=== PATIENT | male | born 1965 | race Caucasian/White ===

== ENCOUNTER 2022-12-26 08:23 | Outpatient (OUT) | payer OTHER, SELFPAY ==
--- NOTE | 2022-12-26 08:26 | VEIN_ITS ---
The [address] [address] Patient Name: AXEL THOMPSON MRN: [id number] date: 1965 Sex: M Assigned Patient Location: Current Patient Location: Accession/Order Number: [id number] Exam Date: 12/26/2022 08:40 Report Date: 12/26/2022 12:23 At the request of: ADALID ORLANDO Procedure: VC INJ Foam Sclerosant [employer] PROCEDURE: VC INJ Foam Sclerosant [employer] COMPARISON: None. HISTORY: painful varicose veins I83.813 Pre-operative Diagnosis: CEAP class C4 venous insufficiency with pain, tenderness, edema and incompetent branch saphenous vein(s), chronic venous insufficiency left leg secondary to venous incompetence Post-operative Diagnosis: CEAP class C4 venous insufficiency with pain, tenderness, edema and incompetent branch saphenous vein(s), chronic venous insufficiency left leg secondary to venous incompetence Procedure Performed: 1. Ultrasound-guided microfoam chemical ablation with Varithenaregistered 2. Intraoperative ultrasound guidance Physician: Senthil Lo M.D. Anesthesia: None Indications for Procedure: 57 year old male. Symptoms including lower extremity pain, swelling, throbbing, itching, dilated veins, skin discoloration for many years despite conservative medical therapy including medical compression stockings, exercise and analgesics. Prior procedures include endovenous laser lesion. Multiple incompetent varicosities of the left leg. Duplex scan showed reflux and enlarged diameters up to 5 mm. The patient underwent informed consent including management options where the complications of infection, bleeding, pain, and skin injury were discussed. Particular attention was spent discussing thrombus extension and deep vein thrombosis as well as the possibility of pulmonary embolus and treatment with oral or injectable blood thinners. Procedure: The patient walked to the procedure room. All applicable staff donned appropriate apparel. A procedure timeout was performed to confirm correct patient, correct extremity, correct procedure, and correct room set-up including presence of all applicable supplies, devices, and drugs. A duplex ultrasound, performed by myself confirmed the location and incompetence of branch saphenous varicosities and their course was marked on the skin together with the dilated tributaries. The extent of treatment of the vein and the associated varicosities was determined through ultrasound mapping. The skin was prepped and then punctured with a butterfly needle and advanced under ultrasound guidance. The Varithenaregistered canister was activated and the canister was primed and purged as required in the instructions for use. Varithenaregistered was drawn into a sterile syringe. Varithenaregistered was slowly administered at 0.5-1.0 cc/second with close observation by ultrasound of its course in the vessels. Total volume utilized was: 13 mL (5 mL within the 4 mm incompetent varicosity of the anterior distal lower leg; 5 mL within incompetent 4 mm varicosity lateral to the knee; 3 mL within incompetent 5 mm varicosity of the mid medial upper left leg). Following administration of Varithenaregistered the leg was elevated and the patient was asked to repeatedly dorsiflex the ankle to limit flow of Varithenaregistered into perforating veins. Once appropriate spasm had been confirmed in the treated veins, the vascular catheter was removed from the leg and light pressure was applied over the puncture site for hemostasis. The common femoral and deep superficial veins were then evaluated for flow and compressibility prior to dressing placement. The lower extremity was kept elevated at 45 degrees above the horizontal and cording material was applied over the saphenous segments and tributaries to allow for eccentric compression over the target vessels including the targeted saphenous vein(s). A multilayer dressing was applied consisting of foam pads, coban and thigh-high 20-30 mm Hg compression elastic support hose were placed on the patient. The leg was lowered only after compression had been applied and the patient was immediately ambulatory. The patient ambulated 10 minutes under supervision and was without apparent concerns at time of release. Post-care instructions include advising patient to keep post-treatment bandages in place and dry for 48 hours, avoid extended periods of inactivity, avoid heavy exercise for one week, wear compression stockings on the treated leg continuously for two weeks, to walk daily for 10 minutes over the next month. The patient was instructed to take an anti-inflammatory medicine as needed and to follow up for color duplex scan of the Saphenous veins, the treated branch saphenous varicosities, the adjacent deep veins, and additional treatment within 7 days. PERSONNEL: INA Anguiano RN Electronically authenticated by: SENTHIL LO Date: 12/26/2022 12:23
== END 2022-12-26 08:24 ==
LOC: VC 08:24
PROVIDERS: PCP Radiology Diagnostic Radiology; Visit Provider Radiology Diagnostic Radiology
DX: I83.813 Varicose veins of bilateral lower extremities with pain (principal); I80.02 Phlebitis and thrombophlebitis of superficial vessels of left lower extremity
CPT/HCPCS: 36466

== ENCOUNTER 2022-12-30 08:29 | Outpatient (OUT) | payer OTHER, SELFPAY ==
--- NOTE | 2022-12-30 08:32 | VEIN_ITS ---
Patient: AXEL THOMPSON Exam Date: 12/30/2022 : 1965 Gender:M Ordering : DR ADALID ORLANDO M.D. Admission #: [id number] Family : Order #: [id number] CLICK HERE TO VIEW EXAM RADIOLOGY REPORT PROCEDURE: [facility] - OFFICE VISIT FOLLOW UP COMPARISON: None. PROGRESS NOTES: The patient reports that improvement in leg symptoms. There has been interval reduction in varicosities. The patient has followed our recommendations to walk 20-30 minutes once or twice per day since the procedure. Physical exam demonstrates decrease in varicosities of the left leg. Persistent spider veins and reticular veins are identified along the legs bilaterally. Review of the ultrasound performed the same day demonstrates occlusive thrombus extending throughout the treated vein, see separate report, consistent with a successful ablation. No thrombus extending into or beyond the saphenofemoral junction. The patient expressed a desire to proceed with treatment of prominent reticular veins and spider veins. The patient was informed that treatment was a process and would require approximately 2 procedures/sessions. IMPRESSION: 1. Successful ablation of the treated incompetent branch saphenous varicosities. 2. Persistent reticular veins and spider veins bilaterally. PLAN: Bilateral lower extremity sclerotherapy for prominent reticular veins and spider veins. Nurse notes, history and physical were reviewed and confirmed, see attached forms. The nurse was present throughout the physical exam and consultation Dictated by: Senthil Lo M.D. on 12/30/2022 at 12:56 Approved by: Senthil Lo M.D. on 12/30/2022 at 13:08
--- NOTE | 2022-12-30 08:32 | VEIN_ITS ---
Patient: AXEL THOMPSON Exam Date: 12/30/2022 : 1965 Gender:M Ordering : DR ADALID ORLANDO M.D. Admission #: [id number] Family : Order #: [id number] CLICK HERE TO VIEW EXAM RADIOLOGY REPORT PROCEDURE: VC EXT VENOUS LT LIMITED COMPARISON: None. INDICATIONS: Phlebitis of superficial veins left lower extremity I80.02 TECHNIQUE: Lower extremity chavez scale and Duplex Doppler evaluation of the deep venous system from the inguinal ligament through the calf veins. FINDINGS: REGION: Left lower extremity. THROMBI: Negative for DVT. Chemically induced thrombus in multiple varicose veins in left leg. COMPRESSIBILITY: Non-compressible segments. FLOW: Areas of no flow. OTHER: Patent head trimmer prox medial calf 6.2 mm with 1.3s of reflux. Varicose vein off of head trimmer prox calf measures 2.7 mm. CONCLUSION: 1. Successful post ablation occlusion of treated branch saphenous varicosities within left leg. Dictated by: Senthil Lo M.D. on 12/30/2022 at 12:55 Approved by: Senthil Lo M.D. on 12/30/2022 at 12:56
== END 2022-12-30 08:30 ==
LOC: VC 08:30
PROVIDERS: PCP Radiology Diagnostic Radiology; Visit Provider Radiology Diagnostic Radiology
DX: I80.02 Phlebitis and thrombophlebitis of superficial vessels of left lower extremity (principal)
CPT/HCPCS: 93971; G0463

== ENCOUNTER 2023-01-09 08:20 | Outpatient (OUT) | payer OTHER, SELFPAY ==
--- NOTE | 2023-01-09 | VEIN_ITS ---
[address] [address] Patient Name: AXEL THOMPSON MRN: [id number] date: 1965 Sex: M Assigned Patient Location: Current Patient Location: Accession/Order Number: [id number] Exam Date: 01/09/2023 08:25 Report Date: 01/09/2023 09:16 At the request of: ADALID ORLANDO Procedure: VC INJ Sclerosing SOLMULT Vein EXAMINATION: VC INJ Sclerosing SOLMULT Vein HISTORY: Pain due to varicose veins of bilateral legs I83.813 The risks and benefits of the procedure were explained at length to the patient and informed written consent was obtained. José Luis Damian RN was present and assisted. The procedure was performed under sterile technique. The patient's leg was wrapped with Coban and postprocedural verbal and written instructions provided. SCLEROSANT: 2 cc, 0.5% polidocanol VEIN(S) INJECTED: 18 veins in the right leg VISUALIZATION: Ultrasound was not used to visualize the sclerosant ANESTHESIA: Supercooled air COMPLICATIONS: None Electronically authenticated by: IVY CLARKE Date: 01/09/2023 09:16
== END 2023-01-09 08:21 | disposition home or self-care (01) ==
LOC: VC 08:20
PROVIDERS: PCP Radiology Diagnostic Radiology; Visit Provider Radiology Diagnostic Radiology
DX: I83.813 Varicose veins of bilateral lower extremities with pain (principal)
CPT/HCPCS: 36471

== ENCOUNTER 2023-02-06 07:55 | Outpatient (OUT) | payer OTHER, SELFPAY ==
--- NOTE | 2023-02-06 07:57 | VEIN_ITS ---
[address] [address] Patient Name: AXEL THOMPSON MRN: [id number] date: 1965 Sex: M Assigned Patient Location: VC Current Patient Location: Accession/Order Number: [id number] Exam Date: 02/06/2023 08:00 Report Date: 02/06/2023 10:41 At the request of: ADALID ORLANDO Procedure: VC INJ Sclerosing SOLMULT Vein EXAMINATION: VC INJ Sclerosing SOLMULT Vein HISTORY: I83.813 Pain due to varicose veins of bilateral leg veins COMPARISON: No relevant comparison available. TECHNIQUE: The risks and benefits of the procedure were explained at length to the patient and informed written consent was obtained. José Luis Damian was present and assisted. The procedure was performed under sterile technique. The patient's leg was wrapped with Coban and postprocedural verbal and written instructions provided. SCLEROSANT: 4 cc, 0.5% polidocanol VEIN(S) INJECTED: 16 veins in the left leg VISUALIZATION: Ultrasound was not used to visualize the sclerosant ANESTHESIA: Supercooled air COMPLICATIONS: None VEIN/VC INJ Sclerosing SOLMULT Vein IMPRESSION: Technically successful sclerotherapy as described Electronically authenticated by: ADALID ORLANDO Date: 02/06/2023 10:41
== END 2023-02-06 07:56 | disposition home or self-care (01) ==
LOC: VC 07:56
PROVIDERS: PCP Radiology Diagnostic Radiology; Visit Provider Radiology Diagnostic Radiology
DX: I83.813 Varicose veins of bilateral lower extremities with pain (principal)
CPT/HCPCS: 36471

== ENCOUNTER 2023-02-21 07:52 | Outpatient (OUT) | payer OTHER, SELFPAY ==
--- NOTE | 2023-02-21 | VEIN_ITS ---
[address] [address] Patient Name: AXEL THOMPSON MRN: [id number] date: 1965 Sex: M Assigned Patient Location: VC Current Patient Location: Accession/Order Number: [id number] Exam Date: 02/21/2023 07:55 Report Date: 02/21/2023 09:04 At the request of: ADALID ORLANDO Procedure: VC INJ Sclerosing SOLMULT Vein EXAMINATION: VC INJ Sclerosing SOLMULT Vein HISTORY: Pain due to varicose veins of bilateral legs I83.813 COMPARISON: No relevant comparison available. TECHNIQUE: The risks and benefits of the procedure were explained at length to the patient and informed written consent was obtained. José Luis Damian was present and assisted. The procedure was performed under sterile technique. The patient's leg was wrapped with Coban and postprocedural verbal and written instructions provided. SCLEROSANT: 4 cc, 0.5% polidocanol VEIN(S) INJECTED: 16 veins in the left leg VISUALIZATION: Ultrasound was not used to visualize the sclerosant ANESTHESIA: Supercooled air COMPLICATIONS: None VEIN/VC INJ Sclerosing SOLMULT Vein IMPRESSION: Technically successful sclerotherapy as described Electronically authenticated by: ADALID ORLANDO Date: 02/21/2023 09:04
== END 2023-02-21 07:53 | disposition home or self-care (01) ==
LOC: VC 07:52
PROVIDERS: PCP Radiology Diagnostic Radiology; Visit Provider Radiology Diagnostic Radiology
DX: I83.813 Varicose veins of bilateral lower extremities with pain (principal)
CPT/HCPCS: 36471

== ENCOUNTER 2024-02-20 11:41 | Outpatient (OUT) | payer OTHER, SELFPAY | END 2024-02-20 11:42 | disposition home or self-care (01) | LOC: WC 11:41 | PROVIDERS: PCP Radiology Diagnostic Radiology; Visit Provider Podiatrist Foot & Ankle Surgery | DX: L97.422 Non-pressure chronic ulcer of left heel and midfoot with fat layer exposed (principal); L97.312 Non-pressure chronic ulcer of right ankle with fat layer exposed; L97.912 Non-pressure chronic ulcer of unspecified part of right lower leg with fat layer exposed | CPT/HCPCS: G0463 ==

== ENCOUNTER 2024-03-04 10:52 | Outpatient (OUT) | payer OTHER, SELFPAY ==
--- NOTE | 2024-03-04 10:55 | VEIN_ITS ---
The [address] [address] Patient Name: AXEL THOMPSON MRN: [id number] date: 1965 Sex: M Assigned Patient Location: Current Patient Location: Accession/Order Number: [id number] Exam Date: 03/04/2024 10:55 Report Date: 03/04/2024 13:54 At the request of: VINCE KERNS Procedure: VC SEGMENTAL PRESSURES EXAM: VC SEGMENTAL PRESSURES. HISTORY: R09.89, lower leg ulceration. COMPARISON: None. TECHNIQUE: Resting ABIs and segmental pressures. FINDINGS: Waveforms are multiphasic. Right resting VINICIO 1.27. Left resting VINICIO 1.14. Toe brachial indices are normal. No gradients were noted. VEIN/VC SEGMENTAL PRESSURES IMPRESSION: Normal resting ABIs bilaterally. Normal toe brachial indices. Electronically authenticated by: Beata JACKSON Date: 03/04/2024 13:54
== END 2024-03-04 10:53 | disposition home or self-care (01) ==
LOC: VC 10:52
PROVIDERS: PCP Podiatrist Foot & Ankle Surgery; Visit Provider Podiatrist Foot & Ankle Surgery
DX: R09.89 Other specified symptoms and signs involving the circulatory and respiratory systems (principal)
CPT/HCPCS: 93923

== ENCOUNTER 2024-03-08 15:45 | Outpatient (OUT) | payer OTHER, SELFPAY ==
--- OUTSIDE RECORDS SUMMARY | 2024-03-08 16:06 | XMS_ITS | CCD ---
Author Organization [facility] Care Team Providers Care Midwife Name Role Phone Unavailable Primary Care Provider UnavailDEBRA Rincon Referring UnavailSHEREE Parham Attending Unavailable Unavailable Primary Care Provider Unavailsaul ORLANDO, DR ADALID Jean Consulting Unavailable WEST, DR ADALID Jean Attending Unavailable WEST, DR ADALID Jean Admitting Unavailable ZIEBER, DR IVY Waddell Consulting Unavailable WEST, DR ADALID Jean Consulting Unavailable RENA ., FRANKLIN FRANKS Admitting Unavailable RENA ., FRANKLIN FRANKS Attending Unavailable ZIEBER, DR IVY Waddell Consulting Unavailable RENA ., FRANKLIN FRANKS Consulting Unavailable WEST, DR ADALID Jean Consulting Unavailable WEST, DR ADALID Jean Attending Unavailable WEST, DR ADALID Jean Admitting Unavailable WEST, DR ADALID Jean Attending Unavailable WEST, DR ADALID Jean Admitting Unavailable WEST, DR ADALID Jean Admitting Unavailable WEST, DR ADALID Jean Attending Unavailable WEST, DR ADALID Jean Consulting Unavailable WEST, DR ADALID Jean Attending Unavailable WEST, DR ADALID Jean Admitting Unavailable ZIEBER, DR IVY Waddell Consulting Unavailable WEST, DR ADALID Jean Admitting Unavailable WEST, DR ADALID Jean Attending Unavailable WEST, DR ADALID Jean Consulting Unavailable ZIEBER, DR IVY Waddell Consulting Unavailable HIGHLANDERVINCE Consulting Unavailable HIGHLANDERVINCE Attending Unavailable HIGHLANDER, VINCE Vargas Admitting Unavailable HIGHLANDER, VINCE Vargas Attending Unavailable HIGHLANDER, VINCE Vargas Admitting Unavailable RENA ., FRANKLIN FRANKS Attending Unavailable RENA ., FRANKLIN FRANKS Admitting Unavailable HIGHLANDER, VINCE Vargas Attending Unavailable HIGHLANDER, VINCE Vargas Admitting Unavailable WEST, DR ADALID Jean Attending Unavailable WEST, DR ADALID Jean Admitting Unavailable WEST, DR ADALID Jean Consulting Unavailable WEST, DR ADALID Jean Consulting Unavailable WEST, DR ADALID Jean Attending Unavailable WEST, DR ADALID Jean Admitting Unavailable ZIEBER, DR IVY Waddell Consulting Unavailable WEST, DR ADALID Jean Consulting Unavailable WEST, DR ADALID Jean Attending Unavailable WEST, DR ADALID Jean Admitting Unavailable ZIEBER, DR IVY Waddell Consulting Unavailable [place], DR ADALID Jean Consulting Unavailable WEST, DR ADALID Jean Attending Unavailable WEST, DR ADALID Jean Admitting Unavailable VINCE, DR IVY Waddell Consulting Unavailable Crow Rogers Primary Care Provider [phone] NO FAMILY, PHYSICIAN Primary Care Provider MD Ana Ozuna Attending Provider Unavailable Primary Care Provider Unavailabl e Asaad, Imad Attending Unavailable Asaad, Imad Admitting Unavailable NO FAMILY, PHYSICIAN Primary Care Unavailable Asaad, Imsupryia Attending Unavailable Asaad, Imad Admitting Unavailable NIRAJ OLIVO Attending Unavailable NIRAJ OLIVO Referring Unavailable GEOVANI, NIRAJ Referring Unavailable NIRAJ OLIVO Attending Unavailable DEBRA HOPKINS Referring Unavailabl e SYLWIA MCBRIDE, DEBRA Referring Unavailabl e DEBRA HOPKINS Referring Unavailabl NIRAJ Pabon Referring Unavailable NIRAJ OLIVO Attending Unavailable SELF Referring Unavailable Medications Current Medications Medication Drug Class(es) Dates Sig (Normalized) Sig (Original) [id number] 200 actuat albuterol 0.09 mg/actuat metered dose inhaler (1 source) beta2-Adrenergic Agonist Start: 11-12-2023 take 1 puff(s) by inhalation four times daily Albuterol Sulfate Active 2 PUFF INHALATION Four times daily 8.5 November 12, 2023 12:00am Blood Pressure Monitor (4 sources) Start: 09-18-2023 Blood Pressure Monitor 1 Each once daily. 1 Each 0 09/18/2023 Active Comment on above: 1 Each once daily. 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 60 tablet 11 09/18/2023 Active Start: 10-01-2022 End: 09-04-2023 take 1 tablet by mouth twice daily carvedilol (COREG) 3.125 mg tablet Take 1 tablet by mouth twice daily. 60 tablet 11 10/01/2022 09/04/2023 Discontinued Comment on above: Take 1 tablet by lula th twice daily. Take 1 tablet by lula th two times a day. doxycycline hyclate 100 mg oral capsule (1 source) Tetracycline-cl ass Drug Start: 11-01-19 take 100 mg by mouth twice daily Doxycycline Hyclate Active 100 MG PO Twice daily 09 05November 01, 2023 12:00am 3 ml insulin degludec 100 unt/ml pen injector (20 sources) Insulin Analog Start: 09-05-19 inject 100 [IU] by subcutaneous injection every twenty-four hours insulin degludec (TRESIBA FLEXTOUCH U-100) 100 unit/mL (3 mL) injection pen Indications: Steroid-induced diabetes mellitus, subsequent encounter (HCC) Inject 10-13 Units subcutaneously every 24 hours. 5 Each 3 09/05/2023 Active Start: 01-02-2023 End: 09-05-2023 inject 10 [IU] by subcutaneous injection every twenty-four hours insulin degludec (TRESIBA FLEXTOUCH U-100) 100 unit/mL (3 mL) injection pen Indications: Steroid-induced diabetes mellitus, subsequent encounter (HCC) Inject 10 Units subcutaneously every 24 hours. 5 Each 3 04/18/2023 09/05/2023 Discontinued Start: 04-26-2021 End: 12-31-2022 inject 10 [IU] by subcutaneous injection every twenty-four hours insulin degludec (TRESIBA FLEXTOUCH U-100) 100 unit/mL (3 mL) injection pen Inject 10 Units subcutaneously every 24 hours. 5 Pen 3 11/12/2021 12/31/2022 Discontinued Start: 01-10-2020 End: 08-14-2020 inject 9 [IU] by subcutaneous injection every twenty-four hours insulin degludec (TRESIBA FLEXTOUCH U-100) 100 unit/mL (3 mL) injection Inject 9 Units subcutaneously every 24 hours. 5 Pen 3 01/10/2020 08/14/2020 Discontinued Comment on above: Inject 10 Units subc utaneously every 24 hours. Inject 9 Units subcu taneously every 24 hours. Inject 10-13 Units s ubcutaneously every 24 hours. 3 ml insulin lispro 200 unt/ml pen injector (20 sources) Insulin Analog Start: 07-10-20 End: 09-05-19 inject 7 [IU] by subcutaneous injection once daily at dinner insulin lispro (HUMALOG KWIKPEN INSULIN) 200 unit/mL (3 mL) injection Indications: Steroid-induced diabetes mellitus, subsequent encounter (HCC) Inject sq 6 unit(s) with breakfast and dinner on non workdays; inject sq 7 unit(s) with breakfast and dinner on work days 5 Each 3 09/05/2023 Active Start: 04-26-2021 End: 07-07-2022 inject 7 [IU] by subcutaneous injection once daily at dinner insulin lispro (HUMALOG KWIKPEN INSULIN) 200 unit/mL (3 mL) injection Inject sq 6 unit(s) with breakfast and dinner on non workdays; inject sq 7 unit(s) with breakfast and dinner on work days 5 Pen 3 04/26/2021 07/07/2022 Discontinued Start: 10-26-2019 End: 11-02-2020 inject 6 [IU] by subcutaneous injection twice daily before mealtime insulin lispro (HUMALOG KWIKPEN INSULIN) 100 unit/mL Inject 6 Units subcutaneously twice daily before meals. 5 Pen 3 10/26/2019 11/02/2020 Discontinued Comment on above: Inject sq 6 unit(s) with breakfast and dinner on non workdays; inject sq 7 unit(s) with breakfast and dinner on work days Inject 6 Units subcu taneously twice daily before meals. lansoprazole 30 mg delayed release oral capsule (15 sources) Proton Pump Inhibitor Start: 10-02-19 23 take 1 capsule by mouth once daily lansoprazole (PREVACID) 30 mg capsule Take 1 capsule by mouth once daily. 30 capsule 5 10/01/2022 Active Comment on above: Take 1 capsule by [facility] once daily. mycophenolate mofetil 500 mg oral tablet (20 sources) Start: 11-20-19 24 take 1 tablet by mouth four times daily mycophenolate Mofetil (CELLCEPT) 500 mg tablet take 1 tablet by mouth four times a day 360 tablet 9 11/20/2023 Active Start: 10-02-2023 End: 10-02-2023 Mycophenolate Mofetil Discon tinued PO October 02, 2023 12:00am October 02, 2023 10:18am Start: 10-02-2023 End: 10-02-2023 take 1500 mg by mouth twice daily Mycophenolate Mofetil Active 1500 MG PO Twice daily October 02, 2023 10:18am Start: 02-20-2023 End: 11-20-2023 take 3 tablets by mouth twice daily mycophenolate Mofetil (CELLCEPT) 500 mg tablet Take 3 tablets by mouth twice a day 540 tablet 3 02/20/2023 11/20/2023 Discontinued Start: 02-17-2023 End: 02-19-2023 take 1 tablet by mouth twice daily, then take 3 tablets by mouth twice daily mycophenolate Mofetil (CELLCEPT) 500 mg tablet Take 1 tablet by mouth twice daily. take 3 tablets twice a day 180 tablet 11 02/17/2023 02/19/2023 Discontinued Start: 09-16-2022 End: 02-17-2023 take 2 tablets by mouth twice daily mycophenolate Mofetil (CELLCEPT) 500 mg tablet Take 2 tablets by mouth twice daily. 120 tablet 11 09/17/2022 02/17/2023 Discontinued (Course of therapy completed) Start: 04-11-2021 End: 09-16-2022 take 1 tablet by mouth four times daily mycophenolate Mofetil (CELLCEPT) 500 mg tablet Take 1 tablet by mouth four times daily. 120 Each 11/28/2021 09/16/2022 Discontinued Start: 06-04-2019 End: 05-03-2020 take 1 tablet by mouth four times daily mycophenolate Mofetil (CELLCEPT) 500 mg tablet Take 1 tablet by mouth four times daily. 120 tablet 06/04/2019 05/03/2020 Discontinued Start: 06-03-2019 End: 05-03-2020 take 2 tablets by mouth twice daily mycophenolate Mofetil (CELLCEPT) 500 mg tablet Take 2 tablets by mouth twice per day 120 tablet 06/03/2019 05/03/2020 Discontinued Comment on above: Take 1 tablet by lula th four times daily. Take 2 tablets by mo uth twice daily. Take 1 tablet by lula th twice daily. take 3 tablets twice a day Take 3 tablets by mo uth twice a day Take 2 tablets by mo uth twice per day predniSONE 20 mg oral tablet (20 sources) Start: 11-01-2023 take 20 mg by mouth twice daily Prednisone Active 20 MG PO Twice daily 10 November 01, 2023 12:00am Start: 10-02-2023 End: 10-03-2023 take 1 tablet by mouth twice daily Prednisone Discontinued 1 TAB PO Twice daily October 02, 2023 12:00am October 03, 2023 8:04am FreeTextSi tablet Orally bid; Note: Source Status: Start; Refills: 0; Qty: 10 Tablet; Provider: Tonia Camacho Start: 10-02-2023 End: 10-03-2023 take 1 tablet by mouth twice daily Prednisone Active 10 MG PO Twice daily October 03, 2023 8:03am FreeTextSi tablet Orally bid; Note: Source Status: Start; Refills: 0; Qty: 10 Tablet; Provider: Tonia Camacho Start: 09-16-2022 End: 09-17-2022 take 5 tablets by mouth once daily predniSONE (DELTASONE) 1 mg tablet Take 5 tablets by mouth once daily. 150 tablet 11 09/17/2022 Active Start: 11-28-2021 End: 02-26-2022 take 1 tablet by mouth once daily predniSONE (DELTASONE) 5 mg tablet Indications: Autoimmune hepatitis treated with steroids (HCC) , Other cirrhosis of liver (HCC) Take 1 tablet by mouth once daily. 30 tablet 11/28/2021 02/26/2022 Active Start: 01-12-2020 End: 05-04-2020 take 2 tablets by mouth once daily predniSONE (DELTASONE) 1 mg tablet Indications: Autoimmune hepatitis treated with steroids (HCC) , Hepatic cirrhosis, unspecified hepatic cirrhosis type (HCC) Take 2 tablets by mouth once daily. 60 tablet 5 01/12/2020 05/04/2020 Discontinued Start: 01-12-2020 End: 05-04-2020 take 1 tablet by mouth once daily predniSONE (DELTASONE) 5 mg tablet Indications: Autoimmune hepatitis treated with steroids (HCC) , Other cirrhosis of liver (HCC) Take 1 tablet by mouth once daily. 30 tablet 4 01/12/2020 05/04/2020 Discontinued Comment on above: Take 1 tablet by lula once daily. Take 5 tablets by mo [facility] once daily. Take 2 tablets by mo [facility] once daily. Completed/Discontinued Medications Medication Drug Class(es) Dates Sig (Normalized) Sig (Original) Blood-Glucose Meter (ONETOUCH VERIO IQ METER) monitoring kit (2 sources) Start: 10-07-2016 End: 09-27-2020 Blood-Glucose Meter (ONETOUCH VERIO IQ METER) monitoring kit Indications: Uncontrolled type 2 diabetes mellitus without complication, with long-term current use of insulin 1 Each as needed. 1 Each 0 10/07/2016 09/27/2020 Discontinued Comment on above: 1 Each as needed. Problems Active Problems Problem Classification Problem Date Documented Da te Episodic/Chronic Abdominal pain (4 sources) Abdominal pain; Translations: [Unspecified abdominal pain] 10-02-2023 Episodic Alcohol-related disorders (6 sources) Alcoholic cirrhosis; Translations: [Alcoholic cirrhosis of liver without ascites] Onset: 4 10-02-2023 Chronic Chronic obstructive pulmonary disease and bronchiectasis (1 source) Bronchitis, not specified as acute or chronic; Translations: [Bronchitis, not specified as acute or chronic] 11-01-2023 Episodic Chronic ulcer of skin (1 source) Non-pressure chronic ulcer of left heel and midfoot limited to breakdown of skin; Translations: [N-PRSS CHR ULCR LT HEEL BRKDWN SKN] Onset: 3 Chronic Diabetes mellitus with complications (20 sources) Type 2 diabetes mellitus; Translations: [Type II or unspecified type diabetes mellitus without mention of complication, uncontrolled] Onset: 5 02-21-2015 Chronic Diabetes mellitus without complication (20 sources) Steroid-induced diabetes; 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] Onset: 8 Chronic Esophageal disorders (6 sources) Esophageal varices; Translations: [Esophageal varices without bleeding] 10-02-2023 Chronic Hepatitis (20 sources) Autoimmune hepatitis; Translations: [Autoimmune hepatitis] Onset: 5 02-21-2015 Chronic Immunizations and screening for infectious disease (2 sources) Contact with or exposure to other viral diseases; Translations: [Exposure to 2019 novel coronavirus] 11-01-2023 Episodic Other aftercare (4 sources) Long-term current use of insulin; Translations: [intermodal customer service (current) use of insulin] Episodic Other aftercare (1 source) Long-term current use of systemic steroid; Translations: [halfway (current) use of systemic steroids] 02-29-2020 Episodic Other gastrointestinal disorders (4 sources) Diarrhea; Translations: [Diarrhea, unspecified] 10-02-2023 Episodic Other gastrointestinal disorders (4 sources) Abdominal bloating; Translations: [Abdominal distension (gaseous)] 10-02-2023 Episodic Other liver diseases (3 sources) Biliary cirrhosis; Translations: [Biliary cirrhosis, unspecified] Chronic Other liver diseases (7 sources) Cirrhosis of liver; Translations: [Other cirrhosis of liver] Chronic Other liver diseases (1 source) Biliary cirrhosis, unspecified; Translations: [Biliary cirrhosis (HCC)] Onset: 3 Chronic Other liver diseases (3 sources) Other cirrhosis of liver; Translations: [Other cirrhosis of liver (HCC)] Onset: 3 Chronic Other liver diseases (3 sources) Portal hypertension; Translations: [Portal hypertension] 10-02-2023 Chronic Other liver diseases (4 sources) Unspecified cirrhosis of liver; Translations: [Cirrhosis of liver without mention of alcohol] Onset: 4 10-02-2023 Chronic Other liver diseases (3 sources) Portal hypertension; Translations: [Portal hypertension] 10-02-2023 Chronic Other liver diseases (1 source) Liver enzymes abnormal; Translations: [Abnormal levels of other serum enzymes] 07-05-2021 Episodic Other liver diseases (4 sources) Elevated liver enzymes level; Translations: [Abnormal levels of other serum enzymes] 10-02-2023 Episodic Other liver diseases (3 sources) Abnormal levels of other serum enzymes; Translations: [Other nonspecific abnormal serum enzyme levels] 10-02-2023 Episodic Phlebitis; thrombophlebitis and thromboembolism (8 sources) Phlebitis and thrombophlebitis of superficial vessels of left lower extremity; Translations: [Phlebitis and thrombophlebitis of superficial vessels of right lower extremity] Onset: 3 Episodic Unclassified (20 sources) Type 2 diabetes mellitus without complication; Translations: [Uncontrolled type 2 diabetes mellitus without complication, with long-term current use of insulin] Onset: 6 04-16-2016 Varicose veins of lower extremity (4 sources) Varicose veins of bilateral lower extremities with pain; Translations: [VARICOSE VNS PHILIP LOW EXTREM W/PAIN] Onset: 3 Episodic Past or Other Problems Problem Classification Problem Date Documented Date Episodic/Chronic E Codes: Adverse effects of medical drugs (1 source) Adverse effect of glucocorticoids and synthetic analogues, subsequent encounter; Translations: [Steroid-induced diabetes mellitus, subsequent encounter ([facility])] Onset: 11-09-2021 Episodic Other aftercare (1 source) intermodal customer service (current) use of insulin; Translations: [Current use of insulin ([facility])] Onset: 09-05-2023 Episodic Other circulatory disease (4 sources) Other specified symptoms and signs involving the circulatory and respiratory systems; Translations: [OTH SPEC SX SIGNS INVLV CIRC RS] Onset: 08-09-2022 Episodic Results Test Name Value Interpretation Reference Range Facility ALBUMIN/CREATININE RATIO, UR INEon 02-06-2024 Albumin DL <= 20 mg/L (U) [Mass/Vol] mg/dL Normal [facility] Comment on above: Order Comment: Farnaz rodgers Type: URINE SPECIMEN Ordering Facility: [facility] Address: [address] [place] [address] Performed By: #### U ACR #### [facility] CLIA [id number] [address] [place], [place] [address] [place] [address] [place] Albumin/Creatinine (U) [Mass ratio] <13 Normal <30 [facility] Comment on above: Order Comment: Farnaz rodgers Type: URINE SPECIMEN Ordering Facility: [facility] Address: [address] [place] [address] Result Comment: Adul t Male and Female Nephrotic Criteria: <30 mg/g is considered normal to mildly increased 30-300 mg/g is considered moderately increased >300 mg/g is considered severely increased KDIGO. (2013). KDIGO 2012 Clinical Practice Guideline for the Evaluation and Management of Chronic Kidney Disease. Official Journal of the International Society of Nephrology, 3(1), 1-150. Performed By: #### U ACR #### [facility] CLIA [id number] [address] [place] [address] [place] Creatinine (U) [Mass/Vol] 91.1 mg/dL Normal 20.0-300.0 [facility] Comment on above: Order Comment: Speci men Type: URINE SPECIMEN Ordering Facility: [facility] Address: [address] [place] [address] Performed By: #### U ACR #### [facility] CLIA [id number] [address] [place] [address] [place] Bilirub Conj SerPl-mCncon Bilirubin.conjugated [Mass/Vol] 0.8 mg/dL High <0.2 [facility] Comment on above: Order Comment: Speci men Type: BLOOD SPECIMEN Ordering Facility: [facility] Address: [address] [place] [address] Performed By: #### 2 4323-8, 81720-7 #### [facility] CLIA [id number] [address] [place] [address] Comprehensive metabolic 2000 panelon 02-06-2024 Albumin [Mass/Vol] 4.1 g/dL Normal 3.9-4.9 [facility] Comment on above: Order Comment: Speci men Type: BLOOD SPECIMEN Ordering Facility: [facility] Address: [address] [place] [address] Performed By: #### 2 4323-8, 53874-9 #### [facility] CLIA [id number] [address] [place] [address] ALP [Catalytic activity/Vol] 126 U/L High 38-113 [facility] Comment on above: Order Comment: Speci men Type: BLOOD SPECIMEN Ordering Facility: [facility] Address: [address] [place] [address] Performed By: #### 2 4323-8, 69518-4 #### [facility] CLIA [id number] [address] [place] [address] ALT [Catalytic activity/Vol] 112 U/L High 10-54 [facility] Comment on above: Order Comment: Speci men Type: BLOOD SPECIMEN Ordering Facility: [facility] Address: [address] [place] [address] Performed By: #### 2 4323-8, 07071-8 #### [facility] CLIA [id number] [address] [place] [address] Anion gap [Moles/Vol] 7 mmol/L Low 8-15 [facility] Comment on above: Order Comment: Speci men Type: BLOOD SPECIMEN Ordering Facility: [facility] Address: [address] [place] [id number] Performed By: #### 2 4323-8, 72889-0 #### [facility] CLIA [id number] [address] [place] [address]951 AST [Catalytic activity/Vol] 135 U/L High 14-40 [facility] Comment on above: Order Comment: Speci men Type: BLOOD SPECIMEN Ordering Facility: [facility] Address: [address] [place] [address] Performed By: #### 2 4323-8, 87675-3 #### [facility] CLIA [id number] [address] [place] [address] Bilirubin [Mass/Vol] 1.9 mg/dL High 0.2-1.3 [facility] Comment on above: Order Comment: Speci men Type: BLOOD SPECIMEN Ordering Facility: [facility] Address: [address] [place] [address] Performed By: #### 2 4323-8, 11522-0 #### [facility] CLIA [id number] [address] [place] [address]645 Calcium [Mass/Vol] 9.2 mg/dL Normal 8.5-10.2 [facility] Comment on above: Order Comment: Speci men Type: BLOOD SPECIMEN Ordering Facility: [facility] Address: [address] [place], [place] [address] Performed By: #### 2 4323-8, 63003-2 #### [facility] CLIA [id number] [address] [place] [address] Chloride [Moles/Vol] 113 mmol/L High 98-107 [facility] Comment on above: Order Comment: Speci men Type: BLOOD SPECIMEN Ordering Facility: [facility] Address: [address] [place] [address] Performed By: #### 2 4323-8, 26810-2 #### [facility] CLIA [id number] [address] [place] [address] 90772 CO2 [Moles/Vol] 23 mmol/L Normal 22-30 [facility] Comment on above: Order Comment: Speci men Type: BLOOD SPECIMEN Ordering Facility: [facility] Address: [address] [place] [address] Performed By: #### 2 4323-8, 11126-0 #### [facility] CLIA [id number] [address] [place] [address]63 Creatinine [Mass/Vol] 0.89 mg/dL Normal 0.73-1.22 [facility] Comment on above: Order Comment: Speci men Type: BLOOD SPECIMEN Ordering Facility: [facility] Address: [address] [place] [address] Performed By: #### 2 4323-8, 60739-0 #### [facility] CLIA [id number] [address] [place] [address] Creatinine and Glomerular filtration rate.predicted panel (S/P/Bld) 99 mL/min/1.73m??? Normal >=60 [facility] Comment on above: Order Comment: Speci men Type: BLOOD SPECIMEN Ordering Facility: [facility] Address: [address] [place] [address] Result Comment: Goldie mated Glomerular Filtration Rate (eGFR) is calculated using the 2020 CKD-EPI creatinine equation. This equation utilizes serum creatinine, sex, and age as parameters. The creatinine assay has traceable calibration to isotope dilution-mass spectrometry. Refer to KDIGO guidelines for clinical interpretation. In patients with unstable renal function, e.g. those with acute kidney injury, the eGFR may not accurately reflect actual GFR. Performed By: #### 2 4323-8, 76027-3 #### [facility] CLIA [id number] [address] [place] [address] Glucose [Mass/Vol] 121 mg/dL High 74-99 [facility] Comment on above: Order Comment: Speci men Type: BLOOD SPECIMEN Ordering Facility: [facility] Address: [address] [place] [address] Result Comment: The [place] Diabetes Association (ADA) provides guidance for cutoff values for fasting glucose and random glucose. The ADA defines fasting as no caloric intake for at least 8 hours. Fasting plasma glucose results between 100 to 125 mg/dL indicate increased risk for diabetes (prediabetes). Fasting plasma glucose results greater than or equal to 126 mg/dL meet the criteria for diagnosis of diabetes. In the absence of unequivocal hyperglycemia, results should be confirmed by repeat testing. In a patient with classic symptoms of hyperglycemia or hyperglycemic crisis, random plasma glucose results greater than or equal to 200 mg/dL meet the criteria for diagnosis of diabetes. Reference: Standards of Medical Care in Diabetes 2016, [place] Diabetes Association. Diabetes Care. 2016.39(Suppl 1). Performed By: #### 2 4323-8, 39324-7 #### [facility] CLIA [id number] [address] [place] [address]130 Potassium [Moles/Vol] 4.1 mmol/L Normal 3.7-5.1 [facility] Comment on above: Order Comment: Farnaz rodgers Type: BLOOD SPECIMEN Ordering Facility: [facility] Address: [address] [place] [address] Performed By: #### 2 4323-8, 64603-1 #### [facility] CLIA [id number] [address] [place] [address] Protein [Mass/Vol] 6.7 g/dL Normal 6.3-8.0 [facility] Comment on above: Order Comment: Speci men Type: BLOOD SPECIMEN Ordering Facility: [facility] Address: [address] [place] [address] Performed By: #### 2 4323-8, 61885-7 #### [facility] CLIA [id number] [address] [place] [address] 76022 Sodium [Moles/Vol] 143 mmol/L Normal 136-144 [facility] Comment on above: Order Comment: Speci men Type: BLOOD SPECIMEN Ordering Facility: [facility] Address: [address] [place] [address] Performed By: #### 2 4323-8, 15611-6 #### [facility] CLIA [id number] [address] [place] [address] 91817 Urea nitrogen [Mass/Vol] 11 mg/dL Normal 9-24 [facility] Comment on above: Order Comment: Speci men Type: BLOOD SPECIMEN Ordering Facility: [facility] Address: [address] [place] [address] Performed By: #### 2 4323-8, 83300-3 #### [facility] CLIA [id number] [address] [place] [address] 16957 HbA1c (Bld)on 02-06-2024 Average glucose Estimated from glycated hemoglobin (Bld) [Mass/Vol] 131 mg/dL Normal [facility] Comment on above: Order Comment: Speci men Type: BLOOD SPECIMEN Ordering Facility: [facility] Address: [address] [place] [address] Result Comment: eAG: (Estimated average glucose) is a calculated value from HgbA1c and is senior patient account representative of the average blood glucose level in the last 2-3 month period. Performed By: #### 5 5454-3 #### [facility] CLIA [id number] [address] [place] [address] [place] HbA1c (Bld) [Mass fraction] 6.2 % High 4.3-5.6 [facility] Comment on above: Order Comment: Speci men Type: BLOOD SPECIMEN Ordering Facility: [facility] Address: [address] [place] [address] Result Comment: [place] Diabetes Association guidelines indicate that patients with HgbA1c in the range 5.7-6.4% are at increased risk for development of diabetes, and intervention by lifestyle modification may be beneficial. HgbA1c greater or equal to 6.5% is considered diagnostic of diabetes. Performed By: #### 5 5454-3 #### [facility] CLIA [id number] [address] [place] [address] [facility] Lipid 1996 panelon 4 Cholesterol [Mass/Vol] 129 mg/dL Normal <200 [facility] Comment on above: Order Comment: Speci men Type: BLOOD SPECIMEN Ordering Facility: [facility] Address: [address] [place] [address] Result Comment: <200 mg/dL, Desirable 200-239 mg/dL, Borderline high >239 mg/dL, High Performed By: #### 2 4331-1 #### [facility] CLIA [id number] [address] [place] [address] LAB CLIA [id number] [address] [place] [address] 13014 Cholesterol in HDL [Mass/Vol] 41 mg/dL Normal >39 [facility] Comment on above: Order Comment: Speci men Type: BLOOD SPECIMEN Ordering Facility: [facility] Address: [address] [place] [address] Result Comment: 40-5 9 mg/dL, Acceptable >59 mg/dL, High: Negative risk factor for coronary heart disease <40 mg/dL, Low: Positive risk factor for coronary heart disease Performed By: #### 2 4331-1 #### [facility] CLIA [id number] [address] [place] [address] LAB CLIA [id number] [address] [place] [address] 29898 Cholesterol in LDL [Mass/Vol] 75 mg/dL Normal <100 [facility] Comment on above: Order Comment: Speci men Type: BLOOD SPECIMEN Ordering Facility: [facility] Address: [address] [place] [address] Result Comment: <100 mg/dL, Optimal 100-129 mg/dL, Near optimal/above optimal 130-159 mg/dL, Borderline high 160-189 mg/dL, High >189 mg/dL, Very high Secondary prevention optimal LDL Cholesterol levels are recommended to be < 70 mg/dL Performed By: #### 2 4331-1 #### [facility] CLIA [id number] [address] [place], [place] [address] [address] [facility] CLIA [id number] [address] [place] [address]8935 Cholesterol in LDL/Cholesterol in HDL [Mass ratio] 1.83 {ratio} Normal <2.54 [facility] Comment on above: Order Comment: Farnaz rodgers Type: BLOOD SPECIMEN Ordering Facility: [facility] Address: [address] [place] [address] Result Comment: Refe rence: 1. National Cholesterol Education Program ATP III Guideline At-A-Glance Quick Desk Reference: National Heart, Lung, and Blood [place]. National Institutes of Health. 2001: NIH Publication No. 01-3305. 2. An International Atherosclerosis Society position paper: global recommendations for the management of dyslipidemia: executive summary, Atherosclerosis. 2014: 232(2):410-413. Performed By: #### 2 4331-1 #### [facility] CLIA [id number] [address] [place], [place] [address] [address] [facility] CLIA [id number] [address] [place] [address] 73498 Cholesterol in VLDL [Mass/Vol] 13 mg/dL Normal <30 [facility] Comment on above: Order Comment: Farnaz ana maria Type: BLOOD SPECIMEN Ordering Facility: [facility] Address: [address] [place] [address] Performed By: #### 2 4331-1 #### [facility] CLIA [id number] [address] [place], [place] [address] [id number], [place] [address] [facility] CLIA [id number] [address] [place] [address] 81580 Cholesterol non HDL [Mass/Vol] 88 mg/dL Normal <130 [facility] Comment on above: Order Comment: Speci men Type: BLOOD SPECIMEN Ordering Facility: [facility] Address: [address] [place], [place] [address] Result Comment: <130 mg/dL, Optimal 130-159 mg/dL, Near optimal/above optimal 160-189 mg/dL, Borderline high 190-219 mg/dL, High >219 mg/dL, Very high Secondary prevention optimal non HDL Cholesterol levels are recommended to be <100 mg/dL Performed By: #### 2 4331-1 #### [facility] CLIA [id number] [address] [place], [place] [address] [facility] CLIA [id number] [address] [place] [address]5910 Cholesterol.total/Chol esterol in HDL [Mass ratio] 3.15 {ratio} Normal <5.10 [facility] Comment on above: Order Comment: Speci men Type: BLOOD SPECIMEN Ordering Facility: [facility] Address: [address] [place], [place] [address] Performed By: #### 2 4331-1 #### [facility] CLIA [id number] [address] [place], [place] [address] [facility] CLIA [id number] [address] [place] [address] 49528 FASTING TIME 12 hrs Normal [facility] Comment on above: Order Comment: Speci men Type: BLOOD SPECIMEN Ordering Facility: [facility] Address: [address] [place], [place] [address] Performed By: #### 2 4331-1 #### [facility] CLIA [id number] [address] [place] [address] [facility] CLIA [id number] [address] [place] [address]0944 Triglyceride [Mass/Vol] 66 mg/dL Normal <150 [facility] Comment on above: Order Comment: Speci men Type: BLOOD SPECIMEN Ordering Facility: [facility] Address: [address] [place] [address] Result Comment: <150 mg/dL, Normal 150-199 mg/dL, Borderline high 200-499 mg/dL, High >499 mg/dL, Very high Performed By: #### 2 4331-1 #### [facility] CLIA [id number] [address] [place] [address] [place] [id number] [facility] CLIA [id number] [address] [place] [address] AFP Tumor Marker, Serumon AFP Tumor Marker, Serum 5.8 ng/mL Normal 0.0-8.4 [facility] Comment on above: Order Comment: Comme nt Standing order 1 time per month Result Comment: [employer] Electrochemiluminescence Immunoassay (ECLIA) Values obtained with different assay methods or kits cannot be used interchangeably. Results cannot be interpreted as absolute evidence of the presence or absence of malignant disease. This test is not interpretable in females. Performed at: [facility] [id number] Caterer'S Aide: Saqib Bennett PhD, Phone: [phone] PERFORMED BY: [place] [address] PATHOLOGIST PERSONAL TRAINER JESSICA MILES M.D. Performed By: #### H EPATIC, CMP, CBC, PT #### [facility] [address] [place] [address] [place] #### IGG, AFPTM #### [facility] , Alanine aminotransferase [En zymatic activity/volume] in Serum or PlasmaOrdered By: Ana Muhammad on 12-29-2023 ALT [Catalytic activity/Vol] 99 U/L High 7-52 [facility] Comment on above: Order Comment: Comme nt Standing order 1 time per month Performed By: #### B MP, CBC, HEPATIC, PT #### [facility] [address] [place] [address] #### AFPTM #### [facility] , Albumin [Mass/volume] in Ser um or Plasma by Bromocresol green (BCG) dye binding methoOrdered By: Imad Asaad on 12-29-2023 Albumin BCG dye [Mass/Vol] 3.9 g/dL 3.5-5.7 [facility] Alkaline phosphatase [Enzyma tic activity/volume] in Serum or PlasmaOrdered By: Imad Asaad on 12-29-2023 ALP [Catalytic activity/Vol] 96 U/L Normal 34-104 [facility] Comment on above: Order Comment: Comme nt Standing order 1 time per month Performed By: #### B MP, CBC, HEPATIC, PT #### [facility] [address] [place] [address] #### AFPTM #### [facility] , Aspartate aminotransferase [ Enzymatic activity/volume] in Serum or PlasmaOrdered By: Imad Asaad on 12-29-2023 AST [Catalytic activity/Vol] 121 U/L High 13-39 [facility] Comment on above: Order Comment: Comme nt Standing order 1 time per month Performed By: #### B MP, CBC, HEPATIC, PT #### [facility] [address] [place] [address] #### AFPTM #### [facility] , Automated basophil %Ordered By: Imad Asaad on 12-29-2023 Basophils/100 WBC (Bld) 0.6 % Normal . [facility] Comment on above: Order Comment: Comme nt Standing order 1 time per month Performed By: #### B MP, CBC, HEPATIC, PT #### [facility] [address] [place] [address] [place] #### AFPTM #### [facility] , Automated basophil countOrde red By: Imad Asaad on 12-29-2023 Basophils (Bld) [#/Vol] 0.0 10*3/uL Normal 0.0-0.2 [facility] Comment on above: Order Comment: Comme nt Standing order 1 time per month Result Comment: PERF ORMED BY: [place] [address] PATHOLOGIST PERSONAL TRAINER JESSICA MILES M.D. Performed By: #### B MP, CBC, HEPATIC, PT #### [address] #### AFPTM #### [facility] , Automated blood monocyte cou ntOrdered By: Imad Asaad on 12-29-2023 Monocytes (Bld) [#/Vol] 0.4 10*3/uL Normal 0.0-0.8 [facility] Comment on above: Order Comment: Comme nt Standing order 1 time per month Performed By: #### B MP, CBC, HEPATIC, PT #### [address] #### AFPTM #### [facility] , Automated eosinophil %Ordere d By: Imad Asaad on 12-29-2023 Eosinophils/100 WBC (Bld) 2.5 % Normal . [facility] Comment on above: Order Comment: Comme nt Standing order 1 time per month Performed By: #### B MP, CBC, HEPATIC, PT #### [facility] [address] [place] [address] #### AFPTM #### [facility] , Automated eosinophil countOr dered By: Imad Asaad on 12-29-2023 Eosinophils (Bld) [#/Vol] 0.1 10*3/uL Normal 0.0-0.45 [facility] Comment on above: Order Comment: Comme nt Standing order 1 time per month Performed By: #### B MP, CBC, HEPATIC, PT #### [facility] [address] [place] [address] [place] #### AFPTM #### [facility] , Automated monocyte %Ordered By: Imad Asaad on 12-29-2023 Monocytes/100 WBC (Bld) 10.5 % Normal . [facility] Comment on above: Order Comment: Comme nt Standing order 1 time per month Performed By: #### B MP, CBC, HEPATIC, PT #### [facility] [address] [place] [address] [place] #### AFPTM #### [facility] , Automated neutrophil %Ordere d By: Imad Asaad on 12-29-2023 Neutrophils/100 WBC (Bld) 69.2 % Normal . [facility] Comment on above: Order Comment: Comme nt Standing order 1 time per month Performed By: #### B MP, CBC, HEPATIC, PT #### [facility] [address] [place] [address] [place] #### AFPTM #### [facility] , Basic Metabolic Panelon 12-19 GFR/1.73 sq M.predicted MDRD (S/P/Bld) [Vol rate/Area] mL/min/{1.73_m2} Normal [facility] Comment on above: Order Comment: Comme nt Standing order 1 time per month Performed By: #### B MP, CBC, HEPATIC, PT #### [facility] [address] [place] [address] [place] #### AFPTM #### [facility] , Bilirubin.direct [Mass/volum e] in Serum or PlasmaOrdered By: Imad Asaad on 12-29-2023 Bilirubin.direct [Mass/Vol] 0.70 mg/dL 0.03-0.18 [facility] Bilirubin.total [Mass/volume ] in Serum or PlasmaOrdered By: Imad Asaad on 12-29-2023 Bilirubin [Mass/Vol] 2.3 mg/dL High 0.3-1.0 [facility] Comment on above: Samples from patient s who have taken Naproxen have shown spurious elevation in Total Bilirubin levels. A metabolite of Naproxen, O-desmethylnaproxen, has been shown to interfere with the Radha-Tio method for measuring Total Bilirubin. Order Comment: Comme nt Standing order 1 time per month Result Comment: Samp les from patients who have taken Naproxen have shown spurious elevation in Total Bilirubin levels. A metabolite of Naproxen, O-desmethylnaproxen, has been shown to interfere with the Jendrassik-Grof method for measuring Total Bilirubin. Performed By: #### B MP, CBC, HEPATIC, PT #### [address] #### AFPTM #### [facility] , Calcium [Mass/volume] in Ser um or PlasmaOrdered By: Imad Asaad on 12-29-2023 Calcium [Mass/Vol] 9.0 mg/dL Normal 8.6-10.3 [facility] Comment on above: Order Comment: Comme nt Standing order 1 time per month Result Comment: PERF ORMED BY: [place] [address] PATHOLOGIST PERSONAL TRAINER JESSICA MILES M.D. Performed By: #### B MP, CBC, HEPATIC, PT #### [address] #### AFPTM #### [facility] , Carbon dioxide, total [Moles /volume] in Serum or PlasmaOrdered By: Imad Asaad on 12-29-2023 CO2 [Moles/Vol] 22.4 mmol/L Normal 21.0-31.0 [facility] Comment on above: Order Comment: Comme nt Standing order 1 time per month Performed By: #### B MP, CBC, HEPATIC, PT #### [address] #### AFPTM #### [facility] , Chloride [Moles/volume] in S shanique or PlasmaOrdered By: Imad Asaad on 12-29-2023 Chloride [Moles/Vol] 107 mmol/L Normal 98-107 [facility] Comment on above: Order Comment: Comme nt Standing order 1 time per month Performed By: #### B MP, CBC, HEPATIC, PT #### [facility] [address] [place] [address] [place] #### AFPTM #### [facility] , Complete Blood Count Auto Di ffon 12-29-2023 Mean Corpuscular HGB Conc 33.6 g/dL Normal 32.5-35.6 [facility] Comment on above: Order Comment: Comme nt Standing order 1 time per month Performed By: #### B MP, CBC, HEPATIC, PT #### [facility] [address] [place] [address] [place] #### AFPTM #### [facility] , NRBC% 0.3 /100{WBC} Normal 0-0.5 [facility] Comment on above: Order Comment: Comme nt Standing order 1 time per month Performed By: #### B MP, CBC, HEPATIC, PT #### [address] #### AFPTM #### [facility] , Creatinine [Mass/volume] in Serum or PlasmaOrdered By: Imad Asaad on 12-29-2023 Creatinine [Mass/Vol] 0.82 mg/dL Normal 0.70-1.30 [facility] Comment on above: Order Comment: Comme nt Standing order 1 time per month Performed By: #### B MP, CBC, HEPATIC, PT #### [address] #### AFPTM #### [facility] , Erythrocyte distribution wid th [Ratio] by Automated countOrdered By: Imad Asaad on 12-29-2023 Erythrocyte distribution width (RBC) [Ratio] 14.7 % Normal 12.0-14.8 [facility] Comment on above: Order Comment: Comme nt Standing order 1 time per month Performed By: #### B MP, CBC, HEPATIC, PT #### [facility] [address] [place] [address] [place] #### AFPTM #### [facility] , Erythrocytes [#/volume] in B lood by Automated countOrdered By: Imad Asaad on 12-29-2023 RBC (Bld) [#/Vol] 4.70 10*6/uL Normal 3.90-5.60 [facility] Comment on above: Order Comment: Comme nt Standing order 1 time per month Performed By: #### B MP, CBC, HEPATIC, PT #### [facility] [address] [place] [address] #### AFPTM #### [facility] , Glucose [Mass/volume] in Ser um or PlasmaOrdered By: Imad Jb on 12-29-2023 Glucose [Mass/Vol] 292 mg/dL High 70-100 [facility] Comment on above: ADA recommended refe rence rangeRandom Glucose Reference Range is dependent on time and content of last meal. Glucose of more than 200 mg/dL in a nonstressed, ambulatory subject supports the diagnosis of Diabetes Mellitus. Order Comment: Comme nt Standing order 1 time per month Result Comment: [place] om Glucose Reference Range is dependent on time and content of last meal. Glucose of more than 200 mg/dL in a nonstressed, ambulatory subject supports the diagnosis of Diabetes Mellitus. ADA recommended reference range Performed By: #### B MP, CBC, HEPATIC, PT #### [facility] [address] [place] [address] [place] #### AFPTM #### [facility] , Hematocrit [Volume Fraction] of Blood by Automated countOrdered By: Imad Asaad on 12-29-2023 Hematocrit (Bld) [Volume fraction] 46.1 % Normal 38.8-50.0 [facility] Comment on above: Order Comment: Comme nt Standing order 1 time per month Performed By: #### B MP, CBC, HEPATIC, PT #### [facility] [address] [place] [address] [place] #### AFPTM #### [facility] , Hemoglobin [Mass/volume] in BloodOrdered By: Imad Asaad on 12-29-2023 Hemoglobin (Bld) [Mass/Vol] 15.5 g/dL Normal 13.0-17.0 [facility] Comment on above: Order Comment: Comme nt Standing order 1 time per month Performed By: #### B MP, CBC, HEPATIC, PT #### [facility] [address] [place] [address] [place] #### AFPTM #### [facility] , Hepatic Panelon 12-29-2023 Albumin [Mass/Vol] 3.9 g/dL Normal 3.5-5.7 [facility] Comment on above: Order Comment: Comme nt Standing order 1 time per month Performed By: #### B MP, CBC, HEPATIC, PT #### [facility] [address] [place] [address] #### AFPTM #### [facility] , Bilirubin,Indirect 1.6 mg/dL Normal [facility] Comment on above: Order Comment: Comme nt Standing order 1 time per month Performed By: #### B MP, CBC, HEPATIC, PT #### [facility] [address] [place] [address] #### AFPTM #### [facility] , Bilirubin.indirect [Mass/Vol] 0.70 mg/dL High 0.03-0.18 [facility] Comment on above: Order Comment: Comme nt Standing order 1 time per month Performed By: #### B MP, CBC, HEPATIC, PT #### [facility] [address] [place] [address] #### AFPTM #### [facility] , INR in Platelet poor plasma by Coagulation assayOrdered By: Ana Muhammad on 12-29-2023 INR Coag (PPP) [Relative time] 1.2 {INR} Normal [facility] Comment on above: INR Therapeutic Rang e A) Pre- and Peroperative OAT started two weeks before surgery. NOT HIP SURGERY: 1.5 - 2.5 HIP SURGERY: 2 - 3B) Primary and secondary prevention of venous THROMBOSIS: 2 - 3C) Active venous thrombosis, pulmonary embolismand prevention of recurrent venous thrombosis: 2 - 3D) Prevention of arterial thromboembolismincluding patients with mechanical heart valves: 3 - 4.5 Order Comment: Comme nt Standing order 1 time per month Result Comment: INR Therapeutic Range A) Pre- and Peroperative OAT started two weeks before surgery. NOT HIP SURGERY: 1.5 - 2.5 HIP SURGERY: 2 - 3 B) Primary and secondary prevention of venous THROMBOSIS: 2 - 3 C) Active venous thrombosis, pulmonary embolism and prevention of recurrent venous thrombosis: 2 - 3 D) Prevention of arterial thromboembolism including patients with mechanical heart valves: 3 - 4.5 PERFORMED BY: [place] [address] PATHOLOGIST PERSONAL TRAINER JESSICA MILES M.D. Performed By: #### B MP, CBC, HEPATIC, PT #### [facility] [address] [place] [address] [place] #### AFPTM #### [facility] , Leukocytes [#/volume] correc katerin for nucleated erythrocytes in Blood by Automated counOrdered By: Imad Asaad on 12-29-2023 WBC corrected for nucl RBC Auto (Bld) [#/Vol] 3.7 10*3/uL 4.1-10.5 [facility] Leukocytes [#/volume] in Blo od by Automated countOrdered By: Imad Asaad on 12-29-2023 WBC (Bld) [#/Vol] 3.7 10*3/uL Low 4.1-10.5 [facility] Comment on above: Order Comment: Comme nt Standing order 1 time per month Performed By: #### B MP, CBC, HEPATIC, PT #### [facility] [address] [place] [address] [place] #### AFPTM #### [facility] , Lymphocytes [#/volume] in Bl ood by Automated countOrdered By: Imad Asaad on 12-29-2023 Lymphocytes (Bld) [#/Vol] 0.6 10*3/uL Low 1.00-4.8 [facility] Comment on above: Order Comment: Comme nt Standing order 1 time per month Performed By: #### B MP, CBC, HEPATIC, PT #### [facility] [address] [place] [address] [place] #### AFPTM #### [facility] , Lymphocytes/100 leukocytes i n Blood by Automated countOrdered By: Imad Asaad on 12-29-2023 Lymphocytes/100 WBC (Bld) 17.2 % Normal . [facility] Comment on above: Order Comment: Comme nt Standing order 1 time per month Performed By: #### B MP, CBC, HEPATIC, PT #### [facility] [address] [place] [address] [place] #### AFPTM #### [facility] , MCH [Entitic mass] by Automa katerin countOrdered By: Imad Asaad on 12-29-2023 MCH (RBC) [Entitic mass] 33.0 pg Normal 27.5-35.2 [facility] Comment on above: Order Comment: Comme nt Standing order 1 time per month Performed By: #### B MP, CBC, HEPATIC, PT #### [facility] [address] [place] [address] [place] #### AFPTM #### [facility] , MCHC Auto (RBC) [Mass/Vol]Or dered By: Imad Asaad on 12-29-2023 MCHC (RBC) [Mass/Vol] 33.6 g/dL 32.5-35.6 [facility] MCV [Entitic volume] by Auto mated countOrdered By: Imad Asaad on 12-29-2023 MCV (RBC) [Entitic vol] 98.1 fL Normal 83.5-101 [facility] Comment on above: Order Comment: Comme nt Standing order 1 time per month Performed By: #### B MP, CBC, HEPATIC, PT #### [facility] [address] [place] [address] [place] #### AFPTM #### [facility] , Neutrophils [#/volume] in Bl ood by Automated countOrdered By: Imad Asaad on 12-29-2023 Neutrophils (Bld) [#/Vol] 2.5 10*3/uL Normal 1.8-7.7 [facility] Comment on above: Order Comment: Comme nt Standing order 1 time per month Performed By: #### B MP, CBC, HEPATIC, PT #### [facility] [address] [place] [address] [place] #### AFPTM #### [facility] , No Panel InformationOrdered By: Imad Asaad on 12-29-2023 Estimated GFR (CKD-EPI) > 60.0 mL/Min [facility] Creatinine Clearance (Chem N/A [facility] Nucleated erythrocytes [Pres ence] in Blood by Automated countOrdered By: Imad Asaad on 12-29-2023 Nucleated RBC Auto Ql (Bld) 0.3 /100{WBC} 0-0.5 [facility] Platelet mean volume [Entiti c volume] in Blood by Automated countOrdered By: Imad Jb on 12-29-2023 Platelet mean volume (Bld) [Entitic vol] 9.6 fL Normal 6.6-10.1 [facility] Comment on above: Order Comment: Comme nt Standing order 1 time per month Performed By: #### B MP, CBC, HEPATIC, PT #### [facility] [address] [place] [address] #### AFPTM #### [facility] , Platelets [#/volume] in Bloo d by Automated countOrdered By: Imad Jb on 12-29-2023 Platelets (Bld) [#/Vol] 93 10*3/uL Low 150-450 [facility] Comment on above: Order Comment: Comme nt Standing order 1 time per month Performed By: #### B MP, CBC, HEPATIC, PT #### [facility] [address] [place] [address] [place] #### AFPTM #### [facility] , Potassium [Moles/volume] in Serum or PlasmaOrdered By: Imad Asaad on 12-29-2023 Potassium [Moles/Vol] 4.2 mmol/L Normal 3.5-5.1 [facility] Comment on above: Order Comment: Comme nt Standing order 1 time per month Performed By: #### B MP, CBC, HEPATIC, PT #### [facility] [address] [place] [address] [place] #### AFPTM #### [facility] , Protein [Mass/volume] in Ser um or PlasmaOrdered By: Imsupriya Muhammad on 12-29-2023 Protein [Mass/Vol] 6.4 g/dL Normal 6.4-8.9 [facility] Comment on above: Order Comment: Comme nt Standing order 1 time per month Performed By: #### B MP, CBC, HEPATIC, PT #### [facility] [address] [place] [address] [place] #### AFPTM #### [facility] , Prothrombin time (PT)Ordered By: ad Asaad on 12-29-2023 PT Coag (PPP) [Time] 13.6 s High 9.0-12.9 [facility] Comment on above: A hematocrit value g reater than 55% may lead to inaccurate results in coagulation testing. Patients having hematocrit values >55% require a special collection tube for coagulation studies. Please contact the laboratory at [phone] for redraw instructions. Order Comment: Comme nt Standing order 1 time per month Result Comment: A he matocrit value greater than 55% may lead to inaccurate results in coagulation testing. Patients having hematocrit values >55% require a special collection tube for coagulation studies. Please contact the laboratory at [phone] for redraw instructions. Performed By: #### B MP, CBC, HEPATIC, PT #### [facility] [address] [place] [address] [place] #### AFPTM #### [facility] , Serum globulin measurement b y calculation (mass/volume)Ordered By: Imad Asaad on 12-29-2023 Globulin (S) [Mass/Vol] 2.5 g/dL Normal [facility] Comment on above: Order Comment: Comme nt Standing order 1 time per month Performed By: #### B MP, CBC, HEPATIC, PT #### [facility] [address] [place] [address] [place] #### AFPTM #### [facility] , Serum or plasma albumin/glob ulin mass ratioOrdered By: Imad Asaad on 12-29-2023 Albumin/Globulin [Mass ratio] 1.6 {ratio} Normal [facility] Comment on above: Order Comment: Comme nt Standing order 1 time per month Performed By: #### B MP, CBC, HEPATIC, PT #### [facility] [address] [place] [address] #### AFPTM #### [facility] , Serum or plasma anion gap de terminationOrdered By: Imad Asaad on 12-29-2023 Anion gap [Moles/Vol] 11.8 mmol/L Normal 6.0-15.0 [facility] Comment on above: Order Comment: Comme nt Standing order 1 time per month Performed By: #### B MP, CBC, HEPATIC, PT #### [address] #### AFPTM #### [facility] , Serum or plasma non-glucuron idated bilirubin measurement (mass/volume)Ordered By: Imad Asaad on 12-29-2023 Bilirubin.indirect [Mass/Vol] 1.6 mg/dL [facility] Sodium [Moles/volume] in Ser um or PlasmaOrdered By: Imad Asaad on 12-29-2023 Sodium [Moles/Vol] 137 mmol/L Normal 136-145 [facility] Comment on above: Order Comment: Comme nt Standing order 1 time per month Performed By: #### B MP, CBC, HEPATIC, PT #### [facility] [address] [place] [address] [place] #### AFPTM #### [facility] , Urea nitrogen [Mass/volume] in Serum or PlasmaOrdered By: Imad Asaad on 12-29-2023 Urea nitrogen [Mass/Vol] 14 mg/dL Normal 7-25 [facility] Comment on above: Order Comment: Comme nt Standing order 1 time per month Performed By: #### B MP, CBC, HEPATIC, PT #### [facility] [address] [place] [address] #### AFPTM #### [facility] , Influenza virus B Ag [Presen ce] in Upper respiratory specimen by Rapid immunoassayon 11-01-2023 FLUBV Ag IA.rapid Ql (Nph) Negative [facility] No Panel Informationon 10-31 Influenza Type A (Rapid) Negative [facility] POC SARS CoV-2 Antigen Negative [facility] AFP Tumor Marker, Serumon AFP Tumor Marker, Serum 6.0 ng/mL Normal 0.0-8.4 [facility] Comment on above: Result Comment: [facility] Electrochemiluminescence Immunoassay (ECLIA) Values obtained with different assay methods or kits cannot be used interchangeably. Results cannot be interpreted as absolute evidence of the presence or absence of malignant disease. This test is not interpretable in females. Performed at: [facility] [address] [id number] Caterer'S Aide: Saqib Bennett PhD, Phone: [phone] Performed By: #### H EPATIC, CMP, CBC, PT #### [facility] [address] [place] [address] #### IGG, AFPTM #### [facility] , Alanine aminotransferase [En zymatic activity/volume] in Serum or PlasmaOrdered By: Imad Asaad on 10-20-2023 ALT [Catalytic activity/Vol] 153 U/L [facility] [place] [address] Comment on above: Performed By: #### H EPATIC, CMP, CBC, PT #### [facility] [address] [place] [address] [place] #### IGG, AFPTM #### [facility] , Albumin [Mass/volume] in Ser um or Plasma by Bromocresol green (BCG) dye binding methoOrdered By: Imad Asaad on 10-20-2023 Albumin BCG dye [Mass/Vol] 4.1 g/dL 3.5-5.7 [facility] Alkaline phosphatase [Enzyma tic activity/volume] in Serum or PlasmaOrdered By: Imad Asaad on 10-20-2023 ALP [Catalytic activity/Vol] 101 U/L Normal 34-104 [facility] Comment on above: Performed By: #### H EPATIC, CMP, CBC, PT #### [facility] [address] [place] [address] #### IGG, AFPTM #### [facility] , Aspartate aminotransferase [ Enzymatic activity/volume] in Serum or PlasmaOrdered By: Imad Asaad on 10-20-2023 AST [Catalytic activity/Vol] 191 U/L High 13-39 [facility] Comment on above: Performed By: #### H EPATIC, CMP, CBC, PT #### [facility] [address] [place] [address] #### IGG, AFPTM #### [facility] , Automated basophil %Ordered By: Imad Asaad on 10-20-2023 Basophils/100 WBC (Bld) 0.9 % Normal . [facility] Comment on above: Performed By: #### H EPATIC, CMP, CBC, PT #### [address] #### IGG, AFPTM #### [facility] , Automated basophil countOrde red By: Imad Asaad on 10-20-2023 Basophils (Bld) [#/Vol] 0.0 10*3/uL Normal 0.0-0.2 [facility] Comment on above: Result Comment: PERF ORMED BY: [place] [address] PATHOLOGIST PERSONAL TRAINER JESSICA MILES M.D. Performed By: #### H EPATIC, CMP, CBC, PT #### [facility] [address] [place] [address] #### IGG, AFPTM #### [facility] , Automated blood monocyte cou ntOrdered By: Imad Asaad on 10-20-2023 Monocytes (Bld) [#/Vol] 0.5 10*3/uL Normal 0.0-0.8 [facility] Comment on above: Performed By: #### H EPATIC, CMP, CBC, PT #### [facility] [address] [place] [address] [place] #### IGG, AFPTM #### [facility] , Automated eosinophil %Ordere d By: Imad Asaad on 10-20-2023 Eosinophils/100 WBC (Bld) 1.9 % Normal . [facility] Comment on above: Performed By: #### H EPATIC, CMP, CBC, PT #### [place] [address] [place] #### IGG, AFPTM #### [facility] , Automated eosinophil countOr dered By: Imad Asaad on 10-20-2023 Eosinophils (Bld) [#/Vol] 0.1 10*3/uL Normal 0.0-0.45 [facility] Comment on above: Performed By: #### H EPATIC, CMP, CBC, PT #### [place] [address] [place] #### IGG, AFPTM #### [facility] , Automated monocyte %Ordered By: Imad Asaad on 10-20-2023 Monocytes/100 WBC (Bld) 13.8 % Normal . [facility] Comment on above: Performed By: #### H EPATIC, CMP, CBC, PT #### [facility] [address] [place] [address] [place] #### IGG, AFPTM #### [facility] , Automated neutrophil %Ordere d By: Imad Asaad on 10-20-2023 Neutrophils/100 WBC (Bld) 66.5 % Normal . [facility] Comment on above: Performed By: #### H EPATIC, CMP, CBC, PT #### [place] [address] [place] #### IGG, AFPTM #### [facility] , Bilirubin.direct [Mass/volum e] in Serum or PlasmaOrdered By: Imad Asaad on 10-20-2023 Bilirubin.direct [Mass/Vol] 0.70 mg/dL 0.03-0.18 [facility] Bilirubin.total [Mass/volume ] in Serum or PlasmaOrdered By: Imad Asaad on 10-20-2023 Bilirubin [Mass/Vol] 2.3 mg/dL High 0.3-1.0 [facility] Comment on above: Samples from patient s who have taken Naproxen have shown spurious elevation in Total Bilirubin levels. A metabolite of Naproxen, O-desmethylnaproxen, has been shown to interfere with the Jendrassik-Grof method for measuring Total Bilirubin. Result Comment: Samp les from patients who have taken Naproxen have shown spurious elevation in Total Bilirubin levels. A metabolite of Naproxen, O-desmethylnaproxen, has been shown to interfere with the Jendrassik-Grof method for measuring Total Bilirubin. Performed By: #### H EPATIC, CMP, CBC, PT #### [facility] [address] [place] [address] [place] #### IGG, AFPTM #### [facility] , Calcium [Mass/volume] in Ser um or PlasmaOrdered By: Imad Asaad on 10-20-2023 Calcium [Mass/Vol] 8.9 mg/dL Normal 8.6-10.3 [facility] Comment on above: Performed By: #### H EPATIC, CMP, CBC, PT #### [facility] [address] [place] [address] [place] #### IGG, AFPTM #### [facility] , Carbon dioxide, total [Moles /volume] in Serum or PlasmaOrdered By: Imad Asaad on 10-20-2023 CO2 [Moles/Vol] 25.2 mmol/L Normal 21.0-31.0 [facility] Comment on above: Performed By: #### H EPATIC, CMP, CBC, PT #### [facility] [address] [place] [address] [place] #### IGG, AFPTM #### [facility] , Chloride [Moles/volume] in S shanique or PlasmaOrdered By: Ana Muhammad on 10-20-2023 Chloride [Moles/Vol] 106 mmol/L Normal 98-107 [facility] Comment on above: Performed By: #### H EPATIC, CMP, CBC, PT #### [facility] [address] [place] [address] [place] #### IGG, AFPTM #### [facility] , Complete Blood Count Auto Di ffon 10-20-2023 Mean Corpuscular HGB Conc 34.1 g/dL Normal 32.5-35.6 [facility] Comment on above: Performed By: #### H EPATIC, CMP, CBC, PT #### [facility] [address] [place] [address] [place] #### IGG, AFPTM #### [facility] , NRBC% 0.3 /100{WBC} Normal 0-0.5 [facility] Comment on above: Performed By: #### H EPATIC, CMP, CBC, PT #### [place] [address] [place] #### IGG, AFPTM #### [facility] , Comprehensive Metabolic Pane kenzie 10-20-2023 Albumin [Mass/Vol] 4.1 g/dL Normal 3.5-5.7 [facility] Comment on above: Performed By: #### H EPATIC, CMP, CBC, PT #### [facility] [address] [place] [address] [place] #### IGG, AFPTM #### [facility] , GFR/1.73 sq M.predicted MDRD (S/P/Bld) [Vol rate/Area] mL/min/{1.73_m2} Normal [facility] Comment on above: Performed By: #### H EPATIC, CMP, CBC, PT #### [facility] [address] [place] [address] [place] #### IGG, AFPTM #### [facility] , Creatinine [Mass/volume] in Serum or PlasmaOrdered By: Imsupriya Muhammad on 10-20-2023 Creatinine [Mass/Vol] 0.80 mg/dL Normal 0.70-1.30 [facility] Comment on above: Performed By: #### H EPATIC, CMP, CBC, PT #### [place] [address] [place] #### IGG, AFPTM #### [facility] , Erythrocyte distribution wid th [Ratio] by Automated countOrdered By: Imsupriya Muhammad on 10-20-2023 Erythrocyte distribution width (RBC) [Ratio] 14.6 % Normal 12.0-14.8 [facility] Comment on above: Performed By: #### H EPATIC, CMP, CBC, PT #### [address] #### IGG, AFPTM #### [facility] , Erythrocytes [#/volume] in B lood by Automated countOrdered By: Imsupriya Muhammad on 10-20-2023 RBC (Bld) [#/Vol] 4.94 10*6/uL Normal 3.90-5.60 [facility] Comment on above: Performed By: #### H EPATIC, CMP, CBC, PT #### [address] #### IGG, AFPTM #### [facility] , Glucose [Mass/volume] in Ser um or PlasmaOrdered By: Imad Jb on 10-20-2023 Glucose [Mass/Vol] 173 mg/dL High 70-100 [facility] Comment on above: ADA recommended refe rence rangeRandom Glucose Reference Range is dependent on time and content of last meal. Glucose of more than 200 mg/dL in a nonstressed, ambulatory subject supports the diagnosis of Diabetes Mellitus. Result Comment: [place] om Glucose Reference Range is dependent on time and content of last meal. Glucose of more than 200 mg/dL in a nonstressed, ambulatory subject supports the diagnosis of Diabetes Mellitus. ADA recommended reference range Performed By: #### H EPATIC, CMP, CBC, PT #### [place] [address] [place] #### IGG, AFPTM #### [facility] , Hematocrit [Volume Fraction] of Blood by Automated countOrdered By: Imad Asaad on 10-20-2023 Hematocrit (Bld) [Volume fraction] 47.8 % Normal 38.8-50.0 [facility] Comment on above: Performed By: #### H EPATIC, CMP, CBC, PT #### [address] #### IGG, AFPTM #### [facility] , Hemoglobin [Mass/volume] in BloodOrdered By: Imad Asaad on 10-20-2023 Hemoglobin (Bld) [Mass/Vol] 16.3 g/dL Normal 13.0-17.0 [facility] Comment on above: Performed By: #### H EPATIC, CMP, CBC, PT #### [address] #### IGG, AFPTM #### [facility] , Hepatic Panelon 10-20-2023 Bilirubin,Indirect 1.6 mg/dL Normal [facility] Comment on above: Result Comment: PERF ORMED BY: [place] [address] PATHOLOGIST PERSONAL TRAINER JESSICA MILES M.D. Performed By: #### H EPATIC, CMP, CBC, PT #### [place] [address] [place] #### IGG, AFPTM #### [facility] , Bilirubin.indirect [Mass/Vol] 0.70 mg/dL High 0.03-0.18 [facility] Comment on above: Performed By: #### H EPATIC, CMP, CBC, PT #### [place] [address] [place] #### IGG, AFPTM #### [facility] , INR in Platelet poor plasma by Coagulation assayOrdered By: Ana Muhammad on 10-20-2023 INR Coag (PPP) [Relative time] 1.2 {INR} Normal [facility] Comment on above: INR Therapeutic Rang e A) Pre- and Peroperative OAT started two weeks before surgery. NOT HIP SURGERY: 1.5 - 2.5 HIP SURGERY: 2 - 3B) Primary and secondary prevention of venous THROMBOSIS: 2 - 3C) Active venous thrombosis, pulmonary embolismand prevention of recurrent venous thrombosis: 2 - 3D) Prevention of arterial thromboembolismincluding patients with mechanical heart valves: 3 - 4.5 Result Comment: INR Therapeutic Range A) Pre- and Peroperative OAT started two weeks before surgery. NOT HIP SURGERY: 1.5 - 2.5 HIP SURGERY: 2 - 3 B) Primary and secondary prevention of venous THROMBOSIS: 2 - 3 C) Active venous thrombosis, pulmonary embolism and prevention of recurrent venous thrombosis: 2 - 3 D) Prevention of arterial thromboembolism including patients with mechanical heart valves: 3 - 4.5 PERFORMED BY: [place] [address] PATHOLOGIST PERSONAL TRAINER JESSICA MILES M.D. Performed By: #### H EPATIC, CMP, CBC, PT #### [place] [address] [place] #### IGG, AFPTM #### [facility] , IgG [Mass/volume] in Serum o r PlasmaOrdered By: Ana Muhammad on 10-20-2023 IgG [Mass/Vol] 1026 mg/dL [phone] [facility] Comment on above: Performed at: [facility] [id number] [place] [id number] Director: Saqib Bennett PhD, Phone: [phone] Immunoglobulin Hal 4 Immunoglobulin G 1026 mg/dL Normal [phone] [facility] Comment on above: Result Comment: Perf ormed at: [facility] - [facility] [place] [address] [place], [place] [id number] Caterer'S Aide: Saqib Bennett PhD, Phone: [phone] PERFORMED BY: [place] [address] PATHOLOGIST PERSONAL TRAINER JESSICA MILES M.D. Performed By: #### H EPATIC, CMP, CBC, PT #### [facility] [address] [place] [address] [place] #### IGG, AFPTM #### [facility] , Leukocytes [#/volume] correc katerin for nucleated erythrocytes in Blood by Automated counOrdered By: Imad Asaad on 10-20-2023 WBC corrected for nucl RBC Auto (Bld) [#/Vol] 3.6 10*3/uL 4.1-10.5 [facility] Leukocytes [#/volume] in Blo od by Automated countOrdered By: Imad Asaad on 10-20-2023 WBC (Bld) [#/Vol] 3.6 10*3/uL Low 4.1-10.5 [facility] Comment on above: Performed By: #### H EPATIC, CMP, CBC, PT #### [place] [address] [place] #### IGG, AFPTM #### [facility] , Lymphocytes [#/volume] in Bl ood by Automated countOrdered By: Imad Asaad on 10-20-2023 Lymphocytes (Bld) [#/Vol] 0.6 10*3/uL Low 1.00-4.8 [facility] Comment on above: Performed By: #### H EPATIC, CMP, CBC, PT #### [place] [address] [place] #### IGG, AFPTM #### [facility] , Lymphocytes/100 leukocytes i n Blood by Automated countOrdered By: Imad Asaad on 10-20-2023 Lymphocytes/100 WBC (Bld) 16.9 % Normal . [facility] Comment on above: Performed By: #### H EPATIC, CMP, CBC, PT #### [facility] [address] [place] [address] [place] #### IGG, AFPTM #### [facility] , MCH [Entitic mass] by Automa katerin countOrdered By: Imad Asaad on 10-20-2023 MCH (RBC) [Entitic mass] 33.1 pg Normal 27.5-35.2 [facility] Comment on above: Performed By: #### H EPATIC, CMP, CBC, PT #### [facility] [address] [place] [address] [place] #### IGG, AFPTM #### [facility] , MCHC Auto (RBC) [Mass/Vol]Or dered By: Imad Asaad on 10-20-2023 MCHC (RBC) [Mass/Vol] 34.1 g/dL 32.5-35.6 [facility] MCV [Entitic volume] by Auto mated countOrdered By: Imad Asaad on 10-20-2023 MCV (RBC) [Entitic vol] 96.9 fL Normal 83.5-101 [facility] Comment on above: Performed By: #### H EPATIC, CMP, CBC, PT #### [place] [address] [place] #### IGG, AFPTM #### [facility] , Neutrophils [#/volume] in Bl ood by Automated countOrdered By: Imad Asaad on 10-20-2023 Neutrophils (Bld) [#/Vol] 2.4 10*3/uL Normal 1.8-7.7 [facility] Comment on above: Performed By: #### H EPATIC, CMP, CBC, PT #### [facility] [address] [place] [address] [place] #### IGG, AFPTM #### [facility] , No Panel InformationOrdered By: Imad Asaad on 10-20-2023 Estimated GFR (CKD-EPI) > 60.0 mL/Min [facility] Creatinine Clearance (Chem N/A [facility] Nucleated erythrocytes [Pres ence] in Blood by Automated countOrdered By: Imad Asaad on 10-20-2023 Nucleated RBC Auto Ql (Bld) 0.3 /100{WBC} 0-0.5 [facility] Platelet mean volume [Entiti c volume] in Blood by Automated countOrdered By: Imad Asaad on 10-20-2023 Platelet mean volume (Bld) [Entitic vol] 9.0 fL Normal 6.6-10.1 [facility] Comment on above: Performed By: #### H EPATIC, CMP, CBC, PT #### [facility] [address] [place] [address] [place] #### IGG, AFPTM #### [facility] , Platelets [#/volume] in Bloo d by Automated countOrdered By: Imad Asaad on 10-20-2023 Platelets (Bld) [#/Vol] 84 10*3/uL Low 150-450 [facility] Comment on above: Performed By: #### H EPATIC, CMP, CBC, PT #### [facility] [address] [place] [address] [place] #### IGG, AFPTM #### [facility] , Potassium [Moles/volume] in Serum or PlasmaOrdered By: Imad Asaad on 10-20-2023 Potassium [Moles/Vol] 4.3 mmol/L Normal 3.5-5.1 [facility] Comment on above: Performed By: #### H EPATIC, CMP, CBC, PT #### [facility] [address] [place] [address] [place] #### IGG, AFPTM #### [facility] , Protein [Mass/volume] in Ser um or PlasmaOrdered By: Imad Asaad on 10-20-2023 Protein [Mass/Vol] 6.6 g/dL Normal 6.4-8.9 [facility] Comment on above: Performed By: #### H EPATIC, CMP, CBC, PT #### [place] [address] [place] #### IGG, AFPTM #### [facility] , Prothrombin time (PT)Ordered By: Imad Asaad on 10-20-2023 PT Coag (PPP) [Time] 13.7 s High 9.0-12.9 [facility] Comment on above: A hematocrit value g reater than 55% may lead to inaccurate results in coagulation testing. Patients having hematocrit values >55% require a special collection tube for coagulation studies. Please contact the laboratory at [phone] for redraw instructions. Result Comment: A he matocrit value greater than 55% may lead to inaccurate results in coagulation testing. Patients having hematocrit values >55% require a special collection tube for coagulation studies. Please contact the laboratory at [phone] for redraw instructions. Performed By: #### H EPATIC, CMP, CBC, PT #### [facility] [address] [place] [address] #### IGG, AFPTM #### [facility] , Serum globulin measurement b y calculation (mass/volume)Ordered By: Ana Muhammad on 10-20-2023 Globulin (S) [Mass/Vol] 2.5 g/dL [facility] Comment on above: Performed By: #### H EPATIC, CMP, CBC, PT #### [facility] [address] [place] [address] #### IGG, AFPTM #### [facility] , Serum or plasma albumin/glob ulin mass ratioOrdered By: Ana Muhammad on 10-20-2023 Albumin/Globulin [Mass ratio] 1.6 {ratio} [facility] Comment on above: Performed By: #### H EPATIC, CMP, CBC, PT #### [facility] [address] [place] [address] [place] #### IGG, AFPTM #### [facility] , Serum or plasma [id number] protein tumor marker measurement (mass/volume)Ordered By: Ana Muhammad on 10-20-2023 AFP.tumor marker [Mass/Vol] 6.0 ng/mL 0.0-8.4 [facility] Comment on above: [facility] [employer] ectrochemiluminescence Immunoassay(ECLIA)Values obtained with different assay methods or kits cannotbe used interchangeably. Results cannot be interpreted asabsolute evidence of the presence or absence of malignantdisease.This test is not interpretable in females.Performed at: [address] [id number] Director: Saqib Bennett PhD, Phone: [phone] Serum or plasma anion gap de terminationOrdered By: Ana Muhammda on 10-20-2023 Anion gap [Moles/Vol] 11.1 mmol/L Normal 6.0-15.0 [facility] Comment on above: Performed By: #### H EPATIC, CMP, CBC, PT #### [facility] [address] [place] [address] [place] #### IGG, AFPTM #### [facility] , Serum or plasma non-glucuron idated bilirubin measurement (mass/volume)Ordered By: Ana Muhammad on 10-20-2023 Bilirubin.indirect [Mass/Vol] 1.6 mg/dL [facility] Sodium [Moles/volume] in Ser um or PlasmaOrdered By: Ana Muhammad on 10-20-2023 Sodium [Moles/Vol] 138 mmol/L Normal 136-145 [facility] Comment on above: Performed By: #### H EPATIC, CMP, CBC, PT #### [facility] [address] [place] [address] [place] #### IGG, AFPTM #### [facility] , [place] liveron 10-20-[address] [facility] 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 FINDINGS: Pancreas: Visualized portions appear. Liver: Cirrhotic liver without focal mass or intrahepatic ductal dilatation. Hepatopedal flow is seen within the portal vein. Gallbladder: Unremarkable. CBD: 3.5 cm US/US liver IMPRESSION: CIRRHOTIC LIVER WITHOUT ACUTE PROCESS.. Impression dictated by: Don Santillan Jr., D.OBraden10/20/2023 1:53 PM Dictation Location: [place] [id number] Tech: Johanny Huitron Transcribed By: GABY 10/20/23 1353 Dictated By: Don Santillan Jr, DO 10/20/23 1352 Signed By: 10/20/23 1353 Normal [facility] Urea nitrogen [Mass/volume] in Serum or PlasmaOrdered By: Ana Muhammad on 10-20-2023 Urea nitrogen [Mass/Vol] 12 mg/dL Normal 7-25 [facility] Comment on above: Performed By: #### H EPATIC, CMP, CBC, PT #### [facility] [address] [place] [address] #### IGG, AFPTM #### [facility] , HbA1c (Bld)on 08-22-2023 Average glucose Estimated from glycated hemoglobin (Bld) [Mass/Vol] 151 mg/dL Normal [facility] Comment on above: Order Comment: Farnaz rodgers Type: BLOOD SPECIMEN Ordering Facility: [facility] Address: [address] [place] [address] Result Comment: eAG: (Estimated average glucose) is a calculated value from HgbA1c and is senior patient account representative of the average blood glucose level in the last 2-3 month period. Performed By: #### 2 4323-8, 06106-6 #### [facility] CLIA [id number] [address] [place] [address] HbA1c (Bld) [Mass fraction] 6.9 % High 4.3-5.6 [facility] Comment on above: Order Comment: Farnaz rodgers Type: BLOOD SPECIMEN Ordering Facility: [facility] Address: [address] [place], [place] [address] Result Comment: Amer ican Diabetes Association guidelines indicate that patients with HgbA1c in the range 5.7-6.4% are at increased risk for development of diabetes, and intervention by lifestyle modification may be beneficial. HgbA1c greater or equal to 6.5% is considered diagnostic of diabetes. Performed By: #### 2 4323-8, 25669-2 #### [facility] CLIA [id number] [address] [place] [address] 21909 Hepatic function 2000 panelo n 08-22-2023 Albumin [Mass/Vol] 4.1 g/dL Normal 3.9-4.9 [facility] Comment on above: Order Comment: Speci men Type: BLOOD SPECIMEN Ordering Facility: [facility] Address: [address] [place] [address] Performed By: #### 2 4323-8, 37352-5 #### [facility] CLIA [id number] [address] [place] [address] 15573 ALP [Catalytic activity/Vol] 112 U/L Normal 38-113 [facility] Comment on above: Order Comment: Speci men Type: BLOOD SPECIMEN Ordering Facility: [facility] Address: [address] [place] [address] Performed By: #### 2 4323-8, 00587-9 #### [facility] CLIA [id number] [address] [place] [address] 85861 ALT [Catalytic activity/Vol] 102 U/L High 10-54 [facility] Comment on above: Order Comment: Speci men Type: BLOOD SPECIMEN Ordering Facility: [facility] Address: [address] [place] [address] Performed By: #### 2 4323-8, 80920-6 #### [facility] CLIA [id number] [address] [place] [address] 73538 AST [Catalytic activity/Vol] 111 U/L High 14-40 [facility] Comment on above: Order Comment: Speci men Type: BLOOD SPECIMEN Ordering Facility: [facility] Address: [address] [place] [address] Performed By: #### 2 4323-8, 61493-6 #### [facility] CLIA [id number] [address] [place] [address] 78563 Bilirubin [Mass/Vol] 1.9 mg/dL High 0.2-1.3 [facility] Comment on above: Order Comment: Speci men Type: BLOOD SPECIMEN Ordering Facility: [facility] Address: [address] [place] [address] Performed By: #### 2 4323-8, 57815-3 #### [facility] CLIA [id number] [address] [place] [address] 22979 Bilirubin.conjugated [Mass/Vol] 0.4 mg/dL High <0.2 [facility] Comment on above: Order Comment: Speci men Type: BLOOD SPECIMEN Ordering Facility: [facility] Address: [address] [place] [address] Performed By: #### 2 4323-8, 32090-9 #### [facility] CLIA [id number] [address] [place] [address] 55025 Protein [Mass/Vol] 6.9 g/dL Normal 6.3-8.0 [facility] Comment on above: Order Comment: Speci men Type: BLOOD SPECIMEN Ordering Facility: [facility] Address: [address] [place] [address] Performed By: #### 2 4323-8, 70220-0 #### [facility] CLIA [id number] [address] [place] [address] 57295 ALBUMIN/CREAT RATIO D URon 05-19-2023 Albumin DL <= 20 mg/L (U) [Mass/Vol] mg/dL Normal [facility] Comment on above: Order Comment: Speci men Type: BLOOD SPECIMEN Ordering Facility: [facility] Address: [address] [place] [address] Performed By: #### 2 4323-8, 05661-7 #### [facility] CLIA [id number] [address] [place] [address] Albumin/Creatinine (U) [Mass ratio] <22 Normal <30 [facility] Comment on above: Order Comment: Speci men Type: BLOOD SPECIMEN Ordering Facility: [facility] Address: [address] [place] [address] Result Comment: Adul t Male and Female Nephrotic Criteria: <30 mg/g is considered normal to mildly increased 30-300 mg/g is considered moderately increased >300 mg/g is considered severely increased KDIGO. (2013). KDIGO 2012 Clinical Practice Guideline for the Evaluation and Management of Chronic Kidney Disease. Official Journal of the International Society of Nephrology, 3(1), 1-150. Performed By: #### 2 4323-8, 69839-4 #### [facility] CLIA [id number] [address] [place] [address] 88857 Creatinine (U) [Mass/Vol] 55.0 mg/dL Normal 20.0-300.0 [facility] Comment on above: Order Comment: Speci men Type: BLOOD SPECIMEN Ordering Facility: [facility] Address: [address] [place] [address] Performed By: #### 2 4323-8, 03526-7 #### [facility] CLIA [id number] [address] [place] [address] 41091 Bilirub Conj SerPl-mCncon Bilirubin.conjugated [Mass/Vol] 0.5 mg/dL High <0.2 [facility] Comment on above: Order Comment: Speci men Type: BLOOD SPECIMEN Ordering Facility: [facility] Address: [address] [place] [address] Performed By: #### 2 4323-8, 98622-3 #### [facility] CLIA [id number] [address] [place] [address] 60589 Comprehensive metabolic 2000 panelon 05-19-2023 Albumin [Mass/Vol] 3.8 g/dL Low 3.9-4.9 [facility] Comment on above: Order Comment: Speci men Type: BLOOD SPECIMEN Ordering Facility: [facility] Address: [address] [place] [address] Performed By: #### 2 4323-8, 37251-7 #### [facility] CLIA [id number] [address] [place] [address] 70051 ALP [Catalytic activity/Vol] 107 U/L Normal 38-113 [facility] Comment on above: Order Comment: Speci men Type: BLOOD SPECIMEN Ordering Facility: [facility] Address: [address] [place] [address] Performed By: #### 2 4323-8, 27962-8 #### [facility] CLIA [id number] [address] [place] [address] 53142 ALT [Catalytic activity/Vol] 131 U/L High 10-54 [facility] Comment on above: Order Comment: Speci men Type: BLOOD SPECIMEN Ordering Facility: [facility] Address: [address] [place] [address] Performed By: #### 2 4322-8, 77628-1 #### [facility] CLIA [id number] [address] [place] [address] 58283 Anion gap [Moles/Vol] 10 mmol/L Normal 9-18 [facility] Comment on above: Order Comment: Speci men Type: BLOOD SPECIMEN Ordering Facility: [facility] Address: [address] [place] [address] Performed By: #### 2 4322-8, 32243-4 #### [facility] CLIA [id number] [address] [place] [address] 12349 AST [Catalytic activity/Vol] 154 U/L High 14-40 [facility] Comment on above: Order Comment: Speci men Type: BLOOD SPECIMEN Ordering Facility: [facility] Address: [address] [place] [address] Performed By: #### 2 4323-8, 75359-1 #### [facility] CLIA [id number] [address] [place] [address] 60632 Bilirubin [Mass/Vol] 2.2 mg/dL High 0.2-1.3 [facility] Comment on above: Order Comment: Speci men Type: BLOOD SPECIMEN Ordering Facility: [facility] Address: [address] [place] [address] Performed By: #### 2 4323-8, 89495-9 #### [facility] CLIA [id number] [address] [place] [address] 41574 Calcium [Mass/Vol] 9.0 mg/dL Normal 8.5-10.2 [facility] Comment on above: Order Comment: Speci men Type: BLOOD SPECIMEN Ordering Facility: [facility] Address: [address] [place] [address] Performed By: #### 2 4323-8, 32414-7 #### [facility] CLIA [id number] [address] [place] [address] 08283 Chloride [Moles/Vol] 107 mmol/L High 97-105 [facility] Comment on above: Order Comment: Speci men Type: BLOOD SPECIMEN Ordering Facility: [facility] Address: [address] [place] [address] Performed By: #### 2 4323-8, 91101-6 #### [facility] CLIA [id number] [address] [place] [address] 19988 CO2 [Moles/Vol] 22 mmol/L Normal 22-30 [facility] Comment on above: Order Comment: Speci men Type: BLOOD SPECIMEN Ordering Facility: [facility] Address: [address] [place] [address] Performed By: #### 2 4323-8, 97762-6 #### [facility] CLIA [id number] [address] [place] [address] 73874 Creatinine [Mass/Vol] 0.95 mg/dL Normal 0.73-1.22 [facility] Comment on above: Order Comment: Speci men Type: BLOOD SPECIMEN Ordering Facility: [facility] Address: [address] [place] [address] Performed By: #### 2 4323-8, 91561-2 #### [facility] CLIA [id number] [address] [place] [address] 32928 Creatinine and Glomerular filtration rate.predicted panel (S/P/Bld) 93 mL/min/1.73m??? Normal >=60 [facility] Comment on above: Order Comment: Farnaz rodgers Type: BLOOD SPECIMEN Ordering Facility: [facility] Address: [address] [place] [address] Result Comment: Goldie mated Glomerular Filtration Rate (eGFR) is calculated using the 2020 CKD-EPI creatinine equation. This equation utilizes serum creatinine, sex, and age as parameters. The creatinine assay has traceable calibration to isotope dilution-mass spectrometry. Refer to KDIGO guidelines for clinical interpretation. In patients with unstable renal function, e.g. those with acute kidney injury, the eGFR may not accurately reflect actual GFR. Performed By: #### 2 4323-8, 66183-5 #### [facility] CLIA [id number] [address] [place] [address] 75256 Glucose [Mass/Vol] 166 mg/dL High 74-99 [facility] Comment on above: Order Comment: Farnaz rodgers Type: BLOOD SPECIMEN Ordering Facility: [facility] Address: [address] [place] [address] Result Comment: The [place] Diabetes Association (ADA) provides guidance for cutoff values for fasting glucose and random glucose. The ADA defines fasting as no caloric intake for at least 8 hours. Fasting plasma glucose results between 100 to 125 mg/dL indicate increased risk for diabetes (prediabetes). Fasting plasma glucose results greater than or equal to 126 mg/dL meet the criteria for diagnosis of diabetes. In the absence of unequivocal hyperglycemia, results should be confirmed by repeat testing. In a patient with classic symptoms of hyperglycemia or hyperglycemic crisis, random plasma glucose results greater than or equal to 200 mg/dL meet the criteria for diagnosis of diabetes. Reference: Standards of Medical Care in Diabetes 2016, [place] Diabetes Association. Diabetes Care. 2016.39(Suppl 1). Performed By: #### 2 4323-8, 19939-0 #### [facility] CLIA [id number] [address] [place] [address] Potassium [Moles/Vol] 4.4 mmol/L Normal 3.7-5.1 [facility] Comment on above: Order Comment: Speci men Type: BLOOD SPECIMEN Ordering Facility: [facility] Address: [address] [place] [address] Performed By: #### 2 4323-8, 63986-5 #### [facility] CLIA [id number] [address] [place] [address] 94943 Protein [Mass/Vol] 6.6 g/dL Normal 6.3-8.0 [facility] Comment on above: Order Comment: Speci men Type: BLOOD SPECIMEN Ordering Facility: [facility] Address: [address] [place] [address] Performed By: #### 2 4323-8, 92224-6 #### [facility] CLIA [id number] [address] [place] [address] 71345 Sodium [Moles/Vol] 139 mmol/L Normal 136-144 [facility] Comment on above: Order Comment: Speci men Type: BLOOD SPECIMEN Ordering Facility: [facility] Address: [address] [place] [address] Performed By: #### 2 4323-8, 25564-8 #### [facility] CLIA [id number] [address] [place] [address] 15386 Urea nitrogen [Mass/Vol] 14 mg/dL Normal 9-24 [facility] Comment on above: Order Comment: Speci men Type: BLOOD SPECIMEN Ordering Facility: [facility] Address: [address] [place] [address] Performed By: #### 2 4323-8, 89208-2 #### [facility] CLIA [id number] [address] [place] [address] 09524 HbA1c (Bld)on 05-19-2023 Average glucose Estimated from glycated hemoglobin (Bld) [Mass/Vol] 166 mg/dL Normal [facility] Comment on above: Order Comment: Speci men Type: BLOOD SPECIMEN Ordering Facility: [facility] Address: [address] [place] [address] Result Comment: eAG: (Estimated average glucose) is a calculated value from HgbA1c and is senior patient account representative of the average blood glucose level in the last 2-3 month period. Performed By: #### 5 5454-3 #### [facility] CLIA [id number] [address] [place] [address] [place] HbA1c (Bld) [Mass fraction] 7.4 % High 4.3-5.6 [facility] Comment on above: Order Comment: Speci men Type: BLOOD SPECIMEN Ordering Facility: [facility] Address: [address] [place] [address] Result Comment: Amer ican Diabetes Association guidelines indicate that patients with HgbA1c in the range 5.7-6.4% are at increased risk for development of diabetes, and intervention by lifestyle modification may be beneficial. HgbA1c greater or equal to 6.5% is considered diagnostic of diabetes. Performed By: #### 5 5454-3 #### [facility] CLIA [id number] [address] [place] [address] [place] Lipid 1996 panelon 3 Cholesterol [Mass/Vol] 134 mg/dL Normal <200 [facility] Comment on above: Order Comment: Wendiei men Type: BLOOD SPECIMEN Ordering Facility: [facility] Address: [address] [place] [address] Result Comment: <200 mg/dL, Desirable 200-239 mg/dL, Borderline high >239 mg/dL, High Performed By: #### 2 4331-1 #### [facility] CLIA [id number] [address] [place] [address] [place] [facility] CLIA [id number] [address] [place] [address] 01143 Cholesterol in HDL [Mass/Vol] 33 mg/dL Low >39 [facility] Comment on above: Order Comment: Speci men Type: BLOOD SPECIMEN Ordering Facility: [facility] Address: [address] [place] [address] Result Comment: 40-5 9 mg/dL, Acceptable >59 mg/dL, High: Negative risk factor for coronary heart disease <40 mg/dL, Low: Positive risk factor for coronary heart disease Performed By: #### 2 4331-1 #### [facility] CLIA [id number] [address] [facility] CLIA [id number] [address] [place] [address] 32689 Cholesterol in LDL [Mass/Vol] 83 mg/dL Normal <100 [facility] Comment on above: Order Comment: Speci men Type: BLOOD SPECIMEN Ordering Facility: [facility] Address: [address] [place] [address] Result Comment: <100 mg/dL, Optimal 100-129 mg/dL, Near optimal/above optimal 130-159 mg/dL, Borderline high 160-189 mg/dL, High >189 mg/dL, Very high Secondary prevention optimal LDL Cholesterol levels are recommended to be < 70 mg/dL Performed By: #### 2 4331-1 #### [facility] CLIA [id number] [address] [facility] CLIA [id number] [address] [place] [address] 14517 Cholesterol in LDL/Cholesterol in HDL [Mass ratio] 2.52 {ratio} Normal <2.54 [facility] Comment on above: Order Comment: Speci men Type: BLOOD SPECIMEN Ordering Facility: [facility] Address: [address] [place] [address] Result Comment: Refe rence: 1. National Cholesterol Education Program ATP III Guideline At-A-Glance Quick Desk Reference: National Heart, Lung, and Blood [place]. National Institutes of Health. 2001: NIH Publication No. 01-3305. 2. An International Atherosclerosis Society position paper: global recommendations for the management of dyslipidemia: executive summary, Atherosclerosis. 2014: 232(2):410-413. Performed By: #### 2 4331-1 #### [facility] CLIA [id number] [address] [place] [id number] [facility] CLIA [id number] [address] [place] [address] 28133 Cholesterol in VLDL [Mass/Vol] 18 mg/dL Normal <30 [facility] Comment on above: Order Comment: Speci men Type: BLOOD SPECIMEN Ordering Facility: [facility] Address: [address] [place] [address] Performed By: #### 2 4331-1 #### [facility] CLIA [id number] [address] [facility] CLIA [id number] [address] [place] [address] 05478 Cholesterol non HDL [Mass/Vol] 101 mg/dL Normal <130 [facility] Comment on above: Order Comment: Speci men Type: BLOOD SPECIMEN Ordering Facility: [facility] Address: [address] [place] [address] Result Comment: <130 mg/dL, Optimal 130-159 mg/dL, Near optimal/above optimal 160-189 mg/dL, Borderline high 190-219 mg/dL, High >219 mg/dL, Very high Secondary prevention optimal non HDL Cholesterol levels are recommended to be <100 mg/dL Performed By: #### 2 4331-1 #### [facility] CLIA [id number] [address] [facility] CLIA [id number] [address] [place] [address] 56526 Cholesterol.total/Chol esterol in HDL [Mass ratio] 4.06 {ratio} Normal <5.10 [facility] Comment on above: Order Comment: Speci men Type: BLOOD SPECIMEN Ordering Facility: [facility] Address: [address] [place] [address] Performed By: #### 2 4331-1 #### [facility] CLIA [id number] [address] [facility] CLIA [id number] [address] [place] [address] FASTING TIME 12 hrs Normal [facility] Comment on above: Order Comment: Speci men Type: BLOOD SPECIMEN Ordering Facility: [facility] Address: [address] [place] [address] Performed By: #### 2 4331-1 #### [facility] CLIA [id number] [address] [place] [id number] [facility] CLIA [id number] [address] [place] [address] 87244 Triglyceride [Mass/Vol] 90 mg/dL Normal <150 [facility] Comment on above: Order Comment: Speci men Type: BLOOD SPECIMEN Ordering Facility: [facility] Address: [address] [place] [address] Result Comment: <150 mg/dL, Normal 150-199 mg/dL, Borderline high 200-499 mg/dL, High >499 mg/dL, Very high Performed By: #### 2 4331-1 #### [facility] CLIA [id number] [address] [facility] CLIA [id number] [address] [place], [place] [address] Hepatic function 2000 panelo n 04-04-2023 Albumin [Mass/Vol] 3.8 g/dL Low 3.9-4.9 [facility] Comment on above: Order Comment: Speci men Type: BLOOD SPECIMEN Ordering Facility: [facility] Address: [address] [place] [address] Performed By: #### 2 4325-3 #### [facility] CLIA [id number] [address] [place] [address] 36404 ALP [Catalytic activity/Vol] 107 U/L Normal 38-113 [facility] Comment on above: Order Comment: Speci men Type: BLOOD SPECIMEN Ordering Facility: [facility] Address: [address] [place] [address] Performed By: #### 2 4325-3 #### [facility] CLIA [id number] [address] [place] [address] ALT [Catalytic activity/Vol] 139 U/L High 10-54 [facility] Comment on above: Order Comment: Speci men Type: BLOOD SPECIMEN Ordering Facility: [facility] Address: [address] [place] [address] Performed By: #### 2 4325-3 #### [facility] CLIA [id number] [address] [place] [address] AST [Catalytic activity/Vol] 147 U/L High 14-40 [facility] Comment on above: Order Comment: Speci men Type: BLOOD SPECIMEN Ordering Facility: [facility] Address: [address] [place] [address] Performed By: #### 2 4325-3 #### [facility] CLIA [id number] [address] [place] [address] 44856 Bilirubin [Mass/Vol] 2.0 mg/dL High 0.2-1.3 [facility] Comment on above: Order Comment: Speci men Type: BLOOD SPECIMEN Ordering Facility: [facility] Address: [address] [place] [address] Performed By: #### 2 4325-3 #### [facility] CLIA [id number] [address] [place] [address] 01631 Bilirubin.conjugated [Mass/Vol] 0.4 mg/dL High <0.2 [facility] Comment on above: Order Comment: Speci men Type: BLOOD SPECIMEN Ordering Facility: [facility] Address: [address] [place] [address] Performed By: #### 2 4325-3 #### [facility] CLIA [id number] [address] [place] [address] 90253 Protein [Mass/Vol] 6.5 g/dL Normal 6.3-8.0 [facility] Comment on above: Order Comment: Speci men Type: BLOOD SPECIMEN Ordering Facility: [facility] Address: [place] [address] Performed By: #### 2 4325-3 #### [facility] CLIA [id number] [address] [place] [address] 01194 No Panel Informationon 02-25 [facility] US ABD RIGHT UPPER QUADRANTo n 02-25-2023 US ABD RIGHT UPPER QUADRANT * * *Final Report* * * DATE OF EXAM: Feb 25 2023 9:55AM LNU 1032 - US ABD RIGHT UPPER QUADRANT / PROCEDURE REASON: Autoimmune hepatitis treated with steroids (HCC) * * * * Physician Interpretation * * * * EXAMINATION: RIGHT UPPER QUADRANT AND SPLEEN ULTRASOUND CLINICAL HISTORY: Autoimmune hepatitis, treated with steroids. TECHNIQUE: Sonography of the right upper quadrant and spleen was performed. Images were obtained and stored in a permanent archive. MQ: URUQ_2 COMPARISON: Right upper quadrant ultrasound 08/12/2022; 02/01/2022 RESULT: Pancreas: Normal sonographic appearance. Portions obscured: tail Liver: Echotexture: Coarse Echogenicity: Normal Surface contour: Smooth Lesions: None. Biliary: No intrahepatic biliary duct dilation. CBD: 0.4 cm at the hilum. Gallbladder: Normal caliber -Contents: No cholelithiasis -Wall: Normal -Other: No pericholecystic fluid. Right Kidney: No hydronephrosis. Left Kidney: No hydronephrosis. Ascites: None. Spleen: The craniocaudal length of the spleen is 15 cm, enlarged (previously 15.4 cm). A 1 cm cystic structure within the mid spleen is likely an angiomatous lesion. IMPRESSION: 1. Coarsened liver echotexture, compatible with cirrhosis. 2. Splenomegaly. Production Line: PSC[employer] Transcribe Date/Time: Feb 25 2023 10:03A Dictated by : RENETTA AMEZCUA MD This examination was interpreted and the report reviewed and electronically signed by: RENETTA AMEZCUA MD on Feb 25 2023 10:07AM EST [id number] Normal [facility] US ABD SPLEEN -NBon 02-26-20 US ABD SPLEEN -NB * * *Final Report* * * DATE OF EXAM: Feb 25 2023 9:55AM LNU 1232 - US ABD SPLEEN -NB / PROCEDURE REASON: Autoimmune hepatitis treated with steroids (HCC) * * * * Physician Interpretation * * * * EXAMINATION: RIGHT UPPER QUADRANT AND SPLEEN ULTRASOUND CLINICAL HISTORY: Autoimmune hepatitis, treated with steroids. TECHNIQUE: Sonography of the right upper quadrant and spleen was performed. Images were obtained and stored in a permanent archive. MQ: URUQ_2 COMPARISON: Right upper quadrant ultrasound 08/12/2022; 02/01/2022 RESULT: Pancreas: Normal sonographic appearance. Portions obscured: tail Liver: Echotexture: Coarse Echogenicity: Normal Surface contour: Smooth Lesions: None. Biliary: No intrahepatic biliary duct dilation. CBD: 0.4 cm at the hilum. Gallbladder: Normal caliber -Contents: No cholelithiasis -Wall: Normal -Other: No pericholecystic fluid. Right Kidney: No hydronephrosis. Left Kidney: No hydronephrosis. Ascites: None. Spleen: The craniocaudal length of the spleen is 15 cm, enlarged (previously 15.4 cm). A 1 cm cystic structure within the mid spleen is likely an angiomatous lesion. IMPRESSION: 1. Coarsened liver echotexture, compatible with cirrhosis. 2. Splenomegaly. Production Line: [facility] Transcribe Date/Time: Feb 25 2023 10:03A Dictated by : RENETTA AMEZCUA MD This examination was interpreted and the report reviewed and electronically signed by: RENETTA AMEZCUA MD on Feb 25 2023 10:07AM EST [id number] Normal [facility] VC CONSULT FOLLOWUPon 2022 VC CONSULT FOLLOWUP Patient: Mira EWING Exam Date: 12/02/2022 : 1965 Gender:M Ordering : DR ADALID ORLANDO M.D. Admission #: [id number] Family : Order #: [id number] CLICK HERE TO VIEW EXAM RADIOLOGY REPORT PROCEDURE: VEIN CENTER CONSULTATION FOLLOWUP VEIN CENTER - OFFICE VISIT FOLLOW UP COMPARISON: VC CONSULT FOLLOWUP, 11/18/2022. PROGRESS NOTES: The patient reports that improvement in leg symptoms. There has been interval reduction in varicosities. The patient has followed our recommendations to walk 20-30 minutes once or twice per day since the procedure. Physical exam demonstrates decrease in varicosities of the right leg. Persistent superficial varicosities are identified along the legs bilaterally. Review of the ultrasound performed the same day demonstrates occlusive thrombus extending throughout the treated vein, see separate report, consistent with a successful ablation. No thrombus extending into or beyond the saphenofemoral junction. The patient expressed a desire to proceed with treatment of remaining incompetent branch saphenous varicosities. The patient was informed that treatment was a process and would require several procedures/sessions. IMPRESSION: 1. Successful ablation of the right small saphenous vein 2. 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 Nurse notes, history and physical were reviewed and confirmed, see attached forms. The nurse was present throughout the physical exam and consultation Dictated by: Ivy Lo M.D. on 12/02/2022 at 14:39 Approved by: Ivy Lo M.D. on 12/02/2022 at 14:41 Normal [facility] EXT VENOUS RT LIMITEDon 0 12-02-2022 VC EXT VENOUS RT LIMITED Patient: NIR EWING Exam Date: 12/02/2022 : 1965 Gender:M Ordering : DR ADALID ORLANDO M.D. Admission #: [id number] Family : Order #: [id number] CLICK HERE TO VIEW EXAM RADIOLOGY REPORT PROCEDURE: VEIN CENTER EXTREMITY VENOUS RIGHT LIMITED COMPARISON: VC EXT VENOUS RT LIMITED, 10/21/2022. INDICATIONS: Phlebitis and thrombophlebitis of superficial veins of right lower extremity I80.01 TECHNIQUE: Lower extremity chavez scale and Duplex Doppler evaluation of the deep venous system from the inguinal ligament through the calf veins. FINDINGS: REGION: Right lower extremity. THROMBI: Negative for DVT. Heat induced thrombus visualized 1.3 cm from the SPJ. Thrombus extends from pop fossa to distal calf. COMPRESSIBILITY: Non-compressible segments. FLOW: Areas of no flow. OTHER: CONCLUSION: 1. Successful post ablation occlusion of right small saphenous vein. Dictated by: Ivy Lo M.D. on 12/02/2022 at 14:38 Approved by: Ivy Lo M.D. on 12/02/2022 at 14:39 Normal [facility] ENDOVENOUS ABL 1ST V RTon 05-12-2023 ENDOVENOUS ABL 1ST V RT Patient: NIR EWING Exam Date: 11/29/2022 : 1965 Gender:M Ordering : DR ADALID ORLANDO M.D. Admission #: [id number] Family : Order #: [id number] CLICK HERE TO VIEW EXAM RADIOLOGY REPORT PROCEDURE: VEIN CENTER ENDOVENOUS ABLATION FIRST VEIN RIGHT SMALL SAPHENOUS VEIN COMPARISON: VC ENDOVENOUS ABL 1ST V RT, 10/17/2022. INDICATIONS: Pain co-occurrent and due to varicose veins of bilateral legs I83.813 OPERATIVE REPORT: The risks and benefits of the procedure had been previously discussed, and were rediscussed at length. Informed written consent was obtained by and José Luis perez. Time out procedure was performed. The right lower extremity was prepared and draped in the usual sterile fashion. Duplex ultrasound probe was draped in a sterile cover, sterile transmission gel was used. Venous mapping was performed with the areas of dilation and large tributaries marked. The total length was 28 cm from the entry 5 cm above the medial malleolus to 3 cm below the saphenofemoral junction. The diameter of the small saphenous vein ranged from 5-8 mm. A 30 gauge needle and 1% buffered lidocaine was used to anesthetize the entry site. A 4 mm incision was made with a scalpel and the saphenous vein was entered percutaneously under direct ultrasound guidance with a micropuncture set, a single stick was successful in gaining access. A micro-guide wire was inserted and the needle removed. A micro-set including a dilator was inserted over the microwire and the needle and dilator were removed. A 0.018 guide wire was inserted through the micro-set and threaded through the saphenous vein. The dilator was removed and an introducer sheath was inserted over the wire. The dilator and wire were removed and the 600 micron fiber was introduced and placed and positioned so that it extended beyond the sheath. Final position of the fiber was determined by ultrasound guidance and duplex imaging. Tumescent anesthetic was delivered by ultrasound guidance. 175 cc of fluid was delivered along the entire course of the saphenous vein. The solution consisted of 500 cc of normal saline with 20mL of 1% lidocaine and 10 mL of sodium bicarbonate. A final positioning check was made. The energy source was turned on by means of the foot pedal and the fiber and sheath were withdrawn. The total number of Joules delivered was 1282. The laser was active for 160 seconds under continuous pulse, average laser use of 8 J. Laser start time 8:56 a.m. November 29, 2022. Laser stop time 8:59 a.m. November 29, 2022. A duplex ultrasound revealed compressibility and flow at the saphenofemoral junction immediately after the procedure. Hemostasis at the access site was achieved. The skin incision of the saphenous vein was closed with a 4 x 4. A compression stocking was applied. Postop instructions were given. A follow up appointment was recommended and scheduled. The patient tolerated the procedure well and was discharged in good condition. CONCLUSION: 1. Technically successful endovenous laser ablation of the right small saphenous vein. Dictated by: Adalid Orlando MD on 11/29/2022 at 09:23 Approved by: Adalid Orlando MD on 11/29/2022 at 09:26 Normal [facility] VC CONSULT FOLLOWUPon 2022 VC CONSULT FOLLOWUP Patient: Mira EWING Exam Date: 11/18/2022 : 1965 Gender:M Ordering : DR ADALID ORLANDO M.D. Admission #: [id number] Family : Order #: [id number] CLICK HERE TO VIEW EXAM RADIOLOGY REPORT PROCEDURE: VEIN CENTER CONSULTATION FOLLOWUP VEIN CENTER - OFFICE VISIT FOLLOW UP COMPARISON: VC CONSULT FOLLOWUP, 10/21/2022. PROGRESS NOTES: The patient reports improvement in leg symptoms. There has been interval reduction in varicosities. The patient has followed our recommendations to walk 20-30 minutes once or twice per day since the procedure. Physical exam demonstrates decrease in varicosities of the left leg. Persistent varicosities are identified along the legs bilaterally. Review of the ultrasound performed the same day demonstrates occlusive thrombus extending throughout the treated vein, see separate report, consistent with a successful ablation. No thrombus extending into or beyond the saphenofemoral junction. The patient expressed a desire to proceed with treatment of remaining incompetent varicosities. The patient was informed that treatment was a process and would require several procedures/sessions. IMPRESSION: 1. Successful ablation of the left small saphenous vein 2. 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 Nurse notes, history and physical were reviewed and confirmed, see attached forms. The nurse was present throughout the physical exam and consultation Dictated by: Ivy Lo M.D. on 11/18/2022 at 11:57 Approved by: Ivy Lo M.D. on 11/18/2022 at 11:59 Normal [facility] VC EXT VENOUS LT LIMITEDon 0 11-18-2022 VC EXT VENOUS LT LIMITED Patient: NIR EWING Exam Date: 11/18/2022 : 1965 Gender:M Ordering : DR ADALID ORLANDO M.D. Admission #: [id number] Family : Order #: [id number] CLICK HERE TO VIEW EXAM RADIOLOGY REPORT PROCEDURE: VEIN CENTER EXTREMITY VENOUS LEFT LIMITED COMPARISON: VC EXT VENOUS LT LIMITED, 10/08/2022. INDICATIONS: Phlebitis and thrombophlebitis of superficial veins of left lower extremity I80.02 TECHNIQUE: Lower extremity chavez scale and Duplex Doppler evaluation of the deep venous system from the inguinal ligament through the calf veins. FINDINGS: REGION: Left lower extremity. THROMBI: Negative for DVT. Heat induced thrombus visualized in the left SSV 1.3 cm from the saphenopopliteal junction and extends to distal lower leg. COMPRESSIBILITY: Partial compressibility of segments. FLOW: Areas of no flow. OTHER: CONCLUSION: 1. Successful post ablation occlusion of left small saphenous vein. Dictated by: Ivy Lo M.D. on 11/18/2022 at 11:55 Approved by: Ivy Lo M.D. on 11/18/2022 at 11:57 Normal [facility] VC ENDOVENOUS ABL 1ST V LTon 11-14-2022 VC ENDOVENOUS ABL 1ST V LT Patient: NIR EWING Exam Date: 11/14/2022 : 1965 Gender:M Ordering : DR ADALID ORLANDO M.D. Admission #: [id number] Family : Order #: [id number] CLICK HERE TO VIEW EXAM RADIOLOGY REPORT PROCEDURE: VEIN CENTER ENDOVENOUS ABLATION FIRST VEIN LEFT COMPARISON: VC VENOUS REFLUX PHILIP LMT, 09/06/2022. VC ENDOVENOUS ABL 1ST V LT, 10/03/2022. INDICATIONS: Pain co-occurrent and due to varicose veins of bilateral legs I83.813 OPERATIVE REPORT: The risks and benefits of the procedure had been previously discussed, and were rediscussed at length. Informed written consent was obtained by and José Luis perez. Time out procedure was performed. The left lower extremity was prepared and draped in the usual sterile fashion to allow knee flexion in the sterile field. Duplex ultrasound probe was draped in a sterile cover, sterile transmission gel was used. Venous mapping was performed with the areas of dilation and large tributaries marked. The total length was 33 cm from the entry 3 cm above the medial malleolus to 3 cm below the saphenopopliteal junction. The diameter of the greater saphenous vein ranged from 5.3 mm. A 30 gauge needle and 1% buffered lidocaine was used to anesthetize the entry site. A 4 mm incision was made with a scalpel and the saphenous vein was entered percutaneously under direct ultrasound guidance with a micropuncture set, a single stick was successful in gaining access. A micro-guide wire was inserted and the needle removed. A micro-set including a dilator was inserted over the microwire and the needle and dilator were removed. A 0.018 guide wire was inserted through the micro-set and threaded through the saphenous vein to the saphenofemoral junction. The dilator was removed and an introducer sheath was inserted over the wire until the end of the sheath entered the saphenofemoral junction. The dilator and wire were removed and the 600 micron fiber was introduced and placed and positioned so that it extended beyond the sheath and was 3 cm peripheral to the saphenofemoral femoral junction. Final position of the fiber was determined by ultrasound guidance and duplex imaging. Tumescent anesthetic was delivered by ultrasound guidance. 2025 cc of fluid was delivered along the entire course of the saphenous vein. The solution consisted of 500 cc of normal saline with 20mL of 1% lidocaine and 10 mL of sodium bicarbonate. A final positioning check was made. The energy source was turned on by means of the foot pedal and the fiber and sheath were withdrawn. The total number of Joules delivered was 1679. The laser was active for 210 seconds under continuous pulse, average laser use of 8 J. Laser start time 9:25 a.m. November 14, 2022. Laser stop time 9:29 a.m. November 14, 2022. A duplex ultrasound revealed compressibility and flow at the saphenofemoral junction immediately after the procedure. Hemostasis at the access site was achieved. The skin incision of the saphenous vein was closed with a 4 x 4. A compression stocking was applied. Postop instructions were given. A follow up appointment was recommended and scheduled. The patient tolerated the procedure well and was discharged in good condition. CONCLUSION: 1. Technically successful endovenous laser ablation of the left small saphenous vein. Dictated by: Ivy Lo M.D. on 11/14/2022 at 09:49 Approved by: Ivy Lo M.D. on 11/14/2022 at 09:54 Normal [facility] VC CONSULT FOLLOWUPon 2022 VC CONSULT FOLLOWUP Patient: Mira EWING Exam Date: 10/21/2022 : 1965 Gender:M Ordering : DR ADALID ORLANDO M.D. Admission #: [id number] Family : Order #: [id number] CLICK HERE TO VIEW EXAM RADIOLOGY REPORT PROCEDURE: VEIN CENTER CONSULTATION FOLLOWUP VEIN CENTER - OFFICE VISIT FOLLOW UP COMPARISON: VC CONSULT FOLLOWUP, 10/08/2022. PROGRESS NOTES: The patient reports mild leg tenderness which has been improving. Previously tender/sore left leg has also been improving. The patient has followed our recommendations to walk 20-30 minutes once or twice per day since the procedure. Physical exam demonstrates decrease in varicosities. No evidence of erythema or infection. Persistent varicosities are identified along the legs bilaterally. Review of the ultrasound performed the same day demonstrates occlusive thrombus extending throughout the treated vein, see separate report, consistent with a successful ablation. No thrombus extending into or beyond the saphenofemoral junction. The patient expressed a desire to proceed with treatment of remaining incompetent veins. The patient was informed that treatment was a process and would require several procedures/sessions. IMPRESSION: 1. Successful ablation of the right great saphenous vein 2. Persistent varicose veins and lower extremity symptoms PLAN: Endovenous laser ablation of left small saphenous vein. Nurse notes, history and physical were reviewed and confirmed, see attached forms. The nurse was present throughout the physical exam and consultation Dictated by: Ivy Lo M.D. on 10/21/2022 at 14:29 Approved by: Ivy Lo M.D. on 10/21/2022 at 14:31 Normal [facility] VC EXT VENOUS RT LIMITEDon 0 10-21-2022 VC EXT VENOUS RT LIMITED Patient: NIR EWING Exam Date: 10/21/2022 : 1965 Gender:M Ordering : DR ADALID ORLANDO M.D. Admission #: [id number] Family : Order #: [id number] CLICK HERE TO VIEW EXAM RADIOLOGY REPORT PROCEDURE: VEIN CENTER EXTREMITY VENOUS RIGHT LIMITED COMPARISON: None. INDICATIONS: Phlebitis and thrombophlebitis of superficial veins of right lower extremity I80.01 TECHNIQUE: Lower extremity chavez scale and Duplex Doppler evaluation of the deep venous system from the inguinal ligament through the calf veins. FINDINGS: REGION: Right lower extremity. THROMBI: Negative for DVT. Heat induced thrombus visualized 7.5 mm from the saphenofemoral junction and continues from groin to distal medial ankle. COMPRESSIBILITY: Partial compressibility of segments. FLOW: Areas of no flow. OTHER: CONCLUSION: 1. Successful post ablation occlusion of right great saphenous vein. Dictated by: Ivy Lo M.D. on 10/21/2022 at 14:26 Approved by: Ivy Lo M.D. on 10/21/2022 at 14:28 Normal [facility] VC ENDOVENOUS ABL 1ST V RTon 10-17-2022 VC ENDOVENOUS ABL 1ST V RT Patient: NIR EWING Exam Date: 10/17/2022 : 1965 Gender:M Ordering : DR ADALID ORLANDO M.D. Admission #: [id number] Family : Order #: [id number] CLICK HERE TO VIEW EXAM RADIOLOGY REPORT PROCEDURE: VEIN CENTER ENDOVENOUS ABLATION FIRST VEIN RIGHT GREAT SAPHENOUS VEIN COMPARISON: None. INDICATIONS: Pain co-occurrent and due to varicose veins of bilateral legs i83.813 OPERATIVE REPORT: The risks and benefits of the procedure had been previously discussed, and were rediscussed at length. Informed written consent was obtained by and José Luis perez. Time out procedure was performed. The right lower extremity was prepared and draped in the usual sterile fashion to allow knee flexion in the sterile field. Duplex ultrasound probe was draped in a sterile cover, sterile transmission gel was used. Venous mapping was performed with the areas of dilation and large tributaries marked. The total length was 69 cm from the entry 3 cm above the medial malleolus to 3 cm below the saphenofemoral junction. The diameter of the greater saphenous vein ranged from 6-11 mm. A 30 gauge needle and 1% buffered lidocaine was used to anesthetize the entry site. A 4 mm incision was made with a scalpel and the saphenous vein was entered percutaneously under direct ultrasound guidance with a micropuncture set, a single stick was successful in gaining access. A micro-guide wire was inserted and the needle removed. A micro-set including a dilator was inserted over the microwire and the needle and dilator were removed. A 0.018 guide wire was inserted through the micro-set and threaded through the saphenous vein to the saphenofemoral junction. The dilator was removed and an introducer sheath was inserted over the wire until the end of the sheath entered the saphenofemoral junction. The dilator and wire were removed and the 600 micron fiber was introduced and placed and positioned so that it extended beyond the sheath and was 3 cm peripheral to the saphenofemoral femoral junction. Final position of the fiber was determined by ultrasound guidance and duplex imaging. Tumescent anesthetic was delivered by ultrasound guidance. 300 cc of fluid was delivered along the entire course of the saphenous vein. The solution consisted of 500 cc of normal saline with 20mL of 1% lidocaine and 10 mL of sodium bicarbonate. A final positioning check was made. The energy source was turned on by means of the foot pedal and the fiber and sheath were withdrawn. The total number of Joules delivered was 3331. The laser was active for 416 seconds under continuous pulse, average laser use of 8 J. Laser start time 8:43 am 10/17/22. Laser stop time 8:53 am 10/17/22. A duplex ultrasound revealed compressibility and flow at the saphenofemoral junction immediately after the procedure. Hemostasis at the access site was achieved. The skin incision of the saphenous vein was closed with a 4 x 4. A compression stocking was applied. Postop instructions were given. A follow up appointment was recommended and scheduled. The patient tolerated the procedure well and was discharged in good condition. CONCLUSION: 1. Technically successful endovenous laser ablation of the right great saphenous vein. Dictated by: Adalid Orlando MD on 10/17/2022 at 09:03 Approved by: Adalid Orlando MD on 10/17/2022 at 09:09 Normal [facility] VC CONSULT FOLLOWUPon 2022 VC CONSULT FOLLOWUP Patient: Mira EWING Exam Date: 10/08/2022 : 1965 Gender:M Ordering : DR ADALID ORLANDO M.D. Admission #: [id number] Family : Order #: [id number] CLICK HERE TO VIEW EXAM RADIOLOGY REPORT PROCEDURE: VEIN CENTER CONSULTATION FOLLOWUP VEIN CENTER - OFFICE VISIT FOLLOW UP COMPARISON: None. PROGRESS NOTES: The patient reports areas of tenderness and bruising within left leg, with improvement over the past several days. There has been interval reduction in varicosities. The patient has followed our recommendations to walk 20-30 minutes once or twice per day since the procedure. Physical exam demonstrates some areas of mild bruising, and overall decrease in visible superficial varicosities of the left leg. Persistent varicosities are identified along the legs bilaterally. Review of the ultrasound performed the same day demonstrates occlusive thrombus extending throughout the treated vein, see separate report, consistent with a successful ablation. No thrombus extending into or beyond the saphenofemoral junction. The patient expressed a desire to proceed with treatment of remaining incompetent varicosities. The patient was informed that treatment was a process and would require several procedures/sessions. IMPRESSION: 1. Successful ablation of the left great saphenous vein 2. Persistent incompetent, dilated veins and bilateral lower extremity symptoms PLAN: Endovenous laser ablation of right great saphenous vein to be performed next. Nurse notes, history and physical were reviewed and confirmed, see attached forms. The nurse was present throughout the physical exam and consultation Dictated by: Ivy Lo M.D. on 10/08/2022 at 09:43 Approved by: Ivy Lo M.D. on 10/08/2022 at 09:47 Normal [facility] VC EXT VENOUS LT LIMITEDon 0 10-08-2022 VC EXT VENOUS LT LIMITED Patient: NIR EWING Exam Date: 10/08/2022 : 1965 Gender:M Ordering : DR ADALID ORLANDO M.D. Admission #: [id number] Family : Order #: [id number] CLICK HERE TO VIEW EXAM RADIOLOGY REPORT PROCEDURE: VEIN CENTER EXTREMITY VENOUS LEFT LIMITED COMPARISON: None. INDICATIONS: Phlebitis and thrombophlebitis of superficial veins of left lower extremity I80.02 TECHNIQUE: Lower extremity chavez scale and Duplex Doppler evaluation of the deep venous system from the inguinal ligament through the calf veins. FINDINGS: REGION: Left lower extremity. THROMBI: Negative for DVT. Heat induced thrombus in left GSV 9.9 mm from SFJ and extends to distal lower leg. COMPRESSIBILITY: Non-compressible segments. FLOW: Areas of no flow. CONCLUSION: 1. Successful post ablation occlusion of left great saphenous vein. Dictated by: Ivy Lo M.D. on 10/08/2022 at 09:34 Approved by: Ivy Lo M.D. on 10/08/2022 at 09:43 Normal [facility] VC ENDOVENOUS ABL 1ST V LTon 10-03-2022 VC ENDOVENOUS ABL 1ST V LT Patient: NIR EWING Exam Date: 10/03/2022 : 1965 Gender:M Ordering : DR ADALID ORLANDO M.D. Admission #: [id number] Family : Order #: [id number] CLICK HERE TO VIEW EXAM RADIOLOGY REPORT PROCEDURE: VEIN CENTER ENDOVENOUS ABLATION FIRST VEIN LEFT GREAT SAPHENOUS VEIN COMPARISON: None. INDICATIONS: Pain co-occurrent and due to varicose veins of bilateral legs I83.813 OPERATIVE REPORT: The risks and benefits of the procedure had been previously discussed, and were rediscussed at length. Informed written consent was obtained by and José Luis perez. Time out procedure was performed. The left lower extremity was prepared and draped in the usual sterile fashion to allow knee flexion in the sterile field. Duplex ultrasound probe was draped in a sterile cover, sterile transmission gel was used. Venous mapping was performed with the areas of dilation and large tributaries marked. The total length was 70 cm from the entry 5 cm above the medial malleolus to 3 cm below the saphenofemoral junction. The diameter of the greater saphenous vein ranged from 5-10 mm. A 30 gauge needle and 1% buffered lidocaine was used to anesthetize the entry site. A 4 mm incision was made with a scalpel and the saphenous vein was entered percutaneously under direct ultrasound guidance with a micropuncture set, a single stick was successful in gaining access. A micro-guide wire was inserted and the needle removed. A micro-set including a dilator was inserted over the microwire and the needle and dilator were removed. A 0.018 guide wire was inserted through the micro-set and threaded through the saphenous vein to the saphenofemoral junction. The dilator was removed and an introducer sheath was inserted over the wire until the end of the sheath entered the saphenofemoral junction. The dilator and wire were removed and the 600 micron fiber was introduced and placed and positioned so that it extended beyond the sheath and was 3 cm peripheral to the saphenofemoral femoral junction. Final position of the fiber was determined by ultrasound guidance and duplex imaging. Tumescent anesthetic was delivered by ultrasound guidance. 250 cc of fluid was delivered along the entire course of the saphenous vein. The solution consisted of 500 cc of normal saline with 20mL of 1% lidocaine and 10 mL of sodium bicarbonate. A final positioning check was made. The energy source was turned on by means of the foot pedal and the fiber and sheath were withdrawn. The total number of Joules delivered was 3370. The laser was active for 421 seconds under continuous pulse, average laser use of 8 J. Laser start time 8:51 a.m. October 03, 2022. Laser stop time 8:58 a.m. October 03, 2022. A duplex ultrasound revealed compressibility and flow at the saphenofemoral junction immediately after the procedure. Hemostasis at the access site was achieved. The skin incision of the saphenous vein was closed with a 4 x 4. A compression stocking was applied. Postop instructions were given. A follow up appointment was recommended and scheduled. The patient tolerated the procedure well and was discharged in good condition. CONCLUSION: 1. Technically successful endovenous laser ablation of the left great saphenous vein. Dictated by: Adalid Orlando MD on 10/03/2022 at 09:21 Approved by: Adalid Oralndo MD on 10/03/2022 at 09:22 [facility] ANES POSTPROC EVALon 03-14-2 023 ANES POSTPROC EVAL HNO ID: [id number] Author: Adalid Mccollum MD Service: Anesthesiology Author Type: Anesthesiologist Type: Anesthesia Postprocedure Evaluation Filed: 10/01/2022 1:28 PM Note Text: POST ANESTHESIA EVALUATION NOTE : 1965 Procedure Summary Date: 10/01/22 Room / Location: Procedures Anesthesia Start: 1032 Anesthesia Stop: 1051 Procedure: EGD DIAGNOSTIC Diagnosis: Biliary cirrhosis (HCC) Autoimmune hepatitis treated with steroids (HCC) Other cirrhosis of liver (HCC) (Cirrhosis with suspected esophageal varices) Scheduled Providers: Debra Mcbride MD; Adalid Mccollum MD; Sheree Jha APRN.AUTO PARTS COUNTER PERSON; Viviana Giraldo RN Responsible Provider: Adalid Mccollum MD Anesthesia Type: MAC ASA Status: 2 Anesthesia Type: MAC Last Vitals Vitals Value Taken Time BP 133/87 10/01/22 1120 Temp 35.9 ?C (96.6 ?F) 10/01/22 1053 HR SpO2 51 10/01/22 1120 Resp 18 10/01/22 1120 SpO2 96 % 10/01/22 1123 Vitals shown include unvalidated device data. Post Anesthesia Patient Status Patient Evaluation: bedside. Anticipated Disposition: phase 2 then home. Neurological Status: aware and responsive. Pulmonary Status: breathing comfortably on room air Airway Control: returned to baseline unsupported. Cardiovascular Status: stable. Pain Management: clinically adequate Postoperative Hydration: acceptable. Intraoperative Events: no significant anesthesia events Post Operative Nausea/Vomiting Status: no significant post operative nausea or vomiting Recommendation: continue current plan of care. Anesthesia Observations No Documentation SIGNATURE: Adalid Mccollum MD PATIENT NAME: Nir Ewing DATE: October 01, 2022 TIME: 1:28 PM CSN: [id number] [facility] ANES PRE-OPon 10-01-2022 ANES PRE-OP HNO ID: [id number] Author: Adalid Mccollum MD Service: Anesthesiology Author Type: Anesthesiologist Type: Anesthesia Preprocedure Evaluation Filed: 10/01/2022 9:48 AM Note Text: ANESTHESIOLOGY DAY OF SURGERY NOTE : 1965 Procedure Information Date/Time: 10/01/22 0900 Scheduled providers: Debra Mcbride MD; Adalid Mccollum MD; Sheree Jha APRN.AUTO PARTS COUNTER PERSON; Viviana Giraldo RN Procedure: EGD DIAGNOSTIC Location: Procedures Estimated body mass index is 27.12 kg/m? as calculated from the following: Height as of this encounter: 182.9 cm (6'). Weight as of this encounter: 90.7 kg (200 lb). Most recent hematocrit and potassium results: Hematocrit 50.2 02/01/2022 Potassium 4.2 09/14/2021 Relevant Problems ENDO (+) Type II or unspecified type diabetes mellitus without mention of complication, uncontrolled (+) Uncontrolled type 2 diabetes mellitus without complication, with long-term current use of insulin (HCC) -RENAL (+) Autoimmune hepatitis treated with steroids (HCC) I - PHYSICAL EVALUATION AIRWAY Patient intubated: No. Tracheostomy tube not present Mallampati: II. TM distance: >3 FB. Neck ROM: full ROM without neurological symptoms. Mouth opening: adequate. Short neck: no. Thick neck: no DENTAL Dental findings: teeth intact. Additional exam findings: yes. CARDIOVASCULAR Rhythm: regular Rate: normal PULMONARY Breath sounds clear to auscultation. ABDOMINAL Normal abdominal observations. II - ANESTHESIA PLAN ASA Score: 2 Anesthetic Plan: MAC The patient is not a current smoker. NPO Status: adequate Beta Shane Monitoring Plan Monitoring plan: standard ASA. Post Procedure Analgesic Plan Postoperative analgesic plan: multimodal analgesia. Patient / Surrogate agrees to blood products: blood products not planned DNR status not reviewed with patient and/or family prior to surgery. Significant changes in the patient condition since the History and Physical, not otherwise documented in primary service progress note: no. Potential Anesthesia issues that may suggest increased risk of complications or contraindication to planned procedure: none. Vitals Value Taken Time BP 127/69 10/01/22 0849 Pulse Resp 18 10/01/22 0849 Temp 36.3 ?C (97.4 ?F) 10/01/22 0849 SpO2 94 % 10/01/22 0849 Outpatient Medications as of 10/01/2022 Medication Sig - predniSONE (DELTASONE) 1 mg tablet Take 5 tablets by mouth once daily. - mycophenolate Mofetil (CELLCEPT) 500 mg tablet Take 2 tablets by mouth twice daily. - insulin lispro (HUMALOG KWIKPEN INSULIN) 200 unit/mL (3 mL) injection Inject sq 6 unit(s) with breakfast and dinner on non workdays; inject sq 7 unit(s) with breakfast and dinner on work days - insulin degludec (TRESIBA FLEXTOUCH U-100) 100 unit/mL (3 mL) injection pen Inject 10 Units subcutaneously every 24 hours. - lancets (ONE TOUCH DELICA) 33 gauge Check blood sugar 3 times a day. - blood sugar diagnostic (ONETOUCH VERIO TEST STRIPS) test strip Use as instructed Check blood sugar 3 times a day. - Insulin Erie, Disposable, (BD ULTRA-FINE MARISSA PEN NEEDLE) 32 gauge x 5/32 Use as directed - Blood-Glucose Meter (ONETOUCH VERIO FLEX METER) Use as directed to test glucose 3 times daily No current facility-administered medications on file as of 10/01/2022. I have interviewed and examined the patient. I have reviewed the medical record and/or the pre-anesthesia evaluation, pertinent labs, and test results. This contains updated information obtained within 48 hours of Surgery/Procedure. SIGNATURE: Adalid Mccollum MD PATIENT NAME: Nir Nuñezabebe DATE: October 01, 2022 TIME: 9:47 AM CSN: [id number] [facility] ARIANNANIR ANGEL ([id number]) 1965 M Date Time Provider Department 10/01/22 DEBRA HOPKINS [facility]AD During your visit today, we recorded the following information about you: Allergies As of Date: 10/01/2022 (No Known Allergies) Date Reviewed: 10/01/2022 Reviewed by: Teressa Leon RN - Fully Assessed Reason for Visit: Orders [681] Order(s):lansoprazole (PREVACID) 30 mg capsuleTake 1 capsule by mouth once daily.Disp: 30 capsuleRfl: 5 carvedilol (COREG) 3.125 mg tabletTake 1 tablet by mouth twice daily.Disp: 60 tabletRfl: 11 Prescriptions as of 10/01/2022 - lansoprazole (PREVACID) 30 mg capsule Take 1 capsule by mouth once daily. - carvedilol (COREG) 3.125 mg tablet Take 1 tablet by mouth twice daily. - predniSONE (DELTASONE) 1 mg tablet Take 5 tablets by mouth once daily. - mycophenolate Mofetil (CELLCEPT) 500 mg tablet Take 2 tablets by mouth twice daily. - insulin lispro (HUMALOG KWIKPEN INSULIN) 200 unit/mL (3 mL) injection Inject sq 6 unit(s) with breakfast and dinner on non workdays; inject sq 7 unit(s) with breakfast and dinner on work days - lancets (ONE TOUCH DELICA) 33 gauge Check blood sugar 3 times a day. - blood sugar diagnostic (KALUCH VERIO TEST STRIPS) test strip Use as instructed Check blood sugar 3 times a day. - Insulin Erie, Disposable, (BD ULTRA-FINE MARISSA PEN NEEDLE) 32 gauge x 5/32 Use as directed - insulin degludec (TRESIBA FLEXTOUCH U-100) 100 unit/mL (3 mL) injection pen Inject 10 Units subcutaneously every 24 hours. 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 CARVEDILOL 3.125 MG TABLET 60 t* 11 10/01/2022 Route: ORAL Sig: Take 1 tablet by mouth twice daily. Encounter Status:Closed by DEBAR BUENO on 10/01/22 [facility] HISTORY PHYSICALon HISTORY PHYSICAL HNO ID: [id number] Author: Debra Mcbride MD Service: Hepatology Author Type: Physician Type: HANDP Filed: 10/01/2022 10:27 AM Note Text: EGD General: well appearing no distress HEENT negative no icterus Lungs CTA philip COR rrm- Abdomen benign Extremities no edema no spiders no palmar erythema DIRECTOR MISSION no asterixis , a+0 X3 Debra Bueno MD Normal [facility] Upper GI endoscopyon 023 Upper GI endoscopy [facility] Gastrointestinal Endoscopy Patient Name: Nir Ewing Procedure Date: 10/01/2022 10:09 AM Date of : 1965 Admit Type: Outpatient Age: 57 Room: [facility] 02 Gender: Male Note Status: Finalized Attending MD: Debra Mcbride MD Procedure: Upper GI endoscopy Indications: Cirrhosis with suspected esophageal varices Providers: Debra Mcbride MD Referring Physician: Debra Mcbride MD (Referring MD) Medicines: Monitored Anesthesia Care Complications: No immediate complications. Requesting Provider: Procedure: Pre-Anesthesia Assessment: - ASA Grade Assessment: III - A patient with severe systemic disease. After obtaining informed consent, the endoscope was passed under direct vision. Throughout the procedure, the patient's blood pressure, pulse, and oxygen saturations were monitored continuously. The 251 EGD SCOPE was introduced through the mouth, and advanced to the second part of duodenum. The upper GI endoscopy was accomplished without difficulty. The patient tolerated the procedure well. Moderate Sedation: MAC anesthesia was administered by the anesthesia team. Findings: Diaphragm, GEJ and Z line at 49 cm One medium to large varix is seen one band is placed Stomach no varices moderate portal hypertensive gastropathy DU normal The exam was otherwise without abnormality. Impression: - The examination was otherwise normal. - No specimens collected. Recommendation: - Resume previous diet today. - Continue present medications. - Repeat upper endoscopy in 3 months for retreatment. Procedure Code(s): --- Professional --- 43512, Esophagogastroduodenoscopy , flexible, transoral; diagnostic, including collection of specimen(s) by brushing or washing, when performed (separate procedure) CPT copyright 2020 [employer] [place] [employer]. All rights reserved. The codes documented in this report are preliminary and upon as400 programmer analyst review may be revised to meet current compliance requirements. Attending Participation: I personally performed the entire procedure. Scope In: Scope Out: MD Debra Husain MD 10/01/2022 10:57:06 AM This report has been signed electronically by Debra Mcbride MD Number of Addenda: 0 Note Initiated On: 10/01/2022 10:09 AM Estimated Blood Loss: Estimated blood loss: none. [facility] 09-17-2022 [facility] -- NIR EWING ([id number]) 1965 M Date Time Provider Department 09/17/22 DEBRA HOPKINS During your visit today, we recorded the following information about you: Allergies As of Date: 09/17/2022 (No Known Allergies) Date Reviewed: 09/17/2022 Reviewed by: Debra Mcbride MD - Fully Assessed Reason for Visit: Orders [681] Prescriptions as of 09/19/2022 - predniSONE (DELTASONE) 1 mg tablet Take 5 tablets by mouth once daily. - mycophenolate Mofetil (CELLCEPT) 500 mg tablet Take 2 tablets by mouth twice daily. - insulin lispro (HUMALOG KWIKPEN INSULIN) 200 unit/mL (3 mL) injection Inject sq 6 unit(s) with breakfast and dinner on non workdays; inject sq 7 unit(s) with breakfast and dinner on work days - lancets (ONE TOUCH DELICA) 33 gauge Check blood sugar 3 times a day. - blood sugar diagnostic (ONETOUCH VERIO TEST STRIPS) test strip Use as instructed Check blood sugar 3 times a day. - Insulin Erie, Disposable, (BD ULTRA-FINE MARISSA PEN NEEDLE) 32 gauge x /32 Use as directed - insulin degludec (TRESIBA FLEXTOUCH U-100) 100 unit/mL (3 mL) injection pen Inject 10 Units subcutaneously every 24 hours. - Blood-Glucose Meter (ONETOUCH VERIO FLEX METER) Use as directed to test glucose 3 times daily Problem List As Of Date 09/17/2022 Noted Resolved Type II or unspecified type diabetes mellitus w*02/21/2015 Autoimmune hepatitis treated with steroids (HCC*02/21/2015 Uncontrolled type 2 diabetes mellitus without c*04/16/2016 Steroid-induced diabetes mellitus (correct and *11/09/2021 Encounter Status:Closed by DEBRA BUENO on 09/19/22 [facility] VC COMP CONSULTATIONon 09-06 VC COMP CONSULTATION Patient: NIR EWING Exam Date: 09/06/2022 : 1965 Gender:M Ordering : FRANKLIN CHASE . Admission #: [id number] Family : Order #: [id number] CLICK HERE TO VIEW EXAM RADIOLOGY REPORT PROCEDURE: VC VEIN CENTER CONSULTATION VEIN CENTER - OFFICE VISIT INITIAL COMPARISON: None. PROGRESS NOTES: [age] year old male who presents with a 8 year history of increasing leg pain, swelling, muscle cramping, and edema. The patient's left leg symptoms are worse than the right. There has been a progression of symptoms over time. This increases with prolonged standing. The patient describes an improvement with rest and elevation. The patient denies any signs and symptoms to suggest arterial ischemia. The patient describes a family history of varicose veins in father and brother. The patient has drinking and smoking history of : None. Patient has a past medical history significant for diabetes mellitus type 2, autoimmune hepatitis. The patient denies a history of deep venous thrombus or pulmonary embolus. See separate history and physical for medication list. No prior treatment for varicose or spider veins. Current use of compression stockings. After review of nurse notes, history and physical exam I discussed at length the pathophysiology of venous hypertension and possible treatments, therapies and strategies available. We discussed at length the importance of elevating the lower extremities above the level of the heart, increased physical activity and compression stocking use. Ultrasound venous reflux study performed today was discussed at length with the patient. The report demonstrates abnormally dilated and incompetent right great saphenous vein, right small saphenous vein, left great saphenous vein, left small saphenous vein, bilateral manager sas veins and bilateral multiple incompetent branch saphenous varicosities. PHYSICAL EXAM: The right leg demonstrates numerous varicosities, multiple spider veins, no ulceration, mild edema, extensive skin discoloration. The left leg demonstrates numerous varicosities, multiple spider veins, medial ankle nonhealing wound/ ulceration, moderate-marked edema, extensive skin discoloration. Both thighs, legs and feet were symmetrically warm to the touch. Good posterior tibial and dorsalis pedis pulses were present bilaterally. IMPRESSION: 1. Bilateral lower extremity venous insufficiency 2. Bilateral lower extremity varicose veins 3. Bilateral lower extremity subcutaneous edema 4. No flow significant arterial disease 5. CEAP: C4A, EC, AP, VA PLAN: 1. Continued use of compression stockings 2. Elevated legs and increased physical activity symptomatic relief 3. Endovenous laser ablation of left great saphenous vein, right great saphenous vein, left small saphenous vein, right small saphenous vein. 4. Microfoam chemical ablation of incompetent branch saphenous varicosities bilaterally. 5. Sclerotherapy of reticular and spider veins as needed. Nurse notes, history and physical were reviewed and confirmed, see attached forms. The nurse was present throughout the physical exam and consultation Dictated by: Ivy Lo M.D. on 09/06/2022 at 11:07 Approved by: Ivy Lo M.D. on 09/06/2022 at 11:14 Normal [facility] VC VENOUS REFLUX PHILIP LMTon 0 09-06-2022 VC VENOUS REFLUX PHILIP LMT Patient: NIR EWING Exam Date: 09/06/2022 : 1965 Gender:M Ordering : FRANKLIN CHASE . Admission #: [id number] Family : DR ADALID ORLANDO M.D. Order #: [id number] CLICK HERE TO VIEW EXAM RADIOLOGY REPORT PROCEDURE: VEIN CENTER ULTRASOUND VENOUS REFLUX BILATERAL LIMTED COMPARISON: None. INDICATIONS: Pain co-occurrent and due to varicose veins of bilateral legs I83.813 TECHNIQUE: Duplex imaging of the lower extremity to assess the deep and superficial venous system for the presence of deep or superficial venous incompetence and to document the location and severity of disease. The study includes evaluation of the great saphenous vein (GSV), anterior accessory saphenous vein (AASV) and small saphenous vein (SSV). Patient scanned in reverse Trendelenburg and standing. FINDINGS: RIGHT LOWER EXTREMITY: Saphenofemoral Junction Reflux: Yes 9.1mm 2.9 sec GSV: Diam (mm) Reflux/ Time (sec) Proximal Thigh 6.9 Yes 2.4 Mid Thigh 6.2 Yes 1.7 Distal Thigh 6.5 Yes 1.5 Prox Calf 4.2 Yes 1.4 Mid Calf 3.7 Yes 1.7 Saphenopopliteal Junction Reflux: 5.1mm Yes 0.8 SSV: Proximal Calf 5.0 Yes 2.9 Mid Calf 4.2 Yes 1.4 AASV: Proximal Thigh 3.4 No Mid Thigh 2.5 No Distal Thigh Thrombi: No acute or chronic thrombus visualized Compressibility: Normal Flow: Normal Preforator: Dist/med calf 3.1 mm with 0.6s reflux. Dist/med calf 3.7mm with 0s reflux. Mid/med calf 2.8mm with 0s reflux. Tech Note: Incompetent SFJ, GSV, SPJ, and SSV. Patent varicose vein mid/med calf 4.2mm with 0.5s reflux. Patent varicose vein prox/ant calf 2.7mm with 0.9s reflux. Patent varicose vein dist/med thigh 2.5mm with 1.6s reflux. LEFT LOWER EXTREMITY: Saphenofemoral Junction Reflux: Yes 8.7 mm 2.1 sec GSV: Diam (mm) Reflux/Time (sec) Proximal Thigh 8.9 Yes 2.8 Mid Thigh 5.0 Yes 1.9 Distal Thigh 5.0 Yes 2.7 Prox Calf 4.1 Yes 0.9 Mid Calf 3.9 Yes 0.6 Saphenopopliteal Junction Relux: 5.1 mm Yes 0.7 SSV: Proximal Calf 5.3 Yes 0.9 Mid Calf 3.5 Yes 0.9 AASV: Proximal Thigh 4.7 No Mid Thigh 1.8 Yes 0.4 Distal Thigh Thrombi: No acute or chronic thrombus visualized Compressibility: Normal Flow: Normal Computing Machine Operator: Dist/med calf 2.4mm with 1.0s reflux. Mid/med calf 2.9mm with 0s reflux. Tech Note: Incompetent SFJ, GSV, SPJ, and SSV. Patent varicose vein dist/med calf 3.6mm with 0.8s reflux. Patent varicose vein 2.3mm with 1.0s reflux. Patent varicose vein 3.7mm with 1.1s reflux. CONCLUSION: 1. Dilated, incompetent right great saphenous vein, small saphenous vein, and branch saphenous varicosities. 2. Dilated, incompetent left great saphenous vein, small saphenous vein, and branch saphenous varicosities. 3. Consultation for venous ablation recommended. Dictated by: Ivy Lo M.D. on 09/06/2022 at 10:35 Approved by: Ivy Lo M.D. on 09/06/2022 at 11:07 Normal [facility] No Panel Informationon 08-12 [facility] No Panel Informationon 07-05 [facility] US ABD RT UPPER QUADRANTon 0 10-05-2020 [facility] DXA-AXIAL SKELETONon [facility] US ABD RT UPPER QUADRANTon 0 02-29-2020 [facility] Vital Signs Date Time Vital Sign Value Performing Clinician Zahraa hess 11-01-2023 09:14-0400 Body height 185.42 cm PHYSICIAN NO [facility] 11-01-2023 09:14-0400 Body mass index (BMI) [Ratio] 26.9 kg/m2 PHYSICIAN NO [facility] 11-01-2023 09:14-0400 Body temperature 98.5 [degF] PHYSICIAN NO [facility] 11-01-2023 09:14-0400 Body weight 92.7 kg PHYSICIAN NO [facility] 11-01-2023 09:14-0400 Diastolic blood pressure 77 mm[Hg] PHYSICIAN NO [facility] 11-01-2023 09:14-0400 Heart rate 66 /min PHYSICIAN NO [facility] 11-01-2023 09:14-0400 Respiratory rate 18 /min PHYSICIAN NO [facility] 11-01-2023 09:14-0400 SaO2% (BldA) [Mass fraction] 94 % PHYSICIAN NO [facility] 11-01-2023 09:14-0400 Systolic blood pressure 136 mm[Hg] PHYSICIAN NO [facility] 10-02-2023 09:52-0400 Body height 185.42 cm [facility] 10-02-2023 09:52-0400 Body mass index (BMI) [Ratio] 26.7 kg/m2 [facility] 10-02-2023 09:52-0400 Body weight 92.07 kg [facility] Encounters Encounter Date Encounter Type Care Provider Facility Start: 02-20-2024 End: 02-20-2024 ambulatory Nriaj Olivo JOAN.LEATHER HEEL BREASTER Work Phone: [facility] Comment on above: Steroid-induced diab etes mellitus, subsequent encounter (HCC) (Primary Dx); Current use of insulin (HCC); Autoimmune hepatitis treated with steroids (HCC) Start: 02-20-2024 End: 02-20-2024 Telemedicine consultation with patient Niraj Olivo JOAN.LEATHER HEEL BREASTER Work Phone: [facility] Start: 02-06-2024 End: 02-06-2024 ambulatory NIRAJ OLIVO Facility:[facility] Start: 02-03-2024 ambulatory Niraj Geovani FRANCO.LEATHER HEEL BREASTER Work Phone: [facility] Comment on above: lab work Start: 12-29-2023 End: 12-29-2023 Patient encounter procedure PHYSICIAN NO [facility] Emiliana Spears Work Phone: Start: 12-29-2023 End: 12-29-2023 ambulatory PHYSICIAN NO [facility] Work Phone: Start: 11-09-2023 Refill Debra an MD Work Phone: [facility] Comment on above: Refill Request Start: 11-01-2023 End: 11-01-2023 ambulatory PHYSICIAN NO [facility] Work Phone: Start: 11-01-2023 End: 11-01-2023 Patient encounter procedure PHYSICIAN NO [facility] Work Phone: Start: 10-20-2023 End: 10-20-2023 Patient encounter procedure PHYSICIAN NO [facility]-Ultrasound [facility] [place] Work Phone: Start: 10-20-2023 End: 10-20-2023 ambulatory PHYSICIAN [facility] Work Phone: Start: 10-02-2023 End: 10-02-2023 ambulatory [facility] Work Phone: Start: 10-02-2023 End: 10-02-2023 Patient encounter procedure [facility] Work Phone: Start: 09-08-2023 Refill Debra an MD Work Phone: [facility] Comment on above: Refill Request Start: 09-05-2023 End: 09-05-2023 Telemedicine consultation with patient Niraj Olivo JOAN.LEATHER HEEL BREASTER Work Phone: [facility] Start: 09-05-2023 End: 09-05-2023 ambulatory Niraj Olivo [employer]ER Work Phone: [facility] Comment on above: Current use of insul in (HCC) (Primary Dx); Steroid-induced diabetes mellitus, subsequent encounter (HCC) Start: 09-04-2023 Refill Debra an MD Work Phone: [facility] Comment on above: Refill Request Start: 08-22-2023 End: 08-22-2023 ambulatory NIRAJ OLIVO Facility:[facility] Start: 05-19-2023 End: 05-19-2023 ambulatory NIRAJ OLIVO Facility:[facility] Start: 04-18-2023 Refill Niraj Olivo [employer].LEATHER HEEL BREASTER Work Phone: [facility] Comment on above: Refill Request Start: 04-04-2023 End: 04-04-2023 ambulatory DEBRA MCBRIDE Facility:[facility] Start: 03-07-2023 End: 03-07-2023 ambulatory NIRAJ OLIVO Facility:[facility] Start: 02-25-2023 End: 02-25-2023 ambulatory DEBRA MCBRIDE Facility:[facility] Start: 02-25-2023 End: 02-25-2023 Subsequent hospital visit by physician [facility] Comment on above: Autoimmune hepatitis treated with steroids (HCC) [K75.4] Start: 02-19-2023 Refill Debra an MD Work Phone: Gastroenterology Comment on above: Refill Request Start: 02-18-2023 ambulatory Debra an MD Work Phone: [facility] Start: 02-18-2023 Follow-up encounter Debra Mcbride MD Work Phone: Gastroenterology Comment on above: follow up visit-nany castillo Start: 02-17-2023 End: 02-17-2023 ambulatory Debra Mcbride MD Work Phone: Gastroenterology Comment on above: Other cirrhosis of l iver (HCC) (Primary Dx) Start: 02-17-2023 End: 02-17-2023 Telemedicine consultation with patient Debra Mcbride MD Work Phone: [facility] Start: 01-05-2023 Refill Niraj Geovani [employer] Work Phone: Endocrinology Comment on above: Refill Request Start: 12-31-2022 Refill Niraj Geovani [employer] BRE[employer]ER Work Phone: [facility] [place] Comment on above: Refill Request Start: 12-30-[address] ADALID ORLANDO Facilit y:H1 Start: 12-26-[address] ADALID ORLANDO Facilit y:H1 Start: 12-02-2022 End: 12-03-[address] ADALID ORLANDO Facility:H1 Start: 11-29-2022 End: 11-30-[address] ADALID ORLANDO Facility:H1 Start: 11-18-2022 End: 11-19-[address] ADALID ORLANDO Facility:H1 Start: 11-14-2022 End: 11-15-[address] ADALID ORLANDO Facility:[facility]1 Start: 11-04-2022 ambulatory Debra an MD Work Phone: [facility] Start: 11-04-2022 Patient encounter procedure Debra Mcbride MD Work Phone: Gastroenterology Comment on above: appointment Start: 10-21-2022 End: 10-22-[address] ADALID ORLANDO Facility:H1 Start: 10-17-2022 End: 10-18-[address] ADALID ORLANDO Facility:[facility]1 Start: 10-08-2022 End: 10-09-[address] ADALID ORLANDO Facility:H1 Start: 10-03-2022 End: 10-04-[address] ADALID ORLANDO Facility:H1 Start: 10-01-2022 Telephone encounter Debra Mcbride MD Work Phone: [facility] Adult Comment on above: Orders Start: 10-01-2022 ambulatory DEBRA MCBRIDE Fa cility:[facility] Start: 09-17-2022 Telephone encounter Debra Mcbride MD Work Phone: [facility] Adult Comment on above: Orders Start: 09-16-2022 End: 09-16-2022 Telemedicine consultation with patient Debra Mcbride MD Work Phone: [facility] Start: 09-16-2022 End: 09-16-2022 ambulatory Debra Mcbride MD Work Phone: Gastroenterology Comment on above: Autoimmune hepatitis treated with steroids (HCC) (Primary Dx); Biliary cirrhosis (HCC) Medication refills Start: 09-09-2022 End: 09-10-2022 ambulatory FRANKLIN CHASE . Facility:H1 Start: 09-06-2022 End: 09-07-[address] ADALID ORLANDO Facility:H1 Start: 08-23-2022 End: 08-24-2022 ambulatory VINCE KERNS Facility:H1 Start: 08-12-2022 ambulatory Sara sandoval Comment on above: Radiology US Start: 08-12-2022 Patient encounter procedure Sara Garland RDMS [facility] Start: 08-12-2022 End: 08-12-2022 Subsequent hospital visit by physician [facility] Comment on above: Autoimmune hepatitis treated with steroids (HCC) [K75.4] Start: 08-09-2022 End: 08-10-2022 ambulatory [facility] Facility:[facility]1 Start: 07-26-2022 End: 07-27-2022 ambulatory [facility] Facility:[facility]1 Start: 07-19-2022 Telephone encounter Niraj park APRN.[employer]ER Work Phone: [facility] Comment on above: Information requeste d Start: 07-16-2022 ambulatory Debra an MD Work Phone: Gastroenterology Comment on above: EGD Start: 07-07-2022 Refill Niraj Olivo APRN.[employer] Work Phone: [facility] Comment on above: Refill Request Start: 06-20-2022 Refill Niraj Olivo APRN.[employer] Work Phone: Endocrinology Comment on above: Refill Request Start: 06-19-2022 Refill Niraj Olivo APRN.[employer]ER Work Phone: [facility] Comment on above: Refill Request; Refi ll Request Start: 06-18-2022 Get Medical Advice eDbra Mcbride MD Work Phone: Gastroenterology Comment on above: Ultrasound order Start: 05-10-2022 End: 05-10-2022 ambulatory Niraj Olivo APRN.[employer] Work Phone: [facility] Comment on above: Current use of insul in (HCC) (Primary Dx); Steroid-induced diabetes mellitus, sequela (HCC) Start: 05-10-2022 End: 05-10-2022 Telemedicine consultation with patient Niraj Olivo APRN.[employer]ER [employer] BREASTER Work Phone: [facility] Start: 02-01-2022 ambulatory Sara Garland RDMS Radi ology Comment on above: Radiology US Start: 02-01-2022 Patient encounter procedure Sara Garland RDMS [facility] Start: 01-03-2022 Refill Niraj Olivo APRN.[employer] BRE[employer]ER Work Phone: Endocrinology Comment on above: Refill Request Start: 12-25-2021 ambulatory Debra an MD Work Phone: Gastroenterology Comment on above: upcoming bloodwork Start: 11-28-2021 End: 11-28-2021 ambulatory Debra Mcbride MD Work Phone: Gastroenterology Comment on above: Biliary cirrhosis (H CC) (Primary Dx); Autoimmune hepatitis treated with steroids (HCC); Other cirrhosis of liver (HCC) Start: 11-28-2021 End: 11-28-2021 Telemedicine consultation with patient Debra Mcbride MD Work Phone: [facility] Start: 11-11-2021 Refill Niraj Olivo APRN.[employer]ASTER Work Phone: [facility] Comment on above: Refill Request Start: 11-09-2021 End: 11-09-2021 ambulatory Niraj Olivo APRN.[employer]ER Work Phone: [facility] Comment on above: Steroid-induced diab etes mellitus, sequela (HCC) (Primary Dx); Current use of insulin (HCC) Start: 11-09-2021 End: 11-09-2021 Telemedicine consultation with patient Niraj Olivo APRN.[employer]ER [employer] BREASTER Work Phone: [facility] Start: 07-05-2021 End: 07-05-2021 Subsequent hospital visit by physician Us [facility] Comment on above: Abnormal liver enzym es [R74.8] Start: 10-05-2020 End: 10-05-2020 Subsequent hospital visit by physician Us [facility] Comment on above: Autoimmune hepatitis treated with steroids (HCC) [K75.4] Start: 02-29-2020 End: 02-29-2020 Subsequent hospital visit by physician Bone Density [facility] Comment on above: [employer] customer service current us e of systemic steroids [Z79.52] Other cirrhosis of l iver (HCC) [K74.69] Procedures Date Procedure Procedure Detail Performing Clinician Start: 10-20-2023 Ultrasonography of liver PHYSICIAN NO FAMILY Start: 02-25-2023 Us abdominal real ti me w/image limited Debra Mcbride MD Work Phone: Start: 08-12-2022 Us abdominal real ti me w/image limited Debra Mcbride MD Work Phone: Start: 07-05-2021 Us abdominal real ti me w/image limited Debra Mcbride MD Work Phone: Start: 10-05-2020 Us abdominal real ti me w/image limited César Zaldivar MD Work Phone: Start: 08-04-2020 Brennen park ASSEMBLER [employer]ER HE[employer] BREASTER Work Phone: Start: 02-29-2020 Dxa bone density marnie dy 1/> sites axial skel Nir Ocampo ASSEMBLER [employer].LEATHER HEEL BREASTER Work Phone: Start: 02-29-2020 Us abdominal real ti me w/image limited Nir Ocampo ASSEM[employer]ER [employer].LEATHER HEEL BREASTER Work Phone: Plan of Treatment Date Care Activity Detail Author Start: 02-05-2025 Hepatitis B screening Urine Albumin:Creatinine Ratio [facility] Start: 02-05-2025 Hepatitis B surface antibody level LDL Cholesterol [facility] Start: 09-03-2024 End: 09-03-2024 ambulatory 09/03/2024 7:45 AM EST [facility] [place] [address] [place] [address] Niraj Olivo, ASSEMBLER [employer].[facility] [address] [place] [address] diabetic management [facility] [place] Comment on above: diabetic management Start: 08-08-2024 Hemoglobin A1c measurement HbA1C [facility] Start: 05-19-2024 Hepatitis B screening Urine Albumin:Creatinine Ratio [facility] Start: 05-19-2024 Hepatitis B surface antibody level LDL Cholesterol [facility] Start: 03-21-[address] [facility] Start: 03-05-2024 End: 09-14-2024 ALBUMIN/CREAT RATIO RND UR ALBUMIN/CREAT RATIO RND UR Lab Routine Steroid-induced diabetes mellitus, subsequent encounter (HCC) Expected: 03/05/2024 (Approximate), Expires: 09/14/2024 [facility] Work Phone: Comment on above: Expected: 03/05/2024 (Approximate), Expires: 09/14/2024 Start: 03-05-2024 End: 09-14-2024 Comprehensive metabolic 2000 panel - Serum or Plasma COMP METABOLIC PANEL Lab Routine Steroid-induced diabetes mellitus, subsequent encounter (HCC) Expected: 03/05/2024 (Approximate), Expires: 09/14/2024 [facility] Work Phone: Comment on above: Expected: 03/05/2024 (Approximate), Expires: 09/14/2024 Start: 03-05-2024 End: 09-14-2024 Hemoglobin A1c in Blood HGB A1C Lab Routine Steroid-induced diabetes mellitus, subsequent encounter (HCC) Expected: 03/05/2024 (Approximate), Expires: 09/14/2024 [facility] Work Phone: Comment on above: Expected: 03/05/2024 (Approximate), Expires: 09/14/2024 Start: 03-05-2024 End: 06-04-2024 Lipid 1996 panel - Serum or Plasma LIPID PANEL BASIC Lab Routine Steroid-induced diabetes mellitus, subsequent encounter (HCC) Expected: 03/05/2024 (Approximate), Expires: 06/04/2024 [facility] Work Phone: Comment on above: Expected: 03/05/2024 (Approximate), Expires: 06/04/2024 Start: 02-20-2024 Hemoglobin A1c measurement HbA1C [facility] Start: 02-20-2024 End: 02-20-2024 Follow-up encounter 02/20/2024 7:45 AM EDT [facility] [place] [address] [place] [address] Niraj Olivo APRN.[facility] [address] [place] [address] Diabetic follow up [facility]inology [place] Comment on above: Diabetic follow up Start: 02-06-2024 End: 02-06-2024 ambulatory 02/06/2024 8:30 AM EDT Results Only [facility] [address] [place] [address] [facility] Start: 12-04-2023 End: 03-04-2024 Hemoglobin A1c in Blood HGB A1C Lab Routine Steroid-induced diabetes mellitus, subsequent encounter (HCC) Expected: 12/04/2023 (Approximate), Expires: 03/04/2024 [facility] Work Phone: Comment on above: Expected: 12/04/2023 (Approximate), Expires: 03/04/2024 Start: 08-04-2023 Colonoscopy COLONOSCOPY [facility] Start: 08-04-2023 COLORECTAL CANCER SCREENING COLORECTAL CANCER SCREENING [facility] Start: 08-04-2023 Screening for malign ant neoplasm of colon [facility] Start: 07-21-2023 Behavioral Health Screening Behavioral Health Screening [facility] Start: 07-21-2023 Depression Assessment Depression Ass essment [facility] Start: 05-03-2023 Hemoglobin A1c/Hemoglobin.total in Blood HBA1C [facility] Start: 03-21-[address] [facility] Start: 02-17-2023 End: 04-19-2023 PT panel - Platelet poor plasma by Coagulation assay PROTHROMBIN TIME/PT Lab Routine Other cirrhosis of liver (HCC) Expected: 02/17/2023, Expires: 04/19/2023 [facility] Work Phone: Comment on above: Expected: 02/17/2023 , Expires: 04/19/2023 Start: 02-09-2023 Hemoglobin A1c/Hemoglobin.total in Blood HBA1C [facility] Start: 10-26-2022 Hepatitis B screening URINE ALBUMIN:CREATININE RATIO [facility] Start: 10-21-2022 Hemoglobin A1c/Hemoglobin.total in Blood HBA1C [facility] Start: 09-16-2022 End: 11-16-2022 CBC W Auto Differential panel - Blood CBC + DIFF Lab Routine Autoimmune hepatitis treated with steroids (HCC) Biliary cirrhosis (HCC) Expected: 09/16/2022, Expires: 11/16/2022 [facility] Work Phone: Comment on above: Expected: 09/16/2022 , Expires: 11/16/2022 Start: 09-16-2022 End: 11-16-2022 Hepatic function 2000 panel - Serum or Plasma HEPATIC FUNCTION PNL Lab Routine Autoimmune hepatitis treated with steroids (HCC) Biliary cirrhosis (HCC) Expected: 09/16/2022, Expires: 11/16/2022 [facility] Work Phone: Comment on above: Expected: 09/16/2022 , Expires: 11/16/2022 Start: 07-21-2022 DEPRESSION ASSESSMENT DEPRESSION ASS ESSMENT [facility] Start: 05-11-2022 End: 07-11-2022 Hemoglobin A1c/Hemoglobin.total in Blood HGB A1C Lab Routine Steroid-induced diabetes mellitus, sequela (HCC) Expected: 05/11/2022 (Approximate), Expires: 07/11/2022 [facility] Work Phone: Comment on above: Expected: 05/11/2022 (Approximate), Expires: 07/11/2022 Start: 03-21-2022 Influenza vaccination [facility] Start: 02-28-2022 End: 11-28-2022 EGD DIAGNOSTIC EGD DIAGNOSTIC Endoscopy Routine Biliary cirrhosis (HCC) Autoimmune hepatitis treated with steroids (HCC) Other cirrhosis of liver (HCC) Expected: 02/28/2022, Expires: 11/28/2022 [facility] Work Phone: Comment on above: Expected: 02/28/2022 , Expires: 11/28/2022 Start: 02-08-2022 End: 04-10-2022 Hemoglobin A1c/Hemoglobin.total in Blood HGB A1C Lab Routine Steroid-induced diabetes mellitus, sequela (HCC) Expected: 02/08/2022 (Approximate), Expires: 04/10/2022 [facility] Work Phone: Comment on above: Expected: 02/08/2022 (Approximate), Expires: 04/10/2022 Start: 01-25-2022 Hemoglobin A1c/Hemoglobin.total in Blood HBA1C [facility] Start: 12-25-2021 End: 12-25-2022 ALPHA FETOPROTEIN BL ALPHA FETOPROTEIN BL Lab Routine Biliary cirrhosis (HCC) Expected: 12/25/2021, Expires: 12/25/2022 [facility] Work Phone: Comment on above: Expected: 12/25/2021 , Expires: 12/25/2022 Start: 12-25-2021 End: 12-25-2022 CBC W Auto Differential panel - Blood CBC + DIFF Lab Routine Biliary cirrhosis (HCC) Expected: 12/25/2021, Expires: 12/25/2022 [facility] Work Phone: Comment on above: Expected: 12/25/2021 , Expires: 12/25/2022 Start: 12-25-2021 End: 12-25-2022 HEPATIC FUNCTION PNL HEPATIC FUNCTION PNL Lab Routine Biliary cirrhosis (HCC) Expected: 12/25/2021, Expires: 12/25/2022 [facility] Work Phone: Comment on above: Expected: 12/25/2021 , Expires: 12/25/2022 Start: 11-28-2021 End: 01-28-2022 ALPHA FETOPROTEIN BL ALPHA FETOPROTEIN BL Lab Routine Biliary cirrhosis (HCC) Expected: 11/28/2021, Expires: 01/28/2022 [facility] Work Phone: Comment on above: Expected: 11/28/2021 , Expires: 01/28/2022 Start: 11-28-2021 End: 01-28-2022 CBC W Auto Differential panel - Blood CBC + DIFF Lab Routine Biliary cirrhosis (HCC) Expected: 11/28/2021, Expires: 01/28/2022 [facility] Work Phone: Comment on above: Expected: 11/28/2021 , Expires: 01/28/2022 Start: 11-28-2021 End: 01-28-2022 HEPATIC FUNCTION PNL HEPATIC FUNCTION PNL Lab Routine Biliary cirrhosis (HCC) Expected: 11/28/2021, Expires: 01/28/2022 [facility] Work Phone: Comment on above: Expected: 11/28/2021 , Expires: 01/28/2022 Start: 08-10-2021 Hepatitis B surface antibody level LDL CHOLESTEROL [facility] Start: 07-21-2021 DEPRESSION ASSESSMENT DEPRESSION ASS ESSMENT [facility] Start: 12-04-2020 COVID-19 VACCINE (3 - Moderna risk 4-dose series) COVID-19 VACCINE (3 - Moderna risk 4-dose series) [facility] Start: 12-04-2020 COVID-19 VACCINE (3 - Moderna risk series) COVID-19 VACCINE (3 - Moderna risk series) [facility] Start: 2020 PROSTATE CANCER SCREENING DISCUSSION PROSTATE CANCER SCREENING DISCUSSION [facility] Start: 2020 Prostate specific antigen measurement Prostate Cancer Screening Discussion [facility] Start: 2015 SHINGRIX VACCINE (1 of 2) SHINGRIX VACCINE (1 of 2) [facility] Start: 2010 COLOGUARD (FIT-DNA) COLOGUARD (FIT-D NA) [facility] Start: [address] COLONOGRAPHY [facility] Start: 2010 FECAL OCCULT BLOOD FECAL OCCULT BLOO D [facility] Start: 2010 Screening for malign ant neoplasm of colon [facility] Start: 2010 SIGMOIDOSCOPY SIGMOIDOSCOPY [facility] Start: 1984 SHINGRIX VACCINE (1 of 2) SHINGRIX VACCINE (1 of 2) [facility] Start: 1984 Urine microalbumin profile [facility] Start: 1983 ANNUAL PCP TEAM GLOBAL PROFESSIONAL GENA DISEASE VISIT ANNUAL PCP TEAM CHRONIC DISEASE VISIT [facility] Start: 1983 Anxiety Screening Anxiety Screening [facility] Start: 1983 Depression Screening Depression Scre ening [facility] Start: 1983 HIV SCREENING HIV SCREENING [facility] Start: 1983 HIV screening HIV Screening [facility] Start: 1981 ONE PNEUMOVAX PRIOR TO AGE 65 ONE PNEUMOVAX PRIOR TO AGE 65 [facility] Start: 1977 Adult depression screening assessment DEPRESSION SCREENING [facility] Start: 1975 3 comp foot exam completed DIABETIC FOOT EXAM [facility] Start: 1975 Diabetic foot examination Diabetic Foot Exam [facility] Start: 1975 Glaucoma screening Dilated Retinal E xam [facility] Start: 1975 Hepatitis C antibody , confirmatory test DILATED RETINAL EXAM [facility] Start: 1971 PNEUMOCOCCAL (1 - PCV) PNEUMOCOCCAL (1 - PCV) [facility] Start: 1971 Pneumococcal vaccination [facility] Kgwip-7-cnyjdudqypq. jahaira or marker [Mass/volume] in Serum or Plasma [facility] Uwesz-8-mvnldxoiars. jahaira or marker [Mass/volume] in Serum or Plasma [facility] End: 02-17-2024 Hepatic function 2000 panel - Serum or Plasma HEPATIC FUNCTION PNL Lab Routine Other cirrhosis of liver (HCC) Once per month for 5 Occurrences starting 02/17/2023 until 02/17/2024 [facility] Work Phone: Comment on above: Once per month for 5 Occurrences starting 02/17/2023 until 02/17/2024 IgG [Mass/volume] in Serum or Plasma [facility] End: 07-18-2023 Us abdominal real time w/image limited US ABD RT UPPER QUADRANT Radiology Routine Autoimmune hepatitis treated with steroids (HCC) Every 6 months for 10 Occurrences starting 06/18/2022 until 07/18/2023 [facility] Work Phone: Comment on above: Every 6 months for 1 0 Occurrences starting 06/18/2022 until 07/18/2023 [facility] Immunizations Immunization Date Immunization Notes Care Provider Jeanette win 11-06-2020 COVID-19 vaccine, fu ll dose (MODERNA) Niraj Olivo APRN.[employer] Work Phone: [facility] 10-09-2020 COVID-19 vaccine, fu ll dose (MODERNA) Niraj Olivo APRN.LE[employer]ER HE[employer]ER Work Phone: [facility] 05-02-2020 influenza virus vacc ine, unspecified formulation Niraj Olivo APRN.[employer]ER [employer]ER Work Phone: [facility] 09-15-2016 hepatitis A and hepatitis B vaccine Niraj Olivo APRN.JEFFREY Work Phone: [facility] 04-13-2016 influenza, live, intranasal, quadrivalent Niraj Olivo [employer] HE[employer]ER Work Phone: [facility] 04-13-2015 hepatitis A and hepatitis B vaccine Niraj Olivo ASSEM[employer]ER [employer].LEATHER HEEL BREASTER Work Phone: [facility] 08-22-2011 hepatitis B vaccine, adult dosage Niraj Olivo ASSEM[employer]ATHER HEEL BRE[employer]ER Work Phone: [facility] 05-14-2011 hepatitis A vaccine, adult dosage Niraj Olivo ASSEM[employer]ATHER HEEL BREASTER Work Phone: [facility] Payers Date Payer Category Payer Self-pay [id number] 2006 Unknown [facility] [id number] 2006-Present [phone] [address] [place] [address] PPO [id number] 2006 Unknown [facility] [id number] 2006-Present [phone] [address] [place] [address] PPO [id number] 1965 Unknown [id number] 1965 Unknown [id number] [id number] 1965 Unknown [id number] [id number] 1965 Unknown [id number] [id number] 1965 Unknown [id number] [id number] 1965 Unknown [id number] [id number] 1965 Unknown [id number] [id number] 1965 Unknown [id number] [id number] 1965 Unknown [id number] [id number] 1965 Unknown [id number] [id number] 1965 Unknown [id number] [id number] 1965 Unknown [id number] [id number] 1965 Unknown [id number] [id number] 1965 Unknown [id number] [id number] 1965 Unknown [id number] [id number] 1959 Unknown [id number] Unknown [id number] [id number] Unknown [id number] Social History Date Type Detail Facility Start: 07-22-2014 End: 05-17-2016 Tobacco smoking status NHIS Ex-smoker [facility] End: 05-17-2010 History of tobacco use Current smoker [facility] Start: 05-17-2016 Tobacco use and exposure Smokeless tobacco non-user [facility] Start: 11-09-2021 End: 02-20-2024 Alcohol intake Current non-drinker of alcohol (finding) [facility] Start: 1965 Sex Assigned At Not on file [facility] Start: 01-30-2020 End: 11-29-2021 Exposure to SARS-CoV-2 (event) Not sure [facility] Work Phone: Start: 01-22-2022 End: 02-01-2022 Exposure to SARS-CoV-2 (event) Unable to assess [facility] End: 05-17-2010 History of tobacco use Cigarette Smoker [facility] Start: 05-11-2022 End: 02-17-2023 History of Social function [facility] Start: 05-11-2022 End: 02-17-2023 Tobacco use panel [facility] National Score (1-100), lower number is lower risk 77 [facility] Start: 1965 Sex Assigned At Male F [facility] Medical Equipment Procedure Code Equipment Code Equipment Original Text Equipment Identifier Dates [id number], [id number], [id number] Start: 05-25-2018 End: 04-18-2023 Comment on above: Use as instructed Ch nestor blood sugar 3 times a day. Use as directed Check blood sugar 3 times a day. Clinical Notes 02-29-2020 to 02-20-2024 Patient InstructionsNiraj Olivo APRN.[facility] - 02/20/2024 7:55 AM EDTPatient Niraj Santiago APRN.[facility] - 09/05/2023 7:55 AM Debra Martin MD - 02/17/2023 6:21 PM EDT Note Date & Type Note Facility 02-20-2024 Instructions Niraj Olivo APRN.[facility] - 02/20/2024 8:14 AM EDT Plan Continue humalog 6 units (as you are taking while you are at home); on your workdays continue humalog 7 units with breakfast and dinner. On your workdays use the following supplemental scale if needed, based on reading: Custom Regimen: 1 per 60 with goal of 120 mg/dl If Blood Glucose (mg/dL) is: Less than 70 mg/dl Follow Hypoglycemia Guidelines and call physician 70-179 mg/dl NO INSULIN GIVEN 180-239 mg/dl 1 Units 240-299 mg/dl 2 Units 300-360 mg/dl 3 Units over 360 mg/dl 4 Units Continue tresiba 11 unit(s) daily-increase by unit every 3 days if your fasting blood sugars remain above 130 mg/dl; decrease by 1 unit every 3 days if you start to go below 100 mg/dl. Check your blood glucose 2 times per day and record data in logbook and bring/send before to each visit We reviewed glucose targets as: Fasting 80-130, before meals 100-130, and bedtime 100-150 mg/dL. Call the office with blood sugars less than 70 Follow up with me in 6 months Get A1c in 3 months and 6 months Schedule ophthalmology appointment documented in this encounter [facility] 02-20-2024 Note HNO ID: [id number] Author: NIRAJ OLIVO APRN.CNP Service: ? Author Type: Nurse Practitioner Type: Progress Notes Filed: 02/20/2024 08:27 Note Text: DISTANCE HEALTH VISIT This Team Access Model visit is a virtual encounter. It required patient-provider interaction for the medical decision making as documented below. I have communicated my name and active licensure. The patient's identity and physical location were verified at the time of this visit. Either the patient or their legal senior patient account representative has been informed of the risks and benefits of -- and alternatives to -- treatment through a remote evaluation and consents to proceed with the evaluation remotely. 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 He still works in construction. Had wound on foot, saw podiatry, referred to vein specialist. PVRs done, now being seen by photograph finisher in wound care due to wounds associated with varicose veins. Other than that, no complaints Weaned off steroids in the interim. He has been using Humalog 6-0-6 with meals, will do 7 bid ac on workdays Tresiba 12-13 units daily at HS PMH significant for: PAST MEDICAL HISTORY No date: Abdominal pain, left upper quadrant No date: Abdominal pain, right upper quadrant No date: Alcoholic cirrhosis of liver (HCC) No date: Diabetes (HCC) No date: Elevated LFTs Last HbA1c: Hemoglobin A1C (%) Date Value 02/06/2024 6.2 08/22/2023 6.9 05/19/2023 7.4 11/01/2022 6.7 08/12/2022 6.6 04/13/2021 8.9 08/10/2020 8.2 05/05/2019 8.1 09/29/2018 6.8 05/04/2018 7.9 Hemoglobin A1C (POCT) (%) Date Value 02/02/2020 8.4 Family history of diabetes includes none. Complications Microvascular: none Macrovascular: none Health Maintenance Topics Topic Date Due Dilated Retinal Exam Never done Diabetic Foot Exam Never done Current DM Related Medications: Current Medications 02/20/2024 DIABETES THERAPIES Medication Dosage Pharm Subclass insulin degludec (TRESIBA FLEXTOUCH U-100) 100 unit/mL (3 mL) injection pen Inject 10-13 Units subcutaneously every 24 hours. Insulin Analogs - Long Acting insulin lispro (HUMALOG KWIKPEN INSULIN) 200 unit/mL (3 mL) injection Inject sq 6 unit(s) with breakfast and dinner on non workdays; inject sq 7 unit(s) with breakfast and dinner on work days Insulin Analogs - Rapid Acting CARDIOVASCULAR Medication Dosage Pharm Subclass carvedilol (COREG) 3.125 mg tablet Take 1 tablet by mouth two times a day. Alpha-Beta Blockers OTHER Medication Dosage Pharm Subclass Blood Pressure Monitor 1 Each once daily. Medical Supplies and DME - Miscellaneous Other blood sugar diagnostic (ONETOUCH VERIO TEST STRIPS) test strip Use as instructed Check blood sugar 3 times a day. Medical Supplies and DME - Blood Glucose Tests Blood-Glucose Meter (ONETOUCH VERIO FLEX METER) Use as directed to test glucose 3 times daily Medical Supplies and DME - Glucose Monitoring Test Supplies Insulin [place], Disposable, (BD ULTRA-FINE MARISSA PEN NEEDLE) 32 gauge x 5/32 Use as directed Medical Supplies and DME - Insulin [place]-Syringes and Admin Supplies lancets (ONE TOUCH DELICA) 33 gauge Check blood sugar 3 times a day. Medical Supplies and DME - Glucose Monitoring Test Supplies lansoprazole (PREVACID) 30 mg capsule Take 1 capsule by mouth once daily. Gastric Acid Secretion Home Health Care Coordinator - Proton Pump Inhibitors (PPIs) mycophenolate Mofetil (CELLCEPT) 500 mg tablet take 1 tablet by mouth four times a day Immunosuppressive - Inosine Monophosphate Dehydrogenase Inhibitors predniSONE (DELTASONE) 1 mg tablet Take 5 tablets by mouth once daily. Glucocorticoids Diet: No specific diet regimen; watches what he eats and portion control Exercise: busy with work ([employer]) SMBG Frequency of Monitoring: Two times a Day average 127 BG values or ranges: Fastin-150 Evenin-130 Hypoglycemia: rare; none since last visit Past History, Medications, Allergies PAST SURGICAL HISTORY 08/07/2017: ESOPHAGOGASTRODUODENOSCOPY TRANSORAL DIAGNOSTIC Comment: EGD ALLERGIES No Known Allergies FAMILY HISTORY Problem Relation Age of Onset other (lymphoma) Father None Mother alive None Brother alive None Brother alive None Sister alive Social History Tobacco Use Smoking status: Former Types: Cigarettes Quit date: 05/17/2010 Years since quittin.7 Smokeless tobacco: Never Substance Use Topics Alcohol use: No Drug use: No Answers submitted by the patient for this visit: Core Review of Systems (Submitted on 02/13/2024) Fever : No Night sweats: No Recent unintentional weight change: No Nasal Congestion: No Hearing Loss: No Vision Disturbance: No A cough: No Difficulty Breathing?: No Chest pain: No Irregular heartbeat: No (more content not included)... [facility] 02-20-2024 History of Present illness Narrative DISTANCE HEALTH VISIT This Team Access Model visit is a virtual encounter. It required patient-provider interaction for the medical decision making as documented below. I have communicated my name and active licensure. The patient's identity and physical location were verified at the time of this visit. Either the patient or their legal senior patient account representative has been informed of the risks and benefits of -- and alternatives to -- treatment through a remote evaluation and consents to proceed with the evaluation remotely. 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 He still works in construction. Had wound on foot, saw podiatry, referred to vein specialist. PVRs done, now being seen by photograph finisher in wound care due to wounds associated with varicose veins. Other than that, no complaints Weaned off steroids in the interim. He has been using Humalog 6-0-6 with meals, will do 7 bid ac on workdays Tresiba 12-13 units daily at HS PMH significant for: PAST MEDICAL HISTORY No date: Abdominal pain, left upper quadrant No date: Abdominal pain, right upper quadrant No date: Alcoholic cirrhosis of liver (HCC) No date: Diabetes (HCC) No date: Elevated LFTs Last HbA1c: Hemoglobin A1C (%) Date Value 02/06/2024 6.2 08/22/2023 6.9 05/19/2023 7.4 11/01/2022 6.7 08/12/2022 6.6 04/13/2021 8.9 08/10/2020 8.2 05/05/2019 8.1 09/29/2018 6.8 05/04/2018 7.9 Hemoglobin A1C (POCT) (%) Date Value 02/02/2020 8.4 Family history of diabetes includes none. Complications Microvascular: none Macrovascular: none Health Maintenance Topics Topic Date Due Dilated Retinal Exam Never done Diabetic Foot Exam Never done Current DM Related Medications: Current Medications 02/20/2024 DIABETES THERAPIES Medication Dosage Pharm Subclass insulin degludec (TRESIBA FLEXTOUCH U-100) 100 unit/mL (3 mL) injection pen Inject 10-13 Units subcutaneously every 24 hours. Insulin Analogs - Long Acting insulin lispro (HUMALOG KWIKPEN INSULIN) 200 unit/mL (3 mL) injection Inject sq 6 unit(s) with breakfast and dinner on non workdays; inject sq 7 unit(s) with breakfast and dinner on work days Insulin Analogs - Rapid Acting CARDIOVASCULAR Medication Dosage Pharm Subclass carvedilol (COREG) 3.125 mg tablet Take 1 tablet by mouth two times a day. Alpha-Beta Blockers OTHER Medication Dosage Pharm Subclass Blood Pressure Monitor 1 Each once daily. Medical Supplies and DME - Miscellaneous Other blood sugar diagnostic (ONETOUCH VERIO TEST STRIPS) test strip Use as instructed Check blood sugar 3 times a day. Medical Supplies and DME - Blood Glucose Tests Blood-Glucose Meter (ONETOUCH VERIO FLEX METER) Use as directed to test glucose 3 times daily Medical Supplies and DME - Glucose Monitoring Test Supplies Insulin [place], Disposable, (BD ULTRA-FINE MARISSA PEN NEEDLE) 32 gauge x 32 Use as directed Medical Supplies and DME - Insulin [place]-Syringes and Admin Supplies lancets (ONE TOUCH DELCityHour) 33 gauge Check blood sugar 3 times a day. Medical Supplies and DME - Glucose Monitoring Test Supplies lansoprazole (PREVACID) 30 mg capsule Take 1 capsule by mouth once daily. Gastric Acid Secretion Home Health Care Coordinator - Proton Pump Inhibitors (PPIs) mycophenolate Mofetil (CELLCEPT) 500 mg tablet take 1 tablet by mouth four times a day Immunosuppressive - Inosine Monophosphate Dehydrogenase Inhibitors predniSONE (DELTASONE) 1 mg tablet Take 5 tablets by mouth once daily. Glucocorticoids Diet: No specific diet regimen; watches what he eats and portion control Exercise: busy with work ([employer]) SMBG Frequency of Monitoring: Two times a Day average 127 BG values or ranges: Fastin-150 Evenin-130 Hypoglycemia: rare; none since last visit Past History, Medications, Allergies PAST SURGICAL HISTORY 08/07/2017: ESOPHAGOGASTRODUODENOSCOPY TRANSORAL DIAGNOSTIC Comment: EGD ALLERGIES No Known Allergies FAMILY HISTORY Problem Relation Age of Onset other (lymphoma) Father None Mother alive None Brother alive None Brother alive None Sister alive Social History Tobacco Use Smoking status: Former Types: Cigarettes Quit date: 05/17/2010 Years since quittin.7 Smokeless tobacco: Never Substance Use Topics Alcohol use: No Drug use: No Answers submitted by the patient for this visit: Core Review of Systems (Submitted on 02/13/2024) Fever : No Night sweats: No Recent unintentional weight change: No Nasal Congestion: No Hearing Loss: No Vision Disturbance: No A cough: No Difficulty Breathing?: No Chest pain: No Irregular heartbeat: No Leg Swelling: No Nausea: No Diarrhea: No Black tarry stools: No Difficulty Urinating?: No Awaken at Night More Than Once to Urinate?: No Joint pain or stiffness: No Muscle aches: No Leg or Foot Discomfort at Night?: No A rash: No Dizziness: No Headaches: No Memory Loss: No Seizures: No PHYSICAL EXAMINATION: Affect: Pleasant and cooperative Previous Laboratory Results LABS Glucose (mg/dL) Date Value 02/06/2024 121 05/19/2023 166 09/14/2021 210 04/13/2021 Test reordered by [facility]. 04/13/2021 201 Potassium (mmol/L) Date Value 02/06/2024 4.1 09/14/2021 4.2 Sodium (mmol/L) Date Value 02/06/2024 143 05/19/2023 139 09/14/2021 136 04/13/2021 Test reordered by [facility]. 04/13/2021 137 Chloride (mmol/L) Date Value 02/06/2024 113 05/19/2023 107 09/14/2021 105 04/13/2021 Test reordered by [facility]. 04/13/2021 104 CO2 (mmol/L) Date Value 02/06/2024 23 05/19/2023 22 09/14/2021 24 04/13/2021 Test reordered by [facility]. 04/13/2021 23 Creatinine (mg/dL) Date Value 02/06/2024 0.89 05/19/2023 0.95 09/14/2021 0.79 04/13/2021 Test reordered by [facility]. 04/13/2021 0.79 BUN (mg/dL) Date Value 02/06/2024 11 05/19/2023 14 09/14/2021 12 04/13/2021 Test reordered by [facility]. 04/13/2021 14 Anion Gap (mmol/L) Date Value 02/06/2024 7 05/19/2023 10 09/14/2021 7 04/13/2021 Test reordered by [facility]. 04/13/2021 10 Calcium (mg/dL) Date Value 09/14/2021 9.3 04/13/2021 Test reordered by [facility]. 04/13/2021 9.1 Calcium, Total (mg/dL) Date Value 02/06/2024 9.2 05/19/2023 9.0 eGFR- (no units) Date Value 09/14/2021 >60 04/13/2021 Test reordered by [facility]. 04/13/2021 >60 eGFR-All Other Races (.) Date Value 09/14/2021 >60 04/13/2021 Test reordered by [facility]. 04/13/2021 >60 Estimated Glomerular Filtration Rate (mL/min/1.73m ) Date Value 02/06/2024 99 05/19/2023 93 ALT (U/L) Date Value 02/06/2024 112 08/22/2023 102 05/19/2023 131 09/14/2021 162 04/13/2021 Test reordered by [facility]. 04/13/2021 200 No results found for: TSH , FREET4 Impression/Recommendations IMPRESSION Nir Ewing is a 58 year old here for follow up of Diabetes secondary to steroid treatment complicated by autoimmune hepatitis RECOMMENDATIONS: 1. Glycemic control: Target HbA1C is less than 7.0% per ADA guidelines. This patient is at target. Plan Continue humalog 6 units (as you are taking while you are at home); on your workdays continue humalog 7 units with breakfast and dinner. On your workdays use the following supplemental scale if needed, based on reading: Custom Regimen: 1 per 60 with goal of 120 mg/dl If Blood Glucose (mg/dL) is: Less than 70 mg/dl Follow Hypoglycemia Guidelines and call physician 70-179 mg/dl NO INSULIN GIVEN 180-239 mg/dl 1 Units 240-299 mg/dl 2 Units 300-360 mg/dl 3 Units over 360 mg/dl 4 Units Continue tresiba 11 unit(s) daily-increase by unit every 3 days if your fasting blood sugars remain above 130 mg/dl; decrease by 1 unit every 3 days if you start to go below 100 mg/dl. Check your blood glucose 2 times per day and record data in logbook and bring/send before to each visit We reviewed glucose targets as: Fasting 80-130, before meals 100-130, and bedtime 100-150 mg/dL. Call the office with blood sugars less than 70 Follow up with me in 6 months Get A1c in 3 months and 6 months Schedule ophthalmology appointment The patient was reminded to check their blood glucose as directed and to record the data in a logbook. This patient was advised to bring their logbook to each office visit. I recommended at least 150 minutes per week of moderate physical activity, such as walking and to reduce carbohydrates and overall caloric intake. 2. Hypertension/BP control: BP goal for patients with diabetes is 140/80. 3. Lipids: Target LDL cholesterol in patients with diabetes is less than 100, less than 70 if patient has overt CVD. Several studies have shown cardiovascular benefits of statin therapy in all patients with diabetes over age 40 with at least 1 CVD risk factor. -- This patient is currently at target on statin therapy. 4. Nephropathy screening: Annual measurement of urine albumin excretion is recommended in patients with diabetes. Albumin/Creat Ratio (mg/g) Date Value 02/06/2024 <13 08/10/2020 Not calculated Creatinine, Ur Random (UCRR) (mg/dL) Date Value 02/06/2024 91.1 08/10/2020 212.8 -- This patient does not have microalbuminuria and is not on ARNAUD-I or ARB therapy. 5. Ophthalmology: Annual dilated eye exams are recommended for patients with type 1 and type 2 diabetes. -- This patient is not up to date with their annual eye exam but has no history of retinopathy. Will refer to telephone advice nurse. Patient to continue to follow up with his PCP and with other consultants regarding his other medical problems. Any part of this document that has been added/copied & pasted from other documents has been reviewed for accuracy and updated as appropriate at the time of the patient encounter I spent a total of 30 minutes on the date of the service which included preparing to see the patient, [id number] patient care, completing clinical documentation, obtaining and/or reviewing separately obtained history, performing a medically appropriate examination, counseling and educating the patient/family/caregiver and ordering medications, tests, or procedures. Niraj Olivo APRN.[facility] documented in this encounter [facility] 09-14-2023 Instructions Niraj Olivo APRN.[facility] - 09/14/2023 3:31 PM EST Plan Continue humalog as you are taking while you are at home; on your workdays increase the humalog to 7 units with breakfast and dinner. On your workdays use the following supplemental scale if needed, based on reading: Custom Regimen: 1 per 60 with goal of 120 mg/dl If Blood Glucose (mg/dL) is: Less than 70 mg/dl Follow Hypoglycemia Guidelines and call physician 70-179 mg/dl NO INSULIN GIVEN 180-239 mg/dl 1 Units 240-299 mg/dl 2 Units 300-360 mg/dl 3 Units over 360 mg/dl 4 Units Continue tresiba 11 unit(s) daily-increase by unit every 3 days if your fasting blood sugars remain above 130 mg/dl Check your blood glucose 2 times per day and record data in logbook and bring to each visit We reviewed glucose targets as: Fasting 80-130, before meals 100-130, and bedtime 100-150 mg/dL. Call the office with blood sugars less than 70 Follow up with me in 6 months Get A1c in 3 months and 6 months Schedule ophthalmology appointment documented in this encounter [facility] 09-05-2023 Note HNO ID: [id number] Author: NIRAJ OLIVO APRN.CNP Service: ? Author Type: Nurse Practitioner Type: Progress Notes Filed: 09/14/2023 15:31 Note Text: DISTANCE HEALTH VISIT This Team Access Model visit is a virtual encounter. It required patient-provider interaction for the medical decision making as documented below. I have communicated my name and active licensure. The patient's identity and physical location were verified at the time of this visit. Either the patient or their legal senior patient account representative has been informed of the risks and benefits of -- and alternatives to -- treatment through a remote evaluation and consents to proceed with the evaluation remotely. 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 He still works in construction. Had wound on foot, saw podiatry, referred to vein specialist. PVRs done He has been using Humalog 6-0-6 with meals, will do 7 bid ac on workdays Tresiba 12-13 units daily at HS Currently on prednisone 3 mg daily PMH significant for: PAST MEDICAL HISTORY Diagnosis Date Abdominal pain, left upper quadrant Abdominal pain, right upper quadrant Alcoholic cirrhosis of liver (HCC) Diabetes (HCC) Elevated LFTs Last HbA1c: Hemoglobin A1C (%) Date Value 08/22/2023 6.9 05/19/2023 7.4 11/01/2022 6.7 08/12/2022 6.6 2022 6.7 04/13/2021 8.9 08/10/2020 8.2 05/05/2019 8.1 09/29/2018 6.8 05/04/2018 7.9 Hemoglobin A1C (POCT) (%) Date Value 02/02/2020 8.4 Family history of diabetes includes none. Complications Microvascular: none Macrovascular: none Health Maintenance Topics Topic Date Due Dilated Retinal Exam Never done Diabetic Foot Exam Never done Current DM Related Medications: Current Medications 09/05/2023 DIABETES THERAPIES Medication Dosage Pharm Subclass insulin degludec (TRESIBA FLEXTOUCH U-100) 100 unit/mL (3 mL) injection pen Inject 10 Units subcutaneously every 24 hours. Insulin Analogs - Long Acting insulin lispro (HUMALOG KWIKPEN INSULIN) 200 unit/mL (3 mL) injection Inject sq 6 unit(s) with breakfast and dinner on non workdays; inject sq 7 unit(s) with breakfast and dinner on work days Insulin Analogs - Rapid Acting CARDIOVASCULAR Medication Dosage Pharm Subclass carvedilol (COREG) 3.125 mg tablet Take 1 tablet by mouth twice daily. Alpha-Beta Blockers OTHER Medication Dosage Pharm Subclass blood sugar diagnostic (ONETOUCH VERIO TEST STRIPS) test strip Use as instructed Check blood sugar 3 times a day. Medical Supplies and DME - Blood Glucose Tests Blood-Glucose Meter (ONETOUCH VERIO FLEX METER) Use as directed to test glucose 3 times daily Medical Supplies and DME - Glucose Monitoring Test Supplies Insulin [place], Disposable, (BD ULTRA-FINE MARISSA PEN NEEDLE) 32 gauge x 5/32 Use as directed Medical Supplies and DME - Insulin [place]-Syringes and Admin Supplies lancets (ONE TOUCH DELCityHour) 33 gauge Check blood sugar 3 times a day. Medical Supplies and DME - Glucose Monitoring Test Supplies lansoprazole (PREVACID) 30 mg capsule Take 1 capsule by mouth once daily. Gastric Acid Secretion Home Health Care Coordinator - Proton Pump Inhibitors (PPIs) mycophenolate Mofetil (CELLCEPT) 500 mg tablet Take 3 tablets by mouth twice a day Immunosuppressive - Inosine Monophosphate Dehydrogenase Inhibitors predniSONE (DELTASONE) 1 mg tablet Take 5 tablets by mouth once daily. Glucocorticoids Diet: No specific diet regimen; watches what he eats and portion control Exercise: busy with work ([employer]) SMBG Frequency of Monitoring: Two times a Day BG values or ranges: Hypoglycemia: rare; none since last visit Past History, Medications, Allergies PAST SURGICAL HISTORY Procedure Laterality Date ESOPHAGOGASTRODUODENOSCOPY TRANSORAL DIAGNOSTIC 08/07/2017 EGD ALLERGIES No Known Allergies FAMILY HISTORY Problem Relation Age of Onset other (lymphoma) Father None Mother alive None Brother alive None Brother alive None Sister alive Social History Tobacco Use Smoking status: Former Types: Cigarettes Quit date: 05/17/2010 Years since quittin.3 Smokeless tobacco: Never Substance Use Topics Alcohol use: No Drug use: No Answers submitted by the patient for this visit: Core Review of Systems (Submitted on 08/29/2023) Fever : No Night sweats: No Recent unintentional weight change: No Nasal Congestion: No Hearing Loss: No Vision Disturbance: No A cough: No Difficulty Breathing?: No Chest pain: No Irregular heartbeat: No Leg Swelling: No Nausea: No Diarrhea: No Black tarry stools: No Difficulty Urinating?: No Awaken at Night More Than Once to Urinate?: No Joint pain or stiffness: No Muscle aches: Yes Leg or Foot Discomfort at Night?: No A rash: No Dizziness: No Headaches: No Memory (more content not included)... [facility] 09-05-2023 History of Present illness Narrative Images from the original note were not included. DISTANCE HEALTH VISIT This Team Access Model visit is a virtual encounter. It required patient-provider interaction for the medical decision making as documented below. I have communicated my name and active licensure. The patient's identity and physical location were verified at the time of this visit. Either the patient or their legal senior patient account representative has been informed of the risks and benefits of -- and alternatives to -- treatment through a remote evaluation and consents to proceed with the evaluation remotely. 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 He still works in construction. Had wound on foot, saw podiatry, referred to vein specialist. PVRs done He has been using Humalog 6-0-6 with meals, will do 7 bid ac on workdays Tresiba 12-13 units daily at HS Currently on prednisone 3 mg daily PMH significant for: PAST MEDICAL HISTORY Diagnosis Date Abdominal pain, left upper quadrant Abdominal pain, right upper quadrant Alcoholic cirrhosis of liver (HCC) Diabetes (HCC) Elevated LFTs Last HbA1c: Hemoglobin A1C (%) Date Value 08/22/2023 6.9 05/19/2023 7.4 11/01/2022 6.7 08/12/2022 6.6 2022 6.7 04/13/2021 8.9 08/10/2020 8.2 05/05/2019 8.1 09/29/2018 6.8 05/04/2018 7.9 Hemoglobin A1C (POCT) (%) Date Value 02/02/2020 8.4 Family history of diabetes includes none. Complications Microvascular: none Macrovascular: none Health Maintenance Topics Topic Date Due Dilated Retinal Exam Never done Diabetic Foot Exam Never done Current DM Related Medications: Current Medications 09/05/2023 DIABETES THERAPIES Medication Dosage Pharm Subclass insulin degludec (TRESIBA FLEXTOUCH U-100) 100 unit/mL (3 mL) injection pen Inject 10 Units subcutaneously every 24 hours. Insulin Analogs - Long Acting insulin lispro (HUMALOG KWIKPEN INSULIN) 200 unit/mL (3 mL) injection Inject sq 6 unit(s) with breakfast and dinner on non workdays; inject sq 7 unit(s) with breakfast and dinner on work days Insulin Analogs - Rapid Acting CARDIOVASCULAR Medication Dosage Pharm Subclass carvedilol (COREG) 3.125 mg tablet Take 1 tablet by mouth twice daily. Alpha-Beta Blockers OTHER Medication Dosage Pharm Subclass blood sugar diagnostic (ClearCycleTOUCH VERIO TEST STRIPS) test strip Use as instructed Check blood sugar 3 times a day. Medical Supplies and DME - Blood Glucose Tests Blood-Glucose Meter (ClearCycleTOUCH VERIO FLEX METER) Use as directed to test glucose 3 times daily Medical Supplies and DME - Glucose Monitoring Test Supplies Insulin [place], Disposable, (BD ULTRA-FINE MARISSA PEN NEEDLE) 32 gauge x 5/32 Use as directed Medical Supplies and DME - Insulin [place]-Syringes and Admin Supplies lancets (ONE TOUCH DELCityHour) 33 gauge Check blood sugar 3 times a day. Medical Supplies and DME - Glucose Monitoring Test Supplies lansoprazole (PREVACID) 30 mg capsule Take 1 capsule by mouth once daily. Gastric Acid Secretion Home Health Care Coordinator - Proton Pump Inhibitors (PPIs) mycophenolate Mofetil (CELLCEPT) 500 mg tablet Take 3 tablets by mouth twice a day Immunosuppressive - Inosine Monophosphate Dehydrogenase Inhibitors predniSONE (DELTASONE) 1 mg tablet Take 5 tablets by mouth once daily. Glucocorticoids Diet: No specific diet regimen; watches what he eats and portion control Exercise: busy with work ([employer]) SMBG Frequency of Monitoring: Two times a Day BG values or ranges: Hypoglycemia: rare; none since last visit Past History, Medications, Allergies PAST SURGICAL HISTORY Procedure Laterality Date ESOPHAGOGASTRODUODENOSCOPY TRANSORAL DIAGNOSTIC 08/07/2017 EGD ALLERGIES No Known Allergies FAMILY HISTORY Problem Relation Age of Onset other (lymphoma) Father None Mother alive None Brother alive None Brother alive None Sister alive Social History Tobacco Use Smoking status: Former Types: Cigarettes Quit date: 05/17/2010 Years since quittin.3 Smokeless tobacco: Never Substance Use Topics Alcohol use: No Drug use: No Answers submitted by the patient for this visit: Core Review of Systems (Submitted on 08/29/2023) Fever : No Night sweats: No Recent unintentional weight change: No Nasal Congestion: No Hearing Loss: No Vision Disturbance: No A cough: No Difficulty Breathing?: No Chest pain: No Irregular heartbeat: No Leg Swelling: No Nausea: No Diarrhea: No Black tarry stools: No Difficulty Urinating?: No Awaken at Night More Than Once to Urinate?: No Joint pain or stiffness: No Muscle aches: Yes Leg or Foot Discomfort at Night?: No A rash: No Dizziness: No Headaches: No Memory Loss: No Seizures: No PHYSICAL EXAMINATION: General Appearance: Well appearing, alert, in no acute distress, well-hydrated, well nourished. Affect: Pleasant and cooperative Previous Laboratory Results LABS Glucose (mg/dL) Date Value 05/19/2023 166 09/14/2021 210 04/13/2021 Test reordered by [facility]. 04/13/2021 201 Potassium (mmol/L) Date Value 05/19/2023 4.4 09/14/2021 4.2 Sodium (mmol/L) Date Value 05/19/2023 139 09/14/2021 136 04/13/2021 Test reordered by [facility]. 04/13/2021 137 Chloride (mmol/L) Date Value 05/19/2023 107 09/14/2021 105 04/13/2021 Test reordered by [facility]. 04/13/2021 104 CO2 (mmol/L) Date Value 05/19/2023 22 09/14/2021 24 04/13/2021 Test reordered by [facility]. 04/13/2021 23 Creatinine (mg/dL) Date Value 05/19/2023 0.95 09/14/2021 0.79 04/13/2021 Test reordered by [facility]. 04/13/2021 0.79 BUN (mg/dL) Date Value 05/19/2023 14 09/14/2021 12 04/13/2021 Test reordered by [facility]. 04/13/2021 14 Anion Gap (mmol/L) Date Value 05/19/2023 10 09/14/2021 7 04/13/2021 Test reordered by [facility]. 04/13/2021 10 Calcium (mg/dL) Date Value 09/14/2021 9.3 04/13/2021 Test reordered by [facility]. 04/13/2021 9.1 Calcium, Total (mg/dL) Date Value 05/19/2023 9.0 eGFR- (no units) Date Value 09/14/2021 >60 04/13/2021 Test reordered by [facility]. 04/13/2021 >60 eGFR-All Other Races (.) Date Value 09/14/2021 >60 04/13/2021 Test reordered by [facility]. 04/13/2021 >60 Estimated Glomerular Filtration Rate (mL/min/1.73m ) Date Value 05/19/2023 93 ALT (U/L) Date Value 08/22/2023 102 05/19/2023 131 04/04/2023 139 09/14/2021 162 04/13/2021 Test reordered by [facility]. 04/13/2021 200 No results found for: TSH , FREET4 Impression/Recommendations IMPRESSION Nir Ewing is a 57 year old here for follow up of Diabetes secondary to steroid treatment complicated by autoimmune hepatitis RECOMMENDATIONS: 1. Glycemic control: Target HbA1C is less than 7.0% per ADA guidelines. This patient is at target. Plan Continue humalog as you are taking while you are at home; on your workdays increase the humalog to 7 units with breakfast and dinner. On your workdays use the following supplemental scale if needed, based on reading: Custom Regimen: 1 per 60 with goal of 120 mg/dl If Blood Glucose (mg/dL) is: Less than 70 mg/dl Follow Hypoglycemia Guidelines and call physician 70-179 mg/dl NO INSULIN GIVEN 180-239 mg/dl 1 Units 240-299 mg/dl 2 Units 300-360 mg/dl 3 Units over 360 mg/dl 4 Units Continue tresiba 11 unit(s) daily-increase by unit every 3 days if your fasting blood sugars remain above 130 mg/dl Check your blood glucose 2 times per day and record data in logbook and bring to each visit We reviewed glucose targets as: Fasting 80-130, before meals 100-130, and bedtime 100-150 mg/dL. Call the office with blood sugars less than 70 Follow up with me in 6 months Get A1c in 3 months and 6 months Schedule ophthalmology appointment The patient was reminded to check their blood glucose as directed and to record the data in a logbook. This patient was advised to bring their logbook to each office visit. I recommended at least 150 minutes per week of moderate physical activity, such as walking and to reduce carbohydrates and overall caloric intake. 2. Hypertension/BP control: BP goal for patients with diabetes is 140/80. 3. Lipids: Target LDL cholesterol in patients with diabetes is less than 100, less than 70 if patient has overt CVD. Several studies have shown cardiovascular benefits of statin therapy in all patients with diabetes over age 40 with at least 1 CVD risk factor. -- This patient is currently at target on statin therapy. 4. Nephropathy screening: Annual measurement of urine albumin excretion is recommended in patients with diabetes. Albumin/Creat Ratio (mg/g) Date Value 05/19/2023 <22 08/10/2020 Not calculated Creatinine, Ur Random (UCRR) (mg/dL) Date Value 05/19/2023 55.0 08/10/2020 212.8 -- This patient does not have microalbuminuria and is not on ARNAUD-I or ARB therapy. 5. Ophthalmology: Annual dilated eye exams are recommended for patients with type 1 and type 2 diabetes. -- This patient is not up to date with their annual eye exam but has no history of retinopathy. Will refer to telephone advice nurse. Patient to continue to follow up with his PCP and with other consultants regarding his other medical problems. Any part of this document that has been added/copied & pasted from other documents has been reviewed for accuracy and updated as appropriate at the time of the patient encounter I spent a total of 30 minutes on the date of the service which included preparing to see the patient, [id number] patient care, completing clinical documentation, obtaining and/or reviewing separately obtained history, performing a medically appropriate examination, counseling and educating the patient/family/caregiver and ordering medications, tests, or procedures. Niraj Olivo APRN.JEFFREY documented in this encounter [facility] 04-18-2023 Miscellaneous Notes Requester: Patient Patients last Endocrinology visit occurred 03/07/23. Follow-up evaluation has been established 09/05/23. Patient has refills, but wants all these prescriptions to go to [facility] mail [facility]. Requested Prescriptions Pending Prescriptions Disp Refills insulin degludec (TRESIBA FLEXTOUCH U-100) 100 unit/mL (3 mL) injection pen 5 Each 3 Sig: Inject 10 Units subcutaneously every 24 hours. insulin lispro (HUMALOG KWIKPEN INSULIN) 200 unit/mL (3 mL) injection 5 Each 3 Sig: Inject sq 6 unit(s) with breakfast and dinner on non workdays; inject sq 7 unit(s) with breakfast and dinner on work days Insulin [place], Disposable, (BD ULTRA-FINE MARISSA PEN NEEDLE) 32 gauge x 5/32 300 Each 3 Sig: Use as directed lancets (ONE TOUCH DELICA) 33 gauge 300 Each 3 Sig: Check blood sugar 3 times a day. blood sugar diagnostic (ONETOUCH VERIO TEST STRIPS) test strip 300 Strip 3 Sig: Use as instructed Check blood sugar 3 times a day. If patient is due for an appointment please route to provider for refill consideration and also to the endo scheduling pool. PSS NOTE: Patient needs scheduled appointment No documented in this encounter [facility] 03-07-2023 Note HNO ID: [id number] Author: Niraj Olivo APRN.JEFFREY Service: ? Author Type: Nurse Practitioner Type: Progress Notes Filed: 03/07/2023 8:19 AM Note Text: DISTANCE HEALTH VISIT This Team Access Model visit is a virtual encounter. It required patient-provider interaction for the medical decision making as documented below. I have communicated my name and active licensure. The patient's identity and physical location were verified at the time of this visit. Either the patient or their legal senior patient account representative has been informed of the risks and benefits of -- and alternatives to -- treatment through a remote evaluation and consents to proceed with the evaluation remotely. 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 Last visit with me was 04/2022. At that time we increased Tresiba to 11 unit(s) daily. He was having some lows with that dose so it has been decreased down to 10 unit(s). He still works in construction. Had wound on foot, saw podiatry, referred to vein specialist. PVRs He has been using Humalog 6-0-6 with meals, will do 7 bidac on workdays Tresiba 10 units daily at HS Currently on prednisone 4 mg daily PMH significant for: PAST MEDICAL HISTORY Diagnosis Date Abdominal pain, left upper quadrant Abdominal pain, right upper quadrant Alcoholic cirrhosis of liver (HCC) Diabetes (HCC) Elevated LFTs Last HbA1c: Hemoglobin A1C (%) Date Value 11/01/2022 6.7 08/12/2022 6.6 2022 6.7 02/01/2022 7.1 10/26/2021 8.5 04/13/2021 8.9 08/10/2020 8.2 05/05/2019 8.1 09/29/2018 6.8 05/04/2018 7.9 Hemoglobin A1C (POCT) (%) Date Value 02/02/2020 8.4 Family history of diabetes includes none. Complications Microvascular: none Macrovascular: none Health Maintenance Topics Topic Date Due DILATED RETINAL EXAM Never done DIABETIC FOOT EXAM Never done Current DM Related Medications: Current Medications 03/07/2023 DIABETES THERAPIES Medication Dosage Pharm Subclass insulin degludec (TRESIBA FLEXTOUCH U-100) 100 unit/mL (3 mL) injection pen Inject 10 Units subcutaneously every 24 hours. Insulin Analogs - Long Acting insulin lispro (HUMALOG KWIKPEN INSULIN) 200 unit/mL (3 mL) injection Inject sq 6 unit(s) with breakfast and dinner on non workdays; inject sq 7 unit(s) with breakfast and dinner on work days Insulin Analogs - Rapid Acting CARDIOVASCULAR Medication Dosage Pharm Subclass carvedilol (COREG) 3.125 mg tablet Take 1 tablet by mouth twice daily. Alpha-Beta Blockers OTHER Medication Dosage Pharm Subclass blood sugar diagnostic (KALUCH VERIO TEST STRIPS) test strip Use as instructed Check blood sugar 3 times a day. Medical Supplies and DME - Blood Glucose Tests Blood-Glucose Meter (ONETOUCH VERIO FLEX METER) Use as directed to test glucose 3 times daily Medical Supplies and DME - Glucose Monitoring Test Supplies Insulin [place], Disposable, (BD ULTRA-FINE MARISSA PEN NEEDLE) 32 gauge x 32 Use as directed Medical Supplies and DME - Insulin [place]-Syringes and Admin Supplies lancets (ONE TOUCH DELICA) 33 gauge Check blood sugar 3 times a day. Medical Supplies and DME - Glucose Monitoring Test Supplies lansoprazole (PREVACID) 30 mg capsule Take 1 capsule by mouth once daily. Gastric Acid Secretion Home Health Care Coordinator - Proton Pump Inhibitors (PPIs) mycophenolate Mofetil (CELLCEPT) 500 mg tablet Take 3 tablets by mouth twice a day Immunosuppressive - Inosine Monophosphate Dehydrogenase Inhibitors predniSONE (DELTASONE) 1 mg tablet Take 5 tablets by mouth once daily. Glucocorticoids Diet: No specific diet regimen; watches what he eats and portion control Exercise: busy with work ([employer]) SMBG Frequency of Monitoring: Two times a Day BG values or ranges: Hypoglycemia: rare; none since last visit Past History, Medications, Allergies PAST SURGICAL HISTORY Procedure Laterality Date ESOPHAGOGASTRODUODENOSCOPY TRANSORAL DIAGNOSTIC 08/07/2017 EGD ALLERGIES No Known Allergies FAMILY HISTORY Problem Relation Age of Onset other (lymphoma) Father None Mother alive None Brother alive None Brother alive None Sister alive Social History Tobacco Use Smoking status: Former Types: Cigarettes Quit date: 05/17/2010 Years since quittin.8 Smokeless tobacco: Never Substance Use Topics Alcohol use: No Drug use: No Answers submitted by the patient for this visit: Core Review of Systems (Submitted on 02/28/2023) Fever : No Night Sweats: No Recent Unintentional Weight Change: No Nasal Congestion: No Hearing Loss: No Vision Disturbance: No A Cough: No Difficulty Breathing?: No Chest Pain: No Irregular Heart Beat: No Leg Swelling: No Nausea: No Diarrhea: No Black Tarry Stools: No Difficulty Urinating?: No Awaken at Nigh (more content not included)... [facility] 02-25-2023 Note HNO ID: [id number] Author: Yina Valdes RDMS Service: ? Author Type: Reed Maker Type: Progress Notes Filed: 02/25/2023 9:56 AM Note Text: Radiology Service Progress Note PATIENT NAME: Nir Ewing DATE OF SERVICE: February 25, 2023 TIME: 9:56 AM PATIENT IDENTITY VERIFICATION COMPLETED USING TWO (2) IDENTIFIERS: Name and Date of confirmed by patient verbally. FALL SCREENING: Has the patient had 2 falls in the last year or 1 fall with injury or currently using an Ambulatory Assistive Device (Walker, Cane, Wheelchair, Crutches, etc.)? No PATIENT GENDER DATA: Male PATIENT RELEVANT IMPLANT DATA REVIEWED: Not Applicable RADIOLOGY DEPARTMENT: Ultrasound PERIPHERAL IV DATA: Not applicable SIGNED BY: Yina Valdes RDMS February 25, 2023 9:56 AM [facility] 02-17-2023 History of Present illness Narrative Chaparro Bueno MD Video visit Hepatology HPI: Nir Ewing is a 57 year old male with past medical history of AIH/cirrhosis. He is here to [facility] for AIH related cirrhosis (biopsy proven in 2014 at [facility] We repeated a liver biopsy : He has history of alcohol abuse (8 beers/day) from 2011 to 2013. sober since then Taken from prior notes: He was start on MMF (Cellcept) 500 mg BID because he did not tolerate imuran. He is doing well on MMF, and currently still maintained on 10mg of prednisone His liver enzymes remained to be elevated 3-4X UNL. So MMF was increased to 1000 mg BID , and currently he is on Prednisone 5mg with the best levels of ast/alt EGD July 2017, amd again in 09/2022 Hep A and B vaccinated. EGD 09/2022: Diaphragm, GEJ and Z line at 49 cm One medium to large varix is seen one band is placed Stomach no varices moderate portal hypertensive gastropathy DU normal The exam was otherwise without abnormality. another order for a repeat EGD was done but he did not schedule it Current immunosuppresion: 2000mg cellcept daily 5 mg prednisone daily GENERAL REVIEW OF SYSTEMS: updated unchanged asx FAMILY HISTORY Problem Relation Age of Onset other (lymphoma) Father None Mother alive None Brother alive None Brother alive None Sister alive PAST MEDICAL HISTORY Diagnosis Date Abdominal pain, left upper quadrant Abdominal pain, right upper quadrant Alcoholic cirrhosis of liver (HCC) Diabetes (HCC) Elevated LFTs PAST SURGICAL HISTORY Procedure Laterality Date ESOPHAGOGASTRODUODENOSCOPY TRANSORAL DIAGNOSTIC 08/07/2017 EGD Social History Tobacco Use Smoking status: Former Types: Cigarettes Quit date: 05/17/2010 Years since quittin.7 Smokeless tobacco: Never Substance Use Topics Alcohol use: No Drug use: No PHYSICAL EXAMINATION: BMI 27 video visit colonoscopy osteopenia 06/2021 IMPRESSION: US Cirrhotic liver morphology. No hepatic lesion. asma negative ama negative FINAL DIAGNOSIS Liver biopsy 2014 Liver, needle biopsy- - Cirrhosis with chronic hepatitis and mild activity (Juany and Carmine grade 2/4, stage 4/4), consistent with clinical impression of autoimmune hepatitis. See comment. COMMENT H&E special stains are examined. The normal lobular hepatic architecture is distorted by cirrhosis, confirmed on the trichrome stain. The biopsy demonstrates mild to moderate portal inflammatory cell infiltrates with areas of periportal interface activity. The bile ducts are intact and there is no duct damage or duct loss. Granulomas are not seen. The hepatocytes show no significant steatosis or cholestasis. There is no ballooning hepatocyte degeneration or [place] hyaline accumulation. The findings are not specific as to etiology but would be compatible with the clinical impression of autoimmune hepatitis (LAINE positive). The iron stain is negative. The PAS after diastase is negative for alpha-1 antitrypsin inclusions. Liver bioosy 2021: FINAL DIAGNOSIS A. Liver, biopsy: Cirrhosis, etiology not histologically apparent. See comment. Diagnosis Comment The architecture of the specimen is distorted by thick bands of fibrosis (highlighted by trichrome stain). There is no steatosis. One possible ballooned hepatocyte is seen, but is not definitive for steatohepatitis. There is some mild, nonspecific portal and septal inflammation, but no interface activity or lobular inflammation. A few portal tracts are present and contain their [place] bile ducts. An iron stain is negative. A PAS/D stain is negative for alpha 1 antitrypsin globules. As is often the case, histologic clues pointing to the etiology of liver injury may disappear once cirrhosis is established. This could represent a burned-out fatty liver disease or autoimmune hepatitis. plat 80 hgba1c ~8>>>6 CMP: Glucose 210 09/14/2021 BUN 12 09/14/2021 Creatinine 0.79 09/14/2021 Sodium 136 09/14/2021 Potassium 4.2 09/14/2021 Chloride 105 09/14/2021 CO2 24 09/14/2021 Protein, Total 6.8 11/01/2022 Albumin 3.9 11/01/2022 Calcium 9.3 09/14/2021 Alkaline Phosphatase 107 11/01/2022 Bilirubin, Total 2.1 11/01/2022 AST 178 11/01/2022 ALT 157 11/01/2022 A/p: Mr Ewing is on video with He was treated for AIH cirrhosis dx by liver biopsy in 2014 Since starting therapy, he had 2 flares , did not tolerate imuran once and stopped med another time We performed another liver biopsy 08/2021 due to persistent elevation of liver enzymes: cirrhosis but no inflammation Presently on Cellcept 1000 mg twice daily and Prednisone 5 mg daily. 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 documented in this encounter [facility] 01-07-2023 Miscellaneous Notes Rx e-scripted to preferred pharmacy documented in this encounter [facility] 12-31-2022 Miscellaneous Notes Patients last Endocrinology visit occurred 05/10/22 with Niraj Oilvo. Follow-up evaluation has been established 03/07/23 with Niraj Olivo. Requested Prescriptions Pending Prescriptions Disp Refills insulin degludec (TRESIBA FLEXTOUCH U-100) 100 unit/mL (3 mL) injection pen 5 Each 3 Sig: Inject 10 Units subcutaneously every 24 hours. If patient is due for an appointment please route to provider for refill consideration and also to the endo scheduling pool. documented in this encounter [facility] 09-17-2022 Miscellaneous Notes Addended by: DEBRA BUENO on: 09/17/2022 01:04 PM Modules accepted: Orders documented in this encounter [facility] 09-16-2022 History of Present illness Narrative Debra' Emma BUI Video visit HPI: Nir Ewing is a 56 year old male with past medical history of AIH/cirrhosis. He is here to [facility] for AIH related cirrhosis (biopsy proven in 2014 at [facility] We repeated a liver biopsy : He has history of alcohol abuse (8 beers/day) from 2011 to 2013. sober since then Taken from prior notes: He was start on MMF (Cellcept) 500mg BID because he did not tolerate imuran. He is doing well on MMF, and currently still maintained on 10mg of prednisone daily and MMF 500mg PO BID His liver enzymes remained to be elevated 3-4X UNL. So MMF was increased to 1000 mg BID , and currently he is on Prednisone 5mg with the best levels of ast/alt EGD July 2017, Grade 1 EV no banding and PHG. Hep A and B vaccinated. Current immunosuppresion: 2000mg cellcept daily 5 mg prednisone daily GENERAL REVIEW OF SYSTEMS: updated unchanged asx FAMILY HISTORY Problem Relation Age of Onset other (lymphoma) Father None Mother alive None Brother alive None Brother alive None Sister alive PAST MEDICAL HISTORY Diagnosis Date Abdominal pain, left upper quadrant Abdominal pain, right upper quadrant Alcoholic cirrhosis of liver (HCC) Diabetes (HCC) Elevated LFTs PAST SURGICAL HISTORY Procedure Laterality Date ESOPHAGOGASTRODUODENOSCOPY TRANSORAL DIAGNOSTIC 08/07/2017 EGD Social History Tobacco Use Smoking status: Former Types: Cigarettes Quit date: 05/17/2010 Years since quittin.3 Smokeless tobacco: Never Substance Use Topics Alcohol use: No Drug use: No PHYSICAL EXAMINATION: BMI 27 video visit Last EGD: 07/202021Grade 1 EV and PHG colonoscopy osteopenia 06/2021 IMPRESSION: US Cirrhotic liver morphology. No hepatic lesion. asma negative ama negative FINAL DIAGNOSIS Liver biopsy 2014 Liver, needle biopsy- - Cirrhosis with chronic hepatitis and mild activity (Juany and Carmine grade 2/4, stage 4/4), consistent with clinical impression of autoimmune hepatitis. See comment. COMMENT H&E special stains are examined. The normal lobular hepatic architecture is distorted by cirrhosis, confirmed on the trichrome stain. The biopsy demonstrates mild to moderate portal inflammatory cell infiltrates with areas of periportal interface activity. The bile ducts are intact and there is no duct damage or duct loss. Granulomas are not seen. The hepatocytes show no significant steatosis or cholestasis. There is no ballooning hepatocyte degeneration or [place] hyaline accumulation. The findings are not specific as to etiology but would be compatible with the clinical impression of autoimmune hepatitis (ALINE positive). The iron stain is negative. The PAS after diastase is negative for alpha-1 antitrypsin inclusions. Liver bioosy 2021: FINAL DIAGNOSIS A. Liver, biopsy: Cirrhosis, etiology not histologically apparent. See comment. Diagnosis Comment The architecture of the specimen is distorted by thick bands of fibrosis (highlighted by trichrome stain). There is no steatosis. One possible ballooned hepatocyte is seen, but is not definitive for steatohepatitis. There is some mild, nonspecific portal and septal inflammation, but no interface activity or lobular inflammation. A few portal tracts are present and contain their [place] bile ducts. An iron stain is negative. A PAS/D stain is negative for alpha 1 antitrypsin globules. As is often the case, histologic clues pointing to the etiology of liver injury may disappear once cirrhosis is established. This could represent a burned-out fatty liver disease or autoimmune hepatitis. plat !80 hgba1c ~8>>>6 A/p: Mr Ewing is on video with He was treated for AIH cirrhosis dx by liver biopsy in 2014 Since starting therapy, he had 2 flares , did not tolerate imuran once and stopped med another time Presently on Cellcept 1000 mg twice daily and Prednisone 5 mg daily. 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 documented in this encounter [facility] 08-12-2022 History of Present illness Narrative Radiology Service Progress Note PATIENT NAME: Nir Ewing DATE OF SERVICE: August 12, 2022 TIME: 8:18 AM PATIENT IDENTITY VERIFICATION COMPLETED USING TWO (2) IDENTIFIERS: Name and Date of confirmed by patient verbally. FALL SCREENING: Has the patient had 2 falls in the last year or 1 fall with injury or currently using an Ambulatory Assistive Device (Walker, Cane, Wheelchair, Crutches, etc.)? No PATIENT GENDER DATA: Male PATIENT RELEVANT IMPLANT DATA REVIEWED: Not Applicable RADIOLOGY DEPARTMENT: Ultrasound PERIPHERAL IV DATA: Not applicable SIGNED BY: Sara Garland RDMS August 12, 2022 8:18 AM documented in this encounter [facility] 07-19-2022 Miscellaneous Notes Called [facility] to let them know we need the pt to sign a medical release form and fax it to our medical records department. At [phone] Celia from [facility] requesting these items to be faxed as soon as possible. Last office visit notes Medication list History Anything that would be helpful for doctor. Thank you Aurelia Jones documented in this encounter [facility] 07-08-2022 Miscellaneous Notes Requester: Patient Patients last Endocrinology visit occurred 05/10/22. Follow-up evaluation has been established 11/11/22. Requested Prescriptions Pending Prescriptions Disp Refills insulin lispro (HUMALOG KWIKPEN INSULIN) 200 unit/mL (3 mL) injection 5 Each 3 Sig: Inject sq 6 unit(s) with breakfast and dinner on non workdays; inject sq 7 unit(s) with breakfast and dinner on work days If patient is due for an appointment please route to provider for refill consideration and also to the endo scheduling pool. PSS NOTE: Patient needs scheduled appointment No documented in this encounter [facility] 06-20-2022 Miscellaneous Notes Addended by: NIRAJ OLIVO on: 06/20/2022 01:38 PM Modules accepted: Orders Requester: Pharmacy Patients last Endocrinology visit occurred 05/10/22. Follow-up evaluation has been established 11/11/22. Requested Prescriptions Pending Prescriptions Disp Refills blood sugar diagnostic (ONETOUCH VERIO TEST STRIPS) test strip 300 Strip 3 Sig: Use as instructed Check blood sugar 3 times a day. If patient is due for an appointment please route to provider for refill consideration and also to the endo scheduling pool. PSS NOTE: Patient needs scheduled appointment No documented in this encounter [facility] 06-20-2022 Miscellaneous Notes Requester: Patient Patients last Endocrinology visit occurred 05/10/22. Follow-up evaluation has been established 11/11/22. Requested Prescriptions Pending Prescriptions Disp Refills lancets (ONE TOUCH DELICA) 33 gauge 300 Each 3 Sig: Check blood sugar 3 times a day. Refused Prescriptions Disp Refills blood sugar diagnostic (ONETOUCH VERIO TEST STRIPS) test strip 300 Strip 3 Sig: Use as instructed Check blood sugar 3 times a day. If patient is due for an appointment please route to provider for refill consideration and also to the endo scheduling pool. PSS NOTE: Patient needs scheduled appointment No documented in this encounter [facility] 05-10-2022 Instructions Niraj Olivo APRN.JEFFREY - 05/10/2022 8:17 AM EDT Plan Continue humalog as you are taking while you are at home; on your workdays increase the humalog to 7 units with breakfast and dinner. On your workdays use the following supplemental scale if needed, based on reading: Custom Regimen: 1 per 60 with goal of 120 mg/dl If Blood Glucose (mg/dL) is: Less than 70 mg/dl Follow Hypoglycemia Guidelines and call physician 70-179 mg/dl NO INSULIN GIVEN 180-239 mg/dl 1 Units 240-299 mg/dl 2 Units 300-360 mg/dl 3 Units over 360 mg/dl 4 Units Continue tresiba to 10 unit(s) daily-increase by unit every 3 days if your fasting blood sugars remain above 130 mg/dl Check your blood glucose 2 times per day and record data in logbook and bring to each visit We reviewed glucose targets as: Fasting 80-130, before meals 100-130, and bedtime 100-150 mg/dL. Call the office with blood sugars less than 70 Follow up with me in 6 months Get A1c in 3 months and 6 months Schedule ophthalmology appointment documented in this encounter [facility] 05-10-2022 History of Present illness Narrative Images from the original note were not included. DISTANCE HEALTH VISIT This Team Access Model visit is a virtual encounter. It required patient-provider interaction for the medical decision making as documented below. The patient has consented to this distance health visit and has been identified by name and date. 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 Last visit with me was 04/2021. At that time we increased Tresiba to 13 unit(s) daily. He was having some lows with that dose so it has been decreased down to 10 unit(s). He still works in construction . He has been using Humalog 6-0-6 with meals, will do 7 on workdays Tresiba 10 units daily at HS Currently on prednisone 5 mg daily PMH significant for: PAST MEDICAL HISTORY Diagnosis Date Abdominal pain, left upper quadrant Abdominal pain, right upper quadrant Alcoholic cirrhosis of liver (HCC) Diabetes (HCC) Elevated LFTs Last HbA1c: Hemoglobin A1C (%) Date Value 2022 6.7 02/01/2022 7.1 10/26/2021 8.5 04/13/2021 8.9 08/10/2020 8.2 05/05/2019 8.1 09/29/2018 6.8 05/04/2018 7.9 Hemoglobin A1C (POCT) (%) Date Value 02/02/2020 8.4 Family history of diabetes includes none. Complications Microvascular: none Macrovascular: none Health Maintenance Topics Topic Date Due DILATED RETINAL EXAM Never done DIABETIC FOOT EXAM Never done Current DM Related Medications: Current Medications 05/10/2022 DIABETES THERAPIES Medication Dosage Pharm Subclass insulin degludec (TRESIBA FLEXTOUCH U-100) 100 unit/mL (3 mL) injection pen Inject 10 Units subcutaneously every 24 hours. Insulin Analogs - Long Acting insulin lispro (HUMALOG KWIKPEN INSULIN) 200 unit/mL (3 mL) injection Inject sq 6 unit(s) with breakfast and dinner on non workdays; inject sq 7 unit(s) with breakfast and dinner on work days Insulin Analogs - Rapid Acting OTHER Medication Dosage Pharm Subclass blood sugar diagnostic (ONETOUCH VERIO TEST STRIPS) test strip Use as instructed Check blood sugar 3 times a day. Medical Supplies and DME - Blood Glucose Tests Blood-Glucose Meter (ONETOUCH VERIO FLEX METER) Use as directed to test glucose 3 times daily Medical Supplies and DME - Glucose Monitoring Test Supplies Insulin [place], Disposable, (BD ULTRA-FINE MARISSA PEN NEEDLE) 32 gauge x 5/32 Use as directed Medical Supplies and DME - Insulin [place]-Syringes and Admin Supplies lancets (ONE TOUCH DELCityHour) 33 gauge Check blood sugar 3 times a day. Medical Supplies and DME - Glucose Monitoring Test Supplies mycophenolate Mofetil (CELLCEPT) 500 mg tablet Take 1 tablet by mouth four times daily. Immunosuppressive - Inosine Monophosphate Dehydrogenase Inhibitors Diet: No specific diet regimen; watches what he eats and portion control Exercise: busy with work ([employer]) SMBG Frequency of Monitoring: Two times a Day BG values or ranges: Hypoglycemia: rare; none since last visit Past History, Medications, Allergies PAST SURGICAL HISTORY Procedure Laterality Date ESOPHAGOGASTRODUODENOSCOPY TRANSORAL DIAGNOSTIC 08/07/2017 EGD ALLERGIES No Known Allergies FAMILY HISTORY Problem Relation Age of Onset other (lymphoma) Father None Mother alive None Brother alive None Brother alive None Sister alive Social History Tobacco Use Smoking status: Former Types: Cigarettes Quit date: 05/17/2010 Years since quittin.9 Smokeless tobacco: Never Substance Use Topics Alcohol use: No Drug use: No Answers submitted by the patient for this visit: Endocrine Review of Systems (Submitted on 05/03/2022) Fatigue: No Night Sweats: No Recent Unintentional Weight Change: No Skin Color Changes: No Post-Nasal Drip: No Thyroid Pain (lower neck): No Trouble Swallowing: No Vision Disturbance: No Chest Pain: No Leg Swelling: No Blood Clots?: No Leg Pain while walking?: No Difficulty Breathing?: No Heartburn: No Nausea: No Vomiting?: No Diarrhea: No Constipation: No Abdominal Pain: No Bone Pain?: No Muscle Aches: No Muscle Weakness: No Joint Pain or Stiffness: No Headaches: No Dizziness: No Numbness?: No Urgency to Urinate?: No Increased Urination?: No Slow or Small Urine Stream?: No Flushing?: No Hot Flashes?: No Increased Thirst: No Change in Body Hair?: No Cold Intolerance: No Heat Intolerance?: No Core Review of Systems (Submitted on 05/03/2022) Night Sweats: No Recent Unintentional Weight Change: No Vision Disturbance: No Chest Pain: No Leg Swelling: No Difficulty Breathing?: No Nausea: No Diarrhea: No Muscle Aches: No Joint Pain or Stiffness: No Headaches: No Dizziness: No Fever : No Nasal Congestion: No Hearing Loss: No A Cough: No Irregular Heart Beat: No Black [place] Stools: No Difficulty Urinating?: No Awaken at Night More Than Once to Urinate?: No Leg or Foot Discomfort at Night?: No A Rash: No Memory Loss: No Seizures: No PHYSICAL EXAMINATION: General Appearance: Well appearing, alert, in no acute distress, well-hydrated, well nourished. Affect: Pleasant and cooperative Previous Laboratory Results LABS Glucose (mg/dL) Date Value 09/14/2021 210 04/13/2021 Test reordered by [facility]. 04/13/2021 201 Potassium (mmol/L) Date Value 09/14/2021 4.2 Sodium (mmol/L) Date Value 09/14/2021 136 04/13/2021 Test reordered by [facility]. 04/13/2021 137 Chloride (mmol/L) Date Value 09/14/2021 105 04/13/2021 Test reordered by [facility]. 04/13/2021 104 CO2 (mmol/L) Date Value 09/14/2021 24 04/13/2021 Test reordered by [facility]. 04/13/2021 23 Creatinine (mg/dL) Date Value 09/14/2021 0.79 04/13/2021 Test reordered by [facility]. 04/13/2021 0.79 BUN (mg/dL) Date Value 09/14/2021 12 04/13/2021 Test reordered by [facility]. 04/13/2021 14 Anion Gap (mmol/L) Date Value 09/14/2021 7 04/13/2021 Test reordered by [facility]. 04/13/2021 10 Calcium (mg/dL) Date Value 09/14/2021 9.3 04/13/2021 Test reordered by [facility]. 04/13/2021 9.1 eGFR- (no units) Date Value 09/14/2021 >60 04/13/2021 Test reordered by [facility]. 04/13/2021 >60 eGFR-All Other Races (.) Date Value 09/14/2021 >60 04/13/2021 Test reordered by [facility]. 04/13/2021 >60 ALT (U/L) Date Value 02/01/2022 174 09/14/2021 162 04/13/2021 Test reordered by [facility]. 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 Glycemic control: Target HbA1C is less than 7.0% per ADA guidelines. This patient is not at target. At this point I will initiate the following changes to his diabetes regimen: Plan Continue humalog as you are taking while you are at home; on your workdays increase the humalog to 7 units with breakfast and dinner. On your workdays use the following supplemental scale if needed, based on reading: Custom Regimen: 1 per 60 with goal of 120 mg/dl If Blood Glucose (mg/dL) is: Less than 70 mg/dl Follow Hypoglycemia Guidelines and call physician 70-179 mg/dl NO INSULIN GIVEN 180-239 mg/dl 1 Units 240-299 mg/dl 2 Units 300-360 mg/dl 3 Units over 360 mg/dl 4 Units Continue tresiba to 10 unit(s) daily-increase by unit every 3 days if your fasting blood sugars remain above 130 mg/dl Check your blood glucose 2 times per day and record data in logbook and bring to each visit We reviewed glucose targets as: Fasting 80-130, before meals 100-130, and bedtime 100-150 mg/dL. Call the office with blood sugars less than 70 Follow up with me in 6 months Get A1c in 3 months and 6 months Schedule ophthalmology appointment The patient was reminded to check their blood glucose as directed and to record the data in a logbook. This patient was advised to bring their logbook to each office visit. I recommended at least 150 minutes per week of moderate physical activity, such as walking and to reduce carbohydrates and overall caloric intake. 2. Hypertension/BP control: BP goal for patients with diabetes is 140/80. 3. Lipids: Target LDL cholesterol in patients with diabetes is less than 100, less than 70 if patient has overt CVD. Several studies have shown cardiovascular benefits of statin therapy in all patients with diabetes over age 40 with at least 1 CVD risk factor. -- This patient is currently at target on statin therapy. 4. Nephropathy screening: Annual measurement of urine albumin excretion is recommended in patients with diabetes. Albumin/Creat Ratio (mg/g) Date Value 10/26/2021 <10 08/10/2020 Not calculated Creatinine, Ur Random (UCRR) (mg/dL) Date Value 10/26/2021 116.7 08/10/2020 212.8 -- This patient does not have microalbuminuria and is not on ARNAUD-I or ARB therapy. 5. Ophthalmology: Annual dilated eye exams are recommended for patients with type 1 and type 2 diabetes. -- This patient is not up to date with their annual eye exam but has no history of retinopathy. Will refer to telephone advice nurse. Patient to continue to follow up with his PCP and with other consultants regarding his other medical problems. Any part of this document that has been added/copied & pasted from other documents has been reviewed for accuracy and updated as appropriate at the time of the patient encounter I spent a total of 30 minutes on the date of the service which included preparing to see the patient, [id number] patient care, completing clinical documentation, obtaining and/or reviewing separately obtained history, performing a medically appropriate examination, counseling and educating the patient/family/caregiver and ordering medications, tests, or procedures. Niraj Olivo APRN.JEFFREY documented in this encounter [facility] 02-01-2022 History of Present illness Narrative Radiology Service Progress Note PATIENT NAME: Nir Ewing DATE OF SERVICE: February 01, 2022 TIME: 8:57 AM PATIENT IDENTITY VERIFICATION COMPLETED USING TWO (2) IDENTIFIERS: Name and Date of confirmed by patient verbally. FALL SCREENING: Has the patient had 2 falls in the last year or 1 fall with injury or currently using an Ambulatory Assistive Device (Walker, Cane, Wheelchair, Crutches, etc.)? No PATIENT GENDER DATA: Male PATIENT RELEVANT IMPLANT DATA REVIEWED: Not Applicable RADIOLOGY DEPARTMENT: Ultrasound PERIPHERAL IV DATA: Not applicable SIGNED BY: Sara Garland RDMS February 01, 2022 8:57 AM documented in this encounter [facility] 11-28-2021 History of Present illness Narrative Chaparro Bueno MD Hepatology [facility] HPI: Nir Ewing is a 56 year old male with past medical history of AIH/cirrhosis. He is here to fu for AIH related cirrhosis (biopsy proven in 2014 at [facility] We repeated a liver biopsy : He has history of alcohol abuse (8 beers/day) from 2011 to 2013. sober since then Taken from prior notes: He was start on MMF (Cellcept) 500mg BID because he did not tolerate imuran. He is doing well on MMF, and currently still maintained on 10mg of prednisone daily and MMF 500mg PO BID His liver enzymes remained to be elevated 3-4X UNL. So MMF was increased to 1000 mg BID , and currently he is on Prednisone 5mg with the best levels of ast/alt EGD July 2017, Grade 1 EV no banding and PHG. Hep A and B vaccinated. Current immunosuppresion: 2000mg cellcept daily 5 mg prednisone daily GENERAL REVIEW OF SYSTEMS: updated unchanged GENERAL: No unexplained weight changes or fevers. HEENT: Negative for severe headaches, negative for changes in hearing or vision. NECK: Negative for lumps, masses or pain. RESPIRATORY: Negative for coughing, wheezing or significant dyspnea. CARDIOVASCULAR: Negative for chest pain or heart palpitations. GASTROINTESTINAL: Negative for rectal bleeding or black tarry stools. GENITOURINARY: Negative for dysuria or urinary incontinence. MUSCULOSKELETAL: Negative for unexplained joint pains, dislocations or fractures. NEUROLOGIC: Negative for unexplained weakness or vertigo. SKIN: Negative for new lesions or rashes. ENDOCRINE: Negative for cold or heat intolerance . FAMILY HISTORY Problem Relation Age of Onset other (lymphoma) Father None Mother alive None Brother alive None Brother alive None Sister alive PAST MEDICAL HISTORY Diagnosis Date Abdominal pain, left upper quadrant Abdominal pain, right upper quadrant Alcoholic cirrhosis of liver (HCC) Diabetes (HCC) Elevated LFTs PAST SURGICAL HISTORY Procedure Laterality Date ESOPHAGOGASTRODUODENOSCOPY TRANSORAL DIAGNOSTIC 08/07/2017 EGD Social History Tobacco Use Smoking status: Former Smoker Quit date: 05/17/2010 Years since quittin.5 Smokeless tobacco: Never Used Substance Use Topics Alcohol use: No Drug use: No PHYSICAL EXAMINATION: BMI 27 General: well appearing no distress HEENT negative no icterus Lungs CTA philip COR rrm- Abdomen benign Extremities no edema no spiders no palmar erythema DIRECTOR MISSION no asterixis , a+0 X3 Last EGD: 07/202021Grade 1 EV and PHG colonoscopy osteopenia 06/2021 IMPRESSION: US Cirrhotic liver morphology. No hepatic lesion. MELD-Na score: 11 at 09/14/2021 8:35 AM MELD score: 11 at 09/14/2021 8:35 AM Calculated from: Serum Creatinine: 0.79 mg/dL (Using min of 1 mg/dL) at 09/14/2021 8:35 AM Serum Sodium: 136 mmol/L at 09/14/2021 8:35 AM Total Bilirubin: 1.9 mg/dL at 09/14/2021 8:35 AM INR(ratio): 1.2 at 09/14/2021 8:35 AM Age: 56 years asma negative ama negative FINAL DIAGNOSIS Liver biopsy 2014 Liver, needle biopsy- - Cirrhosis with chronic hepatitis and mild activity (Juany and Carmine grade 2/4, stage 4/4), consistent with clinical impression of autoimmune hepatitis. See comment. COMMENT H&E special stains are examined. The normal lobular hepatic architecture is distorted by cirrhosis, confirmed on the trichrome stain. The biopsy demonstrates mild to moderate portal inflammatory cell infiltrates with areas of periportal interface activity. The bile ducts are intact and there is no duct damage or duct loss. Granulomas are not seen. The hepatocytes show no significant steatosis or cholestasis. There is no ballooning hepatocyte degeneration or [place] hyaline accumulation. The findings are not specific as to etiology but would be compatible with the clinical impression of autoimmune hepatitis (ALINE positive). The iron stain is negative. The PAS after diastase is negative for alpha-1 antitrypsin inclusions. Liver bioosy 2021: FINAL DIAGNOSIS A. Liver, biopsy: Cirrhosis, etiology not histologically apparent. See comment. Diagnosis Comment The architecture of the specimen is distorted by thick bands of fibrosis (highlighted by trichrome stain). There is no steatosis. One possible ballooned hepatocyte is seen, but is not definitive for steatohepatitis. There is some mild, nonspecific portal and septal inflammation, but no interface activity or lobular inflammation. A few portal tracts are present and contain their [place] bile ducts. An iron stain is negative. A PAS/D stain is negative for alpha 1 antitrypsin globules. As is often the case, histologic clues pointing to the etiology of liver injury may disappear once cirrhosis is established. This could represent a burned-out fatty liver disease or autoimmune hepatitis. plat !80 hgba1c ~8 A/p: Mr Ewing is on video with He was treated for AIH cirrhosis by liver biopsy in 2014 Since starting therapy, he had 2 flares , did not tolerate imuran once and stopped med another time Presently on Cellcept 1000 mg twice daily and Prednisone 5 mg daily. 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 documented in this encounter [facility] 11-09-2021 Instructions Niraj Olivo APRN.LEATHER HEEL BREASTER - 11/09/2021 8:07 AM EDT Continue humalog as you are taking while you are at home; on your workdays increase the humalog to 7 units with breakfast and dinner. On your workdays use the following supplemental scale if needed, based on reading: Custom Regimen: 1 per 60 with goal of 120 mg/dl If Blood Glucose (mg/dL) is: Less than 70 mg/dl Follow Hypoglycemia Guidelines and call physician 70-179 mg/dl NO INSULIN GIVEN 180-239 mg/dl 1 Units 240-299 mg/dl 2 Units 300-360 mg/dl 3 Units over 360 mg/dl 4 Units Continue tresiba to 10 unit(s) daily Check your blood glucose 2 times per day and record data in logbook and bring to each visit We reviewed glucose targets as: Fasting 80-130, before meals 100-130, and bedtime 100-150 mg/dL. Call the office with blood sugars less than 70 Follow up with me in 6 months Get A1c in 3 months and 6 months Schedule ophthalmology appointment documented in this encounter [facility] 11-09-2021 History of Present illness Narrative Images from the original note were not included. DISTANCE HEALTH VISIT This Team Access Model visit is a virtual encounter. It required patient-provider interaction for the medical decision making as documented below. The patient has consented to this distance health visit and has been identified by name and date. 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 Last visit with me was 04/2021. At that time we increased Tresiba to 13 unit(s) daily. He was having some lows with that dose so it has been decreased down to 10 unit(s). 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 He is still very active on the days he is off from work (works 10 days on, 4 days off). He has been using Humalog 6-0-6 with meals, will do 7 on workdays Tresiba 10 units daily at HS No hypoglycemic episodes. 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 Was all messed up with that work schedule. But back on track I think Had to work overtime for the past few weeks at odd times so his control was somewhat erratic on those days. Control on days he is at home remains excellent. PMH significant for: PAST MEDICAL HISTORY Diagnosis Date Abdominal pain, left upper quadrant Abdominal pain, right upper quadrant Alcoholic cirrhosis of liver (HCC) Diabetes (HCC) Elevated LFTs Last HbA1c: Hemoglobin A1C (%) Date Value 10/26/2021 8.5 04/13/2021 8.9 08/10/2020 8.2 05/05/2019 8.1 09/29/2018 6.8 05/04/2018 7.9 Hemoglobin A1C (POCT) (%) Date Value 02/02/2020 8.4 Family history of diabetes includes none. Complications Microvascular: none Macrovascular: none Health Maintenance Topics Topic Date Due DILATED RETINAL EXAM Never done DIABETIC FOOT EXAM Never done Current DM Related Medications: Current Medications 11/09/2021 DIABETES THERAPIES Medication Dosage Pharm Subclass insulin degludec (TRESIBA FLEXTOUCH U-100) 100 unit/mL (3 mL) injection pen Inject 10 Units subcutaneously every 24 hours. Insulin Analogs - Long Acting insulin lispro (HUMALOG KWIKPEN INSULIN) 200 unit/mL (3 mL) injection Inject sq 6 unit(s) with breakfast and dinner on non workdays; inject sq 7 unit(s) with breakfast and dinner on work days Insulin Analogs - Rapid Acting OTHER Medication Dosage Pharm Subclass blood sugar diagnostic (ONETOUCH VERIO TEST STRIPS) test strip Use as instructed Check blood sugar 3 times a day. Medical Supplies and DME - Blood Glucose Tests Blood-Glucose Meter (ONETOUCH VERIO FLEX METER) Use as directed to test glucose 3 times daily Medical Supplies and DME - Glucose Monitoring Test Supplies Insulin [place], Disposable, (BD ULTRA-FINE MARISSA PEN NEEDLE) 32 gauge x 5/32 Use as directed Medical Supplies and DME - Insulin [place]-Syringes and Admin Supplies lancets (ONE TOUCH DELICA) 33 gauge Check blood sugar 3 times a day. Medical Supplies and DME - Glucose Monitoring Test Supplies mycophenolate Mofetil (CELLCEPT) 500 mg tablet Take 1 tablet by mouth four times daily. Immunosuppressive - Inosine Monophosphate Dehydrogenase Inhibitors Diet: No specific diet regimen; watches what he eats and portion control Exercise: busy with work ([employer]) SMBG Frequency of Monitoring: Two times a Day BG values or ranges: Hypoglycemia: rare; none since last visit Past History, Medications, Allergies PAST SURGICAL HISTORY Procedure Laterality Date ESOPHAGOGASTRODUODENOSCOPY TRANSORAL DIAGNOSTIC 08/07/2017 EGD ALLERGIES No Known Allergies FAMILY HISTORY Problem Relation Age of Onset other (lymphoma) Father None Mother alive None Brother alive None Brother alive None Sister alive Social History Tobacco Use Smoking status: Former Smoker Quit date: 05/17/2010 Years since quittin.4 Smokeless tobacco: Never Used Substance Use Topics Alcohol use: No Drug use: No Answers for HPI/ROS submitted by the patient on 11/02/2021 Fatigue: No Skin Color Changes: No Post-Nasal Drip: No Thyroid Pain (lower neck): No Trouble Swallowing: No Blood Clots?: No Leg Pain while walking?: No Heartburn: No Vomiting?: No Constipation: No Abdominal Pain: No Bone Pain?: No Muscle Weakness: No Numbness?: No Urgency to Urinate?: No Increased Urination?: No Slow or Small Urine Stream?: No Flushing?: No Hot Flashes?: No Increased Thirst: No Change in Body Hair?: No Cold Intolerance: No Heat Intolerance?: No Night Sweats: No Recent Unintentional Weight Change: No Vision Disturbance: No Chest Pain: No Leg Swelling: No Difficulty Breathing?: No Nausea: No Diarrhea: No Muscle Aches: No Joint Pain or Stiffness: No Headaches: No Dizziness: No Fever : No Nasal Congestion: No Hearing Loss: No A Cough: No Irregular Heart Beat: No Black Tarry Stools: No Difficulty Urinating?: No Awaken at Night More Than Once to Urinate?: No Leg or Foot Discomfort at Night?: No A Rash: No Memory Loss: No Seizures: No PHYSICAL EXAMINATION: General Appearance: Well appearing, alert, in no acute distress, well-hydrated, well nourished. Affect: Pleasant and cooperative Previous Laboratory Results LABS Glucose (mg/dL) Date Value 09/14/2021 210 04/13/2021 Test reordered by [facility]. 04/13/2021 201 Potassium (mmol/L) Date Value 09/14/2021 4.2 Sodium (mmol/L) Date Value 09/14/2021 136 04/13/2021 Test reordered by [facility]. 04/13/2021 137 Chloride (mmol/L) Date Value 09/14/2021 105 04/13/2021 Test reordered by [facility]. 04/13/2021 104 CO2 (mmol/L) Date Value 09/14/2021 24 04/13/2021 Test reordered by [facility]. 04/13/2021 23 Creatinine (mg/dL) Date Value 09/14/2021 0.79 04/13/2021 Test reordered by [facility]. 04/13/2021 0.79 BUN (mg/dL) Date Value 09/14/2021 12 04/13/2021 Test reordered by [facility]. 04/13/2021 14 Anion Gap (mmol/L) Date Value 09/14/2021 7 04/13/2021 Test reordered by [facility]. 04/13/2021 10 Calcium (mg/dL) Date Value 09/14/2021 9.3 04/13/2021 Test reordered by [facility]. 04/13/2021 9.1 eGFR- (no units) Date Value 09/14/2021 >60 04/13/2021 Test reordered by [facility]. 04/13/2021 >60 eGFR-All Other Races (.) Date Value 09/14/2021 >60 04/13/2021 Test reordered by [facility]. 04/13/2021 >60 ALT (U/L) Date Value 09/14/2021 162 04/13/2021 Test reordered by [facility]. 04/13/2021 200 No results found for: TSH, FREET4 Impression/Recommendations IMPRESSION Nir Ewing is a 56 year old here for evaluation of DM Type 2 and Diabetes secondary to steroid treatment complicated by autoimmune hepatitis RECOMMENDATIONS: 1. Glycemic control: Target HbA1C is less than 7.0% per ADA guidelines. This patient is not at target. At this point I will initiate the following changes to his diabetes regimen: Plan Continue humalog as you are taking while you are at home; on your workdays increase the humalog to 7 units with breakfast and dinner. On your workdays use the following supplemental scale if needed, based on reading: Custom Regimen: 1 per 60 with goal of 120 mg/dl If Blood Glucose (mg/dL) is: Less than 70 mg/dl Follow Hypoglycemia Guidelines and call physician 70-179 mg/dl NO INSULIN GIVEN 180-239 mg/dl 1 Units 240-299 mg/dl 2 Units 300-360 mg/dl 3 Units over 360 mg/dl 4 Units Continue tresiba to 10 unit(s) daily Check your blood glucose 2 times per day and record data in logbook and bring to each visit We reviewed glucose targets as: Fasting 80-130, before meals 100-130, and bedtime 100-150 mg/dL. Call the office with blood sugars less than 70 Follow up with me in 6 months Get A1c in 3 months and 6 months Schedule ophthalmology appointment The patient was reminded to check their blood glucose as directed and to record the data in a logbook. This patient was advised to bring their logbook to each office visit. I recommended at least 150 minutes per week of moderate physical activity, such as walking and to reduce carbohydrates and overall caloric intake. 2. Hypertension/BP control: BP goal for patients with diabetes is 140/80. 3. Lipids: Target LDL cholesterol in patients with diabetes is less than 100, less than 70 if patient has overt CVD. Several studies have shown cardiovascular benefits of statin therapy in all patients with diabetes over age 40 with at least 1 CVD risk factor. Cholesterol, Total Date Value Ref Range Status 08/10/2020 102 <200 mg/dL Final Comment: <200 mg/dL, Desirable 200-239 mg/dL, Borderline high >239 mg/dL, High HDL Cholesterol Date Value Ref Range Status 08/10/2020 23 (L) >39 mg/dL Final Comment: 40-59 mg/dL, Acceptable >59 mg/dL, High: Negative risk factor for coronary heart disease <40 mg/dL, Low: Positive risk factor for coronary heart disease LDL Cholesterol Date Value Ref Range Status 08/10/2020 67 <100 mg/dL Final Comment: <100 mg/dL, Optimal 100-129 mg/dL, Near optimal/above optimal 130-159 mg/dL, Borderline high 160-189 mg/dL, High >189 mg/dL, Very high Secondary prevention optimal LDL Cholesterol levels are recommended to be < 70 mg/dL Triglyceride Date Value Ref Range Status 08/10/2020 62 <150 mg/dL Final Comment: <150 mg/dL, Normal 150-199 mg/dL, Borderline high 200-499 mg/dL, High >499 mg/dL, Very high -- This patient is currently at target on statin therapy. 4. Nephropathy screening: Annual measurement of urine albumin excretion is recommended in patients with diabetes. Albumin/Creat Ratio (mg/g) Date Value 10/26/2021 <10 08/10/2020 Not calculated Creatinine, Ur Random (UCRR) (mg/dL) Date Value 10/26/2021 116.7 08/10/2020 212.8 -- This patient does not have microalbuminuria and is not on ARNAUD-I or ARB therapy. 5. Ophthalmology: Annual dilated eye exams are recommended for patients with type 1 and type 2 diabetes. -- This patient is not up to date with their annual eye exam but has no history of retinopathy. Will refer to telephone advice nurse. Patient to continue to follow up with his PCP and with other consultants regarding his other medical problems. Any part of this document that has been added/copied & pasted from other documents has been reviewed for accuracy and updated as appropriate at the time of the patient encounter I spent a total of 30 minutes on the date of the service which included preparing to see the patient, [id number] patient care, completing clinical documentation, obtaining and/or reviewing separately obtained history, performing a medically appropriate examination, counseling and educating the patient/family/caregiver and ordering medications, tests, or procedures. Niraj Olivo APRN.JEFFREY documented in this encounter [facility] 02-29-2020 History of Present illness Narrative Radiology Service Progress Note PATIENT NAME: Nir Ewing DATE OF SERVICE: February 29, 2020 TIME: 10:36 AM PATIENT IDENTITY VERIFICATION COMPLETED USING TWO (2) IDENTIFIERS: Name and Date of confirmed by patient verbally. FALL SCREENING: Has the patient had 2 falls in the last year or 1 fall with injury or currently using an Ambulatory Assistive Device (Walker, Cane, Wheelchair, Crutches, etc.)? No PATIENT GENDER DATA: Male PATIENT RELEVANT IMPLANT DATA REVIEWED: Not Applicable RADIOLOGY DEPARTMENT: Bone Density PERIPHERAL IV DATA: Not applicable SIGNED BY: RT Elizabeth February 29, 2020 10:36 AM documented in this encounter [facility] 02-29-2020 History of Present illness Narrative Radiology Service Progress Note PATIENT NAME: Nir Ewing DATE OF SERVICE: February 29, 2020 TIME: 9:46 AM PATIENT IDENTITY VERIFICATION COMPLETED USING TWO (2) METHODS: Name and Date of confirmed by patient verbally and Patient confirmed name verbally and ID band matches.. FALL SCREENING: Has the patient had 2 falls in the last year or 1 fall with injury or currently using an Ambulatory Assistive Device (Walker, Cane, Wheelchair, Crutches, etc.)? No PATIENT GENDER DATA: Male RADIOLOGY DEPARTMENT: Ultrasound ABDOMEN RUQ SIGNED BY: Antonia Beltran S, RDMS, RVT documented in this encounter [facility] Evaluation note Diagnosis Steroid-induced diabetes mellitus, sequela (HCC)- Primary Current use of insulin (HCC) Encounter for long-term (current) use of insulin [facility] Diagnosis Biliary cirrhosis (HCC)- Primary Biliary cirrhosis Autoimmune hepatitis treated with steroids (HCC) Autoimmune hepatitis Other cirrhosis of liver (HCC) [facility] Diagnosis Biliary cirrhosis (HCC)- Primary Biliary cirrhosis [facility] Diagnosis Current use of insulin (HCC)- Primary Encounter for long-term (current) use of insulin Steroid-induced diabetes mellitus, sequela (HCC) [facility] Diagnosis Autoimmune hepatitis treated with steroids (HCC)- Primary Autoimmune hepatitis [facility] Diagnosis Autoimmune hepatitis treated with steroids (HCC)- Primary Autoimmune hepatitis Biliary cirrhosis (HCC) Biliary cirrhosis [facility] Diagnosis Steroid-induced diabetes mellitus, subsequent encounter (HCC)- Primary [facility] Diagnosis Other cirrhosis of liver (HCC)- Primary documented in this encounter [place] note* Diagnosis Autoimmune hepatitis treated with steroids (HCC) Autoimmune hepatitis documented in this encounter [place] note* Diagnosis Autoimmune hepatitis treated with steroids (HCC) Autoimmune hepatitis Other cirrhosis of liver (HCC) [facility] Diagnosis Autoimmune hepatitis treated with steroids (HCC) Autoimmune hepatitis 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 Encounter for long-term (current) use of steroids documented in this encounter [place] note* Diagnosis Abnormal liver enzymes Other nonspecific abnormal serum enzyme levels documented in this encounter [place] note* Diagnosis Other cirrhosis of liver (HCC) Autoimmune hepatitis treated with steroids (HCC) Autoimmune hepatitis documented in this encounter [place] note* Diagnosis Steroid-induced diabetes mellitus, subsequent encounter (HCC) documented in this encounter [place] note* Diagnosis Current use of insulin (HCC)- Primary Encounter for long-term (current) use of insulin Steroid-induced diabetes mellitus, subsequent encounter (HCC) documented in this encounter [place] note* Diagnosis Onset Date Resolution Status Alcoholic cirrhosis acute Autoimmune hepatitis acute [facility] Work Phone: evaluation note* Diagnosis Onset Date Resolution Status Autoimmune hepatitis acute Elevated liver enzymes acute Esophageal varices acute Liver cirrhosis acute Portal hypertension acute [facility] Work Phone: evaluation note* Diagnosis Onset Date Resolution Status Autoimmune hepatitis acute Elevated liver enzymes acute Esophageal varices acute Liver cirrhosis acute Portal hypertension acute Contact with and (suspected) exposure to covid-19 noneactive [facility] Work Phone: evaluation note* Diagnosis Onset Date Resolution Status Autoimmune hepatitis acute Elevated liver enzymes acute Esophageal varices acute Liver cirrhosis acute Portal hypertension acute Contact with and (suspected) exposure to covid-19 noneactive Bronchitis noneactive [facility] Work Phone: evaluation note* Diagnosis Steroid-induced diabetes mellitus, subsequent encounter (HCC)- Primary Current use of insulin (HCC) Encounter for long-term (current) use of insulin Autoimmune hepatitis treated with steroids (HCC) Autoimmune hepatitis documented in this encounter [facility] for referral (narrative)* Outpatient Procedure (Routine) - Pending Review Specialty Diagnoses / Procedures Referred By Michelle nichols Referred To Contact [facility] Diagnoses Biliary cirrhosis (HCC) Autoimmune hepatitis treated with steroids (HCC) Other cirrhosis of liver (HCC) Procedures EGD DIAGNOSTIC ESOPHAGOGASTRODUODENOSC OPY TRANSORAL DIAGNOSTIC Debra Hopkins MD [address] [place] [address] [facility] [address] [place] [address] Referral ID Status Reason Start Date Expiration Date Visits Requested Visits Authorized [id number] Pending Review Auto-Generat ed Referral 02/28/2022 11/28/2022 1 1 [facility] for referral (narrative)* Diagnostic Procedure Only (Routine) - Pending Review Specialty Diagnoses / Procedures Referred By Michelle nichols Referred To Contact [facility] Diagnoses Autoimmune hepatitis treated with steroids (HCC) Procedures US ABD RT UPPER QUADRANT US ABDOMINAL REAL TIME W/IMAGE LIMITED Debra Hopkins MD [address] [place] [id number] [facility] Referral ID Status Reason Start Date Expiration Date Visits Requested Visits Authorized [id number] Pending Review Auto-Generat ed Referral 07/18/2023 10 10 [facility] for referral (narrative)* Diagnostic Procedure Only (Routine) - Closed Specialty Diagnoses / Procedures Referred By Michelle nichols Referred To Contact [facility] Diagnoses Autoimmune hepatitis treated with steroids (HCC) Procedures US ABD RT UPPER QUADRANT US ABDOMINAL REAL TIME W/IMAGE LIMITED Debra Hopkins MD [address] [address] [facility] Referral ID Status Reason Start Date Expiration Date V isits Requested Visits Authorized [id number] Closed Auto-Generate d Referral 06/18/2022 07/18/2023 10 10 [facility] for referral (narrative)* Diagnostic Procedure Only (Routine) - Closed Specialty Diagnoses / Procedures Referred By Contac t Referred To Contact [facility] Diagnoses Autoimmune hepatitis treated with steroids (HCC) Other cirrhosis of liver (HCC) Procedures US ABD RT UPPER QUADRANT ULTRASOUND-ABDOMINAL PC César Zaldivar MD [address] [place] [address] [facility] Referral ID Status Reason Start Date Expiration Date V isits Requested Visits Authorized [id number] Closed Auto-Generate d Referral 07/21/2020 07/20/2021 1 1 [facility] for referral (narrative)* Diagnostic Procedure Only (Routine) - Closed Specialty Diagnoses / Procedures Referred By Michelle t Referred To Contact [facility] Diagnoses Autoimmune hepatitis treated with steroids (HCC) Procedures US ABD RT UPPER QUADRANT US ABDOMINAL REAL TIME W/IMAGE LIMITED Debra Hopkins MD [address] [place] [address] [facility] Referral ID Status Reason Start Date Expiration Date V isits Requested Visits Authorized [id number] Closed Auto-Generate d Referral 06/18/2022 07/18/2023 10 10 [facility] for referral (narrative)* Diagnostic Procedure Only (Routine) - Closed Specialty Diagnoses / Procedures Referred By Michelle nichols Referred To Contact [facility] Diagnoses Abnormal liver enzymes Procedures US ABD RT UPPER QUADRANT ULTRASOUND-ABDOMINAL PC Debra Hopkins MD [address] [address] [facility] Referral ID Status Reason Start Date Expiration Date V isits Requested Visits Authorized [id number] Closed Auto-Generate d Referral 01/08/2022 07/20/2022 [facility] Diagnostic Procedure Only (Routine) - Closed Specialty Diagnoses / Procedures Referred By Contac t Referred To Contact [facility] Diagnoses Other cirrhosis of liver (HCC) Autoimmune hepatitis treated with steroids (HCC) Procedures US ABD RT UPPER QUADRANT ULTRASOUND-ABDOMINAL PC Nir Ocampo APRN.CNP [address] [place] [address] [facility] Referral ID Status Reason Start Date Expiration Date V isits Requested Visits Authorized [id number] Closed Auto-Generate d Referral 07/21/2019 07/20/2020 1 1 [facility] for visit Narrative* Diagnostic Procedure Only (Routine) - Closed Specialty Diagnoses / Procedures Referred By Contac t Referred To Contact [facility] Diagnoses Autoimmune hepatitis (HCC) Procedures US ABD RUQ Self [facility] Referral ID Status Reason Start Date Expiration Date V isits Requested Visits Authorized [id number] Closed OON/Self Pay Override 02/25/2023 07/20/2023 1 1 [facility] for visit Narrative* Diagnostic Procedure Only (Routine) - Closed Specialty Diagnoses / Procedures Referred By Contac t Referred To Contact [facility] Diagnoses Autoimmune hepatitis treated with steroids (HCC) Other cirrhosis of liver (HCC) Procedures US ABD RT UPPER QUADRANT ULTRASOUND-ABDOMINAL PC César Zaldivar MD [address] [place] [address] [facility] Referral ID Status Reason Start Date Expiration Date V isits Requested Visits Authorized [id number] Closed Auto-Generate d Referral 07/21/2020 07/20/2021 1 1 [facility] for visit Narrative* Diagnostic Procedure Only (Routine) - Closed Specialty Diagnoses / Procedures Referred By Contac t Referred To Contact [facility] Diagnoses Abnormal liver enzymes Procedures US ABD RT UPPER QUADRANT ULTRASOUND-ABDOMINAL PC Debra Hopkins MD [facility] [address] [address] [facility] Referral ID Status Reason Start Date Expiration Date V isits Requested Visits Authorized [id number] Closed Auto-Generate d Referral 01/08/2022 07/20/2022 2 2 [facility] Advance Directives No Advanced Directives Records FoundDocuments on File Type Date Recorded Patient Medical Laboratory Scientist Expl anation Advance Directive(s) 09/27/2021 8:39 AM Advance Directive(s) 09/14/2021 9:27 AM Documents on File Type Date Recorded Patient Medical Laboratory Scientist Expl anation Advance Directive(s) 09/27/2021 8:39 AM Advance Directive(s) 09/14/2021 9:27 AM Advance Directive Response Recorded Date/ Time Advance Directives No May 14, 2019 2:27pm Summary Purpose Family History No Family History Records Found Relationship Condition Age at Onset Recorded Date/T julia father Malignant neoplasm Unknown Unknown Not Specified Heart disease Unknown Chief Complaint and Reason for Visit Chief Complaint AUTOIMMUNE HEPATITIS Reason for Visit Alcoholic cirrhosis Autoimmune hepatitis Chief Complaint AUTOIMMUNE HEPATITIS K75.4, K70.30 Reason for Visit Autoimmune hepatitis Elevated liver enzymes Esophageal varices Liver cirrhosis Portal hypertension Chief Complaint AUTOIMMUNE HEPATITIS K75.4, K70.30 congestion, cough, runny nose Reason for Visit Autoimmune hepatitis Elevated liver enzymes Esophageal varices Liver cirrhosis Portal hypertension Contact with and (suspected) exposure to covid-19 Chief Complaint AUTOIMMUNE HEPATITIS K75.4, K70.30 congestion, cough, runny nose Reason for Visit Autoimmune hepatitis Elevated liver enzymes Esophageal varices Liver cirrhosis Portal hypertension Contact with and (suspected) exposure to covid-19 Bronchitis Additional Source Comments Source Comments (unrecognize d section and content) In the event this informatio n is protected by the Federal Confidentiality of Alcohol and Drug Abuse Patient Records regulations: The Federal rules restrict any use of the information to criminally investigate or prosecute any alcohol or drug abuse patient.[facility] CenterIn the event this information is protected by the Federal Confidentiality of Alcohol and Drug Abuse Patient Records regulations: The Federal rules restrict any use of the information to criminally investigate or prosecute any alcohol or drug abuse patient.[facility] CenterIn the event this information is protected by the Federal Confidentiality of Alcohol and Drug Abuse Patient Records regulations: The Federal rules restrict any use of the information to criminally investigate or prosecute any alcohol or drug abuse patient.[facility] CenterIn the event this information is protected by the Federal Confidentiality of Alcohol and Drug Abuse Patient Records regulations: The Federal rules restrict any use of the information to criminally investigate or prosecute any alcohol or drug abuse patient.[facility] CenterIn the event this information is protected by the Federal Confidentiality of Alcohol and Drug Abuse Patient Records regulations: The Federal rules restrict any use of the information to criminally investigate or prosecute any alcohol or drug abuse patient.[facility] CenterIn the event this information is protected by the Federal Confidentiality of Alcohol and Drug Abuse Patient Records regulations: The Federal rules restrict any use of the information to criminally investigate or prosecute any alcohol or drug abuse patient.[facility] CenterIn the event this information is protected by the Federal Confidentiality of Alcohol and Drug Abuse Patient Records regulations: The Federal rules restrict any use of the information to criminally investigate or prosecute any alcohol or drug abuse patient.[facility] CenterIn the event this information is protected by the Federal Confidentiality of Alcohol and Drug Abuse Patient Records regulations: The Federal rules restrict any use of the information to criminally investigate or prosecute any alcohol or drug abuse patient.[facility] CenterIn the event this information is protected by the Federal Confidentiality of Alcohol and Drug Abuse Patient Records regulations: The Federal rules restrict any use of the information to criminally investigate or prosecute any alcohol or drug abuse patient.[facility] CenterIn the event this information is protected by the Federal Confidentiality of Alcohol and Drug Abuse Patient Records regulations: The Federal rules restrict any use of the information to criminally investigate or prosecute any alcohol or drug abuse patient.[facility] CenterIn the event this information is protected by the Federal Confidentiality of Alcohol and Drug Abuse Patient Records regulations: The Federal rules restrict any use of the information to criminally investigate or prosecute any alcohol or drug abuse patient.[facility] CenterIn the event this information is protected by the Federal Confidentiality of Alcohol and Drug Abuse Patient Records regulations: The Federal rules restrict any use of the information to criminally investigate or prosecute any alcohol or drug abuse patient.[facility] CenterIn the event this information is protected by the Federal Confidentiality of Alcohol and Drug Abuse Patient Records regulations: The Federal rules restrict any use of the information to criminally investigate or prosecute any alcohol or drug abuse patient.[facility] CenterIn the event this information is protected by the Federal Confidentiality of Alcohol and Drug Abuse Patient Records regulations: The Federal rules restrict any use of the information to criminally investigate or prosecute any alcohol or drug abuse patient.[facility] CenterIn the event this information is protected by the Federal Confidentiality of Alcohol and Drug Abuse Patient Records regulations: The Federal rules restrict any use of the information to criminally investigate or prosecute any alcohol or drug abuse patient.[facility] CenterIn the event this information is protected by the Federal Confidentiality of Alcohol and Drug Abuse Patient Records regulations: The Federal rules restrict any use of the information to criminally investigate or prosecute any alcohol or drug abuse patient.[facility] CenterIn the event this information is protected by the Federal Confidentiality of Alcohol and Drug Abuse Patient Records regulations: The Federal rules restrict any use of the information to criminally investigate or prosecute any alcohol or drug abuse patient.[facility] CenterIn the event this information is protected by the Federal Confidentiality of Alcohol and Drug Abuse Patient Records regulations: The Federal rules restrict any use of the information to criminally investigate or prosecute any alcohol or drug abuse patient.[facility] CenterIn the event this information is protected by the Federal Confidentiality of Alcohol and Drug Abuse Patient Records regulations: The Federal rules restrict any use of the information to criminally investigate or prosecute any alcohol or drug abuse patient.[facility] CenterIn the event this information is protected by the Federal Confidentiality of Alcohol and Drug Abuse Patient Records regulations: The Federal rules restrict any use of the information to criminally investigate or prosecute any alcohol or drug abuse patient.[facility] CenterIn the event this information is protected by the Federal Confidentiality of Alcohol and Drug Abuse Patient Records regulations: The Federal rules restrict any use of the information to criminally investigate or prosecute any alcohol or drug abuse patient.[facility] CenterIn the event this information is protected by the Federal Confidentiality of Alcohol and Drug Abuse Patient Records regulations: The Federal rules restrict any use of the information to criminally investigate or prosecute any alcohol or drug abuse patient.[facility] CenterIn the event this information is protected by the Federal Confidentiality of Alcohol and Drug Abuse Patient Records regulations: The Federal rules restrict any use of the information to criminally investigate or prosecute any alcohol or drug abuse patient.[facility] CenterIn the event this information is protected by the Federal Confidentiality of Alcohol and Drug Abuse Patient Records regulations: The Federal rules restrict any use of the information to criminally investigate or prosecute any alcohol or drug abuse patient.[facility] CenterIn the event this information is protected by the Federal Confidentiality of Alcohol and Drug Abuse Patient Records regulations: The Federal rules restrict any use of the information to criminally investigate or prosecute any alcohol or drug abuse patient.[facility] CenterIn the event this information is protected by the Federal Confidentiality of Alcohol and Drug Abuse Patient Records regulations: The Federal rules restrict any use of the information to criminally investigate or prosecute any alcohol or drug abuse patient.[facility] CenterIn the event this information is protected by the Federal Confidentiality of Alcohol and Drug Abuse Patient Records regulations: The Federal rules restrict any use of the information to criminally investigate or prosecute any alcohol or drug abuse patient.[facility] CenterIn the event this information is protected by the Federal Confidentiality of Alcohol and Drug Abuse Patient Records regulations: The Federal rules restrict any use of the information to criminally investigate or prosecute any alcohol or drug abuse patient.[facility] CenterIn the event this information is protected by the Federal Confidentiality of Alcohol and Drug Abuse Patient Records regulations: The Federal rules restrict any use of the information to criminally investigate or prosecute any alcohol or drug abuse patient.[facility] CenterIn the event this information is protected by the Federal Confidentiality of Alcohol and Drug Abuse Patient Records regulations: The Federal rules restrict any use of the information to criminally investigate or prosecute any alcohol or drug abuse patient.[facility] CenterIn the event this information is protected by the Federal Confidentiality of Alcohol and Drug Abuse Patient Records regulations: The Federal rules restrict any use of the information to criminally investigate or prosecute any alcohol or drug abuse patient.[facility] CenterIn the event this information is protected by the Federal Confidentiality of Alcohol and Drug Abuse Patient Records regulations: The Federal rules restrict any use of the information to criminally investigate or prosecute any alcohol or drug abuse patient.[facility] CenterIn the event this information is protected by the Federal Confidentiality of Alcohol and Drug Abuse Patient Records regulations: The Federal rules restrict any use of the information to criminally investigate or prosecute any alcohol or drug abuse patient.[facility] CenterIn the event this information is protected by the Federal Confidentiality of Alcohol and Drug Abuse Patient Records regulations: The Federal rules restrict any use of the information to criminally investigate or prosecute any alcohol or drug abuse patient.[facility] CenterIn the event this information is protected by the Federal Confidentiality of Alcohol and Drug Abuse Patient Records regulations: The Federal rules restrict any use of the information to criminally investigate or prosecute any alcohol or drug abuse patient.[facility] CenterIn the event this information is protected by the Federal Confidentiality of Alcohol and Drug Abuse Patient Records regulations: The Federal rules restrict any use of the information to criminally investigate or prosecute any alcohol or drug abuse patient.[facility] CenterIn the event this information is protected by the Federal Confidentiality of Alcohol and Drug Abuse Patient Records regulations: The Federal rules restrict any use of the information to criminally investigate or prosecute any alcohol or drug abuse patient.[facility] Reason for Visit (unrecogniz ed section and content) Reason Comments Insulin Dependent Diabetes Mellitus Specialty Diagnoses / Procedures Referred By Contac t Referred To Contact ENDOCRINOLOGY Diagnoses Exam Procedures Follow up Self Endo [facility] [address] [address] [place] [address] Referral ID Status Reason Start Date Expiration Date Visits Requested Visits Authorized [id number] Outside PCP OON/Self Pay Override 03/07/2023 09/03/2023 1 1 Reason Comments Cirrhosis Specialty Diagnoses / Procedures Referred By Contac t Referred To Contact GASTROENTEROLOGY Diagnoses Cirrhosis (HCC) Follow [place] [address] [place] [address] Jaclyn [facility] [place] [address] [place] [address] Referral ID Status Reason Start Date Expiration Date Visits Requested Visits Authorized [id number] Pending Review OON/Self Pay Override 09/27/2022 09/28/2023 99 99 Reason Onset Date Comments Refill Request 11/11/2021 Reason Comments Liver Disease Specialty Diagnoses / Procedures Referred By Contact Referred To Contact Gastroenterology / GASTROENTEROLOGY Diagnoses 6 MONTH FOLLOW UP LIVER DISEASE Procedures [place] [address] [place] [address] Debra Hopkins MD [address] [place] [address] Referral ID Status Reason Start Date Expiration Date Visits Re quested Visits Authorized [id number] Closed 11/28/2021 07/20/2022 1 1 Reason Onset Date Comments Refill Request 01/03/2022 Reason Comments Radiology US Reason Onset Date Comments Refill Request 06/19/2022 Refill Request 06/20/2022 Reason Onset Date Comments Refill Request 06/20/2022 Reason Onset Date Comments Refill Request 07/07/2022 Reason Comments Information requested Specialty Diagnoses / Procedures Referred By Contac t Referred To Contact [facility] Diagnoses f/u after EGD Procedures n/[place] [address] [place] [address] [facility] [address] [place] [address] Referral ID Status Reason Start Date Expiration Date Visits Requested Visits Authorized [id number] Pending Review OON/Self Pay Override 09/16/2022 07/20/2023 1 1 Reason Comments Orders Reason Onset Date Comments Orders 10/01/2022 Reason Onset Date Comments Refill Request 12/31/2022 Reason Onset Date Comments Refill Request 01/05/2023 Reason Onset Date Comments Refill Request 02/19/2023 Specialty Diagnoses / Procedures Referred By Contac t Referred To Contact US IMAGING Diagnoses Autoimmune hepatitis Procedures US ABDOMEN LIMITED US ABDOMINAL REAL TIME W/[place] [address] [place] [address] Us Imaging Referral ID Status Reason Start Date Expiration Date V isits Requested Visits Authorized [id number] Closed OON/Self Pay Override 08/12/2022 08/21/2022 1 1 Reason Comments Radiology BMD Specialty Diagnoses / Procedures Referred By Contac t Referred To Contact Radiology / RADIO DEXA [facility] 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 [Z79.52] Procedures BONE DENSITY ADULT 225 César Zaldivar MD [address] [place] [address] Radio Bone Density [facility] [address] [place] [address] Referral ID Status Reason Start Date Expiration Date Visits Re quested Visits Authorized [id number] Closed 07/21/2019 07/20/2020 1 1 Reason Comments Radiology US Specialty Diagnoses / Procedures Referred By Contac t Referred To Contact US IMAGING Diagnoses Other cirrhosis of liver (HCC) Autoimmune hepatitis treated with steroids (HCC) Procedures US ABD RT UPPER QUADRANT ULTRASOUND-ABDOMINAL PC Nir Ocampo APRN.[employer] [address] [place] [address] Us Imaging Referral ID Status Reason Start Date Expiration Date V isits Requested Visits Authorized [id number] Closed Auto-Generate d Referral 07/21/2019 07/20/2020 1 1 Reason Onset Date Comments Refill Request 04/18/2023 Reason Onset Date Comments Refill Request 09/04/2023 Reason Comments Refill Request (unrecognized sect ion and content) No Status Records FoundNo Status Records FoundNo Status Records FoundNo Status Records Found INFORMATION SOURCE (unrecogn ized section and content) DATE CREATED AUTHOR 10/02/2022 [facility] DATE CREATED AUTHOR AUTHOR'S ORGANIZ ATION 12/03/2022 [facility] DATE CREATED AUTHOR AUTHOR'S ORGANIZ ATION 01/03/2024 [facility] DATE CREATED AUTHOR AUTHOR'S ORGANIZ ATION 02/22/2024 [facility] Care Teams (unrecognized sec tion and content) Midwife Relationship Specialty Start Date End Date Crow Rogers [address] [place] [id number] PCP - General Family Medicine 01/27/15 09/13/21 Midwife Relationship Specialty Start Date End Date Crow Rogers [address] [place] [phone] PCP - General Family Medicine 01/27/15 09/13/21 Midwife Relationship Specialty Start Date End Date Crow Rogers [address] [place] [phone] PCP - General Family Medicine 01/27/15 09/13/21 Midwife Relationship Specialty Start Date End Date Crow Rogers [address] [place] [phone] PCP - General Family Medicine 01/27/15 09/13/21 Team Status: Active Member Role Status Dates PHYSICIAN NO FAMILY Primary Care Provider Active Team Status: Inactive Member Role Status Dates PHYSICIAN NO FAMILY Primary Care Provider Active Start: October 02, 2023 End: October 02, 2023 Ana Muhammad MD Attending Provider Active Start: October 02, 2023 End: October 02, 2023 Team Status: Inactive Member Role Status Dates PHYSICIAN NO FAMILY Primary Care Provider Active Start: October 20, 2023 End: October 20, 2023 Ana Muhammad MD Attending Provider Active Start: October 20, 2023 End: October 20, 2023 Team Status: Inactive Member Role Status Dates PHYSICIAN NO FAMILY Primary Care Provider Active Start: November 01, 2023 End: November 01, 2023 PATIENCE Cerda Attending Provider Active S tart: November 01, 2023 End: November 01, 2023 Team Status: Inactive Member Role Status Dates Ana Muhammad MD Attending Provider Active Start: December 29, 2023 End: December 29, 2023 Goals (unrecognized section and content) Goals may be documented in a n alternate sectionGoals may be documented in an alternate sectionGoals may be documented in an alternate sectionGoals may be documented in an alternate section FOR RECORDS PERTAINING TO PATIENTS WHO ARE OR HAVE BEEN ENROLLED IN A CHEMICAL DEPENDENCY/SUBSTANCEABUSE PROGRAM, SOME INFORMATION MAY BE OMITTED. This clinical summary was aggregated from multiple sources. Caution should be exercised in using it in the provision of clinical care. This summary normalizes information from multiple sources, and as a consequence, information in this document may materially change the coding, format and clinical context of patient data. In addition, data may be omitted in some cases. CLINICAL DECISIONS SHOULD BE BASED ON THE PRIMARY CLINICAL RECORDS. [employer] provides no warranty or guarantee of the accuracy or completeness of information in this document.
== END 2024-03-08 15:46 | disposition home or self-care (01) ==
LOC: WC 15:46
PROVIDERS: PCP Podiatrist Foot & Ankle Surgery; Visit Provider Physician Assistant
DX: L97.422 Non-pressure chronic ulcer of left heel and midfoot with fat layer exposed (principal); L97.312 Non-pressure chronic ulcer of right ankle with fat layer exposed; L97.912 Non-pressure chronic ulcer of unspecified part of right lower leg with fat layer exposed
CPT/HCPCS: A6213; G0463

== ENCOUNTER 2024-04-05 15:13 | Outpatient (OUT) | payer OTHER, SELFPAY | END 2024-04-05 15:14 | disposition home or self-care (01) | LOC: WC 15:13 | PROVIDERS: PCP Podiatrist Foot & Ankle Surgery; Visit Provider Physician Assistant | DX: L97.422 Non-pressure chronic ulcer of left heel and midfoot with fat layer exposed (principal); L97.912 Non-pressure chronic ulcer of unspecified part of right lower leg with fat layer exposed | CPT/HCPCS: G0463 ==

== ENCOUNTER 2024-05-03 11:41 | Outpatient (OUT) | payer OTHER, SELFPAY ==
--- OUTSIDE RECORDS SUMMARY | 2024-05-03 12:03 | XMS_ITS | CCD ---
Author Organization [facility] Care Team Providers Care Personal Lines Sales Rep Name Role Phone Unavailable Primary Care Provider [...] ADALID Jean Attending Unavailable WEST, DR ADALID Jena Admitting Unavailable ZIEBER, DR IVY Waddell Consulting [...] Unavailable ZIEBER, DR IVY Waddell Consulting Unavailable DARION, DR ADALID Jean Consulting Unavailable DARION, DR ADALID Jean Attending Unavailable DARION, DR ADALID Jean Admitting Unavailable VINCE, DR IVY Waddell Consulting Unavailable Crow Rogers Primary Care Provider [phone] NO FAMILY, PHYSICIAN Primary Care Provider Unava ilMD Ana Smith Attending Provider Unavailable Primary Care Provider UnavailNIRAJ Jiang Attending Unavailable GEOVANI, NIRAJ Referring Unavailable GEOVANI, NIRAJ Referring Unavailable GEOVANI, NIRAJ Attending Unavailable SYLWIA MCBRIDE, DEBRA Referring Unavailabl e SYLWIA MCBRIDE, DEBRA Referring Unavailabl e SYLWIA MCBRIDE, DEBRA Referring Unavailabl e GEOVANI, NIRAJ Referring Unavailable GEOVANI, NIRAJ Attending Unavailable SELF Referring Unavailable NO FAMILY, PHYSICIAN Primary Care Provider Unava ilable MD Ana Muhammad Attending Provider Asaad, Imad Admitting Unavailable Asaad, Imad Attending Unavailable NO FAMILY, PHYSICIAN Primary Care Unavailable Asaad, Imad Admitting Unavailable Asaad, Imad Attending Unavailable Asaad, Imad Admitting Unavailable Asaad, Imad Attending Unavailable NO FAMILY, PHYSICIAN Primary Care Unavailable Asaad, Imad Admitting Unavailable Asaad, Imad Attending Unavailable NO FAMILY, PHYSICIAN Primary Care Unavailable Medications Current Medications Medication Drug Class(es) Dates Sig (Normalized) Sig (Original) [id number] 200 actuat albuterol 0.09 mg/actuat metered dose inhaler (2 sources) beta2-Adrenergic Agonist Start: 11-12-2023 take 1 puff(s) [...] 2 diabetes mellitus without complication, unspecified whether fdc insulin use (HCC) Use as directed to [...] tablet by mouth twice daily. 60 tablet 10/01/2022 09/04/2023 Discontinued Comment on above: Take 1 tablet by lula th twice daily. Take 1 tablet by lula th two times a day. 3 ml insulin degludec 100 unt/ml pen injector (20 sources) Insulin Analog Start: 04-01-2024 Insulin Degludec (Tresiba Flextouch U-100) 100 unit/mL (3 mL) insulin pen Active UNIT SUBCUT April 01, 2024 12:00am Start: 09-05-2023 inject 100 [IU] by s ubcutaneous injection every twenty-four hours insulin degludec (TRESIBA [...] Units subcutaneously every 24 hours. 5 Each 04/18/2023 09/05/2023 Discontinued Start: 04-26-2021 End: 12-31-2022 [...] pen injector (20 sources) Insulin Analog Start: 10-02-2023 Insulin Lispro (Humalog Kwikpen Insulin) 200 unit/mL (3 mL) insulin pen Active 1 sliding scale dose SUBCUT Use as Directed October 02, 2023 12:00am Start: 07-10-2022 End: 09-05-2023 inject 7 [IU] by subcutaneous injection once [...] Comment on above: Take 1 capsule by [facility] once daily. mycophenolate mofetil 500 mg oral tablet (20 sources) Start: 11-20-19 24 take 1 tablet by mouth four times daily mycophenolate Mofetil (CELLCEPT) 500 mg tablet take 1 tablet by mouth four times a day 360 tablet 9 11/20/2023 Active Start: 10-02-2023 End: 01-05-2024 take 1500 mg by mouth twice daily Mycophenolate Mofetil Active 1500 MG PO Twice daily 540 90 January 05, 2024 4:22pm Start: 02-20-2023 End: 11-20-2023 take 3 tablets [...] by mouth four times daily. 120 Each 11 11/28/2021 09/16/2022 Discontinued Start: 06-04-2019 End: 05-03-2020 take 1 tablet by mouth four times daily mycophenolate Mofetil (CELLCEPT) 500 mg tablet Take 1 tablet by mouth four times daily. 120 tablet 11 06/04/2019 05/03/2020 Discontinued Start: 06-03-2019 End: 05-03-2020 take 2 tablets by mouth twice daily mycophenolate Mofetil (CELLCEPT) 500 mg tablet Take 2 tablets by mouth twice per day 120 tablet 11 06/03/2019 05/03/2020 Discontinued Comment on above: Take 1 tablet by lula th four times daily. Take 2 tablets by mo uth twice daily. Take 1 tablet by lula th twice daily. take 3 tablets twice a day Take 3 tablets by mo uth twice a day Take 2 tablets by mo uth twice per day Completed/Discontinued Medications Medication Drug Class(es) Dates Sig (Normalized) Sig (Original) Blood-Glucose Meter (ONETOUCH VERIO IQ METER) monitoring kit (2 sources) Start: 10-07-2016 End: 09-27-2020 Blood-Glucose Meter (ONETOUCH VERIO IQ METER) monitoring kit Indications: Uncontrolled type 2 diabetes mellitus without complication, with long-term current use of insulin 1 Each as needed. 1 Each 0 10/07/2016 09/27/2020 Discontinued Comment on above: 1 Each as needed. doxycycline hyclate 100 mg oral capsule (2 sources) Tetracycline-cla ss Drug Start: 11-01-2023 End: 04-01-2024 take 100 mg by mouth twice daily Doxycycline Hyclate Discontinued 100 MG PO Twice daily 09 05November 01, 2023 12:00am April 01, 2024 11:06am predniSONE 20 mg oral tablet (20 sources) Start: 11-01-2023 End: 04-01-2024 take 20 mg by mouth twice daily Prednisone Discontinued 20 MG PO Twice daily 10 November 01, 2023 12:00am April 01, 2024 11:07am Start: 10-02-2023 End: 10-03-2023 take 1 tablet by mouth twice daily Prednisone Discontinued 1 TAB PO Twice daily October 02, 2023 12:00am October 03, 2023 8:04am FreeTextSi tablet Orally bid; Note: Source Status: Start; Refills: 0; Qty: 10 Tablet; Provider: Tonia Camacho Start: 10-02-2023 End: 04-01-2024 take 1 tablet by mouth twice daily Prednisone Discontinued 10 MG PO Twice daily October 03, 2023 8:03am April 01, 2024 11:07am FreeTextSi tablet Orally bid; Note: Source Status: [...] tablet by mouth once daily. 30 tablet 11 11/28/2021 02/26/2022 Active Start: 01-12-2020 End: 05-04-2020 [...] once daily. Take 5 tablets by mo ut once daily. Take 2 tablets by mo uth once daily. Problems Active Problems Problem Classification Problem Date Documented Da te Episodic/Chronic Abdominal pain (5 sources) Abdominal pain; Translations: [Unspecified abdominal pain] 10-02-2023 Episodic Alcohol-related disorders (7 sources) Alcoholic cirrhosis; Translations: [Alcoholic cirrhosis of liver without ascites] Onset: 10-02-2023 Chronic Chronic obstructive pulmonary disease and bronchiectasis (1 source) Bronchitis, not specified as acute or chronic; Translations: [Bronchitis, not specified as acute or chronic] 11-01-2023 Episodic Chronic ulcer of skin (1 source) Non-pressure chronic ulcer of left heel and midfoot limited to breakdown of skin; Translations: [[facility] LT HEEL BRKDWN SKN] Onset: 3 Chronic Diabetes mellitus with complications (20 sources) Type 2 diabetes mellitus; Translations: [Type II or unspecified type diabetes mellitus without mention of complication, uncontrolled] Onset: 5 02-21-2015 Chronic Diabetes mellitus without complication (20 sources) Steroid-induced diabetes; 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] Onset: 8 Chronic Esophageal disorders (8 sources) Esophageal varices; Translations: [Esophageal varices without bleeding] 10-02-2023 Chronic Hepatitis (20 sources) Autoimmune hepatitis; Translations: [Autoimmune hepatitis] Onset: 5 02-21-2015 Chronic Immunizations and screening for infectious disease (2 sources) Contact with or exposure to other viral diseases; Translations: [Exposure to 2019 novel coronavirus] 11-01-2023 Episodic Other aftercare (4 sources) Long-term current use of insulin; Translations: [terminologist (current) use of insulin] Episodic Other aftercare (1 source) Long-term current use of systemic steroid; Translations: [care home (current) use of systemic steroids] 02-29-2020 Episodic Other gastrointestinal disorders (5 sources) Diarrhea; Translations: [Diarrhea, unspecified] 10-02-2023 Episodic Other gastrointestinal disorders (5 sources) Abdominal bloating; Translations: [Abdominal distension (gaseous)] 10-02-2023 Episodic Other liver diseases (3 sources) Biliary cirrhosis; Translations: [Biliary cirrhosis, unspecified] Chronic Other liver diseases (8 sources) Cirrhosis of liver; Translations: [Other cirrhosis of liver] Chronic Other liver diseases (1 source) Biliary cirrhosis, unspecified; Translations: [Biliary cirrhosis (HCC)] Onset: 3 Chronic Other liver diseases (3 sources) Other cirrhosis of liver; Translations: [Other cirrhosis of liver (HCC)] Onset: 3 Chronic Other liver diseases (4 sources) Portal hypertension; Translations: [Portal hypertension] 10-02-2023 Chronic Other liver diseases (5 sources) Unspecified cirrhosis of liver; Translations: [Cirrhosis of liver without mention of alcohol] Onset: 4 10-02-2023 Chronic Other liver diseases (4 sources) Portal hypertension; Translations: [Portal hypertension] 10-02-2023 Chronic Other liver diseases (1 source) Liver enzymes abnormal; Translations: [Abnormal levels of other serum enzymes] 07-05-2021 Episodic Other liver diseases (5 sources) Elevated liver enzymes level; Translations: [Abnormal levels of other serum enzymes] 10-02-2023 Episodic Other liver diseases (5 sources) Abnormal levels of other serum enzymes; Translations: [Other nonspecific abnormal serum enzyme levels] Onset: 4 10-02-2023 Episodic Phlebitis; thrombophlebitis and thromboembolism (8 [...] encounter; Translations: [Steroid-induced diabetes mellitus, subsequent encounter (HCC)] Onset: 11-09-2021 Episodic Other aftercare (1 source) care home (current) use of insulin; Translations: [Current use of insulin (HCC)] Onset: 09-05-2023 Episodic Other circulatory disease (4 sources) Other specified symptoms and signs involving the circulatory and respiratory systems; Translations: [OTH SPEC SX SIGNS INVLV CIRC RS] Onset: 08-09-2022 Episodic Results Test Name Value Interpretation Reference Range Facility US abdomen [facility] 024 US abdomen [facility] Main [address] [address] Ultrasound Report Signed Patient: Nir Ewing MR#: [id number] 32 : 1965 Acct:[id number] Age/Sex: 59 / M ADM Date: 04/30/24 Loc: Room: Type: [facility] Attending Dr: Ana Muhammad MD Ordering Provider: Ana Muhammad MD Date of Service: 04/30/24 US/US abdomen limited: R74.8 - Abnormal levels of other serum enzymes Copies to: Ana Muhammad MD LIMITED ABDOMINAL ULTRASOUND: CLINICAL HISTORY: Elevated LFTs. COMPARISON: Liver ultrasound 10/20/2023 TECHNIQUE: Grayscale and color Doppler images of the right upper quadrant organs were obtained. FINDINGS: Pancreas: Not visualized. Liver: Cirrhotic appearing. No focal mass or intrahepatic biliary ductal dilatation. Hepatopedal flow is seen within the portal vein. Gallbladder: Gallbladder sludge. No wall thickening. Negative Sawant sign. CBD: 4.4 mm US/US abdomen limited IMPRESSION: CIRRHOTIC LIVER WITHOUT MASS. GALLBLADDER SLUDGE WITHOUT ULTRASOUND EVIDENCE OF ACUTE CHOLECYSTITIS.. Impression dictated by: Don Santillan Jr., D.O.04/30/2024 10:02 AM Dictation Location: [place] [address] Tech: Lulú Albaradoliza Transcribed By: GABY 04/30/24 1002 Dictated By: Don Santillan Jr, DO 04/30/24 0957 Signed By: 04/30/24 1002 Normal [facility] AFP Tumor Marker, Serumon AFP Tumor Marker, Serum 5.1 ng/mL Normal 0.0-8.4 [facility] Comment on above: Order Comment: Comme nt Standing order every 6 months Result Comment: [facility] [employer] Electrochemiluminescence Immunoassay (ECLIA) Values obtained with different assay methods or kits cannot be used interchangeably. Results cannot be interpreted as absolute evidence of the presence or absence of malignant disease. This test is not interpretable in females. Performed at: - [facility] [id number] [employer] Specialist: Saqib Bennett PhD, Phone: [phone] PERFORMED BY: [place] [address] PATHOLOGIST FLOWER STRIPPER JESSICA MILES M.D. Performed By: #### H EPATIC, CMP, CBC, PT #### [address] #### IGG, AFPTM #### [facility] , Alanine aminotransferase [En zymatic activity/volume] in Serum or PlasmaOrdered By: Imad Asaad on 03-19-2024 ALT [Catalytic activity/Vol] 89 U/L High 7-52 [facility] Comment on above: Order Comment: Comme nt Standing order for every 6 month Comment Standing order every 6 months Performed By: #### H EPATIC, CMP, CBC, PT #### [address] #### IGG, AFPTM #### [facility] , Albumin [Mass/volume] in Ser um or Plasma by Bromocresol green (BCG) dye binding methoOrdered By: Imad Asaad on 03-19-2024 Albumin BCG dye [Mass/Vol] 3.7 g/dL 3.5-5.7 [facility] Alkaline phosphatase [Enzyma tic activity/volume] in Serum or PlasmaOrdered By: Imad Asaad on 03-19-2024 ALP [Catalytic activity/Vol] 105 U/L High 34-104 [facility] Comment on above: Order Comment: Comme nt Standing order for every 6 month Comment Standing order every 6 months Performed By: #### H EPATIC, CMP, CBC, PT #### [address] #### IGG, AFPTM #### [facility] , Aspartate aminotransferase [ Enzymatic activity/volume] in Serum or PlasmaOrdered By: Imad Asaad on 03-19-2024 AST [Catalytic activity/Vol] 109 U/L High 13-39 [facility] Comment on above: Order Comment: Comme nt Standing order for every 6 month Comment Standing order every 6 months Performed By: #### H EPATIC, CMP, CBC, PT #### [facility] [address] [place] [address] [place] #### IGG, AFPTM #### [facility] , Automated basophil %Ordered By: Imad Asaad on 03-19-2024 Basophils/100 WBC (Bld) 1.1 % Normal . [facility] Comment on above: Order Comment: Comme nt Standing order every 6 months Performed By: #### H EPATIC, CMP, CBC, PT #### [address] #### IGG, AFPTM #### [facility] , Automated basophil countOrde red By: Imad Asaad on 03-19-2024 Basophils (Bld) [#/Vol] 0.0 10*3/uL Normal 0.0-0.2 [facility] Comment on above: Order Comment: Comme nt Standing order every 6 months Result Comment: PERF ORMED BY: [place] [address] PATHOLOGIST [employer]OWER [employer]IPPER JESSICA MILES M.D. Performed By: #### H EPATIC, CMP, CBC, PT #### [address] #### IGG, AFPTM #### [facility] , Automated blood monocyte cou ntOrdered By: Imad Asaad on 03-19-2024 Monocytes (Bld) [#/Vol] 0.4 10*3/uL Normal 0.0-0.8 [facility] Comment on above: Order Comment: Comme nt Standing order every 6 months Performed By: #### H EPATIC, CMP, CBC, PT #### [address] #### IGG, AFPTM #### [facility] , Automated eosinophil %Ordere d By: Imad Asaad on 03-19-2024 Eosinophils/100 WBC (Bld) 2.2 % Normal . [facility] Comment on above: Order Comment: Comme nt Standing order every 6 months Performed By: #### H EPATIC, CMP, CBC, PT #### [address] #### IGG, AFPTM #### [facility] , Automated eosinophil countOr dered By: Imad Asaad on 03-19-2024 Eosinophils (Bld) [#/Vol] 0.1 10*3/uL Normal 0.0-0.45 [facility] Comment on above: Order Comment: Comme nt Standing order every 6 months Performed By: #### H EPATIC, CMP, CBC, PT #### [facility] [address] [place] [address] [place] #### IGG, AFPTM #### [facility] , Automated monocyte %Ordered By: Imad Asaad on 03-19-2024 Monocytes/100 WBC (Bld) 11.2 % Normal . [facility] Comment on above: Order Comment: Comme nt Standing order every 6 months Performed By: #### H EPATIC, CMP, CBC, PT #### [facility] [address] [place] [address] #### IGG, AFPTM #### [facility] , Automated neutrophil %Ordere d By: Imad Asaad on 03-19-2024 Neutrophils/100 WBC (Bld) 68.6 % Normal . [facility] Comment on above: Order Comment: Comme nt Standing order every 6 months Performed By: #### H EPATIC, CMP, CBC, PT #### [facility] [address] [place] [address] [place] #### IGG, AFPTM #### [facility] , Bilirubin.direct [Mass/volum e] in Serum or PlasmaOrdered By: Imad Asaad on 03-19-2024 Bilirubin.direct [Mass/Vol] 0.70 mg/dL High 0.03-0.18 [facility] Bilirubin.total [Mass/volume ] in Serum or PlasmaOrdered By: Imad Asaad on 03-19-2024 Bilirubin [Mass/Vol] 2.5 mg/dL High 0.3-1.0 [facility] Comment on above: Samples from patient s who have taken Naproxen have shown spurious elevation in Total Bilirubin levels. A metabolite of Naproxen, O-desmethylnaproxen, has been shown to interfere with the Radha-Tio method for measuring Total Bilirubin. Order Comment: Comme nt Standing order for every 6 month Comment Standing order every 6 months Result Comment: Samp les from patients who have taken Naproxen have shown spurious elevation in Total Bilirubin levels. A metabolite of Naproxen, O-desmethylnaproxen, has been shown to interfere with the Jendrassik-Grof method for measuring Total Bilirubin. Performed By: #### H EPATIC, CMP, CBC, PT #### [facility] [address] [place] [address] [place] #### IGG, AFPTM #### [facility] , Calcium [Mass/volume] in Ser um or PlasmaOrdered By: Imad Asaad on 03-19-2024 Calcium [Mass/Vol] 8.5 mg/dL Low 8.6-10.3 [facility] Comment on above: Order Comment: Comme nt Standing order for every 6 month Comment Standing order every 6 months Performed By: #### H EPATIC, CMP, CBC, PT #### [address] #### IGG, AFPTM #### [facility] , Carbon dioxide, total [Moles /volume] in Serum or PlasmaOrdered By: Imad Asaad on 03-19-2024 CO2 [Moles/Vol] 24.3 mmol/L Normal 21.0-31.0 [facility] Comment on above: Order Comment: Comme nt Standing order for every 6 month Comment Standing order every 6 months Performed By: #### H EPATIC, CMP, CBC, PT #### [place] [address] [place] #### IGG, AFPTM #### [facility] , Chloride [Moles/volume] in S shanique or PlasmaOrdered By: Imad Asaad on 03-19-2024 Chloride [Moles/Vol] 108 mmol/L High 98-107 [facility] Comment on above: Order Comment: Comme nt Standing order for every 6 month Comment Standing order every 6 months Performed By: #### H EPATIC, CMP, CBC, PT #### [address] #### IGG, AFPTM #### [facility] , Complete Blood Count Auto Di ffon 03-19-2024 Mean Corpuscular HGB Conc 33.9 g/dL Normal 32.5-35.6 [facility] Comment on above: Order Comment: Comme nt Standing order every 6 months Performed By: #### H EPATIC, CMP, CBC, PT #### [address] #### IGG, AFPTM #### [facility] , NRBC% 0.1 /100{WBC} Normal 0-0.5 [facility] Comment on above: Order Comment: Comme nt Standing order every 6 months Performed By: #### H EPATIC, CMP, CBC, PT #### [address] #### IGG, AFPTM #### [facility] , Comprehensive Metabolic Pane kenzie 03-19-2024 Albumin [Mass/Vol] 3.7 g/dL Normal 3.5-5.7 [facility] Comment on above: Order Comment: Comme nt Standing order for every 6 month Comment Standing order every 6 months Performed By: #### H EPATIC, CMP, CBC, PT #### [address] #### IGG, AFPTM #### [facility] , GFR/1.73 sq M.predicted MDRD (S/P/Bld) [Vol rate/Area] mL/min/{1.73_m2} Normal [facility] Comment on above: Order Comment: Comme nt Standing order for every 6 month Comment Standing order every 6 months Performed By: #### H EPATIC, CMP, CBC, PT #### [address] #### IGG, AFPTM #### [facility] , Creatinine [Mass/volume] in Serum or PlasmaOrdered By: Ana Muhammad on 03-19-2024 Creatinine [Mass/Vol] 0.82 mg/dL Normal 0.70-1.30 [facility] Comment on above: Order Comment: Comme nt Standing order for every 6 month Comment Standing order every 6 months Performed By: #### H EPATIC, CMP, CBC, PT #### [facility] [address] [place] [address] [place] #### IGG, AFPTM #### [facility] , Erythrocyte distribution wid th [Ratio] by Automated countOrdered By: Imad Asaad on 03-19-2024 Erythrocyte distribution width (RBC) [Ratio] 14.9 % High 12.0-14.8 [facility] Comment on above: Order Comment: Comme nt Standing order every 6 months Performed By: #### H EPATIC, CMP, CBC, PT #### [address] #### IGG, AFPTM #### [facility] , Erythrocytes [#/volume] in B lood by Automated countOrdered By: Imad Asaad on 03-19-2024 RBC (Bld) [#/Vol] 4.55 10*6/uL Normal 3.90-5.60 [facility] Comment on above: Order Comment: Comme nt Standing order every 6 months Performed By: #### H EPATIC, CMP, CBC, PT #### [place] [address] [place] #### IGG, AFPTM #### [facility] , Glucose [Mass/volume] in Ser um or PlasmaOrdered By: Imad Asaad on 03-19-2024 Glucose [Mass/Vol] 196 mg/dL High 70-100 [facility] Comment on above: ADA recommended refe rence rangeRandom Glucose Reference Range is dependent on time and content of last meal. Glucose of more than 200 mg/dL in a nonstressed, ambulatory subject supports the diagnosis of Diabetes Mellitus. Order Comment: Comme nt Standing order for every 6 month Comment Standing order every 6 months Result Comment: [facility] Glucose Reference Range is dependent on time and content of last meal. Glucose of more than 200 mg/dL in a nonstressed, ambulatory subject supports the diagnosis of Diabetes Mellitus. ADA recommended reference range Performed By: #### H EPATIC, CMP, CBC, PT #### [address] #### IGG, AFPTM #### [facility] , Hematocrit [Volume Fraction] of Blood by Automated countOrdered By: Imsupriya Muhammad on 03-19-2024 Hematocrit (Bld) [Volume fraction] 44.4 % Normal 38.8-50.0 [facility] Comment on above: Order Comment: Comme nt Standing order every 6 months Performed By: #### H EPATIC, CMP, CBC, PT #### [address] #### IGG, AFPTM #### [facility] , Hemoglobin [Mass/volume] in BloodOrdered By: Imsupriya Muhammad on 03-19-2024 Hemoglobin (Bld) [Mass/Vol] 15.0 g/dL Normal 13.0-17.0 [facility] Comment on above: Order Comment: Comme nt Standing order every 6 months Performed By: #### H EPATIC, CMP, CBC, PT #### [address] #### IGG, AFPTM #### [facility] , Hepatic Panelon 03-19-2024 Bilirubin,Indirect 1.8 mg/dL Normal [facility] Comment on above: Order Comment: Comme nt Standing order for every 6 month Comment Standing order every 6 months Result Comment: PERF ORMED BY: [place] [address] PATHOLOGIST [employer]OWER [employer]IPPER JESSICA MILES M.D. Performed By: #### H EPATIC, CMP, CBC, PT #### [address] #### IGG, AFPTM #### [facility] , Bilirubin.indirect [Mass/Vol] 0.70 mg/dL High 0.03-0.18 [facility] Comment on above: Order Comment: Lis nt Standing order for every 6 month Comment Standing order every 6 months Performed By: #### H EPATIC, CMP, CBC, PT #### [address] #### IGG, AFPTM #### [facility] , INR in Platelet poor plasma by Coagulation assayOrdered By: Ana Muhammad on 03-19-2024 INR Coag (PPP) [Relative time] 1.3 {INR} Normal [facility] Comment on above: INR Therapeutic Rang [...] heart valves: 3 - 4.5 Order Comment: Lis nt Standing order every 6 months Result Comment: INR Therapeutic Range A) Pre- [...] heart valves: 3 - 4.5 PERFORMED BY: [place] [address] PATHOLOGIST [employer]OWER STRIPPER JESSICA MILES M.D. Performed By: #### H EPATIC, CMP, CBC, PT #### [facility] [address] [place] [address] #### IGG, AFPTM #### [facility] , Leukocytes [#/volume] correc katerin for nucleated erythrocytes in Blood by Automated counOrdered By: Imad Asaad on 03-19-2024 WBC corrected for nucl RBC Auto (Bld) [#/Vol] 3.9 10*3/uL Low 4.1-10.5 [facility] Leukocytes [#/volume] in Blo od by Automated countOrdered By: Imad Asaad on 03-19-2024 WBC (Bld) [#/Vol] 3.9 10*3/uL Low 4.1-10.5 [facility] Comment on above: Order Comment: Comme nt Standing order every 6 months Performed By: #### H EPATIC, CMP, CBC, PT #### [facility] [address] [place] [address] [place] #### IGG, AFPTM #### [facility] , Lymphocytes [#/volume] in Bl ood by Automated countOrdered By: Imad Asaad on 03-19-2024 Lymphocytes (Bld) [#/Vol] 0.7 10*3/uL Low 1.00-4.8 [facility] Comment on above: Order Comment: Comme nt Standing order every 6 months Performed By: #### H EPATIC, CMP, CBC, PT #### [place] [address] [place] #### IGG, AFPTM #### [facility] , Lymphocytes/100 leukocytes i n Blood by Automated countOrdered By: Imad Asaad on 03-19-2024 Lymphocytes/100 WBC (Bld) 16.9 % Normal . [facility] Comment on above: Order Comment: Comme nt Standing order every 6 months Performed By: #### H EPATIC, CMP, CBC, PT #### [facility] [address] [place] [address] [place] #### IGG, AFPTM #### [facility] , MCH [Entitic mass] by Automa katerin countOrdered By: Imad Asaad on 03-19-2024 MCH (RBC) [Entitic mass] 33.0 pg Normal 27.5-35.2 [facility] Comment on above: Order Comment: Comme nt Standing order every 6 months Performed By: #### H EPATIC, CMP, CBC, PT #### [place] [address] [place] #### IGG, AFPTM #### [facility] , MCHC Auto (RBC) [Mass/Vol]Or dered By: Imad Asaad on 03-19-2024 MCHC (RBC) [Mass/Vol] 33.9 g/dL 32.5-35.6 [facility] MCV [Entitic volume] by Auto mated countOrdered By: Imad Asaad on 03-19-2024 MCV (RBC) [Entitic vol] 97.5 fL Normal 83.5-101 [facility] Comment on above: Order Comment: Comme nt Standing order every 6 months Performed By: #### H EPATIC, CMP, CBC, PT #### [facility] [address] [place] [address] #### IGG, AFPTM #### [facility] , Neutrophils [#/volume] in Bl ood by Automated countOrdered By: Imad Asaad on 03-19-2024 Neutrophils (Bld) [#/Vol] 2.6 10*3/uL Normal 1.8-7.7 [facility] Comment on above: Order Comment: Comme nt Standing order every 6 months Performed By: #### H EPATIC, CMP, CBC, PT #### [facility] [address] [place] [address] [place] #### IGG, AFPTM #### [facility] , No Panel InformationOrdered By: Imad Asaad on 03-19-2024 Estimated GFR (CKD-EPI) > 60.0 mL/Min [facility] Creatinine Clearance (Chem N/A [facility] Nucleated erythrocytes [Pres ence] in Blood by Automated countOrdered By: Imad Asaad on 03-19-2024 Nucleated RBC Auto Ql (Bld) 0.1 /100{WBC} 0-0.5 [facility] Platelet mean volume [Entiti c volume] in Blood by Automated countOrdered By: Imad Asaad on 03-19-2024 Platelet mean volume (Bld) [Entitic vol] 8.7 fL Normal 6.6-10.1 [facility] Comment on above: Order Comment: Comme nt Standing order every 6 months Performed By: #### H EPATIC, CMP, CBC, PT #### [facility] [address] [place] [address] #### IGG, AFPTM #### [facility] , Platelets [#/volume] in Bloo d by Automated countOrdered By: Imad Asaad on 03-19-2024 Platelets (Bld) [#/Vol] 99 10*3/uL Low 150-450 [facility] Comment on above: Order Comment: Comme nt Standing order every 6 months Performed By: #### H EPATIC, CMP, CBC, PT #### [address] #### IGG, AFPTM #### [facility] , Potassium [Moles/volume] in Serum or PlasmaOrdered By: Imad Asaad on 03-19-2024 Potassium [Moles/Vol] 4.3 mmol/L Normal 3.5-5.1 [facility] Comment on above: Order Comment: Comme nt Standing order for every 6 month Comment Standing order every 6 months Performed By: #### H EPATIC, CMP, CBC, PT #### [facility] [address] [place] [address] #### IGG, AFPTM #### [facility] , Protein [Mass/volume] in Ser um or PlasmaOrdered By: Imad Asaad on 03-19-2024 Protein [Mass/Vol] 6.1 g/dL Low 6.4-8.9 [facility] Comment on above: Order Comment: Comme nt Standing order for every 6 month Comment Standing order every 6 months Performed By: #### H EPATIC, CMP, CBC, PT #### [facility] [address] [place] [address] [place] #### IGG, AFPTM #### [facility] , Prothrombin time (PT)Ordered By: Imad Asaad on 03-19-2024 PT Coag (PPP) [Time] 14.6 s High 9.0-12.9 [facility] Comment on above: A hematocrit value g reater than 55% may lead to inaccurate results in coagulation testing. Patients having hematocrit values >55% require a special collection tube for coagulation studies. Please contact the laboratory at [phone] for redraw instructions. Order Comment: Comme nt Standing order every 6 months Result Comment: A he matocrit value greater than 55% may lead to inaccurate results in coagulation testing. Patients having hematocrit values >55% require a special collection tube for coagulation studies. Please contact the laboratory at [phone] for redraw instructions. Performed By: #### H EPATIC, CMP, CBC, PT #### [facility] [address] [place] [address] #### IGG, AFPTM #### [facility] , Serum globulin measurement b y calculation (mass/volume)Ordered By: Ana Muhammad on 03-19-2024 Globulin (S) [Mass/Vol] 2.4 g/dL [facility] Comment on above: Order Comment: Comme nt Standing order for every 6 month Comment Standing order every 6 months Performed By: #### H EPATIC, CMP, CBC, PT #### [facility] [address] [place] [address] #### IGG, AFPTM #### [facility] , Serum or plasma albumin/glob ulin mass ratioOrdered By: Ana Muhammad on 03-19-2024 Albumin/Globulin [Mass ratio] 1.5 {ratio} [facility] Comment on above: Order Comment: Comme nt Standing order for every 6 month Comment Standing order every 6 months Performed By: #### H EPATIC, CMP, CBC, PT #### [facility] [address] [place] [address] [place] #### IGG, AFPTM #### [facility] , Serum or plasma [id number] protein tumor marker measurement (mass/volume)Ordered By: Ana Muhammad on 03-19-2024 AFP.tumor marker [Mass/Vol] 5.1 ng/mL 0.0-8.4 [facility] Comment on above: [facility] El ectrochemiluminescence Immunoassay(ECLIA)Values obtained with different assay methods or kits cannotbe used interchangeably. Results cannot be interpreted asabsolute evidence of the presence or absence of malignantdisease.This test is not interpretable in females.Performed at: [address] [id number] Director: Saqib Bennett PhD, Phone: [phone] Serum or plasma anion gap de terminationOrdered By: Ana Muhammda on 03-19-2024 Anion gap [Moles/Vol] 10.0 mmol/L Normal 6.0-15.0 [facility] Comment on above: Order Comment: Comme nt Standing order for every 6 month Comment Standing order every 6 months Performed By: #### H EPATIC, CMP, CBC, PT #### [address] #### IGG, AFPTM #### [facility] , Serum or plasma non-glucuron idated bilirubin measurement (mass/volume)Ordered By: Ana Muhammad on 03-19-2024 Bilirubin.indirect [Mass/Vol] 1.8 mg/dL [facility] Sodium [Moles/volume] in Ser um or PlasmaOrdered By: Ana Muhammad on 03-19-2024 Sodium [Moles/Vol] 138 mmol/L Normal 136-145 [facility] Comment on above: Order Comment: Comme nt Standing order for every 6 month Comment Standing order every 6 months Performed By: #### H EPATIC, CMP, CBC, PT #### [place] [address] [place] #### IGG, AFPTM #### [facility] , Urea nitrogen [Mass/volume] in Serum or PlasmaOrdered By: Ana Muhammad on 03-19-2024 Urea nitrogen [Mass/Vol] 13 mg/dL Normal 7-25 [facility] Comment on above: Order Comment: Comme nt Standing order for every 6 month Comment Standing order every 6 months Performed By: #### H EPATIC, CMP, CBC, PT #### [address] [address] [place] #### IGG, AFPTM #### [facility] , ALBUMIN/CREATININE RATIO, UR INEon 02-06-2024 Albumin DL <= 20 mg/L (U) [Mass/Vol] mg/dL Normal [facility] Comment on above: Order Comment: Speci men Type: URINE SPECIMEN Ordering Facility: [facility] Address: [address] [place] [address] Performed By: #### U ACR #### [facility] CLIA [id number] [address] [place] [address] [place] Albumin/Creatinine (U) [Mass ratio] <13 Normal <[address] [facility] Comment on above: Order Comment: Speci men Type: URINE SPECIMEN Ordering Facility: [facility] Address: [address] [place] [address] Result Comment: Adul t Male and Female Nephrotic Criteria: <30 mg/g is considered normal to mildly increased 30-300 mg/g is considered moderately increased >300 mg/g is considered severely increased KDIGO. (2013). KDIGO 2012 Clinical Practice Guideline for the Evaluation and Management of Chronic Kidney Disease. Official Journal of the International Society of Nephrology, 3(1), 1-150. Performed By: #### U ACR #### [facility] CLIA [id number] [address] [place] [address] [place] Creatinine (U) [Mass/Vol] 91.1 mg/dL Normal 20.0-300.[address] [facility] Comment on above: Order Comment: Speci men Type: URINE SPECIMEN Ordering Facility: [facility] Address: [address] [place] [address] Performed By: #### U ACR #### [facility] CLIA [id number] [address] [place] [address] [place] Bilirub Conj SerPl-mCncon Bilirubin.conjugated [Mass/Vol] 0.8 mg/dL High <0.[address] [facility] Comment on above: Order Comment: Speci men Type: BLOOD SPECIMEN Ordering Facility: [facility] Address: [address] [place] [address] Performed By: #### 2 4323-8, 80619-1 #### [facility] CLIA [id number] [address] [place] [address] Comprehensive metabolic 2000 panelon 02-06-2024 Albumin [Mass/Vol] 4.1 g/dL Normal 3.9-4.9 [facility] Comment on above: Order Comment: Speci men Type: BLOOD SPECIMEN Ordering Facility: [facility] Address: [address] [place], [place] [address] Performed By: #### 2 4323-8, 87828-3 #### [facility] CLIA [id number] [address] [place] [address] ALP [Catalytic activity/Vol] 126 U/L High 38-[address] [facility] Comment on above: Order Comment: Speci men Type: BLOOD SPECIMEN Ordering Facility: [facility] Address: [address] [place], [place] [address] Performed By: #### 2 4323-8, 46396-8 #### [facility] CLIA [id number] [address] [place] [address] ALT [Catalytic activity/Vol] 112 U/L High 10-[address] [facility] Comment on above: Order Comment: Speci men Type: BLOOD SPECIMEN Ordering Facility: [facility] Address: [address] [place] [address] Performed By: #### 2 4323-8, 04252-1 #### [facility] CLIA [id number] [address] [place] [address] Anion gap [Moles/Vol] 7 mmol/L Low 8-15 [facility] Comment on above: Order Comment: Speci men Type: BLOOD SPECIMEN Ordering Facility: [facility] Address: [address] [place] [address] Performed By: #### 2 4323-8, 24576-1 #### [facility] CLIA [id number] [address] [place] [address] AST [Catalytic activity/Vol] 135 U/L High 14-[address] [facility] Comment on above: Order Comment: Speci men Type: BLOOD SPECIMEN Ordering Facility: [facility] Address: [address] [place], [place] [address] Performed By: #### 2 4323-8, 88611-1 #### [facility] CLIA [id number] [address] [place] [address] Bilirubin [Mass/Vol] 1.9 mg/dL High 0.2-1.3 [facility] Comment on above: Order Comment: Speci men Type: BLOOD SPECIMEN Ordering Facility: [facility] Address: [address] [place] [address] Performed By: #### 2 4323-8, 57415-8 #### [facility] CLIA [id number] [address] [place] [address] Calcium [Mass/Vol] 9.2 mg/dL Normal 8.5-10.2 [facility] Comment on above: Order Comment: Speci men Type: BLOOD SPECIMEN Ordering Facility: [facility] Address: [address] [place] [address] Performed By: #### 2 4323-8, 07332-5 #### [facility] CLIA [id number] [address] [place] [address] Chloride [Moles/Vol] 113 mmol/L High 98-107 [facility] Comment on above: Order Comment: Speci men Type: BLOOD SPECIMEN Ordering Facility: [facility] Address: [address] [place] [address] Performed By: #### 2 4323-8, 58427-5 #### [facility] CLIA [id number] [address] [place] [address] CO2 [Moles/Vol] 23 mmol/L Normal 22-[address] [facility] Comment on above: Order Comment: Speci men Type: BLOOD SPECIMEN Ordering Facility: [facility] Address: [address] [address] Performed By: #### 2 4323-8, 03234-2 #### [facility] CLIA [id number] [address] [place] [address] Creatinine [Mass/Vol] 0.89 mg/dL Normal 0.73-1.22 [facility] Comment on above: Order Comment: Farnaz rodgers Type: BLOOD SPECIMEN Ordering Facility: [facility] Address: [address] [address] Performed By: #### 2 4323-8, 54602-0 #### [facility] CLIA [id number] [address] [place] [address] Creatinine and Glomerular filtration rate.predicted panel (S/P/Bld) 99 mL/min/1.73m??? Normal >=[address] [facility] Comment on above: Order Comment: Farnaz rodgers Type: BLOOD SPECIMEN Ordering Facility: [facility] Address: [address] [place] [address] Result Comment: Goldie mated Glomerular Filtration Rate [...] actual GFR. Performed By: #### 2 4323-8, 96003-5 #### [facility] CLIA [id number] [address] [place] [address] Glucose [Mass/Vol] 121 mg/dL High 74-99 [facility] Comment on above: Order Comment: Farnaz rodgers Type: BLOOD SPECIMEN Ordering Facility: [facility] Address: [address] [place] [address] Result Comment: The [place] Diabetes Association (ADA) provides guidance for cutoff [...] Standards of Medical Care in Diabetes 2016, [place] Diabetes Association. Diabetes Care. 2016.39(Suppl 1). Performed By: #### 2 4323-8, 77000-0 #### [facility] CLIA [id number] [address] [place] [address] Potassium [Moles/Vol] 4.1 mmol/L Normal 3.7-5.1 [facility] Comment on above: Order Comment: Speci men Type: BLOOD SPECIMEN Ordering Facility: [facility] Address: [address] [place] [address] Performed By: #### 2 4323-8, 93488-4 #### [facility] CLIA [id number] [address] [place] [address] Protein [Mass/Vol] 6.7 g/dL Normal 6.3-8.0 [facility] Comment on above: Order Comment: Speci men Type: BLOOD SPECIMEN Ordering Facility: [facility] Address: [address] [place] [address] Performed By: #### 2 4323-8, 15432-2 #### [facility] CLIA [id number] [address] [place] [address]17 Sodium [Moles/Vol] 143 mmol/L Normal 136-144 [facility] Comment on above: Order Comment: Speci men Type: BLOOD SPECIMEN Ordering Facility: [facility] Address: [address] [place] [address] Performed By: #### 2 4323-8, 17234-1 #### [facility] CLIA [id number] [address] [place] [address] Urea nitrogen [Mass/Vol] 11 mg/dL Normal 9-[address] [facility] Comment on above: Order Comment: Farnaz rodgers Type: BLOOD SPECIMEN Ordering Facility: [facility] Address: [address] [place] [address] Performed By: #### 2 4323-8, 01591-5 #### [facility] CLIA [id number] [address] [place] [address] HbA1c (Bld)on 02-06-2024 Average glucose Estimated from glycated hemoglobin (Bld) [Mass/Vol] 131 mg/dL Normal [facility] Comment on above: Order Comment: Farnaz rodgers Type: BLOOD SPECIMEN Ordering Facility: [facility] Address: [address] [place] [address] Result Comment: eAG: (Estimated average glucose) is a calculated value from HgbA1c and is account service representative of the average blood glucose level in the last 2-3 month period. Performed By: #### 5 5454-3 #### [facility] CLIA [id number] [address] [place] [address] [place] HbA1c (Bld) [Mass fraction] 6.2 % High 4.3-5.[address] [facility] Comment on above: Order Comment: Farnaz rodgers Type: BLOOD SPECIMEN Ordering Facility: [facility] Address: [address] [place] [address] Result Comment: Amer [place] Diabetes Association guidelines indicate that patients with HgbA1c in the range 5.7-6.4% are at increased risk for development of diabetes, and intervention by lifestyle modification may be beneficial. HgbA1c greater or equal to 6.5% is considered diagnostic of diabetes. Performed By: #### 5 5454-3 #### [facility] CLIA [id number] [address] [place] [address] [place] Lipid 1996 panelon 4 Cholesterol [Mass/Vol] 129 mg/dL Normal <200 [facility] Comment on above: Order Comment: Farnza rodgers Type: BLOOD SPECIMEN Ordering Facility: [facility] Address: [address] [place] [address] Result Comment: <200 mg/dL, Desirable 200-239 mg/dL, Borderline high >239 mg/dL, High Performed By: #### 2 4331-1 #### [facility] CLIA [id number] [address] [place] [address] LAB CLIA [id number] [address] [place] [address] Cholesterol in HDL [Mass/Vol] 41 mg/dL Normal >[address] [facility] Comment on above: Order Comment: Speci men Type: BLOOD SPECIMEN Ordering Facility: [facility] Address: [address] [place] [address] Result Comment: 40-5 9 mg/dL, Acceptable >59 mg/dL, High: Negative risk factor for coronary heart disease <40 mg/dL, Low: Positive risk factor for coronary heart disease Performed By: #### 2 4331-1 #### [facility] CLIA [id number] [address] [place] [address] LAB CLIA [id number] [address] [place] [address] Cholesterol in LDL [Mass/Vol] 75 mg/dL Normal <[address] [facility] Comment on above: Order Comment: Speci men Type: BLOOD SPECIMEN Ordering Facility: [facility] Address: [address] [place], [place] [address] Result Comment: <100 mg/dL, Optimal 100-129 mg/dL, Near optimal/above optimal 130-159 mg/dL, Borderline high 160-189 mg/dL, High >189 mg/dL, Very high Secondary prevention optimal LDL Cholesterol levels are recommended to be < 70 mg/dL Performed By: #### 2 4331-1 #### [facility] CLIA [id number] [address] [place] [address] LAB CLIA [id number] [address] [place] [address] Cholesterol in LDL/Cholesterol in HDL [Mass ratio] 1.83 {ratio} Normal <2.[address] [facility] Comment on above: Order Comment: Speci men Type: BLOOD SPECIMEN Ordering Facility: [facility] Address: [address] [place] [address] Result Comment: Felipe hutchison: 1. National Cholesterol Education Program ATP III Guideline At-A-Glance Quick Desk Reference: National Heart, Lung, and Blood [place]. National Institutes of Health. 2001: NIH Publication No. 01-3305. 2. An International Atherosclerosis Society position paper: global recommendations for the management of dyslipidemia: executive summary, Atherosclerosis. 2014: 232(2):410-413. Performed By: #### 2 4331-1 #### [facility] CLIA [id number] [address] [place] [address] LAB CLIA [id number] [address] [place] [address] Cholesterol in VLDL [Mass/Vol] 13 mg/dL Normal <[address] [facility] Comment on above: Order Comment: Farnaz rodgers Type: BLOOD SPECIMEN Ordering Facility: [facility] Address: [address] [place] [address] Performed By: #### 2 4331-1 #### [facility] CLIA [id number] [address] [place] [address] LAB CLIA [id number] [address] [place] [address]95 Cholesterol non HDL [Mass/Vol] 88 mg/dL Normal <[address] [facility] Comment on above: Order Comment: Farnaz rodgers Type: BLOOD SPECIMEN Ordering Facility: [facility] Address: [address] [place] [address] Result Comment: <130 mg/dL, Optimal 130-159 mg/dL, Near optimal/above optimal 160-189 mg/dL, Borderline high 190-219 mg/dL, High >219 mg/dL, Very high Secondary prevention optimal non HDL Cholesterol levels are recommended to be <100 mg/dL Performed By: #### 2 4331-1 #### [facility] CLIA [id number] [address] [place] [address] [facility] CLIA [id number] [address] [place] [address] Cholesterol.total/Chol esterol in HDL [Mass ratio] 3.15 {ratio} Normal <5.[address] [facility] Comment on above: Order Comment: Speci men Type: BLOOD SPECIMEN Ordering Facility: [facility] Address: [address] [place], [place] [address] Performed By: #### 2 4331-1 #### [facility] CLIA [id number] [address] [place], [place] [address] [facility] CLIA [id number] [address] [place] [address]453 FASTING TIME 12 hrs Normal [facility] Comment on above: Order Comment: Speci men Type: BLOOD SPECIMEN Ordering Facility: [facility] Address: [address] [place] [address] Performed By: #### 2 4331-1 #### [facility] CLIA [id number] [address] [place], [place] [address] [facility] CLIA [id number] [address] [place] [address] Triglyceride [Mass/Vol] 66 mg/dL Normal <[address] [facility] Comment on above: Order Comment: Speci men Type: BLOOD SPECIMEN Ordering Facility: [facility] Address: [address] [place], [place] [address] Result Comment: <150 mg/dL, Normal 150-199 mg/dL, Borderline high 200-499 mg/dL, High >499 mg/dL, Very high Performed By: #### 2 4331-1 #### [facility] CLIA [id number] [address] [place], [place] [address] [facility] CLIA [id number] [address] [place] [address]97 AFP Tumor Marker, Serumon AFP Tumor Marker, Serum 5.8 ng/mL Normal 0.0-8.4 [facility] Comment on above: Order Comment: Comme nt Standing order 1 time per month Result Comment: [employer] [employer] Electrochemiluminescence Immunoassay (ECLIA) Values obtained with different assay methods or kits cannot be used interchangeably. Results cannot be interpreted as absolute evidence of the presence or absence of malignant disease. This test is not interpretable in females. Performed at: - [facility] [id number] [employer] Specialist: Saqib Bennett PhD, Phone: [phone] PERFORMED BY: [place] [address] PATHOLOGIST FLOWER STRIPPER JESSICA MILES M.D. Performed By: #### H EPATIC, CMP, CBC, PT #### [address] #### IGG, AFPTM #### [facility] , Alanine aminotransferase [En zymatic activity/volume] in Serum or PlasmaOrdered By: Imad Asaad on 12-29-2023 ALT [Catalytic activity/Vol] 99 U/L High 7-52 [facility] Comment on above: Order Comment: Comme nt Standing order 1 time per month Performed By: #### P T, BMP, CBC, HEPATIC #### [facility] [address] [place] [address] [place] #### AFPTM #### [facility] , Albumin [Mass/volume] in Ser um or Plasma by Bromocresol green (BCG) dye binding methoOrdered By: Imad Asaad on 12-29-2023 Albumin BCG dye [Mass/Vol] 3.9 g/dL 3.5-5.7 [facility] Alkaline phosphatase [Enzyma tic activity/volume] in Serum or PlasmaOrdered By: Imad Asaad on 12-29-2023 ALP [Catalytic activity/Vol] 96 U/L Normal 34-104 [facility] Comment on above: Order Comment: Comme nt Standing order 1 time per month Performed By: #### P T, BMP, CBC, HEPATIC #### [facility] [address] [place] [address] [place] #### AFPTM #### [facility] , Aspartate aminotransferase [ Enzymatic activity/volume] in Serum or PlasmaOrdered By: Imad Asaad on 12-29-2023 AST [Catalytic activity/Vol] 121 U/L High 13-39 [facility] Comment on above: Order Comment: Comme nt Standing order 1 time per month Performed By: #### P T, BMP, CBC, HEPATIC #### [facility] [address] [place] [address] [place] #### AFPTM #### [facility] , Automated basophil %Ordered By: Imad Asaad on 12-29-2023 Basophils/100 WBC (Bld) 0.6 % Normal . [facility] Comment on above: Order Comment: Comme nt Standing order 1 time per month Performed By: #### P T, BMP, CBC, HEPATIC #### [address] #### AFPTM #### [facility] , Automated basophil countOrde red By: Imad Asaad on 12-29-2023 Basophils (Bld) [#/Vol] 0.0 10*3/uL Normal 0.0-0.2 [facility] Comment on above: Order Comment: Comme nt Standing order 1 time per month Result Comment: PERF ORMED BY: [place] [address] PATHOLOGIST [employer] JESSICA MILES M.D. Performed By: #### P T, BMP, CBC, HEPATIC #### [place] [address] [place] #### AFPTM #### [facility] , Automated blood monocyte cou ntOrdered By: Imad Asaad on 12-29-2023 Monocytes (Bld) [#/Vol] 0.4 10*3/uL Normal 0.0-0.8 [facility] Comment on above: Order Comment: Comme nt Standing order 1 time per month Performed By: #### P T, BMP, CBC, HEPATIC #### [address] #### AFPTM #### [facility] , Automated eosinophil %Ordere d By: Imad Asaad on 12-29-2023 Eosinophils/100 WBC (Bld) 2.5 % Normal . [facility] Comment on above: Order Comment: Comme nt Standing order 1 time per month Performed By: #### P T, BMP, CBC, HEPATIC #### [facility] [address] [place] [address] #### AFPTM #### [facility] , Automated eosinophil countOr dered By: Imad Asaad on 12-29-2023 Eosinophils (Bld) [#/Vol] 0.1 10*3/uL Normal 0.0-0.45 [facility] Comment on above: Order Comment: Comme nt Standing order 1 time per month Performed By: #### P T, BMP, CBC, HEPATIC #### [address] #### AFPTM #### [facility] , Automated monocyte %Ordered By: Imad Asaad on 12-29-2023 Monocytes/100 WBC (Bld) 10.5 % Normal . [facility] Comment on above: Order Comment: Comme nt Standing order 1 time per month Performed By: #### P T, BMP, CBC, HEPATIC #### [facility] [address] [place] [address] [place] #### AFPTM #### [facility] , Automated neutrophil %Ordere d By: Imad Asaad on 12-29-2023 Neutrophils/100 WBC (Bld) 69.2 % Normal . [facility] Comment on above: Order Comment: Comme nt Standing order 1 time per month Performed By: #### P T, BMP, CBC, HEPATIC #### [place] [address] [place] #### AFPTM #### [facility] , Basic Metabolic Panelon 12-19 GFR/1.73 sq M.predicted MDRD (S/P/Bld) [Vol rate/Area] mL/min/{1.73_m2} Normal [facility] Comment on above: Order Comment: Comme nt Standing order 1 time per month Performed By: #### H EPATIC, CMP, CBC, PT #### [address] #### IGG, AFPTM #### [facility] , Bilirubin.direct [Mass/volum e] in Serum or PlasmaOrdered By: Imsupriya Muhammad on 12-29-2023 Bilirubin.direct [Mass/Vol] 0.70 mg/dL 0.03-0.18 [facility] Bilirubin.total [Mass/volume ] in Serum or PlasmaOrdered By: Imsupriya Muhammad on 12-29-2023 Bilirubin [Mass/Vol] 2.3 mg/dL High 0.3-1.0 [facility] Comment on above: Samples from patient s who have taken Naproxen have shown spurious elevation in Total Bilirubin levels. A metabolite of Naproxen, O-desmethylnaproxen, has been shown to interfere with the Jendrassik-Grof method for measuring Total Bilirubin. Order Comment: Comme nt Standing order 1 time per month Result Comment: Samp les from patients who have taken Naproxen have shown spurious elevation in Total Bilirubin levels. A metabolite of Naproxen, O-desmethylnaproxen, has been shown to interfere with the Jendrassik-Grof method for measuring Total Bilirubin. Performed By: #### P T, BMP, CBC, HEPATIC #### [facility] [address] [place] [address] [place] #### AFPTM #### [facility] , Calcium [Mass/volume] in Ser um or PlasmaOrdered By: Imad Asaad on 12-29-2023 Calcium [Mass/Vol] 9.0 mg/dL Normal 8.6-10.3 [facility] Comment on above: Order Comment: Comme nt Standing order 1 time per month Result Comment: PERF ORMED BY: [place] [address] PATHOLOGIST [employer] JESSICA MILES M.D. Performed By: #### H EPATIC, CMP, CBC, PT #### [facility] [address] [place] [address] [place] #### IGG, AFPTM #### [facility] , Carbon dioxide, total [Moles /volume] in Serum or PlasmaOrdered By: Imad Asaad on 12-29-2023 CO2 [Moles/Vol] 22.4 mmol/L Normal 21.0-31.0 [facility] Comment on above: Order Comment: Comme nt Standing order 1 time per month Performed By: #### H EPATIC, CMP, CBC, PT #### [place] [address] [place] #### IGG, AFPTM #### [facility] , Chloride [Moles/volume] in S shanique or PlasmaOrdered By: Imad Asaad on 12-29-2023 Chloride [Moles/Vol] 107 mmol/L Normal 98-107 [facility] Comment on above: Order Comment: Comme nt Standing order 1 time per month Performed By: #### H EPATIC, CMP, CBC, PT #### [place] [address] [place] #### IGG, AFPTM #### [facility] , Complete Blood Count Auto Di ffon 12-29-2023 Mean Corpuscular HGB Conc 33.6 g/dL Normal 32.5-35.6 [facility] Comment on above: Order Comment: Comme nt Standing order 1 time per month Performed By: #### P T, BMP, CBC, HEPATIC #### [place] [address] [place] #### AFPTM #### [facility] , NRBC% 0.3 /100{WBC} Normal 0-0.5 [facility] Comment on above: Order Comment: Comme nt Standing order 1 time per month Performed By: #### P T, BMP, CBC, HEPATIC #### [address] [place] [address] [place] #### AFPTM #### [facility] , Creatinine [Mass/volume] in Serum or PlasmaOrdered By: Imad Jb on 12-29-2023 Creatinine [Mass/Vol] 0.82 mg/dL Normal 0.70-1.30 [facility] Comment on above: Order Comment: Comme nt Standing order 1 time per month Performed By: #### H EPATIC, CMP, CBC, PT #### [facility] [address] [place] [address] [place] #### IGG, AFPTM #### [facility] , Erythrocyte distribution wid th [Ratio] by Automated countOrdered By: Deeptiad Jb on 12-29-2023 Erythrocyte distribution width (RBC) [Ratio] 14.7 % Normal 12.0-14.8 [facility] Comment on above: Order Comment: Comme nt Standing order 1 time per month Performed By: #### P T, BMP, CBC, HEPATIC #### [facility] [address] [place] [address] [place] #### AFPTM #### [facility] , Erythrocytes [#/volume] in B lood by Automated countOrdered By: Ana Muhammad on 12-29-2023 RBC (Bld) [#/Vol] 4.70 10*6/uL Normal 3.90-5.60 [facility] Comment on above: Order Comment: Comme nt Standing order 1 time per month Performed By: #### P T, BMP, CBC, HEPATIC #### [facility] [address] [place] [address] [place] #### AFPTM #### [facility] , Glucose [Mass/volume] in Ser um or PlasmaOrdered By: Imad Jb on 12-29-2023 Glucose [Mass/Vol] 292 mg/dL High 70-100 [facility] Comment on above: ADA recommended refe rence rangeRandom Glucose Reference Range is dependent on time and content of last meal. Glucose of more than 200 mg/dL in a nonstressed, ambulatory subject supports the diagnosis of Diabetes Mellitus. Order Comment: Comme nt Standing order 1 time per month Result Comment: [facility] Glucose Reference Range is dependent on time and content of last meal. Glucose of more than 200 mg/dL in a nonstressed, ambulatory subject supports the diagnosis of Diabetes Mellitus. ADA recommended reference range Performed By: #### H EPATIC, CMP, CBC, PT #### [facility] [address] [place] [address] [place] #### IGG, AFPTM #### [facility] , Hematocrit [Volume Fraction] of Blood by Automated countOrdered By: Imad Asaad on 12-29-2023 Hematocrit (Bld) [Volume fraction] 46.1 % Normal 38.8-50.0 [facility] Comment on above: Order Comment: Comme nt Standing order 1 time per month Performed By: #### P T, BMP, CBC, HEPATIC #### [facility] [address] [place] [address] [place] #### AFPTM #### [facility] , Hemoglobin [Mass/volume] in BloodOrdered By: Imad Asaad on 12-29-2023 Hemoglobin (Bld) [Mass/Vol] 15.5 g/dL Normal 13.0-17.0 [facility] Comment on above: Order Comment: Comme nt Standing order 1 time per month Performed By: #### P T, BMP, CBC, HEPATIC #### [facility] [address] [place] [address] [place] #### AFPTM #### [facility] , Hepatic Panelon 12-29-2023 Albumin [Mass/Vol] 3.9 g/dL Normal 3.5-5.7 [facility] Comment on above: Order Comment: Comme nt Standing order 1 time per month Performed By: #### P T, BMP, CBC, HEPATIC #### [facility] [address] [place] [address] [place] #### AFPTM #### [facility] , Bilirubin,Indirect 1.6 mg/dL Normal [facility] Comment on above: Order Comment: Comme nt Standing order 1 time per month Performed By: #### P T, BMP, CBC, HEPATIC #### [facility] [address] [place] [address] [place] #### AFPTM #### [facility] , Bilirubin.indirect [Mass/Vol] 0.70 mg/dL High 0.03-0.18 [facility] Comment on above: Order Comment: Comme nt Standing order 1 time per month Performed By: #### P T, BMP, CBC, HEPATIC #### [facility] [address] [place] [address] [place] #### AFPTM #### [facility] , INR in Platelet poor plasma by Coagulation assayOrdered By: Ana Muhammad on 12-29-2023 INR Coag (PPP) [Relative time] 1.2 {INR} Normal [facility] Comment on above: INR Therapeutic Rang [...] heart valves: 3 - 4.5 PERFORMED BY: [place] [address] PATHOLOGIST [employer] JESSICA MILES M.D. Performed By: #### H EPATIC, CMP, CBC, PT #### [address] #### IGG, AFPTM #### [facility] , Leukocytes [#/volume] correc katerin for nucleated erythrocytes in Blood by Automated counOrdered By: Imad Asaad on 12-29-2023 WBC corrected for nucl RBC Auto (Bld) [#/Vol] 3.7 10*3/uL 4.1-10.5 [facility] Leukocytes [#/volume] in Blo od by Automated countOrdered By: Imad Asaad on 12-29-2023 WBC (Bld) [#/Vol] 3.7 10*3/uL Low 4.1-10.5 [facility] Comment on above: Order Comment: Comme nt Standing order 1 time per month Performed By: #### P T, BMP, CBC, HEPATIC #### [facility] [address] [place] [address] #### AFPTM #### [facility] , Lymphocytes [#/volume] in Bl ood by Automated countOrdered By: Imad Asaad on 12-29-2023 Lymphocytes (Bld) [#/Vol] 0.6 10*3/uL Low 1.00-4.8 [facility] Comment on above: Order Comment: Comme nt Standing order 1 time per month Performed By: #### P T, BMP, CBC, HEPATIC #### [facility] [address] [place] [address] [place] #### AFPTM #### [facility] , Lymphocytes/100 leukocytes i n Blood by Automated countOrdered By: Imad Asaad on 12-29-2023 Lymphocytes/100 WBC (Bld) 17.2 % Normal . [facility] Comment on above: Order Comment: Comme nt Standing order 1 time per month Performed By: #### P T, BMP, CBC, HEPATIC #### [facility] [address] [place] [address] [place] #### AFPTM #### [facility] , MCH [Entitic mass] by Automa katerin countOrdered By: Imad Asaad on 12-29-2023 MCH (RBC) [Entitic mass] 33.0 pg Normal 27.5-35.2 [facility] Comment on above: Order Comment: Comme nt Standing order 1 time per month Performed By: #### P T, BMP, CBC, HEPATIC #### [facility] [address] [place] [address] [place] #### AFPTM #### [facility] , MCHC Auto (RBC) [Mass/Vol]Or dered By: Imad Asaad on 12-29-2023 MCHC (RBC) [Mass/Vol] 33.6 g/dL 32.5-35.6 [facility] MCV [Entitic volume] by Auto mated countOrdered By: Imad Asaad on 12-29-2023 MCV (RBC) [Entitic vol] 98.1 fL Normal 83.5-101 [facility] Comment on above: Order Comment: Comme nt Standing order 1 time per month Performed By: #### P T, BMP, CBC, HEPATIC #### [facility] [address] [place] [address] [place] #### AFPTM #### [facility] , Neutrophils [#/volume] in Bl ood by Automated countOrdered By: Imad Asaad on 12-29-2023 Neutrophils (Bld) [#/Vol] 2.5 10*3/uL Normal 1.8-7.7 [facility] Comment on above: Order Comment: Comme nt Standing order 1 time per month Performed By: #### P T, BMP, CBC, HEPATIC #### [facility] [address] [place] [address] [place] #### AFPTM #### [facility] , No Panel InformationOrdered By: Imad Asaad on 12-29-2023 Estimated GFR (CKD-EPI) > 60.0 mL/Min [facility] Creatinine Clearance (Chem N/A [facility] Nucleated erythrocytes [Pres ence] in Blood by Automated countOrdered By: Imad Asaad on 12-29-2023 Nucleated RBC Auto Ql (Bld) 0.3 /100{WBC} 0-0.5 [facility] Platelet mean volume [Entiti c volume] in Blood by Automated countOrdered By: Imad Asaad on 12-29-2023 Platelet mean volume (Bld) [Entitic vol] 9.6 fL Normal 6.6-10.1 [facility] Comment on above: Order Comment: Comme nt Standing order 1 time per month Performed By: #### P T, BMP, CBC, HEPATIC #### [place] [address] [place] #### AFPTM #### [facility] , Platelets [#/volume] in Bloo d by Automated countOrdered By: Imad Asaad on 12-29-2023 Platelets (Bld) [#/Vol] 93 10*3/uL Low 150-450 [facility] Comment on above: Order Comment: Comme nt Standing order 1 time per month Performed By: #### P T, BMP, CBC, HEPATIC #### [address] #### AFPTM #### [facility] , Potassium [Moles/volume] in Serum or PlasmaOrdered By: Imad Asaad on 12-29-2023 Potassium [Moles/Vol] 4.2 mmol/L Normal 3.5-5.1 [facility] Comment on above: Order Comment: Comme nt Standing order 1 time per month Performed By: #### H EPATIC, CMP, CBC, PT #### [place] [address] [place] #### IGG, AFPTM #### [facility] , Protein [Mass/volume] in Ser um or PlasmaOrdered By: Imad Asaad on 12-29-2023 Protein [Mass/Vol] 6.4 g/dL Normal 6.4-8.9 [facility] Comment on above: Order Comment: Comme nt Standing order 1 time per month Performed By: #### P T, BMP, CBC, HEPATIC #### [place] [address] [place] #### AFPTM #### [facility] , Prothrombin time (PT)Ordered By: Imad Asaad on 12-29-2023 PT Coag (PPP) [Time] 13.6 s High 9.0-12.9 [facility] Comment on above: A hematocrit value g reater than 55% may lead to inaccurate results in coagulation testing. Patients having hematocrit values >55% require a special collection tube for coagulation studies. Please contact the laboratory at [phone] for redraw instructions. Order Comment: Comme nt Standing order 1 time per month Result Comment: A he matocrit value greater than 55% may lead to inaccurate results in coagulation testing. Patients having hematocrit values >55% require a special collection tube for coagulation studies. Please contact the laboratory at [phone] for redraw instructions. Performed By: #### H EPATIC, CMP, CBC, PT #### [facility] [address] [place] [address] #### IGG, AFPTM #### [facility] , Serum globulin measurement b y calculation (mass/volume)Ordered By: Imad Asaad on 12-29-2023 Globulin (S) [Mass/Vol] 2.5 g/dL [facility] Comment on above: Order Comment: Comme nt Standing order 1 time per month Performed By: #### P T, BMP, CBC, HEPATIC #### [facility] [address] [place] [address] [place] #### AFPTM #### [facility] , Serum or plasma albumin/glob ulin mass ratioOrdered By: Imad Asaad on 12-29-2023 Albumin/Globulin [Mass ratio] 1.6 {ratio} [facility] Comment on above: Order Comment: Comme nt Standing order 1 time per month Performed By: #### P T, BMP, CBC, HEPATIC #### [facility] [address] [place] [address] [place] #### AFPTM #### [facility] , Serum or plasma anion gap de terminationOrdered By: Imad Asaad on 12-29-2023 Anion gap [Moles/Vol] 11.8 mmol/L Normal 6.0-15.0 [facility] Comment on above: Order Comment: Comme nt Standing order 1 time per month Performed By: #### H EPATIC, CMP, CBC, PT #### [facility] [address] [place] [address] [place] #### IGG, AFPTM #### [facility] , Serum or plasma non-glucuron idated bilirubin measurement (mass/volume)Ordered By: Imad Asaad on 12-29-2023 Bilirubin.indirect [Mass/Vol] 1.6 mg/dL [facility] Sodium [Moles/volume] in Ser um or PlasmaOrdered By: Imad Asaad on 12-29-2023 Sodium [Moles/Vol] 137 mmol/L Normal 136-145 [facility] Comment on above: Order Comment: Comme nt Standing order 1 time per month Performed By: #### H EPATIC, CMP, CBC, PT #### [facility] [address] [place] [address] #### IGG, AFPTM #### [facility] , Urea nitrogen [Mass/volume] in Serum or PlasmaOrdered By: Imad Asaad on 12-29-2023 Urea nitrogen [Mass/Vol] 14 mg/dL Normal 7-25 [facility] Comment on above: Order Comment: Comme nt Standing order 1 time per month Performed By: #### H EPATIC, CMP, CBC, PT #### [facility] [address] [place] [address] #### IGG, AFPTM #### [facility] , Influenza virus B Ag [Presen ce] in Upper respiratory specimen by Rapid immunoassayon 11-01-2023 FLUBV Ag IA.rapid Ql (Nph) Negative [facility] No Panel Informationon 10-31 Influenza Type A (Rapid) Negative [facility] POC SARS CoV-2 Antigen Negative [facility] AFP Tumor Marker, Serumon AFP Tumor Marker, Serum 6.0 ng/mL Normal 0.0-8.4 [facility] Comment on above: Result Comment: Seesmic Electrochemiluminescence Immunoassay (ECLIA) Values obtained with different assay methods or kits cannot be used interchangeably. Results cannot be interpreted as absolute evidence of the presence or absence of malignant disease. This test is not interpretable in females. Performed at: [address] [id number] [employer] Specialist: Saqib Bennett PhD, Phone: [phone] Performed By: #### H EPATIC, CMP, CBC, PT #### [place] [address] [place] #### IGG, AFPTM #### [facility] , Alanine aminotransferase [En zymatic activity/volume] in Serum or PlasmaOrdered By: Imad Asaad on 10-20-2023 ALT [Catalytic activity/Vol] 153 U/L High 7-52 [facility] Comment on above: Performed By: #### H EPATIC, CMP, CBC, PT #### [place] [address] [place] #### IGG, AFPTM #### [facility] , Albumin [Mass/volume] in Ser um or Plasma by Bromocresol green (BCG) dye binding methoOrdered By: Imad Asaad on 10-20-2023 Albumin BCG dye [Mass/Vol] 4.1 g/dL 3.5-5.7 [facility] Alkaline phosphatase [Enzyma tic activity/volume] in Serum or PlasmaOrdered By: Imad Asaad on 10-20-2023 ALP [Catalytic activity/Vol] 101 U/L Normal 34-104 [facility] Comment on above: Performed By: #### H EPATIC, CMP, CBC, PT #### [facility] [address] [place] [address] [place] #### IGG, AFPTM #### [facility] , Aspartate aminotransferase [ Enzymatic activity/volume] in Serum or PlasmaOrdered By: Imad Asaad on 10-20-2023 AST [Catalytic activity/Vol] 191 U/L High 13-39 [facility] Comment on above: Performed By: #### H EPATIC, CMP, CBC, PT #### [place] [address] [place] #### IGG, AFPTM #### [facility] , Automated basophil %Ordered By: Imad Asaad on 10-20-2023 Basophils/100 WBC (Bld) 0.9 % Normal . [facility] Comment on above: Performed By: #### H EPATIC, CMP, CBC, PT #### [place] [address] [place] #### IGG, AFPTM #### [facility] , Automated basophil countOrde red By: Imad Asaad on 10-20-2023 Basophils (Bld) [#/Vol] 0.0 10*3/uL Normal 0.0-0.2 [facility] Comment on above: Result Comment: PERF ORMED BY: [place] [address] PATHOLOGIST [employer] JESSICA MILES M.D. Performed By: #### H EPATIC, CMP, CBC, PT #### [address] #### IGG, AFPTM #### [facility] , Automated blood monocyte cou ntOrdered By: Imad Asaad on 10-20-2023 Monocytes (Bld) [#/Vol] 0.5 10*3/uL Normal 0.0-0.8 [facility] Comment on above: Performed By: #### H EPATIC, CMP, CBC, PT #### [place] [address] [place] #### IGG, AFPTM #### [facility] , Automated eosinophil %Ordere d By: Imad Asaad on 10-20-2023 Eosinophils/100 WBC (Bld) 1.9 % Normal . [facility] Comment on above: Performed By: #### H EPATIC, CMP, CBC, PT #### [place] [address] [place] #### IGG, AFPTM #### [facility] , Automated eosinophil countOr dered By: Imad Asasupriya on 10-20-2023 Eosinophils (Bld) [#/Vol] 0.1 10*3/uL Normal 0.0-0.45 [facility] Comment on above: Performed By: #### H EPATIC, CMP, CBC, PT #### [place] [address] [place] #### IGG, AFPTM #### [facility] , Automated monocyte %Ordered By: Imad Asaad on 10-20-2023 Monocytes/100 WBC (Bld) 13.8 % Normal . [facility] Comment on above: Performed By: #### H EPATIC, CMP, CBC, PT #### [place] [address] [place] #### IGG, AFPTM #### [facility] , Automated neutrophil %Ordere d By: Imad Asaad on 10-20-2023 Neutrophils/100 WBC (Bld) 66.5 % Normal . [facility] Comment on above: Performed By: #### H EPATIC, CMP, CBC, PT #### [facility] [address] [place] [address] [place] #### IGG, AFPTM #### [facility] , Bilirubin.direct [Mass/volum e] in Serum or PlasmaOrdered By: Imad Asaad on 10-20-2023 Bilirubin.direct [Mass/Vol] 0.70 mg/dL 0.03-0.18 [facility] Bilirubin.total [Mass/volume ] in Serum or PlasmaOrdered By: Imad Asaad on 10-20-2023 Bilirubin [Mass/Vol] 2.3 mg/dL High 0.3-1.0 [facility] Comment on above: Samples from patient s who have taken Naproxen have shown spurious elevation in Total Bilirubin levels. A metabolite of Naproxen, O-desmethylnaproxen, has been shown to interfere with the Radha-Tio method for measuring Total Bilirubin. Result Comment: Samp les from patients who have taken Naproxen have shown spurious elevation in Total Bilirubin levels. A metabolite of Naproxen, O-desmethylnaproxen, has been shown to interfere with the Jendrassik-Grof method for measuring Total Bilirubin. Performed By: #### H EPATIC, CMP, CBC, PT #### [place] [address] [place] #### IGG, AFPTM #### [facility] , Calcium [Mass/volume] in Ser um or PlasmaOrdered By: Ana Muhammad on 10-20-2023 Calcium [Mass/Vol] 8.9 mg/dL Normal 8.6-10.3 [facility] Comment on above: Performed By: #### H EPATIC, CMP, CBC, PT #### [place] [address] [place] #### IGG, AFPTM #### [facility] , Carbon dioxide, total [Moles /volume] in Serum or PlasmaOrdered By: Ana Muhammad on 10-20-2023 CO2 [Moles/Vol] 25.2 mmol/L Normal 21.0-31.0 [facility] Comment on above: Performed By: #### H EPATIC, CMP, CBC, PT #### [facility] [address] [place] [address] [place] #### IGG, AFPTM #### [facility] , Chloride [Moles/volume] in S shanique or PlasmaOrdered By: Ana Muhammad on 10-20-2023 Chloride [Moles/Vol] 106 mmol/L Normal 98-107 [facility] Comment on above: Performed By: #### H EPATIC, CMP, CBC, PT #### [facility] [address] [place] [address] [place] #### IGG, AFPTM #### [facility] , Complete Blood Count Auto Di ffon 10-20-2023 Mean Corpuscular HGB Conc 34.1 g/dL Normal 32.5-35.6 [facility] Comment on above: Performed By: #### H EPATIC, CMP, CBC, PT #### [facility] [address] [place] [address] [place] #### IGG, AFPTM #### [facility] , NRBC% 0.3 /100{WBC} Normal 0-0.5 [facility] Comment on above: Performed By: #### H EPATIC, CMP, CBC, PT #### [facility] [address] [place] [address] [place] #### IGG, AFPTM #### [facility] , Comprehensive Metabolic Pane kenzie 10-20-2023 Albumin [Mass/Vol] 4.1 g/dL Normal 3.5-5.7 [facility] Comment on above: Performed By: #### H EPATIC, CMP, CBC, PT #### [place] [address] [place] #### IGG, AFPTM #### [facility] , GFR/1.73 sq M.predicted MDRD (S/P/Bld) [Vol rate/Area] mL/min/{1.73_m2} Normal [facility] Comment on above: Performed By: #### H EPATIC, CMP, CBC, PT #### [place] [address] [place] #### IGG, AFPTM #### [facility] , Creatinine [Mass/volume] in Serum or PlasmaOrdered By: Imad Asaad on 10-20-2023 Creatinine [Mass/Vol] 0.80 mg/dL Normal 0.70-1.30 [facility] Comment on above: Performed By: #### H EPATIC, CMP, CBC, PT #### [facility] [address] [place] [address] [place] #### IGG, AFPTM #### [facility] , Erythrocyte distribution wid th [Ratio] by Automated countOrdered By: Imad Asaad on 10-20-2023 Erythrocyte distribution width (RBC) [Ratio] 14.6 % Normal 12.0-14.8 [facility] Comment on above: Performed By: #### H EPATIC, CMP, CBC, PT #### [facility] [address] [place] [address] [place] #### IGG, AFPTM #### [facility] , Erythrocytes [#/volume] in B lood by Automated countOrdered By: Imad Asaad on 10-20-2023 RBC (Bld) [#/Vol] 4.94 10*6/uL Normal 3.90-5.60 [facility] Comment on above: Performed By: #### H EPATIC, CMP, CBC, PT #### [facility] [address] [place] [address] [place] #### IGG, AFPTM #### [facility] , Glucose [Mass/volume] in Ser um or PlasmaOrdered By: Imad Asaad on 10-20-2023 Glucose [Mass/Vol] 173 mg/dL High 70-100 [facility] Comment on above: ADA recommended refe rence rangeRandom Glucose Reference Range is dependent on time and content of last meal. Glucose of more than 200 mg/dL in a nonstressed, ambulatory subject supports the diagnosis of Diabetes Mellitus. Result Comment: [facility] Glucose Reference Range is dependent on time and content of last meal. Glucose of more than 200 mg/dL in a nonstressed, ambulatory subject supports the diagnosis of Diabetes Mellitus. ADA recommended reference range Performed By: #### H EPATIC, CMP, CBC, PT #### [facility] [address] [place] [address] [place] #### IGG, AFPTM #### [facility] , Hematocrit [Volume Fraction] of Blood by Automated countOrdered By: Imad Asaad on 10-20-2023 Hematocrit (Bld) [Volume fraction] 47.8 % Normal 38.8-50.0 [facility] Comment on above: Performed By: #### H EPATIC, CMP, CBC, PT #### [facility] [address] [place] [address] [place] #### IGG, AFPTM #### [facility] , Hemoglobin [Mass/volume] in BloodOrdered By: Ana Muhammad on 10-20-2023 Hemoglobin (Bld) [Mass/Vol] 16.3 g/dL Normal 13.0-17.0 [facility] Comment on above: Performed By: #### H EPATIC, CMP, CBC, PT #### [facility] [address] [place] [address] #### IGG, AFPTM #### [facility] , Hepatic Panelon 10-20-2023 Bilirubin,Indirect 1.6 mg/dL Normal [facility] Comment on above: Result Comment: PERF ORMED BY: [place] [address] PATHOLOGIST [employer] JESSICA MILES M.D. Performed By: #### H EPATIC, CMP, CBC, PT #### [address] #### IGG, AFPTM #### [facility] , Bilirubin.indirect [Mass/Vol] 0.70 mg/dL High 0.03-0.18 [facility] Comment on above: Performed By: #### H EPATIC, CMP, CBC, PT #### [address] #### IGG, AFPTM #### [facility] , INR in Platelet poor plasma by Coagulation assayOrdered By: Ana Muhammad on 10-20-2023 INR Coag (PPP) [Relative time] 1.2 {INR} Normal [facility] Comment on above: INR Therapeutic Rang [...] heart valves: 3 - 4.5 PERFORMED BY: [place] [address] PATHOLOGIST [employer] JESSICA MILES M.D. Performed By: #### H EPATIC, CMP, CBC, PT #### [facility] [address] [place] [address] #### IGG, AFPTM #### [facility] , IgG [Mass/volume] in Serum o r PlasmaOrdered By: Imad Asaad on 10-20-2023 IgG [Mass/Vol] 1026 mg/dL 603-1613 [facility] Comment on above: Performed at: [facility] [place] [address]Lab Director: Saqib Bennett PhD, Phone: [phone] Immunoglobulin Hal 4 Immunoglobulin G 1026 mg/dL Normal 603-1613 [facility] Comment on above: Result Comment: Perf ormed at: [facility] [place] [address] [employer] Specialist: Saqib Bennett PhD, Phone: [phone] PERFORMED BY: [place] [address] PATHOLOGIST [employer] JESSICA MILES M.D. Performed By: #### H EPATIC, CMP, CBC, PT #### [facility] [address] [place] [address] [place] #### IGG, AFPTM #### [facility] , Leukocytes [#/volume] correc katerin for nucleated erythrocytes in Blood by Automated counOrdered By: Imad Asaad on 10-20-2023 WBC corrected for nucl RBC Auto (Bld) [#/Vol] 3.6 10*3/uL 4.1-10.5 [facility] Leukocytes [#/volume] in Blo od by Automated countOrdered By: Imad Asaad on 10-20-2023 WBC (Bld) [#/Vol] 3.6 10*3/uL Low 4.1-10.5 [facility] Comment on above: Performed By: #### H EPATIC, CMP, CBC, PT #### [place] [address] [place] #### IGG, AFPTM #### [facility] , Lymphocytes [#/volume] in Bl ood by Automated countOrdered By: Imad Asaad on 10-20-2023 Lymphocytes (Bld) [#/Vol] 0.6 10*3/uL Low 1.00-4.8 [facility] Comment on above: Performed By: #### H EPATIC, CMP, CBC, PT #### [address] #### IGG, AFPTM #### [facility] , Lymphocytes/100 leukocytes i n Blood by Automated countOrdered By: Imad Asaad on 10-20-2023 Lymphocytes/100 WBC (Bld) 16.9 % Normal . [facility] Comment on above: Performed By: #### H EPATIC, CMP, CBC, PT #### [place] [address] [place] #### IGG, AFPTM #### [facility] , MCH [Entitic mass] by Automa katerin countOrdered By: Imad Asaad on 10-20-2023 MCH (RBC) [Entitic mass] 33.1 pg Normal 27.5-35.2 [facility] Comment on above: Performed By: #### H EPATIC, CMP, CBC, PT #### [facility] [address] [place] [address] [place] #### IGG, AFPTM #### [facility] , MCHC Auto (RBC) [Mass/Vol]Or dered By: Imad Asaad on 10-20-2023 MCHC (RBC) [Mass/Vol] 34.1 g/dL 32.5-35.6 [facility] MCV [Entitic volume] by Auto mated countOrdered By: Imad Asaad on 10-20-2023 MCV (RBC) [Entitic vol] 96.9 fL Normal 83.5-101 [facility] Comment on above: Performed By: #### H EPATIC, CMP, CBC, PT #### [facility] [address] [place] [address] [place] #### IGG, AFPTM #### [facility] , Neutrophils [#/volume] in Bl ood by Automated countOrdered By: Imad Asaad on 10-20-2023 Neutrophils (Bld) [#/Vol] 2.4 10*3/uL Normal 1.8-7.7 [facility] Comment on above: Performed By: #### H EPATIC, CMP, CBC, PT #### [facility] [address] [place] [address] [place] #### IGG, AFPTM #### [facility] , No Panel InformationOrdered By: Imad Asaad on 10-20-2023 Estimated GFR (CKD-EPI) > 60.0 mL/Min [facility] Creatinine Clearance (Chem N/A [facility] Nucleated erythrocytes [Pres ence] in Blood by Automated countOrdered By: Imad Asaad on 10-20-2023 Nucleated RBC Auto Ql (Bld) 0.3 /100{WBC} 0-0.5 [facility] Platelet mean volume [Entiti c volume] in Blood by Automated countOrdered By: Imad Asaad on 10-20-2023 Platelet mean volume (Bld) [Entitic vol] 9.0 fL Normal 6.6-10.1 [facility] Comment on above: Performed By: #### H EPATIC, CMP, CBC, PT #### [facility] [address] [place] [address] [place] #### IGG, AFPTM #### [facility] , Platelets [#/volume] in Bloo d by Automated countOrdered By: Imad Asaad on 10-20-2023 Platelets (Bld) [#/Vol] 84 10*3/uL Low 150-450 [facility] Comment on above: Performed By: #### H EPATIC, CMP, CBC, PT #### [address] #### IGG, AFPTM #### [facility] , Potassium [Moles/volume] in Serum or PlasmaOrdered By: Imad Asaad on 10-20-2023 Potassium [Moles/Vol] 4.3 mmol/L Normal 3.5-5.1 [facility] Comment on above: Performed By: #### H EPATIC, CMP, CBC, PT #### [address] #### IGG, AFPTM #### [facility] , Protein [Mass/volume] in Ser um or PlasmaOrdered By: Imad Asaad on 10-20-2023 Protein [Mass/Vol] 6.6 g/dL Normal 6.4-8.9 [facility] Comment on above: Performed By: #### H EPATIC, CMP, CBC, PT #### [address] #### IGG, AFPTM #### [facility] , Prothrombin time (PT)Ordered By: Imad Asaad on 10-20-2023 PT Coag (PPP) [Time] 13.7 s High 9.0-12.9 [facility] Comment on above: A hematocrit value g reater than 55% may lead to inaccurate results in coagulation testing. Patients having hematocrit values >55% require a special collection tube for coagulation studies. Please contact the laboratory at [phone] for redraw instructions. Result Comment: A he matocrit value greater than 55% may lead to inaccurate results in coagulation testing. Patients having hematocrit values >55% require a special collection tube for coagulation studies. Please contact the laboratory at [phone] for redraw instructions. Performed By: #### H EPATIC, CMP, CBC, PT #### [facility] [address] [place] [address] #### IGG, AFPTM #### [facility] , Serum globulin measurement b y calculation (mass/volume)Ordered By: Ana Muhammad on 10-20-2023 Globulin (S) [Mass/Vol] 2.5 g/dL [facility] Comment on above: Performed By: #### H EPATIC, CMP, CBC, PT #### [address] #### IGG, AFPTM #### [facility] , Serum or plasma albumin/glob ulin mass ratioOrdered By: Ana Muhammad on 10-20-2023 Albumin/Globulin [Mass ratio] 1.6 {ratio} [facility] Comment on above: Performed By: #### H EPATIC, CMP, CBC, PT #### [facility] [address] [place] [address] #### IGG, AFPTM #### [facility] , Serum or plasma [id number] protein tumor marker measurement (mass/volume)Ordered By: Ana Muhammad on 10-20-2023 AFP.tumor marker [Mass/Vol] 6.0 ng/mL 0.0-8.4 [facility] Comment on above: [employer] El ectrochemiluminescence Immunoassay(ECLIA)Values obtained with different assay methods or kits cannotbe used interchangeably. Results cannot be interpreted asabsolute evidence of the presence or absence of malignantdisease.This test is not interpretable in females.Performed at: [facility] [address] [id number] Director: Saqib Bennett PhD, Phone: [phone] Serum or plasma anion gap de terminationOrdered By: Ana Muhammad on 10-20-2023 Anion gap [Moles/Vol] 11.1 mmol/L Normal 6.0-15.0 [facility] Comment on above: Performed By: #### H EPATIC, CMP, CBC, PT #### [place] [address] [place] #### IGG, AFPTM #### [facility] , Serum or plasma non-glucuron idated bilirubin measurement (mass/volume)Ordered By: Ana Muhammad on 10-20-2023 Bilirubin.indirect [Mass/Vol] 1.6 mg/dL [facility] Sodium [Moles/volume] in Ser um or PlasmaOrdered By: Ana Muhammad on 10-20-2023 Sodium [Moles/Vol] 138 mmol/L Normal 136-145 [facility] Comment on above: Performed By: #### H EPATIC, CMP, CBC, PT #### [address] #### IGG, AFPTM #### [facility] , [place] liveron 10-20-2023 liver [facility] [place] [address] [place] [address] Ultrasound Report Signed Patient: Nir Ewing MR#: [id number] 32 : 1965 Acct:[id number] Age/Sex: 58 / M ADM Date: 10/20/23 Loc: Room: Type: [facility] Attending Dr: Ana Muhammad MD Ordering Provider: [...] PROCESS.. Impression dictated by: Don Santillan Jr., D.O.10/20/2023 1:53 PM Dictation Location: [place] [address] Tech: Johanny Huitron Transcribed By: GABY 10/20/23 1353 Dictated By: Don Sanitllan Jr, DO 10/20/23 1352 Signed By: 10/20/23 1353 Normal [facility] Urea nitrogen [Mass/volume] in Serum or PlasmaOrdered By: Ana Muhammad on 10-20-2023 Urea nitrogen [Mass/Vol] 12 mg/dL Normal 7-25 [facility] Comment on above: Performed By: #### H EPATIC, CMP, CBC, PT #### [facility] [address] [place] [address] [place] #### IGG, AFPTM #### [facility] , HbA1c (Bld)on 08-22-2023 Average glucose Estimated from glycated hemoglobin (Bld) [Mass/Vol] 151 mg/dL Normal [facility] Comment on above: Order Comment: Farnaz rodgers Type: BLOOD SPECIMEN Ordering Facility: [facility] Address: [address] [place] [address] Result Comment: eAG: (Estimated average glucose) is a calculated value from HgbA1c and is account service representative of the average blood glucose level in the last 2-3 month period. Performed By: #### 2 4323-8, 18037-9 #### [facility] CLIA [id number] [address] [place] [address] HbA1c (Bld) [Mass fraction] 6.9 % High 4.3-5.[address] [facility] Comment on above: Order Comment: Farnaz rodgers Type: BLOOD SPECIMEN Ordering Facility: [facility] Address: [address] [place] [address] Result Comment: Amer [place] Diabetes Association guidelines indicate that patients with HgbA1c in the range 5.7-6.4% are at increased risk for development of diabetes, and intervention by lifestyle modification may be beneficial. HgbA1c greater or equal to 6.5% is considered diagnostic of diabetes. Performed By: #### 2 4323-8, 39122-8 #### [facility] CLIA [id number] [address] [place], [place] [id number] Hepatic function 2000 panelo n 08-22-2023 Albumin [Mass/Vol] 4.1 g/dL Normal 3.9-4.9 [facility] Comment on above: Order Comment: Speci men Type: BLOOD SPECIMEN Ordering Facility: [facility] Address: [address] [place] [address] Performed By: #### 2 4323-8, 46828-1 #### [facility] CLIA [id number] [address] [place] [address] ALP [Catalytic activity/Vol] 112 U/L Normal 38-[address] [facility] Comment on above: Order Comment: Speci men Type: BLOOD SPECIMEN Ordering Facility: [facility] Address: [address] [place] [address] Performed By: #### 2 4323-8, 26386-7 #### [facility] CLIA [id number] [address] [place] [address] ALT [Catalytic activity/Vol] 102 U/L High 10-[address] [facility] Comment on above: Order Comment: Speci men Type: BLOOD SPECIMEN Ordering Facility: [facility] Address: [address] [place] [id number] Performed By: #### 2 3-8, 78394-6 #### [facility] CLIA [id number] [address] [place] [address] AST [Catalytic activity/Vol] 111 U/L High 14-[address] [facility] Comment on above: Order Comment: Speci men Type: BLOOD SPECIMEN Ordering Facility: [facility] Address: [address] [place] [address] Performed By: #### 2 4323-8, 17051-8 #### [facility] CLIA [id number] [address] [place] [address] Bilirubin [Mass/Vol] 1.9 mg/dL High 0.2-1.3 [facility] Comment on above: Order Comment: Speci men Type: BLOOD SPECIMEN Ordering Facility: [facility] Address: [address] [place] [id number] Performed By: #### 2 4323-8, 49216-9 #### [facility] CLIA [id number] [address] [place] [address] Bilirubin.conjugated [Mass/Vol] 0.4 mg/dL High <0.[address] [facility] Comment on above: Order Comment: Speci men Type: BLOOD SPECIMEN Ordering Facility: [facility] Address: [address] [place] [address] Performed By: #### 2 4323-8, 01459-5 #### [facility] CLIA [id number] [address] [place] [address] Protein [Mass/Vol] 6.9 g/dL Normal 6.3-8.0 [facility] Comment on above: Order Comment: Speci men Type: BLOOD SPECIMEN Ordering Facility: [facility] Address: [address] [place] [address] Performed By: #### 2 4323-8, 54656-7 #### [facility] CLIA [id number] [address] [place] [address] ALBUMIN/CREAT RATIO RND URon 05-19-2023 Albumin DL <= 20 mg/L (U) [Mass/Vol] mg/dL Normal [facility] Comment on above: Order Comment: Speci men Type: BLOOD SPECIMEN Ordering Facility: [facility] Address: [address] [place] [address] Performed By: #### 2 4323-8, 96596-6 #### [facility] CLIA [id number] [address] [place] [address] Albumin/Creatinine (U) [Mass ratio] <22 Normal <[address] [facility] Comment on above: Order Comment: Speci men Type: BLOOD SPECIMEN Ordering Facility: [facility] Address: [address] [place] [address] Result Comment: Adul t Male and Female Nephrotic Criteria: <30 mg/g is considered normal to mildly increased 30-300 mg/g is considered moderately increased >300 mg/g is considered severely increased KDIGO. (2013). KDIGO 2012 Clinical Practice Guideline for the Evaluation and Management of Chronic Kidney Disease. Official Journal of the International Society of Nephrology, 3(1), 1-150. Performed By: #### 2 4323-8, 33781-6 #### [facility] CLIA [id number] [address] [place] [address] Creatinine (U) [Mass/Vol] 55.0 mg/dL Normal 20.0-300.[address] [facility] Comment on above: Order Comment: Speci men Type: BLOOD SPECIMEN Ordering Facility: [facility] Address: [address] [place] [address] Performed By: #### 2 4323-8, 92015-3 #### [facility] CLIA [id number] [address] [place] [address] Bilirub Conj SerPl-ncon Bilirubin.conjugated [Mass/Vol] 0.5 mg/dL High <0.[address] [facility] Comment on above: Order Comment: Speci men Type: BLOOD SPECIMEN Ordering Facility: [facility] Address: [address] [place] [address] Performed By: #### 2 4323-8, 66650-6 #### [facility] CLIA [id number] [address] [place] [address] Comprehensive metabolic 2000 panelon 05-19-2023 Albumin [Mass/Vol] 3.8 g/dL Low 3.9-4.9 [facility] Comment on above: Order Comment: Speci men Type: BLOOD SPECIMEN Ordering Facility: [facility] Address: [address] [place] [address] Performed By: #### 2 4323-8, 32420-9 #### [facility] CLIA [id number] [address] [place] [address] ALP [Catalytic activity/Vol] 107 U/L Normal 38-[address] [facility] Comment on above: Order Comment: Speci men Type: BLOOD SPECIMEN Ordering Facility: [facility] Address: [address] [place] [address] Performed By: #### 2 4323-8, 00372-3 #### [facility] CLIA [id number] [address] [place] [address] ALT [Catalytic activity/Vol] 131 U/L High 10-[address] [facility] Comment on above: Order Comment: Speci men Type: BLOOD SPECIMEN Ordering Facility: [facility] Address: [address] [place] [address] Performed By: #### 2 4323-8, 59312-2 #### [facility] CLIA [id number] [address] [place] [address] Anion gap [Moles/Vol] 10 mmol/L Normal 9-18 [facility] Comment on above: Order Comment: Speci men Type: BLOOD SPECIMEN Ordering Facility: [facility] Address: [address] [place] [address] Performed By: #### 2 4323-8, 85882-7 #### [facility] CLIA [id number] [address] [place] [address] AST [Catalytic activity/Vol] 154 U/L High 14-[address] [facility] Comment on above: Order Comment: Speci men Type: BLOOD SPECIMEN Ordering Facility: [facility] Address: [address] [place] [address] Performed By: #### 2 4323-8, 58908-9 #### [facility] CLIA [id number] [address] [place] [address] Bilirubin [Mass/Vol] 2.2 mg/dL High 0.2-1.3 [facility] Comment on above: Order Comment: Speci men Type: BLOOD SPECIMEN Ordering Facility: [facility] Address: [address] [place] [address] Performed By: #### 2 4323-8, 93541-9 #### [facility] CLIA [id number] [address] [place] [address] Calcium [Mass/Vol] 9.0 mg/dL Normal 8.5-10.2 [facility] Comment on above: Order Comment: Speci men Type: BLOOD SPECIMEN Ordering Facility: [facility] Address: [address] [place] [address] Performed By: #### 2 4323-8, 87034-0 #### [facility] CLIA [id number] [address] [place] [address] Chloride [Moles/Vol] 107 mmol/L High 97-105 [facility] Comment on above: Order Comment: Speci men Type: BLOOD SPECIMEN Ordering Facility: [facility] Address: [address] [place] [address] Performed By: #### 2 4323-8, 84529-3 #### [facility] CLIA [id number] [address] [place] [address] CO2 [Moles/Vol] 22 mmol/L Normal 22-[address] [facility] Comment on above: Order Comment: Speci men Type: BLOOD SPECIMEN Ordering Facility: [facility] Address: [address] [place] [address] Performed By: #### 2 4323-8, 46161-2 #### [facility] CLIA [id number] [address] [place] [address] Creatinine [Mass/Vol] 0.95 mg/dL Normal 0.73-1.22 [facility] Comment on above: Order Comment: Speci men Type: BLOOD SPECIMEN Ordering Facility: [facility] Address: [address] [place] [address] Performed By: #### 2 4323-8, 73665-2 #### [facility] CLIA [id number] [address] [place] [address] Creatinine and Glomerular filtration rate.predicted panel (S/P/Bld) 93 mL/min/1.73m??? Normal >=[address] [facility] Comment on above: Order Comment: Speci men Type: BLOOD SPECIMEN Ordering Facility: [facility] Address: [address] [place] [address] Result Comment: Goldie mated Glomerular Filtration Rate [...] actual GFR. Performed By: #### 2 4323-8, 80580-2 #### [facility] CLIA [id number] [address] [place] [address] Glucose [Mass/Vol] 166 mg/dL High 74-99 [facility] Comment on above: Order Comment: Speci men Type: BLOOD SPECIMEN Ordering Facility: [facility] Address: [address] [place] [address] Result Comment: The [employer] Diabetes Association (ADA) provides guidance for cutoff [...] Standards of Medical Care in Diabetes 2016, [employer] Diabetes Association. Diabetes Care. 2016.39(Suppl 1). Performed By: #### 2 4323-8, 65086-6 #### [facility] CLIA [id number] [address] [place] [address] 8[address]12 Potassium [Moles/Vol] 4.4 mmol/L Normal 3.7-5.1 [facility] Comment on above: Order Comment: Wendiei ana maria Type: BLOOD SPECIMEN Ordering Facility: [facility] Address: [address] [place] [address] Performed By: #### 2 4323-8, 89227-7 #### [facility] CLIA [id number] [address] [place] [address] Protein [Mass/Vol] 6.6 g/dL Normal 6.3-8.0 [facility] Comment on above: Order Comment: Wendiei men Type: BLOOD SPECIMEN Ordering Facility: [facility] Address: [address] [place] [address] Performed By: #### 2 4323-8, 92024-7 #### [facility] CLIA [id number] [address] [place] [address]22 Sodium [Moles/Vol] 139 mmol/L Normal 136-144 [facility] Comment on above: Order Comment: Speci men Type: BLOOD SPECIMEN Ordering Facility: [facility] Address: [address] [place] [address] Performed By: #### 2 4323-8, 95957-8 #### [facility] CLIA [id number] [address] [place] [address]2904 Urea nitrogen [Mass/Vol] 14 mg/dL Normal 9-[address] [facility] Comment on above: Order Comment: Speci men Type: BLOOD SPECIMEN Ordering Facility: [facility] Address: [address] [place] [address] Performed By: #### 2 4323-8, 19247-4 #### [facility] CLIA [id number] [address] [place] [address] 40718 HbA1c (Bld)on 05-19-2023 Average glucose Estimated from glycated hemoglobin (Bld) [Mass/Vol] 166 mg/dL Normal [facility] Comment on above: Order Comment: Speci men Type: BLOOD SPECIMEN Ordering Facility: [facility] Address: [address] [place] [address] Result Comment: eAG: (Estimated average glucose) is a calculated value from HgbA1c and is account service representative of the average blood glucose level in the last 2-3 month period. Performed By: #### 5 5454-3 #### [facility] CLIA [id number] [address] [facility] [id number] [address] [place] HbA1c (Bld) [Mass fraction] 7.4 % High 4.3-5.[address] [facility] Comment on above: Order Comment: Speci men Type: BLOOD SPECIMEN Ordering Facility: [facility] Address: [address] [place] [address] Result Comment: Amer ican Diabetes Association guidelines indicate that patients with HgbA1c in the range 5.7-6.4% are at increased risk for development of diabetes, and intervention by lifestyle modification may be beneficial. HgbA1c greater or equal to 6.5% is considered diagnostic of diabetes. Performed By: #### 5 5454-3 #### [facility] CLIA [id number] [address] [place] [address] [place] Lipid 1996 panelon 3 Cholesterol [Mass/Vol] 134 mg/dL Normal <200 [facility] Comment on above: Order Comment: Speci men Type: BLOOD SPECIMEN Ordering Facility: [facility] Address: [address] [place] [address] Result Comment: <200 mg/dL, Desirable 200-239 mg/dL, Borderline high >239 mg/dL, High Performed By: #### 2 4331-1 #### [facility] CLIA [id number] [address] [facility] CLIA [id number] [address] [place] [address] Cholesterol in HDL [Mass/Vol] 33 mg/dL Low >[address] [facility] Comment on above: Order Comment: Farnaz rodgers Type: BLOOD SPECIMEN Ordering Facility: [facility] Address: [address] [place] [address] Result Comment: 40-5 9 mg/dL, Acceptable >59 mg/dL, High: Negative risk factor for coronary heart disease <40 mg/dL, Low: Positive risk factor for coronary heart disease Performed By: #### 2 4331-1 #### [facility] CLIA [id number] [address] [facility] CLIA [id number] [address] [place] [address] Cholesterol in LDL [Mass/Vol] 83 mg/dL Normal <[address] [facility] Comment on above: Order Comment: Wendiei men Type: BLOOD SPECIMEN Ordering Facility: [facility] Address: [address] [place] [address] Result Comment: <100 mg/dL, Optimal 100-129 mg/dL, Near optimal/above optimal 130-159 mg/dL, Borderline high 160-189 mg/dL, High >189 mg/dL, Very high Secondary prevention optimal LDL Cholesterol levels are recommended to be < 70 mg/dL Performed By: #### 2 4331-1 #### [facility] CLIA [id number] [address] [facility] [address] [facility] CLIA [id number] [address] [place] [address] Cholesterol in LDL/Cholesterol in HDL [Mass ratio] 2.52 {ratio} Normal <2.[address] [facility] Comment on above: Order Comment: Speci men Type: BLOOD SPECIMEN Ordering Facility: [facility] Address: [address] [place] [address] Result Comment: Felipe hutchison: 1. National Cholesterol Education Program ATP III Guideline At-A-Glance Quick Desk Reference: National Heart, Lung, and Blood [place]. National Institutes of Health. 2001: NIH Publication No. 01-3305. 2. An International Atherosclerosis Society position paper: global recommendations for the management of dyslipidemia: executive summary, Atherosclerosis. 2014: 232(2):410-413. Performed By: #### 2 4331-1 #### [facility] CLIA [id number] [address] [facility] CLIA [id number] [address] [place] [address] Cholesterol in VLDL [Mass/Vol] 18 mg/dL Normal <[address] [facility] Comment on above: Order Comment: Speci men Type: BLOOD SPECIMEN Ordering Facility: [facility] Address: [address] [place] [address] Performed By: #### 2 4331-1 #### [facility] CLIA [id number] [address] [facility] [address] [facility] CLIA [id number] [address] [place] [address]176 Cholesterol non HDL [Mass/Vol] 101 mg/dL Normal <[address] [facility] Comment on above: Order Comment: Speci men Type: BLOOD SPECIMEN Ordering Facility: [facility] Address: [address] [place] [address] Result Comment: <130 mg/dL, Optimal 130-159 mg/dL, Near optimal/above optimal 160-189 mg/dL, Borderline high 190-219 mg/dL, High >219 mg/dL, Very high Secondary prevention optimal non HDL Cholesterol levels are recommended to be <100 mg/dL Performed By: #### 2 4331-1 #### [facility] CLIA [id number] [address] [place], [place] [address] [facility] CLIA [id number] [address] [place] [address] 22844 Cholesterol.total/Chol esterol in HDL [Mass ratio] 4.06 {ratio} Normal <5.[address] [facility] Comment on above: Order Comment: Speci men Type: BLOOD SPECIMEN Ordering Facility: [facility] Address: [address] [place] [address] Performed By: #### 2 4331-1 #### [facility] CLIA [id number] [address] [place], [place] [address] [facility] CLIA [id number] [address] [place] [address] 80095 FASTING TIME 12 hrs Normal [facility] Comment on above: Order Comment: Speci men Type: BLOOD SPECIMEN Ordering Facility: [facility] Address: [address] [place] [address] Performed By: #### 2 4331-1 #### [facility] CLIA [id number] [address] [place] [address] [facility] CLIA [id number] [address] [place] [address] 50134 Triglyceride [Mass/Vol] 90 mg/dL Normal <[address] [facility] Comment on above: Order Comment: Speci men Type: BLOOD SPECIMEN Ordering Facility: [facility] Address: [address] [place] [address] Result Comment: <150 mg/dL, Normal 150-199 mg/dL, Borderline high 200-499 mg/dL, High >499 mg/dL, Very high Performed By: #### 2 4331-1 #### [facility] CLIA [id number] [address] [facility] [id number] [facility] CLIA [id number] [address] [place] [address] 11520 Hepatic function 2000 panelo n 04-04-2023 Albumin [Mass/Vol] 3.8 g/dL Low 3.9-4.9 [facility] Comment on above: Order Comment: Speci men Type: BLOOD SPECIMEN Ordering Facility: [facility] Address: [address] [place] [address] Performed By: #### 2 4325-3 #### [facility] CLIA [id number] [address] [place] [address]47[address] ALP [Catalytic activity/Vol] 107 U/L Normal 38-[address] [facility] Comment on above: Order Comment: Speci men Type: BLOOD SPECIMEN Ordering Facility: [facility] Address: [address] [place] [address] Performed By: #### 2 4325-3 #### [facility] CLIA [id number] [address] [place] [address] 84051 ALT [Catalytic activity/Vol] 139 U/L High 10-[address] [facility] Comment on above: Order Comment: Speci men Type: BLOOD SPECIMEN Ordering Facility: [facility] Address: [address] [place] [address] Performed By: #### 2 4325-3 #### [facility] CLIA [id number] [address] [place] [address] 28403 AST [Catalytic activity/Vol] 147 U/L High 14-[address] [facility] Comment on above: Order Comment: Speci men Type: BLOOD SPECIMEN Ordering Facility: [facility] Address: [address] [place] [address] Performed By: #### 2 4325-3 #### [facility] CLIA [id number] [address] [place] [address] 67344 Bilirubin [Mass/Vol] 2.0 mg/dL High 0.2-1.3 [facility] Comment on above: Order Comment: Speci men Type: BLOOD SPECIMEN Ordering Facility: [facility] Address: [address] [place] [address] Performed By: #### 2 4325-3 #### [facility] CLIA [id number] [address] [place] [address]255 Bilirubin.conjugated [Mass/Vol] 0.4 mg/dL High <0.[address] [facility] Comment on above: Order Comment: Speci men Type: BLOOD SPECIMEN Ordering Facility: [facility] Address: [address] [place] [address] Performed By: #### 2 4325-3 #### [facility] CLIA [id number] [address] [place] [address] 80941 Protein [Mass/Vol] 6.5 g/dL Normal 6.3-8.0 [facility] Comment on above: Order Comment: Speci men Type: BLOOD SPECIMEN Ordering Facility: [facility] Address: [address] [place] [address] Performed By: #### 2 4325-3 #### [facility] CLIA [id number] [address] [place] [address] No Panel Informationon 02-25 [facility] US ABD RIGHT UPPER QUADRANTo n 02-25-2023 [...] liver echotexture, compatible with cirrhosis. 2. Splenomegaly. Agricultural Engineering Teacher: REYES Transcribe Date/Time: Feb 25 2023 10:03A Dictated by : RENETTA AMEZCUA MD This examination was interpreted and the report reviewed and electronically signed by: RENETTA AMEZCUA MD on Feb 25 2023 10:07AM EST [id number] Normal [facility] US ABD SPLEEN -NBon 02-26-20 US ABD [...] liver echotexture, compatible with cirrhosis. 2. Splenomegaly. Agricultural Engineering Teacher: REYES Transcribe Date/Time: Feb 25 2023 10:03A Dictated by : RENETTA AMEZCUA MD This examination was interpreted and the report reviewed and electronically signed by: RENETTA AMEZCUA MD on Feb 25 2023 10:07AM EST [id number] Normal [facility] VC CONSULT FOLLOWUPon 2022 VC CONSULT FOLLOWUP Patient: Mira EWING Exam Date: 12/02/2022 : 1965 Gender:M Ordering : DR ADALID ORLANDO M.D. Admission #: [id number] Family : Order #: [id number] CLICK HERE TO VIEW EXAM RADIOLOGY REPORT [...] Lo M.D. on 12/02/2022 at 14:41 Normal [facility] VC EXT VENOUS RT LIMITEDon 0 12-02-2022 VC EXT VENOUS RT LIMITED Patient: NIR EWING Exam Date: 12/02/2022 : 1965 Gender:M Ordering : DR ADALID ORLANDO M.D. Admission #: [id number] Family : Order #: [id number] CLICK HERE TO VIEW EXAM RADIOLOGY REPORT [...] Lo M.D. on 12/02/2022 at 14:39 Normal [facility] VC ENDOVENOUS ABL 1ST V RTon 11-29-2022 VC ENDOVENOUS ABL 1ST V RT Patient: NIR EWING Exam Date: 11/29/2022 : 1965 Gender:M Ordering : DR ADALID ORLANDO M.D. Admission #: [id number] Family : Order #: [id number] CLICK HERE TO VIEW EXAM RADIOLOGY REPORT [...] Orlando MD on 11/29/2022 at 09:26 Normal [facility] VC CONSULT FOLLOWUPon 2022 VC CONSULT FOLLOWUP Patient: Mira EWING Exam Date: 11/18/2022 : 1965 Gender:M Ordering : DR ADALID ORLANDO M.D. Admission #: [id number] Family : Order #: [id number] CLICK HERE TO VIEW EXAM RADIOLOGY REPORT [...] Lo M.D. on 11/18/2022 at 11:59 Normal [facility] VC EXT VENOUS LT LIMITEDon 0 11-18-2022 VC EXT VENOUS LT LIMITED Patient: NIR EWING Exam Date: 11/18/2022 : 1965 Gender:M Ordering : DR ADALID ORLANDO M.D. Admission #: [id number] Family : Order #: [id number] CLICK HERE TO VIEW EXAM RADIOLOGY REPORT [...] Lo M.D. on 11/18/2022 at 11:57 Normal [facility] VC ENDOVENOUS ABL 1ST V LTon 11-14-2022 VC ENDOVENOUS ABL 1ST V LT Patient: NIR EWING Exam Date: 11/14/2022 : 1965 Gender:M Ordering : DR ADALID ORLANDO M.D. Admission #: [id number] Family : Order #: [id number] CLICK HERE TO VIEW EXAM RADIOLOGY REPORT [...] Lo M.D. on 11/14/2022 at 09:54 Normal [facility] VC CONSULT FOLLOWUPon 2022 VC CONSULT FOLLOWUP Patient: Mira EWING Exam Date: 10/21/2022 : 1965 Gender:M Ordering : DR ADALID ORLANDO M.D. Admission #: [id number] Family : Order #: [id number] CLICK HERE TO VIEW EXAM RADIOLOGY REPORT [...] Ivy Lo M.D. on 10/21/2022 at 14:31 [facility] VC EXT VENOUS RT LIMITEDon 0 10-21-2022 VC EXT VENOUS RT LIMITED Patient: NIR EWING Exam Date: 10/21/2022 : 1965 Gender:M Ordering : DR ADALID ORLANDO M.D. Admission #: [id number] Family : Order #: [id number] CLICK HERE TO VIEW EXAM RADIOLOGY REPORT [...] Lo M.D. on 10/21/2022 at 14:28 Normal [facility] VC ENDOVENOUS ABL 1ST V RTon 10-17-2022 VC ENDOVENOUS ABL 1ST V RT Patient: NIR EWING Exam Date: 10/17/2022 : 1965 Gender:M Ordering : DR ADALID ORLANDO M.D. Admission #: [id number] Family : Order #: [id number] CLICK HERE TO VIEW EXAM RADIOLOGY REPORT PROCEDURE: VEIN CENTER ENDOVENOUS ABLATION FIRST VEIN RIGHT GREAT SAPHENOUS VEIN COMPARISON: None. INDICATIONS: Pain co-occurrent and due to varicose veins of bilateral legs i83.813 OPERATIVE REPORT: The risks and benefits of the procedure had been previously discussed, and were rediscussed at length. Informed written consent was obtained by oh and José Luis Damian assisted. Time out procedure was performed. The right [...] Adalid Orlando MD on 10/17/2022 at 09:09 [facility] VC CONSULT FOLLOWUPon 2022 VC CONSULT FOLLOWUP Patient: Mira EWING Exam Date: 10/08/2022 : 1965 Gender:M Ordering : DR ADALID ORLANDO M.D. Admission #: [id number] Family : Order #: [id number] CLICK HERE TO VIEW EXAM RADIOLOGY REPORT [...] Lo M.D. on 10/08/2022 at 09:47 Normal [facility] VC EXT VENOUS LT LIMITEDon 0 10-08-2022 VC EXT VENOUS LT LIMITED Patient: NIR EWING Exam Date: 10/08/2022 : 1965 Gender:M Ordering : DR ADALID ORLANDO M.D. Admission #: [id number] Family : Order #: [id number] CLICK HERE TO VIEW EXAM RADIOLOGY REPORT [...] Lo M.D. on 10/08/2022 at 09:43 Normal [facility] VC ENDOVENOUS ABL 1ST V LTon 10-03-2022 VC ENDOVENOUS ABL 1ST V LT Patient: NIR EWING Exam Date: 10/03/2022 : 1965 Gender:M Ordering : DR ADALID ORLANDO M.D. Admission #: [id number] Family : Order #: [id number] CLICK HERE TO VIEW EXAM RADIOLOGY REPORT PROCEDURE: VEIN CENTER ENDOVENOUS ABLATION FIRST VEIN LEFT GREAT SAPHENOUS VEIN COMPARISON: None. INDICATIONS: Pain co-occurrent and due to varicose veins of bilateral legs I83.813 OPERATIVE REPORT: The risks and benefits of the procedure had been previously discussed, and were rediscussed at length. Informed written consent was obtained by oh and José Luis Damian assisted. Time out procedure was performed. The left [...] on 10/03/2022 at 09:21 Approved by: Adalid Orlando MD on 10/03/2022 at 09:22 [facility] ANES POSTPROC EVALon -14-2 023 ANES POSTPROC EVAL HNO ID: [id number] Author: Adalid Mccollum MD Service: Anesthesiology Author Type: Anesthesiologist Type: Anesthesia Postprocedure Evaluation Filed: 10/01/2022 1:28 PM Note Text: POST ANESTHESIA EVALUATION NOTE : 1965 Procedure Summary Date: 10/01/22 Room / Location: Procedures Anesthesia Start: 1032 Anesthesia Stop: 105 Procedure: EGD DIAGNOSTIC Diagnosis: Biliary cirrhosis (HCC) Autoimmune hepatitis treated with steroids (HCC) Other cirrhosis of liver (HCC) (Cirrhosis with suspected esophageal varices) Scheduled Providers: Debra Mcbride MD; Adalid Mccollum MD; Sheree Jha APRN.CRNA; Viviana Giraldo RN Responsible Provider: Adalid Mccollum [...] October 01, 2022 TIME: 1:28 PM CSN: [id number] [facility] ANES PRE-OPon 10-01-2022 ANES PRE-OP HNO ID: [id number] Author: Adalid Mccollum MD Service: Anesthesiology Author Type: Anesthesiologist Type: Anesthesia Preprocedure Evaluation Filed: 10/01/2022 9:48 AM Note Text: ANESTHESIOLOGY DAY OF SURGERY NOTE : 1965 Procedure Information Date/Time: 10/01/22 0900 Scheduled providers: Debra Mcbride MD; Adalid Mccollum MD; Sheree Jha APRN.CLIENT FINANCE ANALYST; Viviana Giraldo RN Procedure: EGD DIAGNOSTIC Location: [...] unit(s) with breakfast and dinner on non work; inject sq 7 unit(s) with breakfast and [...] sugar 3 times a day. - Insulin Sugar Run, Disposable, (BD ULTRA-FINE MARISSA PEN NEEDLE) 32 [...] Nir Ewing DATE: October 01, 2022 TIME: 9:47 AM CSN: [id number] [facility] 10-01-2022 CNPN Telephone (AVPRAD) -- NIR EWING ([id number]) 1965 M Date Time Provider Department 10/01/22 [...] sugar 3 times a day. - Insulin Sugar Run, Disposable, (BD ULTRA-FINE MARISSA PEN NEEDLE) 32 gauge x Use as directed - insulin degludec (TRESIBA [...] by mouth twice daily. 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 Procedure Code(s): --- Professional --- 86240, Esophagogastroduodenoscopy , flexible, transoral; diagnostic, including collection of specimen(s) by brushing or washing, when performed (separate procedure) CPT copyright 2020 [employer]. All rights reserved. The codes documented in this report are preliminary and upon campaign fundraiser review may be revised to meet current compliance requirements. Attending Participation: I personally performed the entire procedure. Scope In: Scope Out: MD Debra Husain MD 10/01/2022 10:57:06 AM This report has been signed electronically by Debra Mcbride MD Number of Addenda: 0 Note Initiated On: 10/01/2022 10:09 AM Estimated Blood Loss: Estimated blood loss: none. [facility] 09-17-2022 [facility] Telephone ([facility]) -- NIR EWING S ([id number]) 1965 M Date Time Provider Department 09/17/22 DEBRA HOPKINSRAD During your visit today, we recorded the [...] sugar 3 times a day. - Insulin Sugar Run, Disposable, (BD ULTRA-FINE MARISSA PEN NEEDLE) 32 [...] Encounter Status:Closed by DEBRA BUENO on 09/19/22 [facility] VC COMP CONSULTATIONon 09-06 VC COMP CONSULTATION Patient: NIR EWING Exam Date: 09/06/2022 : 1965 Gender:M Ordering : FRANKLIN CHASE . Admission #: [id number] Family : Order #: [id number] CLICK HERE TO VIEW EXAM RADIOLOGY REPORT [...] saphenous vein, left small saphenous vein, bilateral research chemist veins and bilateral multiple incompetent branch saphenous [...] arterial disease 5. CEAP: C4A, EC, AP, [place] PLAN: 1. Continued use of compression stockings [...] Lo M.D. on 09/06/2022 at 11:14 Normal [facility] VC VENOUS REFLUX PHILIP LMTon 0 09-06-2022 VC VENOUS REFLUX PHILIP LMT Patient: NIR EWING Exam Date: 09/06/2022 : 1965 Gender:M Ordering : FRANKLIN Feliciano Admission #: [id number] Family : DR ADALID ORLANDO M.D. Order #: [id number] CLICK HERE TO VIEW EXAM RADIOLOGY REPORT [...] chronic thrombus visualized Compressibility: Normal Flow: Normal Account Support Associate: Dist/med calf 2.4mm with 1.0s reflux. Mid/med [...] Lo M.D. on 09/06/2022 at 11:07 Normal [facility] No Panel Informationon 08-12 [facility] No Panel Informationon 07-05 [facility] US ABD RT UPPER QUADRANTon 0 10-05-2020 [facility] DXA-AXIAL SKELETONon [facility] US ABD RT UPPER QUADRANTon 0 02-29-2020 [facility] Vital Signs Date Time Vital Sign Value Performing Clinician Zahraa hess 04-01-2024 11:09-0400 Body height 185.42 cm PHYSICIAN NO [facility] 04-01-2024 11:09-0400 Body mass index (BMI) [Ratio] 27.1 kg/m2 PHYSICIAN NO [facility] 04-01-2024 11:09-0400 Body weight 93.44 kg PHYSICIAN NO [facility] 04-01-2024 11:09-0400 Diastolic blood pressure 70 mm[Hg] PHYSICIAN NO [facility] 04-01-2024 11:09-0400 Systolic blood pressure 119 mm[Hg] PHYSICIAN NO [facility] 11-01-2023 09:14-0400 Body height 185.42 cm PHYSICIAN NO [facility] 11-01-2023 09:14-0400 Body mass index (BMI) [Ratio] 26.9 kg/m2 PHYSICIAN NO [facility] 11-01-2023 09:14-0400 Body temperature 98.5 [degF] PHYSICIAN NO [facility] 11-01-2023 09:14-0400 Body weight 92.7 kg PHYSICIAN NO [facility] 11-01-2023 09:14-0400 Diastolic blood pressure 77 mm[Hg] PHYSICIAN NO [facility] 11-01-2023 09:14-0400 Heart rate 66 /min PHYSICIAN NO [facility] 11-01-2023 09:14-0400 Respiratory rate 18 /min PHYSICIAN NO [facility] 11-01-2023 09:14-0400 SaO2% (BldA) [Mass fraction] 94 % PHYSICIAN NO [facility] 11-01-2023 09:14-0400 Systolic blood pressure 136 mm[Hg] PHYSICIAN NO [facility] 10-02-2023 09:52-0400 Body height 185.[address] [facility] 10-02-2023 09:52-0400 Body mass index (BMI) [Ratio] 26.7 kg/m2 [facility] 10-02-2023 09:52-0400 Body weight 92.[address] [facility] Encounters Encounter Date Encounter Type Care Provider Facility Start: 04-30-2024 End: 04-30-2024 ambulatory Imad Asaad Facility:[facility] Start: 04-01-2024 End: 04-01-2024 ambulatory PHYSICIAN NO [facility] Work Phone: Start: 04-01-2024 End: 04-01-2024 Patient encounter procedure PHYSICIAN NO [facility] Gastroenterology Work Phone: Start: 03-19-2024 End: 03-19-2024 Patient encounter procedure PHYSICIAN NO [facility] Ctr-Lab [place] Work Phone: Start: 03-19-2024 End: 03-19-2024 ambulatory Imad Asaad Facility:[facility] Start: 02-20-2024 End: 02-20-2024 ambulatory Niraj Olivo CYLINDER HONER.[employer] Work Phone: [facility] Comment on above: Steroid-induced diab etes mellitus, subsequent encounter (HCC) (Primary Dx); Current use of insulin (HCC); Autoimmune hepatitis treated with steroids (HCC) Start: 02-20-2024 End: 02-20-2024 Telemedicine consultation with patient Niraj Olivo APRN.[employer]EL[employer] Work Phone: [facility] Start: 02-06-2024 End: 02-06-2024 ambulatory NIRAJ GEOVANI Facility:[facility] Start: 02-03-2024 ambulatory Niraj Olivo CYLINDER HONER.[employer] DEVELOPER Work Phone: [facility] Comment on above: lab work Start: 12-29-2023 End: 12-29-2023 Patient encounter procedure PHYSICIAN NO [facility] Ctr-Lab [place] Work Phone: Start: 12-29-2023 End: 12-29-2023 ambulatory PHYSICIAN NO [facility] Ctr Work Phone: Start: 11-09-2023 Refill Debra an MD Work Phone: [facility] Comment on above: Refill Request Start: 11-01-2023 End: 11-01-2023 ambulatory PHYSICIAN NO [facility] ed Center Work Phone: Start: 11-01-2023 End: 11-01-2023 Patient encounter procedure PHYSICIAN NO [facility] [place] Work Phone: Start: 10-20-2023 End: 10-20-2023 Patient encounter procedure PHYSICIAN NO [facility] Ctr-Ultrasound [place] Work Phone: Start: 10-20-2023 End: 10-20-2023 ambulatory PHYSICIAN NO [facility] Ctr Work Phone: Start: 10-02-2023 End: 10-02-2023 ambulatory [facility] Work Phone: Start: 10-02-2023 End: 10-02-2023 Patient encounter procedure [facility] Gastroenterology Work Phone: Start: 09-08-2023 Refill Debra an MD Work Phone: [facility] Comment on above: Refill Request Start: 09-05-2023 End: 09-05-2023 Telemedicine consultation with patient Niraj Olivo CYLINDER HONER.[employer] R[employer] DEVELOPER Work Phone: [facility] Start: 09-05-2023 End: 09-05-2023 ambulatory Niraj Olivo CYLINDER HONER.[employer] DEVELOPER Work Phone: [facility] Comment on above: Current use of insul in (HCC) (Primary Dx); Steroid-induced diabetes mellitus, subsequent encounter (HCC) Start: 09-04-2023 Refill Debra an MD Work Phone: [facility] Comment on above: Refill Request Start: 08-22-2023 End: 08-22-2023 ambulatory NIRAJ OLIVO Facility:[facility] Start: 05-19-2023 End: 05-19-2023 ambulatory NIRAJ GEOVANI Facility:[facility] Start: 04-18-2023 Refill Niraj Olivo CYLINDER HONER.[employer] DEVELOPER Work Phone: [facility] Comment on above: Refill Request Start: 04-04-2023 End: 04-04-2023 ambulatory DEBRA MCBRIDE Facility:[facility] Start: 03-07-2023 End: 03-07-2023 ambulatory NIRAJ OLIVO Facility:[facility] Start: 02-25-2023 End: 02-25-2023 ambulatory DEBRA MCBRIDE Facility:[facility] Start: 02-25-2023 End: 02-25-2023 Subsequent hospital visit by physician [facility] Comment on above: Autoimmune hepatitis treated with steroids (HCC) [K75.4] Start: 02-19-2023 Refill Debra an MD Work Phone: Gastroenterology Comment on above: Refill Request Start: 02-18-2023 ambulatory Debra an MD Work Phone: [facility] Start: 02-18-2023 Follow-up encounter Debra Mcbride MD Work Phone: Gastroenterology Comment on above: follow up visit-[facility] Start: 02-17-2023 End: 02-17-2023 ambulatory Debra Mcbride MD Work Phone: Gastroenterology Comment on above: Other cirrhosis of l iver (HCC) (Primary Dx) Start: 02-17-2023 End: 02-17-2023 Telemedicine consultation with patient Debra Mcbride MD Work Phone: [facility] Start: 01-05-2023 Refill Niraj Olivo CYLINDER HONER.[employer] DEVELOPER Work Phone: Endocrinology Comment on above: Refill Request Start: 12-31-2022 Refill Niraj Olivo APRN.[employer] RAY DEVELOPER Work Phone: [facility] Comment on above: Refill Request Start: 12-30-2022 [...] 11-04-2022 ambulatory Debra an MD Work Phone: [facility] Start: 11-04-2022 Patient encounter procedure Debra Mcbride MD Work Phone: Gastroenterology Comment on above: appointment Start: 10-21-2022 End: 10-22-[address] ADALID ORLANDO Facility:[facility] Start: 10-17-2022 End: 10-18-[address] ADALID ORLANDO Facility:[facility] Start: 10-08-2022 End: 10-09-[address] ADALID ORLANDO Facility:[facility] Start: 10-03-2022 End: 10-04-[address] ADALID ORLANDO Facility:[facility] Start: 10-01-2022 Telephone encounter Debra Mcbride MD Work Phone: [facility] Provider Adult Comment on above: Orders Start: 10-01-2022 ambulatory DEBRA MCBRIDE Fa cility:[facility] Start: 09-17-2022 Telephone encounter Debra Mcbride MD Work Phone: [facility] Provider Adult Comment on above: Orders Start: 09-16-2022 End: 09-16-2022 Telemedicine consultation with patient Debra Mcbride MD Work Phone: [facility] Start: 09-16-2022 End: 09-16-2022 ambulatory Debra Mcbride MD Work Phone: Gastroenterology Comment on above: Autoimmune hepatitis treated with steroids (HCC) (Primary Dx); Biliary cirrhosis (HCC) Medication refills Start: 09-09-2022 End: 09-10-2022 ambulatory FRANKLIN ZEPEDACH . Facility:[facility] Start: 09-06-2022 End: 09-07-[address] ADALID ORLANDO Facility:[facility] Start: 08-23-2022 End: 08-24-2022 ambulatory [facility] Facility:[facility] Start: 08-12-2022 ambulatory Sara Garland RDMS Radi ology Comment on above: Radiology US Start: 08-12-2022 Patient encounter procedure Sara Garland RDMS [facility] [place] Start: 08-12-2022 End: 08-12-2022 Subsequent hospital visit by physician [facility] Comment on above: Autoimmune hepatitis treated with steroids (HCC) [K75.4] Start: 08-09-2022 End: 08-10-2022 ambulatory [facility] Facility: Start: 07-26-2022 End: 07-27-2022 ambulatory [facility] Facility: Start: 07-19-2022 Telephone encounter Niraj park APRN.X RAY DEVELOPER Work Phone: [facility] Comment on above: Information requeste d Start: 07-16-2022 ambulatory Debra an MD Work Phone: Gastroenterology Comment on above: EGD Start: 07-07-2022 Refill Niraj Olivo CYLINDER HONER.[employer] RAY DEVELOPER Work Phone: [facility] Comment on above: Refill Request Start: 06-20-2022 Refill Niraj Olivo CYLINDER HONER.[employer] RAY DEVELOPER Work Phone: Endocrinology Comment on above: Refill Request Start: 06-19-2022 Refill Niraj Olivo CYLINDER HONER.X RAY DEVELOPER Work Phone: [facility] Comment on above: Refill Request; Refi ll Request Start: 06-18-2022 Get Medical Advice Debra Mcbride MD Work Phone: Gastroenterology Comment on above: Ultrasound order Start: 05-10-2022 End: 05-10-2022 ambulatory Niraj Olivo APRN.X RAY DEVELOPER Work Phone: [facility] Comment on above: Current use of insul in (HCC) (Primary Dx); Steroid-induced diabetes mellitus, sequela (HCC) Start: 05-10-2022 End: 05-10-2022 Telemedicine consultation with patient Niraj Olivo APRN.X RAY DEVELOPER Work Phone: [facility] Start: 02-01-2022 ambulatory Sara Garland RDMS Radi ology Comment on above: Radiology US Start: 02-01-2022 Patient encounter procedure Sara Garland [facility] Start: 01-03-2022 Refill Niraj Olivo APRN.X RAY DEVELOPER Work Phone: Endocrinology Comment on above: Refill [...] Debra Mcbride MD Work Phone: [facility] Start: 11-11-2021 Refill Niraj Olivo APRN.X RAY DEVELOPER Work Phone: [facility] Comment on above: Refill Request Start: 11-09-2021 End: 11-09-2021 ambulatory Niraj Olivo APRN.X RAY DEVELOPER Work Phone: [facility] Comment on above: Steroid-induced diab etes mellitus, sequela (HCC) (Primary Dx); Current use of insulin (HCC) Start: 11-09-2021 End: 11-09-2021 Telemedicine consultation with patient Niraj Olivo APRN.X RAY DEVELOPER Work Phone: [facility] Start: 07-05-2021 End: 07-05-2021 Subsequent hospital visit by physician [facility] Comment on above: Abnormal liver enzym es [R74.8] Start: 10-05-2020 End: 10-05-2020 Subsequent hospital visit by physician [facility] Comment on above: Autoimmune hepatitis treated with steroids (HCC) [K75.4] Start: 02-29-2020 End: 02-29-2020 Subsequent hospital visit by physician [facility] Comment on above: care home current us e of systemic steroids [Z79.52] [...] MD Work Phone: Start: 08-04-2020 Brennen park CYLINDER HONER.X RAY DEVELOPER Work Phone: Start: 02-29-2020 Dxa bone density marnie dy 1/> sites axial renée Ocampo CYLINDER HONER.X RAY DEVELOPER Work Phone: Start: 02-29-2020 Us abdominal real ti me w/image limited Nir Ocampo CYLINDER HONER.X RAY DEVELOPER Work Phone: Plan of Treatment Date Care Activity Detail Author Start: 02-05-2025 Hepatitis B screening Urine Albumin:Creatinine Ratio [facility] Start: 02-05-2025 Hepatitis B surface antibody level LDL Cholesterol [facility] Start: 09-03-2024 End: 09-03-2024 ambulatory 09/03/2024 7:45 AM [facility] [address] [place] [id number] Niraj Olivo, CYLINDER HONER.[facility] [id number] [place] [id number] diabetic management Endocrinology [place] Comment on above: diabetic management Start: 08-08-2024 Hemoglobin A1c measurement HbA1C [facility] Start: 05-19-2024 Hepatitis B screening Urine Albumin:Creatinine Ratio [facility] Start: 05-19-2024 Hepatitis B surface antibody level LDL Cholesterol [facility] Start: 03-21-2024 [facility] Start: 03-05-2024 End: 09-14-2024 ALBUMIN/CREAT RATIO RND UR ALBUMIN/CREAT RATIO RND UR Lab Routine Steroid-induced diabetes mellitus, subsequent encounter (HCC) Expected: 03/05/2024 (Approximate), Expires: 09/14/2024 [facility] Work Phone: Comment on above: Expected: 03/05/2024 (Approximate), Expires: 09/14/2024 Start: 03-05-2024 End: 09-14-2024 Comprehensive metabolic 2000 panel - Serum or Plasma COMP METABOLIC PANEL Lab Routine Steroid-induced diabetes mellitus, subsequent encounter (HCC) Expected: 03/05/2024 (Approximate), Expires: 09/14/2024 [facility] Work Phone: Comment on above: Expected: 03/05/2024 (Approximate), Expires: 09/14/2024 Start: 03-05-2024 End: 09-14-2024 Hemoglobin A1c in Blood HGB A1C Lab Routine Steroid-induced diabetes mellitus, subsequent encounter (HCC) Expected: 03/05/2024 (Approximate), Expires: 09/14/2024 [facility] Work Phone: Comment on above: Expected: 03/05/2024 (Approximate), Expires: 09/14/2024 Start: 03-05-2024 End: 06-04-2024 Lipid 1996 panel - Serum or Plasma LIPID PANEL BASIC Lab Routine Steroid-induced diabetes mellitus, subsequent encounter (HCC) Expected: 03/05/2024 (Approximate), Expires: 06/04/2024 [facility] Work Phone: Comment on above: Expected: 03/05/2024 (Approximate), Expires: 06/04/2024 Start: 02-20-2024 Hemoglobin A1c measurement HbA1C [facility] Start: 02-20-2024 End: 02-20-2024 Follow-up encounter 02/20/2024 7:45 AM EDT [facility] Endocrinology [place] [address] [place] [address] Niraj Olivo APRN.X RAY DEVELOPER [address] [place] [address] Diabetic follow up Endocrinology [place] Comment on above: Diabetic follow up Start: 02-06-2024 End: 02-06-2024 ambulatory 02/06/2024 8:30 AM EDT Results Only [facility] [address] [place] [address] [place] [address] [facility] Start: 12-04-2023 End: 03-04-2024 Hemoglobin A1c in Blood HGB A1C Lab Routine Steroid-induced diabetes mellitus, subsequent encounter (HCC) Expected: 12/04/2023 (Approximate), Expires: 03/04/2024 [facility] Work Phone: Comment on above: Expected: 12/04/2023 (Approximate), Expires: 03/04/2024 Start: 08-04-2023 Colonoscopy COLONOSCOPY [facility] Start: 08-04-2023 COLORECTAL CANCER SCREENING COLORECTAL CANCER SCREENING [facility] Start: 08-04-2023 Screening for malign ant neoplasm of colon [facility] Start: 07-21-2023 Behavioral Health Screening Behavioral Health Screening [facility] Start: 07-21-2023 Depression Assessment Depression Ass essment [facility] Start: 05-03-2023 Hemoglobin A1c/Hemoglobin.total in Blood HBA1C [facility] Start: 03-21-[address] [facility] Start: 02-17-2023 End: 04-19-2023 PT panel - Platelet poor plasma by Coagulation assay PROTHROMBIN TIME/PT Lab Routine Other cirrhosis of liver (HCC) Expected: 02/17/2023, Expires: 04/19/2023 [facility] Work Phone: Comment on above: Expected: 02/17/2023 , Expires: 04/19/2023 Start: 02-09-2023 Hemoglobin A1c/Hemoglobin.total in Blood HBA1C [facility] Start: 10-26-2022 Hepatitis B screening URINE ALBUMIN:CREATININE RATIO [facility] Start: 10-21-2022 Hemoglobin A1c/Hemoglobin.total in Blood HBA1C [facility] Start: 09-16-2022 End: 11-16-2022 CBC W Auto Differential panel - Blood CBC + DIFF Lab Routine Autoimmune hepatitis treated with steroids (HCC) Biliary cirrhosis (HCC) Expected: 09/16/2022, Expires: 11/16/2022 [facility] Work Phone: Comment on above: Expected: 09/16/2022 , Expires: 11/16/2022 Start: 09-16-2022 End: 11-16-2022 Hepatic function 2000 panel - Serum or Plasma HEPATIC FUNCTION PNL Lab Routine Autoimmune hepatitis treated with steroids (HCC) Biliary cirrhosis (HCC) Expected: 09/16/2022, Expires: 11/16/2022 [facility] Work Phone: Comment on above: Expected: 09/16/2022 , Expires: 11/16/2022 Start: 07-21-2022 DEPRESSION ASSESSMENT DEPRESSION ASS ESSMENT [facility] Start: 05-11-2022 End: 07-11-2022 Hemoglobin A1c/Hemoglobin.total in Blood HGB A1C Lab Routine Steroid-induced diabetes mellitus, sequela (HCC) Expected: 05/11/2022 (Approximate), Expires: 07/11/2022 [facility] Work Phone: Comment on above: Expected: 05/11/2022 (Approximate), Expires: 07/11/2022 Start: 03-21-[address] [facility] Start: 02-28-2022 End: 11-28-2022 EGD DIAGNOSTIC EGD DIAGNOSTIC Endoscopy Routine Biliary cirrhosis (HCC) Autoimmune hepatitis treated with steroids (HCC) Other cirrhosis of liver (HCC) Expected: 02/28/2022, Expires: 11/28/2022 [facility] Work Phone: Comment on above: Expected: 02/28/2022 , Expires: 11/28/2022 Start: 02-08-2022 End: 04-10-2022 Hemoglobin A1c/Hemoglobin.total in Blood HGB A1C Lab Routine Steroid-induced diabetes mellitus, sequela (HCC) Expected: 02/08/2022 (Approximate), Expires: 04/10/2022 [facility] Work Phone: Comment on above: Expected: 02/08/2022 (Approximate), Expires: 04/10/2022 Start: 01-25-2022 Hemoglobin A1c/Hemoglobin.total in Blood HBA1C [facility] Start: 12-25-2021 End: 12-25-2022 ALPHA FETOPROTEIN BL ALPHA FETOPROTEIN BL Lab Routine Biliary cirrhosis (HCC) Expected: 12/25/2021, Expires: 12/25/2022 [facility] Work Phone: Comment on above: Expected: 12/25/2021 , Expires: 12/25/2022 Start: 12-25-2021 End: 12-25-2022 CBC W Auto Differential panel - Blood CBC + DIFF Lab Routine Biliary cirrhosis (HCC) Expected: 12/25/2021, Expires: 12/25/2022 [facility] Work Phone: Comment on above: Expected: 12/25/2021 , Expires: 12/25/2022 Start: 12-25-2021 End: 12-25-2022 HEPATIC FUNCTION PNL HEPATIC FUNCTION PNL Lab Routine Biliary cirrhosis (HCC) Expected: 12/25/2021, Expires: 12/25/2022 [facility] Work Phone: Comment on above: Expected: 12/25/2021 , Expires: 12/25/2022 Start: 11-28-2021 End: 01-28-2022 ALPHA FETOPROTEIN BL ALPHA FETOPROTEIN BL Lab Routine Biliary cirrhosis (HCC) Expected: 11/28/2021, Expires: 01/28/2022 [facility] Work Phone: Comment on above: Expected: 11/28/2021 , Expires: 01/28/2022 Start: 11-28-2021 End: 01-28-2022 CBC W Auto Differential panel - Blood CBC + DIFF Lab Routine Biliary cirrhosis (HCC) Expected: 11/28/2021, Expires: 01/28/2022 [facility] Work Phone: Comment on above: Expected: 11/28/2021 , Expires: 01/28/2022 Start: 11-28-2021 End: 01-28-2022 HEPATIC FUNCTION PNL HEPATIC FUNCTION PNL Lab Routine Biliary cirrhosis (HCC) Expected: 11/28/2021, Expires: 01/28/2022 [facility] Work Phone: Comment on above: Expected: 11/28/2021 , Expires: 01/28/2022 Start: 08-10-2021 Hepatitis B surface antibody level LDL CHOLESTEROL [facility] Start: 07-21-2021 DEPRESSION ASSESSMENT DEPRESSION ASS ESSMENT [facility] Start: 12-04-2020 COVID-19 VACCINE (3 - Moderna risk 4-dose series) COVID-19 VACCINE (3 - Moderna risk 4-dose series) [facility] Start: 12-04-2020 COVID-19 VACCINE (3 - Moderna risk series) COVID-19 VACCINE (3 - Moderna risk series) [facility] Start: 2020 PROSTATE CANCER SCREENING DISCUSSION PROSTATE CANCER SCREENING DISCUSSION [facility] Start: 2020 Prostate specific antigen measurement Prostate Cancer Screening Discussion [facility] Start: 2015 SHINGRIX VACCINE (1 of 2) SHINGRIX VACCINE (1 of 2) [facility] Start: 2010 COLOGUARD (FIT-DNA) COLOGUARD (FIT-D NA) [facility] Start: [address] COLONOGRAPHY [facility] Start: 2010 FECAL OCCULT BLOOD FECAL OCCULT BLOO D [facility] Start: 2010 Screening for malign ant neoplasm of colon [facility] Start: 2010 [facility] Start: 1984 SHINGRIX VACCINE (1 of 2) SHINGRIX VACCINE (1 of 2) [facility] Start: 1984 Urine microalbumin profile [facility] Start: 1983 ANNUAL PCP TEAM [employer] GENA DISEASE VISIT ANNUAL PCP TEAM CHRONIC DISEASE VISIT [facility] Start: 1983 Anxiety Screening Anxiety Screening [facility] Start: 1983 Depression Screening Depression Scre ening [facility] Start: 1983 HIV SCREENING HIV SCREENING [facility] Start: 1983 HIV screening HIV Screening [facility] Start: 1981 ONE PNEUMOVAX PRIOR TO AGE 65 ONE PNEUMOVAX PRIOR TO AGE 65 [facility] Start: 1977 Adult depression screening assessment DEPRESSION SCREENING [facility] Start: 1975 3 comp foot exam completed DIABETIC FOOT EXAM [facility] Start: 1975 Diabetic foot examination Diabetic Foot Exam [facility] Start: 1975 Glaucoma screening Dilated Retinal E xam [facility] Start: 1975 Hepatitis C antibody , confirmatory test DILATED RETINAL EXAM [facility] Start: 1971 PNEUMOCOCCAL (1 - PCV) PNEUMOCOCCAL (1 - PCV) [facility] Start: 1971 Pneumococcal vaccination [facility] Fmzfr-7-eonplzqgbiz. jahaira or marker [Mass/volume] in Serum or Plasma [facility] Gpjzr-1-hmtcqsxbanq. jahaira or marker [Mass/volume] in Serum or Plasma [facility] End: 02-17-2024 Hepatic function 2000 panel - Serum or Plasma HEPATIC FUNCTION PNL Lab Routine Other cirrhosis of liver (HCC) Once per month for 5 Occurrences starting 02/17/2023 until 02/17/2024 [facility] Work Phone: Comment on above: Once per month for 5 Occurrences starting 02/17/2023 until 02/17/2024 IgG [Mass/volume] in Serum or Plasma [facility] End: 07-18-2023 Us abdominal real time w/image limited US ABD RT UPPER QUADRANT Radiology Routine Autoimmune hepatitis treated with steroids (HCC) Every 6 months for 10 Occurrences starting 06/18/2022 until 07/18/2023 [facility] Work Phone: Comment on above: Every 6 months for 1 0 Occurrences starting 06/18/2022 until 07[facility]18/2023 [facility] Immunizations Immunization Date Immunization Notes Care Provider Fa quirino 11-06-2020 COVID-19 vaccine, fu ll dose (MODERNA) Niraj Olivo APRN.X RAY DEVELOPER Work Phone: [facility] 10-09-2020 COVID-19 vaccine, fu ll dose (MODERNA) Niraj Olivo APRN.X RAY DEVELOPER Work Phone: [facility] 05-02-2020 influenza virus vacc ine, unspecified formulation Niraj Olivo APRN.X RAY DEVELOPER Work Phone: [facility] 09-15-2016 hepatitis A and hepatitis B vaccine Niraj Olivo APRN.X RAY DEVELOPER Work Phone: [facility] 04-13-2016 influenza, live, intranasal, quadrivalent Niraj Olivo APRN.X RAY DEVELOPER Work Phone: [facility] 04-13-2015 hepatitis A and hepatitis B vaccine Niraj Olivo APRN.X RAY DEVELOPER Work Phone: [facility] 08-22-2011 hepatitis B vaccine, adult dosage Niraj Olivo APRN.X RAY DEVELOPER Work Phone: [facility] 05-14-2011 hepatitis A vaccine, adult dosage Niraj Olivo APRN.X RAY DEVELOPER Work Phone: [facility] Payers Date Payer Category Payer Self-pay [id number] 2006 Unknown [facility] [id number] 2006-Present [phone] [address] [place] [id number] PPO [id number] 2006 Unknown [facility] [id number] 2006-Present [phone] [address] [place] [address] PPO [id number] 1965 Unknown [id number] [id number] 1965 Unknown [id number] 2.16.840.1.849914.3.579.2.593 1965 Unknown [id number] 2.16.840.1.289574.3.579.2.593 1965 Unknown [id number] 2.16.840.1.690810.3.579.2.593 1965 Unknown [id number] 2.16.840.1.942822.3.579.2.593 1965 Unknown [id number] 2.16.840.1.477796.3.579.2.593 1965 Unknown [id number] 2.16.840.1.830903.3.579.2.593 1965 Unknown [id number] 2.16.840.1.374974.3.579.2.593 1965 Unknown [id number] 2.16.840.1.380748.3.579.2.593 1965 Unknown [id number] 2.16.840.1.126085.3.579.2.593 1965 Unknown [id number] 2.16.840.1.820273.3.579.2.593 1965 Unknown [id number] 2.16.840.1.495007.3.579.2.593 1965 Unknown [id number] 2.16.840.1.883550.3.579.2.593 1965 Unknown [id number] 2.16.840.1.614456.3.579.2.593 1965 Unknown [id number] 2.16.840.1.577940.3.579.2.593 1959 Unknown [id number] 2.16.840.1.563904.3.579.2.531 Unknown [id number] 2.16.840.1.446636.3.579.2.531 Unknown [id number] 2.16.840.1.294028.3.579.2.531 Unknown [id number] 2.16.840.1.039899.3.579.2.531 Social History Date Type Detail Facility Start: 07-22-2014 End: 05-17-2016 Tobacco smoking status NHIS Ex-smoker [facility] End: 05-17-2010 History of tobacco use Current smoker [facility] Start: 05-17-2016 Tobacco use and exposure Smokeless tobacco non-user [facility] Start: 11-09-2021 End: 02-20-2024 Alcohol intake Current non-drinker of alcohol (finding) [facility] Start: 1965 Sex Assigned At Not on file [facility] Start: 01-30-2020 End: 11-29-2021 Exposure to SARS-CoV-2 (event) Not sure [facility] Work Phone: Start: 01-22-2022 End: 02-01-2022 Exposure to SARS-CoV-2 (event) Unable to assess [facility] End: 05-17-2010 History of tobacco use Cigarette Smoker [facility] Start: 05-11-2022 End: 02-17-2023 History of Social function [facility] Start: 05-11-2022 End: 02-17-2023 Tobacco use panel [facility] National Score (1-100), lower number is lower risk 77 [facility] Start: 1965 Sex Assigned At Male F [facility] Medical Equipment Procedure Code Equipment Code Equipment Original Text Equipment Identifier Dates [id number], [id number], [id number] Start: 05-25-2018 End: 04-18-2023 Comment on above: Use as instructed Ch nestor blood sugar 3 times a day. Use as directed Check blood sugar 3 times a day. Clinical Notes 02-29-2020 to 02-20-2024 Patient InstructionsNiraj Olivo APRN.CNP - 02/20/2024 7:55 AM EDT Note Date & Type Note Facility 02-20-2024 Instructions Niraj Olivo APRN.CNP 02/20/2024 8:14 AM EDT Plan Continue humalog [...] Schedule ophthalmology appointment documented in this encounter [facility] 02-20-2024 Note HNO ID: [id number] Author: NIRAJ OLIVO APRN.CNP Service: ? Author [...] visit. Either the patient or their legal account service representative has been informed of the risks [...] specialist. PVRs done, now being seen by phone manager in wound care due to wounds associated [...] DME - Miscellaneous Other blood sugar diagnostic (Specialized TechUCH VERIO TEST STRIPS) test strip Use as instructed Check blood sugar 3 times a day. Medical Supplies and DME - Blood Glucose Tests Blood-Glucose Meter (Specialized TechUCH VERIO FLEX METER) Use as directed to test glucose 3 times daily Medical Supplies and DME - Glucose Monitoring Test Supplies Insulin Sugar Run, Disposable, (BD ULTRA-FINE MARISSA PEN NEEDLE) 32 gauge x 5/32 Use as directed Medical Supplies and DME - Insulin Sugar Run-Syringes and Admin Supplies lancets (ONE TOUCH DELICA) 33 gauge Check blood sugar 3 times a day. Medical Supplies and DME - Glucose Monitoring Test Supplies lansoprazole (PREVACID) 30 mg capsule Take 1 capsule by mouth once daily. Gastric Acid Secretion Bark Grinder - Proton Pump Inhibitors (PPIs) mycophenolate Mofetil [...] Irregular heartbeat: No (more content not included)... [facility] 02-20-2024 History of Present illness Narrative DISTANCE HEALTH VISIT This Team Access Model visit is a virtual encounter. It required patient-provider interaction for the medical decision making as documented below. I have communicated my name and active licensure. The patient's identity and physical location were verified at the time of this visit. Either the patient or their legal account service representative has been informed of the risks [...] specialist. PVRs done, now being seen by phone manager in wound care due to wounds associated [...] DME - Glucose Monitoring Test Supplies Insulin Sugar Run, Disposable, (BD ULTRA-FINE MARISSA PEN NEEDLE) 32 gauge x 5/32 Use as directed Medical Supplies and DME - Insulin Sugar Run-Syringes and Admin Supplies lancets (ONE TOUCH DELICA) 33 gauge Check blood sugar 3 times a day. Medical Supplies and DME - Glucose Monitoring Test Supplies lansoprazole (PREVACID) 30 mg capsule Take 1 capsule by mouth once daily. Gastric Acid Secretion Bark Grinder - Proton Pump Inhibitors (PPIs) mycophenolate Mofetil [...] 166 09/14/2021 210 04/13/2021 Test reordered by [facility]. 04/13/2021 201 Potassium (mmol/L) Date Value 02/06/2024 4.1 09/14/2021 4.2 Sodium (mmol/L) Date Value 02/06/2024 143 05/19/2023 139 09/14/2021 136 04/13/2021 Test reordered by [facility]. 04/13/2021 137 Chloride (mmol/L) Date Value 02/06/2024 113 05/19/2023 107 09/14/2021 105 04/13/2021 Test reordered by [facility]. 04/13/2021 104 CO2 (mmol/L) Date Value 02/06/2024 23 05/19/2023 22 09/14/2021 24 04/13/2021 Test reordered by [facility]. 04/13/2021 23 Creatinine (mg/dL) Date Value 02/06/2024 0.89 05/19/2023 0.95 09/14/2021 0.79 04/13/2021 Test reordered by [facility]. 04/13/2021 0.79 BUN (mg/dL) Date Value 02/06/2024 11 05/19/2023 14 09/14/2021 12 04/13/2021 Test reordered by [facility]. 04/13/2021 14 Anion Gap (mmol/L) Date Value 02/06/2024 7 05/19/2023 10 09/14/2021 7 04/13/2021 Test reordered by [facility]. 04/13/2021 10 Calcium (mg/dL) Date Value 09/14/2021 9.3 04/13/2021 Test reordered by [facility]. 04/13/2021 9.1 Calcium, Total (mg/dL) Date Value 02/06/2024 9.2 05/19/2023 9.0 eGFR- (no units) Date Value 09/14/2021 >60 04/13/2021 Test reordered by [facility]. 04/13/2021 >60 eGFR-All Other Races (.) Date Value 09/14/2021 >60 04/13/2021 Test reordered by [facility]. 04/13/2021 >60 Estimated Glomerular Filtration Rate (mL/min/1.73m ) Date Value 02/06/2024 99 05/19/2023 93 ALT (U/L) Date Value 02/06/2024 112 08/22/2023 102 05/19/2023 131 09/14/2021 162 04/13/2021 Test reordered by [facility]. 04/13/2021 200 No results found for: TSH [...] no history of retinopathy. Will refer to hand finisher. Patient to continue to follow up with [...] which included preparing to see the patient, [id number] patient care, completing clinical documentation, obtaining and/or reviewing separately obtained history, performing a medically appropriate examination, counseling and educating the patient/family/caregiver and ordering medications, tests, or procedures. Niraj Olivo APRN.JEFFREY documented in this encounter [facility] 01-19-2024 Evaluation note Authored April 01, 2024 11:24am 58-year-old man with liver c irrhosis secondary autoimmune hepatitis on CellCept and prednisone came today for follow-up Continue CellCept same dose 1500 mg twice daily. Patient was on prednisone 30 mg daily which was stopped in 01/2024. Liver enzymes (on 03/19/2024 )remain unchanged while patient off prednisone MELD is 13. Continue to monitor MELD labs. Ultrasound liver showed no liver masses. AFP 5.1. Will check ultrasound and AFP every 6 months for hepatocellular carcinoma screening Patient had EGD with banding in 2014, 2015 and 2022. Will arrange for EGD to evaluate varices Already received hepatitis A and B vaccines. Patient has history of colonic polyps, last colonoscopy was in 2020, next colonoscopy is in 2025 [facility] Work Phone: 1(750) 457-483302-25-2024 Instructions* Patient Instructions* Niraj Olivo APRN.CNP - 09/14/2023 3:31 PM EST Plan Continue [...] 3 days if your fasting blood sugars remainabove 130 mg/dl Check your blood glucose 2 [...] months Schedule ophthalmology appointment documented [facility]2024 NoteHNO ID: [id number] Author: NIRAJ OLIVO APRN.CNP Service: ? Author [...] visit. Either the patient or their legal account service representative has been informed of the risks [...] Medication Dosage Pharm Subclass blood sugar diagnostic (Specialized TechUCH VERIO TEST STRIPS) test strip Use as instructed Check blood sugar 3 times a day. Medical Supplies and DME - Blood Glucose Tests Blood-Glucose Meter (ONETOUCH VERIO FLEX METER) Use as directed to test glucose 3 times daily Medical Supplies and DME - Glucose Monitoring Test Supplies Insulin Sugar Run, Disposable, (BD ULTRA-FINE MARISSA PEN NEEDLE) 32 gauge x /32 Use as directed Medical Supplies and DME - Insulin Sugar Run-Syringes and Admin Supplies lancets (ONE TOUCH DELICA) 33 gauge Check blood sugar 3 times a day. Medical Supplies and DME - Glucose Monitoring Test Supplies lansoprazole (PREVACID) 30 mg capsule Take 1 capsule by mouth once daily. Gastric Acid Secretion Bark Grinder - Proton Pump Inhibitors (PPIs) mycophenolate Mofetil [...] No Headaches: No Memory (more content not included)...[facility]02-16-2024 History of Present illness Narrative* Niraj Olivo APRN.X RAY DEVELOPER - 09/05/2023 7:55 AM EST Images from the original note were not included. DISTANCE HEALTH VISIT This Team Access Model visit is a virtual encounter. It required patient- provider interaction for the medical decision making as documented below. I have communicated my name and active licensure. The patient's identity and physical location were verified at the time of this visit. Either the patient or their legal account service representative has been informed of the risks [...] with breakfast and dinner on work days InsulinAnalogs - Rapid Acting CARDIOVASCULAR Medication Dosage Pharm Subclass carvedilol (COREG) 3.125 mg tablet Take 1 tablet by mouth twice daily. Alpha- Beta Blockers OTHER Medication Dosage Pharm Subclass blood sugar diagnostic (ONETOUCH VERIO TEST STRIPS) test strip Use as instructed Check blood sugar 3 times a day. Medical Supplies and DME - Blood Glucose Tests Blood-Glucose Meter (ONETOUCH VERIO FLEX METER) Use as directed to test glucose 3 times daily Medical Supplies and DME - Glucose Monitoring Test Supplies Insulin Sugar Run, Disposable, (BD ULTRA-FINE MARISSA PEN NEEDLE) 32 gauge x 32 Use as directed Medical Supplies and DME - Insulin Sugar Run-Syringes and Admin Supplies lancets (ONE TOUCH DELRadius App) 33 gauge Check blood sugar 3 times a day. Medical Supplies and DME - Glucose Monitoring Test Supplies lansoprazole (PREVACID) 30 mg capsule Take 1 capsule by mouth once daily. Gastric Acid Secretion Bark Grinder - Proton Pump Inhibitors (PPIs) mycophenolate Mofetil [...] 166 09/14/2021 210 04/13/2021 Test reordered by [facility]. 04/13/2021 201 Potassium (mmol/L) Date Value 05/19/2023 4.4 09/14/2021 4.2 Sodium (mmol/L) Date Value 05/19/2023 139 09/14/2021 136 04/13/2021 Test reordered by [facility]. 04/13/2021 137 Chloride (mmol/L) Date Value 05/19/2023 107 09/14/2021 105 04/13/2021 Test reordered by [facility]. 04/13/2021 104 CO2 (mmol/L) Date Value 05/19/2023 22 09/14/2021 24 04/13/2021 Test reordered by [facility]. 04/13/2021 23 Creatinine (mg/dL) Date Value 05/19/2023 0.95 09/14/2021 0.79 04/13/2021 Test reordered by [facility]. 04/13/2021 0.79 BUN (mg/dL) Date Value 05/19/2023 14 09/14/2021 12 04/13/2021 Test reordered by [facility]. 04/13/2021 14 Anion Gap (mmol/L) Date Value 05/19/2023 10 09/14/2021 7 04/13/2021 Test reordered by [facility]. 04/13/2021 10 Calcium (mg/dL) Date Value 09/14/2021 9.3 04/13/2021 Test reordered by [facility]. 04/13/2021 9.1 Calcium, Total (mg/dL) Date Value 05/19/2023 9.0 eGFR- (no units) Date Value 09/14/2021 >60 04/13/2021 Test reordered by [facility]. 04/13/2021 >60 eGFR-All Other Races (.) Date Value 09/14/2021 >60 04/13/2021 Test reordered by [facility]. 04/13/2021 >60 Estimated Glomerular Filtration Rate (mL/min/1.73m ) Date Value 05/19/2023 93 ALT (U/L) Date Value 08/22/2023 102 05/19/2023 131 04/04/2023 139 09/14/2021 162 04/13/2021 Test reordered by [facility]. 04/13/2021 200 No results found for: TSH [...] 3 days if your fasting blood sugars remainabove 130 mg/dl Check your blood glucose 2 [...] each office visit. I recommended at least 150minutes per week of moderate physical activity, such [...] no history of retinopathy. Will refer to hand finisher. Patient to continue to follow up with [...] which included preparing to see the patient, [id number] patient care, completing clinical documentation, obtaining and/or reviewing separately obtained history, performing a medically appropriate examination, counseling and educating the pat ient/family/caregiver and ordering medications, tests, or procedures. Niraj Olivo APRN.JEFFREY documented in this encounterReg[facility]09-29-2023 Miscellaneous Notes* Telephone Encounter - Jazz Torres RN - 04/18/2023 9:05 AM EDT Requester: Patient Patients last Endocrinology visit occurred [...] breakfast and dinner on work days Insulin Sugar Run, Disposable, (BD ULTRA-FINE MARISSA PEN NEEDLE) 32 [...] needs scheduled appointment No documented in this encounterReg[facility]08-18-2023 NoteHNO ID: [id number] Author: Niraj Olivo APRN.X RAY DEVELOPER Service: ? Author Type: Nurse Practitioner Type: [...] visit. Either the patient or their legal account service representative has been informed of the risks [...] DME - Glucose Monitoring Test Supplies Insulin Sugar Run, Disposable, (BD ULTRA-FINE MARISSA PEN NEEDLE) 32 gauge x 5/32 Use as directed Medical Supplies and DME - Insulin Sugar Run-Syringes and Admin Supplies lancets (ONE TOUCH DELRadius App) 33 gauge Check blood sugar 3 times a day. Medical Supplies and DME - Glucose Monitoring Test Supplies lansoprazole (PREVACID) 30 mg capsule Take 1 capsule by mouth once daily. Gastric Acid Secretion Bark Grinder - Proton Pump Inhibitors (PPIs) mycophenolate Mofetil [...] No Awaken at Nigh (more content not included)...[facility] 02-25-2023 NoteHNO ID: [id number] Author: Yina Valdes RDMS Service: ? Author Type: Customer Sales Representative Type: Progress Notes Filed: 02/25/2023 9:56 AM [...] Yina Valdes RDMS February 25, 2023 9:56 [facility]07-31-2023 History of Present illness Narrative* Debra Hopkins MD - 02/17/2023 6:21 PM EDT Debra' Emma BUI Video visit Hepatology HPI: Nir Ewing is a 57 year old male with past medical history of AIH/cirrhosis. [facility] related cirrhosis (biopsy proven in 2014 at [facility] We repeated a liver biopsy : He [...] are present and contain their [place] bile ducts.An iron stain is negative. A PAS/D stain [...] 178 11/01/2022 ALT 157 11/01/2022 A/p: Mr Gildardo is on video with He was treated [...] /B Osteopenia 2019 to follow locally in [facility] with pcp, but did not do emphasized [...] with more than 50% of the total mbno-oe-[id number] time of the visit incounseling / coordination of care. documented in this encounterReg[facility]06-20-2023 Miscellaneous Notes* Telephone Encounter - Niraj Olivo APRN.CNP - 01/07/2023 10:16 PM EDT Rx e-scripted to preferred pharmacy documented in this encounterRegency [facility]06-13-2023 Miscellaneous Notes* Telephone Encounter - Lindsay Villagomez RN - 12/31/2022 2:14 PM EDT Patients last Endocrinology visit occurred 05/10/22 with Niraj Olivo. Follow-up evaluation has been established 03/07/23 with Niraj Olivo. Requested Prescriptions Pending Prescriptions Disp Refills insulin degludec (TRESIBA FLEXTOUCH U-100) 100 unit/mL (3 mL) injection pen 5 Each 3 Sig: Inject 10 Units subcutaneously every 24 hours. If patient is due for an appointment please route to provider for refill consideration and also to the endo scheduling pool. documented in this encounterRegency [facility]02-28-2023 Miscellaneous Notes* Addendum Note - Debra Mcbride MD - 09/17/2022 1:04 PM ESTAddended by: DEBRA BUENO on: 09/17/2022 01:04 PM Modules accepted: Orders documented in this encounterReg[facility]02-27-2023 History of Present illness Narrative* Debra Mcbride MD - 09/16/2022 4:17 PM EST Debra' Emma BUI Video visit HPI: Nir Ewing is a 56 year old male with past medical history of AIH/cirrhosis. He is here to fup for AIH related cirrhosis (biopsy proven in 2014 at [facility] We repeated a liver biopsy : He [...] are present and contain their [place] bile ducts.An iron stain is negative. A PAS/D stain [...] /B Osteopenia [address] [facility] MELD 11 EGD with grade [...] previous note date 2021 I have documented anychanges and updates during today s visit {I spent 25 minutes in the visit, with more than 50% of the total fcor-kk-mlhc time of the visit incounseling / coordination of care. documented in this encounterRegency [facility]01-23-2023 History of Present illness Narrative* Sara Garland RDMS - 08/12/2022 8:18 AM EST Radiology Service Progress Note PATIENT NAME: Nir Ewing DATE OF SERVICE: August 12, 2022 TIME: 8:18 AM PATIENT IDENTITY VERIFICATION COMPLETED USING TWO (2) IDENTIFIERS: Name and Date of confirmedby patient verbally. FALL SCREENING: Has the patient [...] 12, 2022 8:18 AM documented in this encounterRegency Hospital [facility]12-30-2022 Miscellaneous Notes* Telephone Encounter - KIRK Gordon - 07/19/2022 10:12 AM EST Called [facility] to let them know we need the pt to sign a medical release form and fax it to our medical records department. At [phone] * Telephone Encounter - Aurelia Jones - 07/19/2022 8:43 AM EST Celia from [facility] requesting these items to be faxed as soon as possible. Last office visit notes Medication list History Anything that would be helpful for doctor. Thank you Aurelia Jones documented in this encounterRegency Hospital [facility]12-19-2022 Miscellaneous Notes* Telephone Encounter - KIRK Gordon - 07/08/2022 8:20 AM EST Requester: Patient Patients last Endocrinology visit occurred [...] needs scheduled appointment No documented in this encounterRegency [facility]12-01-2022 Miscellaneous Notes* Addendum Note - Nirajmilana Olivo APRN.CNP - 06/20/2022 1:38 PM ESTAddended by: NIRAJ OLIVO on: 06/20/2022 01:38 PM Modules accepted: Orders * Telephone Encounter - KIRK Gordon - 06/19/2022 2:46 PM EST Requester: Pharmacy Patients last Endocrinology visit occurred [...] needs scheduled appointment No documented in this encounterRegency [facility]12-01-2022 Miscellaneous Notes* Telephone Encounter - KIRK Gordon - 06/20/2022 10:51 AM EST Requester: Patient Patients last Endocrinology visit occurred [...] needs scheduled appointment No documented in this encounterRegency [facility]10-21-2022 Instructions* Patient Instructions* Niraj Olivo APRN.CNP - 05/10/2022 8:17 AM EDT Plan Continue [...] months Schedule ophthalmology appointment documented in this encounterRegency [facility]10-21-2022 History of Present illness Narrative* Niraj Olivo APRN.CNP - 05/10/2022 7:45 AM EDT Images from the original note were not included. DISTANCE HEALTH VISIT This Team Access Model visit is a virtual encounter. It required patient- provider interaction for the medical decision making as [...] visit with me was 04/2021. At that timewe increased Tresiba to 13 unit(s) daily. He [...] with breakfast and dinner on work days InsulinAnalogs - Rapid Acting OTHER Medication Dosage Pharm Subclass blood sugar diagnostic (ONETOUCH VERIO TEST STRIPS) test strip Use as instructed Check blood sugar 3 times a day. Medical Supplies and DME - Blood Glucose Tests Blood-Glucose Meter (ONETOUCH VERIO FLEX METER) Use as directed to test glucose 3 times daily Medical Supplies and DME - Glucose Monitoring Test Supplies Insulin Sugar Run, Disposable, (BD ULTRA-FINE MARISSA PEN NEEDLE) 32 gauge x 5/32 Use as directed Medical Supplies and DME - Insulin Sugar Run-Syringes and Admin Supplies lancets (ONE TOUCH DELICA) [...] Value 09/14/2021 210 04/13/2021 Test reordered by [facility]. 04/13/2021 201 Potassium (mmol/L) Date Value 09/14/2021 4.2 Sodium (mmol/L) Date Value 09/14/2021 136 04/13/2021 Test reordered by [facility]. 04/13/2021 137 Chloride (mmol/L) Date Value 09/14/2021 105 04/13/2021 Test reordered by [facility]. 04/13/2021 104 CO2 (mmol/L) Date Value 09/14/2021 24 04/13/2021 Test reordered by [facility]. 04/13/2021 23 Creatinine (mg/dL) Date Value 09/14/2021 0.79 04/13/2021 Test reordered by [facility]. 04/13/2021 0.79 BUN (mg/dL) Date Value 09/14/2021 12 04/13/2021 Test reordered by [facility]. 04/13/2021 14 Anion Gap (mmol/L) Date Value 09/14/2021 7 04/13/2021 Test reordered by [facility]. 04/13/2021 10 Calcium (mg/dL) Date Value 09/14/2021 9.3 04/13/2021 Test reordered by [facility]. 04/13/2021 9.1 eGFR- (no units) Date Value 09/14/2021 >60 04/13/2021 Test reordered by [facility]. 04/13/2021 >60 eGFR-All Other Races (.) Date Value 09/14/2021 >60 04/13/2021 Test reordered by [facility]. 04/13/2021 >60 ALT (U/L) Date Value 02/01/2022 174 09/14/2021 162 04/13/2021 Test reordered by [facility]. 04/13/2021 200 No results found for: TSH, [...] each office visit. I recommended at least 150minutes per week of moderate physical activity, such [...] no history of retinopathy. Will refer to hand finisher. Patient to continue to follow up with [...] which included preparing to see the patient, [id number] patient care, completing clinical documentation, obtaining and/or reviewing separately obtained history, performing a medically appropriate examination, counseling and educating the pat ient/family/caregiver and ordering medications, tests, or procedures. Niraj Olivo APRN.CNP documented in this encounterRegency Hospital [facility]07-15-2022 History of Present illness Narrative* Sara Garland RDMS - 02/01/2022 8:57 AM EDT Radiology Service Progress Note PATIENT NAME: Nir Ewing DATE OF SERVICE: February 01, 2022 TIME: 8:57 AM PATIENT IDENTITY VERIFICATION COMPLETED USING TWO (2) IDENTIFIERS: Name and Date of confirmedby patient verbally. 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 A PAS/D stain [...] /B Osteopenia [address] [facility] MELD 11 EGD with grade [...] previous note date 2020 I have documented anychanges and updates during today s visit {I spent40 minutes in the visit, with more than 50% of the total fcxz-mw-lwpl time of the visit in counseling / coordination of care. documented in this encounterRegency [facility]2022 Instructions* Patient Instructions* Niraj Olivo APRN.X RAY DEVELOPER - 11/09/2021 8:07 AM EDT Continue humalog [...] months Schedule ophthalmology appointment documented in this encounterRegency Hospital [facility]2022 History of Present illness Narrative* Niraj Olivo APRN.CNP - 11/09/2021 7:41 AM EDT Images from the original note were not included. DISTANCE HEALTH VISIT This Team Access Model visit is a virtual encounter. 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 Was all [...] with breakfast and dinner on work days InsulinAnalogs - Rapid Acting OTHER Medication Dosage Pharm Subclass blood sugar diagnostic (Evinance InnovationTOUCH VERIO TEST STRIPS) test strip Use as instructed Check blood sugar 3 times a day. Medical Supplies and DME - Blood Glucose Tests Blood-Glucose Meter (Evinance InnovationTOUCH VERIO FLEX METER) Use as directed to test glucose 3 times daily Medical Supplies and DME - Glucose Monitoring Test Supplies Insulin Sugar Run, Disposable, (BD ULTRA-FINE MARISSA PEN NEEDLE) 32 gauge x 5/32 Use as directed Medical Supplies and DME - Insulin Sugar Run-Syringes and Admin Supplies lancets (ONE TOUCH DELICA) [...] Value 09/14/2021 210 04/13/2021 Test reordered by [facility]. 04/13/2021 201 Potassium (mmol/L) Date Value 09/14/2021 4.2 Sodium (mmol/L) Date Value 09/14/2021 136 04/13/2021 Test reordered by [facility]. 04/13/2021 137 Chloride (mmol/L) Date Value 09/14/2021 105 04/13/2021 Test reordered by [facility]. 04/13/2021 104 CO2 (mmol/L) Date Value 09/14/2021 24 04/13/2021 Test reordered by [facility]. 04/13/2021 23 Creatinine (mg/dL) Date Value 09/14/2021 0.79 04/13/2021 Test reordered by [facility]. 04/13/2021 0.79 BUN (mg/dL) Date Value 09/14/2021 12 04/13/2021 Test reordered by [facility]. 04/13/2021 14 Anion Gap (mmol/L) Date Value 09/14/2021 7 04/13/2021 Test reordered by [facility]. 04/13/2021 10 Calcium (mg/dL) Date Value 09/14/2021 9.3 04/13/2021 Test reordered by [facility]. 04/13/2021 9.1 eGFR- (no units) Date Value 09/14/2021 >60 04/13/2021 Test reordered by [facility]. 04/13/2021 >60 eGFR-All Other Races (.) Date Value 09/14/2021 >60 04/13/2021 Test reordered by [facility]. 04/13/2021 >60 ALT (U/L) Date Value 09/14/2021 162 04/13/2021 Test reordered by [facility]. 04/13/2021 200 No results found for: TSH, [...] each office visit. I recommended at least 150minutes per week of moderate physical activity, such [...] no history of retinopathy. Will refer to hand finisher. Patient to continue to follow up with [...] which included preparing to see the patient, [id number] patient care, completing clinical documentation, obtaining and/or reviewing separately obtained history, performing a medically appropriate examination, counseling and educating the pat ient/family/caregiver and ordering medications, tests, or procedures. Niraj Olivo APRN.CNP [facility] History of Present illness Narrative* Giovanny Salgado (Rt), Tech - 02/29/2020 11:15 AM EDT Radiology Service Progress Note PATIENT NAME: Nir Ewing DATE OF SERVICE: February 29, 2020 TIME: 10:36 AM PATIENT IDENTITY VERIFICATION COMPLETED USING TWO (2) IDENTIFIERS: Name and Date of confirmedby patient verbally. FALL SCREENING: Has the patient [...] 29, 2020 10:36 AM documented in [facility] encounter[facility] History of Present illness Narrative* Antonia Beltran (Tech), Tech - 02/29/2020 10:00 AM EDT Radiology Service Progress Note PATIENT NAME: Nir [...] DEPARTMENT: Ultrasound ABDOMEN RUQ SIGNED BY: Antonia MARTINS, RDMS, RVT [facility] Diagnosis Steroid-induced diabetes mellitus, sequela (HCC)- Primary Current use of insulin (HCC) Encounter for long-term (current) use of insulin [facility] Diagnosis Biliary cirrhosis (HCC)- Primary Biliary cirrhosis Autoimmune hepatitis treated with steroids (HCC) Autoimmune hepatitis Other cirrhosis of liver (HCC) [facility] Biliary cirrhosis (HCC)- Primary Biliary cirrhosis [facility] Diagnosis Current use of insulin (HCC)- Primary Encounter for long-term (current) use of insulin Steroid-induced diabetes mellitus, sequela (HCC) [facility] Diagnosis Autoimmune hepatitis treated with steroids (HCC)- Primary Autoimmune hepatitis [facility] Diagnosis Autoimmune hepatitis treated with steroids (HCC)- Primary Autoimmune hepatitis Biliary cirrhosis (HCC) Biliary cirrhosis [facility] Diagnosis Steroid-induced diabetes mellitus, subsequent encounter (HCC)- Primary [facility] Diagnosis Other cirrhosis of liver (HCC)- Primary [facility] Diagnosis Autoimmune hepatitis treated with steroids (HCC) Autoimmune hepatitis [facility] Diagnosis Autoimmune hepatitis treated with steroids (HCC) Autoimmune hepatitis Other cirrhosis of liver (HCC) [facility] Diagnosis Autoimmune hepatitis treated with steroids (HCC) Autoimmune hepatitis [facility] Diagnosis care home current use of systemic steroids Encounter for long-term (current) use of steroids [facility] Diagnosis Abnormal liver enzymes Other nonspecific abnormal serum enzyme levels [facility] Diagnosis Other cirrhosis of liver (HCC) Autoimmune hepatitis treated with steroids (HCC) Autoimmune hepatitis documented in this encounter [facility]* Diagnosis Steroid-induced diabetes mellitus, subsequent encounter (HCC) documented in this encounter [facility] note* Diagnosis Current use of insulin (HCC)- Primary Encounter for long-term (current) use of insulin Steroid-induced diabetes mellitus, subsequent encounter (HCC) documented in this encounter [facility] note* Diagnosis Onset Date Resolution Status Alcoholic cirrhosis acute Autoimmune hepatitis acute [facility] Work Phone: evaluation note* Diagnosis Onset Date Resolution Status Autoimmune hepatitis acute Elevated liver enzymes acute Esophageal varices acute Liver cirrhosis acute Portal hypertension acute [facility] [place] Work Phone: evaluation note* Diagnosis Onset Date Resolution Status Autoimmune hepatitis acute Elevated liver enzymes acute Esophageal varices acute Liver cirrhosis acute Portal hypertension acute Contact with and (suspected) exposure to covid-19 noneactive [facility] Work Phone: evaluation note* Diagnosis Onset Date Resolution Status Autoimmune hepatitis acute Elevated liver enzymes acute Esophageal varices acute Liver cirrhosis acute Portal hypertension acute Contact with and (suspected) exposure to covid-19 noneactive Bronchitis noneactive [facility] Work Phone: evaluation note* Diagnosis Steroid-induced diabetes mellitus, subsequent encounter (HCC)- Primary Current use of insulin (HCC) Encounter for long-term (current) use of insulin Autoimmune hepatitis treated with steroids (HCC) Autoimmune hepatitis documented in this encounter [facility] for referral (narrative)* Outpatient Procedure (Routine) - Pending Review Specialty Diagnoses / Procedures Referred By Michelle t Referred To Contact [facility] Diagnoses Biliary cirrhosis (HCC) Autoimmune hepatitis treated with steroids (HCC) Other cirrhosis of liver (HCC) Procedures EGD DIAGNOSTIC ESOPHAGOGASTRODUODENOSC OPY TRANSORAL DIAGNOSTIC Debra Hopkins MD [address] [place] [address] [facility] [address] [place] [address] Referral ID Status Reason Start Date Expiration Date Visits Requested Visits Authorized [id number] Pending Review Auto-Generat ed Referral 02/28/2022 11/28/2022 1 1 [facility] for referral (narrative)* Diagnostic Procedure Only (Routine) - Pending Review Specialty Diagnoses / Procedures Referred By Contac t Referred To Contact [facility] Diagnoses Autoimmune hepatitis treated with steroids (HCC) Procedures US ABD RT UPPER QUADRANT US ABDOMINAL REAL TIME W/IMAGE LIMITED Debra Hopkins MD [address] [place] [address] [facility] Referral ID Status Reason Start Date Expiration Date Visits Requested Visits Authorized [id number] Pending Review Auto-Generat ed Referral 07/18/2023 10 10 [facility] for referral (narrative)* Diagnostic Procedure Only (Routine) - Closed Specialty Diagnoses / Procedures Referred By Contac t Referred To Contact [facility] Diagnoses Autoimmune hepatitis treated with steroids (HCC) Procedures US ABD RT UPPER QUADRANT US ABDOMINAL REAL TIME W/IMAGE LIMITED Debra Hopkins MD [address] [place] [id number] [facility] Referral ID Status Reason Start Date Expiration Date V isits Requested Visits Authorized [id number] Closed Auto-Generate d Referral 06/18/2022 07/18/2023 10 10 [facility] for referral (narrative)* Diagnostic Procedure Only (Routine) - Closed Specialty Diagnoses / Procedures Referred By Contac t Referred To Contact [facility] Diagnoses Autoimmune hepatitis treated with steroids (HCC) Other cirrhosis of liver (HCC) Procedures US ABD RT UPPER QUADRANT ULTRASOUND-ABDOMINAL PC César Zaldivar MD [address] [place] [address] [facility] Imaging Referral ID Status Reason Start Date Expiration Date V isits Requested Visits Authorized [id number] Closed Auto-Generate d Referral 07/21/2020 07/20/2021 1 1 [facility] for referral (narrative)* Diagnostic Procedure Only (Routine) - Closed Specialty Diagnoses / Procedures Referred By Contac t Referred To Contact [facility] Diagnoses Autoimmune hepatitis treated with steroids (HCC) Procedures US ABD RT UPPER QUADRANT US ABDOMINAL REAL TIME W/IMAGE LIMITED Debra Hopkins MD [address] [place] [id number] [facility] Referral ID Status Reason Start Date Expiration Date V isits Requested Visits Authorized [id number] Closed Auto-Generate d Referral 06/18/2022 07/18/2023 10 10 [facility] for referral (narrative)* Diagnostic Procedure Only (Routine) - Closed Specialty Diagnoses / Procedures Referred By Contac t Referred To Contact [facility] Diagnoses Abnormal liver enzymes Procedures US ABD RT UPPER QUADRANT ULTRASOUND-ABDOMINAL PC Debra Hopkins MD [address] [place] [address] Us Imaging Referral ID Status Reason Start Date Expiration Date V isits Requested Visits Authorized [id number] Closed Auto-Generate d Referral 01/08/2022 07/20/2022 2 2 [facility] for referral (narrative)* Diagnostic Procedure Only (Routine) - Closed Specialty Diagnoses / Procedures Referred By Contac t Referred To Contact [facility] Diagnoses Other cirrhosis of liver (HCC) Autoimmune hepatitis treated with steroids (HCC) Procedures US ABD RT UPPER QUADRANT ULTRASOUND-ABDOMINAL PC Nir Ocampo APRN.CNP [address] [place] [id number] [facility] Referral ID Status Reason Start Date Expiration Date V isits Requested Visits Authorized [id number] Closed Auto-Generate d Referral 07/21/2019 07/20/2020 1 1 [facility] for visit Narrative* Diagnostic Procedure Only (Routine) - Closed Specialty Diagnoses / Procedures Referred By Contac t Referred To Contact [facility] Diagnoses Autoimmune hepatitis (HCC) Procedures US ABD RUQ Self [facility] Referral ID Status Reason Start Date Expiration Date V isits Requested Visits Authorized [id number] Closed OON/Self Pay Override 02/25/2023 07/20/2023 1 1 [facility] for visit Narrative* Diagnostic Procedure Only (Routine) - Closed Specialty Diagnoses / Procedures Referred By Contac t Referred To Contact [facility] Diagnoses Autoimmune hepatitis treated with steroids (HCC) Other cirrhosis of liver (HCC) Procedures US ABD RT UPPER QUADRANT ULTRASOUND-ABDOMINAL PC César Zaldivar MD [address] [place] [address] Us Imaging Referral ID Status Reason Start Date Expiration Date V isits Requested Visits Authorized [id number] Closed Auto-Generate d Referral 07/21/2020 07/20/2021 1 1 [facility] for visit Narrative* Diagnostic Procedure Only (Routine) - Closed Specialty Diagnoses / Procedures Referred By Contac t Referred To Contact [facility] Diagnoses Abnormal liver enzymes Procedures US ABD RT UPPER QUADRANT ULTRASOUND-ABDOMINAL PC Debra Hopkins MD [address] [place] [id number] Us Imaging Referral ID Status Reason Start Date Expiration Date V isits Requested Visits Authorized [id number] Closed Auto-Generate d Referral 01/08/2022 07/20/2022 2 2 [facility] Advance Directives No Advanced Directives Records FoundDocuments on File Type Date Recorded Patient Lead Manufacturing Engineer Expl anation Advance Directive(s) 09/27/2021 8:39 AM Advance Directive(s) 09/14/2021 9:27 AM Documents on File Type Date Recorded Patient Lead Manufacturing Engineer Expl anation Advance Directive(s) 09/27/2021 8:39 AM Advance Directive(s) 09/14/2021 9:27 AM Advance Directive Response Recorded Date/ Time Advance Directives No May 14, 2019 2:27pm Summary Purpose Family History No Family History Records Found Relationship Condition Age at Onset Recorded Date/T julia father Malignant neoplasm Unknown Unknown Not Specified Heart disease Unknown Relationship Condition Age at Onset Recorded Date/T julia father Malignant neoplasm Unknown Unknown mother Heart disease Unknown Chief Complaint and Reason [...] with and (suspected) exposure to covid-19 Bronchitis Chief Complaint k70.30 k75.4 6 month follow up Reason for Visit Autoimmune hepatitis Elevated liver enzymes Esophageal varices Liver cirrhosis Portal hypertension Additional Source Comments Source Comments (unrecognize d section and content) In the event this informatio n is protected by the Federal Confidentiality of Alcohol and Drug Abuse Patient Records regulations: The Federal rules restrict any use of the information to criminally investigate or prosecute any alcohol or drug abuse patient.[facility] the event this information is protected by the Federal Confidentiality of Alcohol and Drug Abuse Patient Records regulations: The Federal rules restrict any use of the information to criminally investigate or prosecute any alcohol or drug abuse patient.[facility] the event this information is protected by the Federal Confidentiality of Alcohol and Drug Abuse Patient Records regulations: The Federal rules restrict any use of the information to criminally investigate or prosecute any alcohol or drug abuse patient.[facility] the event this information is protected by the Federal Confidentiality of Alcohol and Drug Abuse Patient Records regulations: The Federal rules restrict any use of the information to criminally investigate or prosecute any alcohol or drug abuse patient.[facility] the event this information is protected by the Federal Confidentiality of Alcohol and Drug Abuse Patient Records regulations: The Federal rules restrict any use of the information to criminally investigate or prosecute any alcohol or drug abuse patient.[facility]In the event this information is protected by the Federal Confidentiality of Alcohol and Drug Abuse Patient Records regulations: The Federal rules restrict any use of the information to criminally investigate or prosecute any alcohol or drug abuse patient.[facility]In the event this information is protected by the Federal Confidentiality of Alcohol and Drug Abuse Patient Records regulations: The Federal rules restrict any use of the information to criminally investigate or prosecute any alcohol or drug abuse patient.[facility]In the event this information is protected by the Federal Confidentiality of Alcohol and Drug Abuse Patient Records regulations: The Federal rules restrict any use of the information to criminally investigate or prosecute any alcohol or drug abuse patient.[facility]In the event this information is protected by the Federal Confidentiality of Alcohol and Drug Abuse Patient Records regulations: The Federal rules restrict any use of the information to criminally investigate or prosecute any alcohol or drug abuse patient.[facility]In the event this information is protected by the Federal Confidentiality of Alcohol and Drug Abuse Patient Records regulations: The Federal rules restrict any use of the information to criminally investigate or prosecute any alcohol or drug abuse patient.[facility]In the event this information is protected by the Federal Confidentiality of Alcohol and Drug Abuse Patient Records regulations: The Federal rules restrict any use of the information to criminally investigate or prosecute any alcohol or drug abuse patient.[facility] the event this information is protected by the Federal Confidentiality of Alcohol and Drug Abuse Patient Records regulations: The Federal rules restrict any use of the information to criminally investigate or prosecute any alcohol or drug abuse patient.[facility] the event this information is protected by the Federal Confidentiality of Alcohol and Drug Abuse Patient Records regulations: The Federal rules restrict any use of the information to criminally investigate or prosecute any alcohol or drug abuse patient.[facility] the event this information is protected by the Federal Confidentiality of Alcohol and Drug Abuse Patient Records regulations: The Federal rules restrict any use of the information to criminally investigate or prosecute any alcohol or drug abuse patient.[facility] the event this information is protected by the Federal Confidentiality of Alcohol and Drug Abuse Patient Records regulations: The Federal rules restrict any use of the information to criminally investigate or prosecute any alcohol or drug abuse patient.[facility] the event this information is protected by the Federal Confidentiality of Alcohol and Drug Abuse Patient Records regulations: The Federal rules restrict any use of the information to criminally investigate or prosecute any alcohol or drug abuse patient.[facility] the event this information is protected by the Federal Confidentiality of Alcohol and Drug Abuse Patient Records regulations: The Federal rules restrict any use of the information to criminally investigate or prosecute any alcohol or drug abuse patient.[facility] the event this information is protected by the Federal Confidentiality of Alcohol and Drug Abuse Patient Records regulations: The Federal rules restrict any use of the information to criminally investigate or prosecute any alcohol or drug abuse patient.[facility]In the event this information is protected by the Federal Confidentiality of Alcohol and Drug Abuse Patient Records regulations: The Federal rules restrict any use of the information to criminally investigate or prosecute any alcohol or drug abuse patient.[facility]In the event this information is protected by the Federal Confidentiality of Alcohol and Drug Abuse Patient Records regulations: The Federal rules restrict any use of the information to criminally investigate or prosecute any alcohol or drug abuse patient.[facility]In the event this information is protected by the Federal Confidentiality of Alcohol and Drug Abuse Patient Records regulations: The Federal rules restrict any use of the information to criminally investigate or prosecute any alcohol or drug abuse patient.[facility]In the event this information is protected by the Federal Confidentiality of Alcohol and Drug Abuse Patient Records regulations: The Federal rules restrict any use of the information to criminally investigate or prosecute any alcohol or drug abuse patient.[facility]In the event this information is protected by the Federal Confidentiality of Alcohol and Drug Abuse Patient Records regulations: The Federal rules restrict any use of the information to criminally investigate or prosecute any alcohol or drug abuse patient.[facility]In the event this information is protected by the Federal Confidentiality of Alcohol and Drug Abuse Patient Records regulations: The Federal rules restrict any use of the information to criminally investigate or prosecute any alcohol or drug abuse patient.[facility]In the event this information is protected by the Federal Confidentiality of Alcohol and Drug Abuse Patient Records regulations: The Federal rules restrict any use of the information to criminally investigate or prosecute any alcohol or drug abuse patient.[facility]In the event this information is protected by the Federal Confidentiality of Alcohol and Drug Abuse Patient Records regulations: The Federal rules restrict any use of the information to criminally investigate or prosecute any alcohol or drug abuse patient.[facility] the event this information is protected by the Federal Confidentiality of Alcohol and Drug Abuse Patient Records regulations: The Federal rules restrict any use of the information to criminally investigate or prosecute any alcohol or drug abuse patient.[facility]In the event this information is protected by the Federal Confidentiality of Alcohol and Drug Abuse Patient Records regulations: The Federal rules restrict any use of the information to criminally investigate or prosecute any alcohol or drug abuse patient.[facility]In the event this information is protected by the Federal Confidentiality of Alcohol and Drug Abuse Patient Records regulations: The Federal rules restrict any use of the information to criminally investigate or prosecute any alcohol or drug abuse patient.[facility]In the event this information is protected by the Federal Confidentiality of Alcohol and Drug Abuse Patient Records regulations: The Federal rules restrict any use of the information to criminally investigate or prosecute any alcohol or drug abuse patient.[facility]In the event this information is protected by the Federal Confidentiality of Alcohol and Drug Abuse Patient Records regulations: The Federal rules restrict any use of the information to criminally investigate or prosecute any alcohol or drug abuse patient.[facility]In the event this information is protected by the Federal Confidentiality of Alcohol and Drug Abuse Patient Records regulations: The Federal rules restrict any use of the information to criminally investigate or prosecute any alcohol or drug abuse patient.[facility]In the event this information is protected by the Federal Confidentiality of Alcohol and Drug Abuse Patient Records regulations: The Federal rules restrict any use of the information to criminally investigate or prosecute any alcohol or drug abuse patient.[facility]In the event this information is protected by the Federal Confidentiality of Alcohol and Drug Abuse Patient Records regulations: The Federal rules restrict any use of the information to criminally investigate or prosecute any alcohol or drug abuse patient.[facility]In the event this information is protected by the Federal Confidentiality of Alcohol and Drug Abuse Patient Records regulations: The Federal rules restrict any use of the information to criminally investigate or prosecute any alcohol or drug abuse patient.[facility]In the event this information is protected by the Federal Confidentiality of Alcohol and Drug Abuse Patient Records regulations: The Federal rules restrict any use of the information to criminally investigate or prosecute any alcohol or drug abuse patient.[facility]In the event this information is protected by the Federal Confidentiality of Alcohol and Drug Abuse Patient Records regulations: The Federal rules restrict any use of the information to criminally investigate or prosecute any alcohol or drug abuse patient.[facility] Reason for Visit (unrecogniz ed section and content) Reason Comments Insulin Dependent Diabetes Mellitus Specialty Diagnoses / Procedures Referred By Michelle t Referred To Contact ENDOCRINOLOGY Diagnoses Exam Procedures Follow up Self Endo [facility] [address] [address] [place] [address] Referral ID Status Reason Start Date Expiration Date Visits Requested Visits Authorized [id number] Outside PCP OON/Self Pay Override 03/07/2023 09/03/2023 1 1 Reason Comments Cirrhosis Specialty Diagnoses / Procedures Referred By Michelle nichols Referred To Contact GASTROENTEROLOGY Diagnoses Cirrhosis (HCC) Follow [place] [address] [place] [address] Jaclyn [facility] [address] [address] [place] [address] Referral ID Status Reason Start Date Expiration Date Visits Requested Visits Authorized [id number] Pending Review OON/Self Pay Override 09/27/2022 09/28/2023 99 99 Reason Onset Date Comments Refill Request 11/11/2021 Reason Comments Liver Disease Specialty Diagnoses / Procedures Referred By Contact Referred To Contact Gastroenterology / GASTROENTEROLOGY Diagnoses 6 MONTH FOLLOW UP LIVER DISEASE Procedures [place] [address] [place] [address] Debra Hopkins MD [address] [address] Referral ID Status Reason Start Date Expiration Date Visits Re quested Visits Authorized [id number] Closed 11/28/2021 07/20/2022 1 1 Reason Onset Date Comments Refill Request 01/03/2022 Reason Comments Radiology US Reason Onset Date Comments Refill Request 06/19/2022 Refill Request 06/20/2022 Reason Onset Date Comments Refill Request 06/20/2022 Reason Onset Date Comments Refill Request 07/07/2022 Reason Comments Information requested Specialty Diagnoses / Procedures Referred By Michelle nichols Referred To Contact [facility] Diagnoses f/u after EGD Procedures n/[place] [address] [place] [address] [facility] [place] [address] [place] [address] Referral ID Status Reason Start Date Expiration Date Visits Requested Visits Authorized [id number] Pending Review OON/Self Pay Override 09/16/2022 07/20/2023 [...] TIME W/IMAGE [place] [address] [place] [address] Us Imaging Referral ID Status Reason Start Date Expiration Date V isits Requested Visits Authorized [id number] Closed OON/Self Pay Override 08/12/2022 08/21/2022 1 1 Reason Comments Radiology BMD Specialty Diagnoses / Procedures Referred By Contac t Referred To Contact Radiology / RADIO DEXA [facility]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 [Z79.52] Procedures BONE DENSITY ADULT 225 César Zaldivar MD [address] [place] [address] Radio Bone Density [facility] [address] [place] [address] Referral ID Status Reason Start Date Expiration Date Visits Re quested Visits Authorized [id number] Closed 07/21/2019 07/20/2020 1 1 Reason Comments Radiology US Specialty Diagnoses / Procedures Referred By Contac t Referred To Contact US IMAGING Diagnoses Other cirrhosis of liver (HCC) Autoimmune hepatitis treated with steroids (HCC) Procedures US ABD RT UPPER QUADRANT ULTRASOUND-ABDOMINAL PC Nir Ocampo APRN.[employer] [address] [place] [address] Us Imaging Referral ID Status Reason Start Date Expiration Date V isits Requested Visits Authorized [id number] Closed Auto-Generate d Referral 07/21/2019 07/20/2020 1 1 Reason Onset Date Comments Refill Request 04/18/2023 Reason Onset Date Comments Refill Request 09/04/2023 Reason Comments Refill Request (unrecognized sect ion and content) No Status Records FoundNo Status Records FoundNo Status Records FoundNo Status Records Found INFORMATION SOURCE (unrecogn ized section and content) DATE CREATED AUTHOR 10/02/2022 [facility] DATE CREATED AUTHOR AUTHOR'S ORGANIZ ATION 12/03/[address] [facility] DATE CREATED AUTHOR AUTHOR'S ORGANIZ ATION 02/22/[address] [facility] DATE CREATED AUTHOR AUTHOR'S ORGANIZ ATION 05/02/2024 [facility] Care Teams (unrecognized sec tion and content) Personal Lines Sales Rep Relationship Specialty Start Date End Date Crow Rogers [address] [place] [id number] PCP - General Family Medicine 01/27/15 09/13/21 Personal Lines Sales Rep Relationship Specialty Start Date End Date Crow Rogers [address] [facility] [place] [phone] PCP - General Family Medicine 01/27/15 09/13/21 Personal Lines Sales Rep Relationship Specialty Start Date End Date Crow Rogers [address] [place] [phone] PCP - General Family Medicine 01/27/15 09/13/21 Personal Lines Sales Rep Relationship Specialty Start Date End Date Crow Rogers [address] [place] [phone] PCP - General Family Medicine 01/27/15 09/13/21 [...] December 29, 2023 End: December 29, 2023 Team Status: Inactive Member Role Status Dates 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 [facility] [employer] [facility]. provides no warranty or guarantee of the accuracy or completeness of information in this document.
== END 2024-05-03 11:42 | disposition home or self-care (01) ==
LOC: WC 11:42
PROVIDERS: PCP Podiatrist Foot & Ankle Surgery; Visit Provider Physician Assistant
DX: E11.621 Type 2 diabetes mellitus with foot ulcer (principal); L97.422 Non-pressure chronic ulcer of left heel and midfoot with fat layer exposed
CPT/HCPCS: G0463